=== PATIENT | male | born 1965 | race Caucasian/White ===

== ENCOUNTER → 2019-02-23 15:05 | Outpatient (BNVA) | payer MEDICARE, MEDICAID, SELFPAY | PROVIDERS: Family Provider Nurse Practitioner Family; PCP Nurse Practitioner Family; Visit Provider Nurse Practitioner Family | DX: I10 Essential (primary) hypertension (principal); E78.5 Hyperlipidemia, unspecified; J44.9 Chronic obstructive pulmonary disease, unspecified; I25.10 Atherosclerotic heart disease of native coronary artery without angina pectoris; K21.0 Gastro-esophageal reflux disease with esophagitis; F17.200 Nicotine dependence, unspecified, uncomplicated; M06.9 Rheumatoid arthritis, unspecified | CPT/HCPCS: 80053; 80061; 84443; 85025 ==

== ENCOUNTER → 2019-05-13 09:20 | Outpatient (BNVA) | payer MEDICARE, MEDICAID, SELFPAY | PROVIDERS: Family Provider Nurse Practitioner Family; PCP Nurse Practitioner Family; Visit Provider Internal Medicine Rheumatology | DX: M06.9 Rheumatoid arthritis, unspecified (principal) | CPT/HCPCS: 80076; 82565; 85025; 85651; 86140; 86704; 86803; 87340 ==

== ENCOUNTER → 2019-06-01 11:31 | Outpatient (BNVA) | payer MEDICARE, MEDICAID, SELFPAY | PROVIDERS: Family Provider Nurse Practitioner Family; PCP Nurse Practitioner Family; Visit Provider Internal Medicine Nephrology | DX: N18.3 Chronic kidney disease, stage 3 (moderate) (principal) | CPT/HCPCS: 80069; 82044; 82310; 83970; 85025 ==

== ENCOUNTER → 2019-09-06 08:09 | Outpatient (BNVA) | payer MEDICARE, MEDICAID, SELFPAY | PROVIDERS: Family Provider Nurse Practitioner Family; PCP Nurse Practitioner Family; Visit Provider Nurse Practitioner | DX: Z11.59 Encounter for screening for other viral diseases (principal); Z79.899 Other long term (current) drug therapy; I10 Essential (primary) hypertension; Z12.5 Encounter for screening for malignant neoplasm of prostate; E78.5 Hyperlipidemia, unspecified; M05.9 Rheumatoid arthritis with rheumatoid factor, unspecified | CPT/HCPCS: 80053; 80061; 80076; 82565; 84443; 85025; 85651; 86140; 86803; G0103 ==

== ENCOUNTER 2019-10-10 01:32 | Inpatient (IN) | payer MEDICARE, MEDICAID, SELFPAY ==
[2019-10-10] VITALS (69 sets, daily range): BP systolic 91–136; BP diastolic 58–92; PULSE 62–95; RESP 15–26; TEMP 36.6–37.2; O2SAT 87–97; BMI 34.8
--- NOTE | 2019-10-10 01:42 | ECG_ITS ---
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 Measurements Intervals [place] Rate: 78 P: 60 OK: 158 QRS: 33 QRSD: 110 T: 75 QT: 369 QTc: 421 Interpretive Statements SINUS RHYTHM ST depressions in V1 and V2 with presence of R waves consistent with posterior wall myocardial injury Acute PA compared to ECG 10/03/2018 09:52:45 Acute PA present Electronically Signed On 10-10-2019 18:31:43 CDT by Watson Neal M.D. [id number] f
--- NOTE | 2019-10-10 01:43 | XR_ITS ---
WS: [id number] EXAM: AP CHEST: PORTABLE UPRIGHT DATE OF EXAM: 10/10/2019, 1346 hours COMPARISON: Chest x-rays from 12/31/2014 and 10/03/2018 HISTORY: Patient is 53 years old with atraumatic left-sided chest pain with nausea and vomiting for the last d ay. FINDINGS: The cardiac silhouette is normal in size. The mediastinal contours are normal. The pulmonary vas cularity is normal. The lungs are clear of infiltrate. There is no effusion or pneumothorax. No ac [place] bony abnormality is seen. XR/XR chest 1V portable [id number] IMPRESSION: No acute pulmonary disease.
--- NOTE | 2019-10-10 01:51 | ED_ITS ---
Documented by User: BERNA Malcolm 10/10/19 01:52 HPI - Chest Pain General: Chief Complaint: Chest Pain Stated Complaint: CHEST PAIN Time Seen by Provider: 10/10/19 01:41 History of Present Illness: HPI narrative: Patient arrives via ambulance with complaint of chest pain that started just a little while ago while he was in the bathroom. Patient says he took 1 nitro without relief. Says sharp pain and pressure when he takes a deep breath on the left side of his chest. Said he is diaphoretic. Has had some vomiting over the last 12 hours. Denies shortness of breath fever or chills. MD complaint: chest pain and chest discomfort Pertinent past history: coronary artery disease and other (Stent) Onset (ago): hour(s) Timing of current episode: constant Prior episodes: Yes Onset: during rest Pain location: substernal and left chest Pain radiation: none Severity: moderate Quality: tightness and sharp Relieving factors: nothing Exacerbating factors: nothing Associated symptoms: Reports diaphoresis, nausea and vomiting; Deny dyspnea Review of Systems Narrative: Hygiene appears poor Const: Reports: diaphoresis Eyes: Denies: change in vision or blurry vision ENMT: Denies: throat pain or nasal congestion Card: Denies: chest pain or dyspnea on exertion Resp: Denies: dyspnea, productive cough or non-productive cough GI: Reports: nausea and vomiting : Denies: difficulty urinating Musc: Denies: extremity pain Skin/Breast: Denies: rash Neuro: Denies: headache(s) Psych: Denies: anxiety or depression Sagar/Lymph: Denies: easy bruising PFSH ED PFSH: Medical History Chronic kidney disease, stage 3 COPD (chronic obstructive pulmonary disease) Coronary artery disease Dyslipidemia GERD (gastroesophageal reflux disease) High risk medication use Hypertension Immunization counseling PCK (polycystic kidney disease) Rheumatoid arthritis Seropositive rheumatoid arthritis Smoker Family History Other CAD (coronary artery disease) Diabetes Hypertension Systemic lupus erythematosus (SLE) in adult Denies family history of Cancer Stroke Social History Smoking and tobacco status: current every day smoker cigarettes Quit status (tobacco): has tried quititng Second hand smoke exposure: No Smoking risk assessment/counseling performed?: Yes Alcohol intake: former Desire information about alcohol rehabilitation?: No Counseling given: No Household members: spouse Marital status: Course Vital Signs: Vital signs: Vital Signs Temperature 98.1 F 10/10/19 04:15 Pulse Rate 74 10/10/19 04:25 Respiratory Rate 19 H 10/10/19 04:25 Blood Pressure 115/88 10/10/19 04:25 Pulse Oximetry 90 10/10/19 04:25 MDM - Chest Pain Lab Data: Labs: Lab Results 10/10/19 10/10/19 10/10/19 Range/Units 01:48 01:48 01:48 WBC 11.8 H (4.0-10.0) 10^3/ uL RBC 5.94 H (4.1-5.3) 10^6/u L Hgb 16.3 (11.7-16.6) g/dL Hct 50.8 (42.0-52.0) % MCV 85.5 (80-94) fL MCH 27.4 L (28.0-34.0) pg MCHC 32.1 (30.0-36.0) g/dL RDW 13.9 (12.1-15.1) % Plt Count 257 (130-400) 10^3/c mm MPV 9.5 (7.4-10.4) fL Neut % (Auto) 63.3 % Lymph % (Auto) 25.5 % Bollinger % (Auto) 7.3 % Eos % (Auto) 3.0 % Baso % (Auto) 0.5 % Neut # (Auto) 7.43 (1.8-7.7) 10^3/u L Lymph # (Auto) 3.0 (0.8-4.8) 10^3/u L Bollinger # (Auto) 0.9 (0.2-0.9) 10^3/u L Eos # (Auto) 0.4 (0.0-0.8) 10^3/u L Baso # (Auto) 0.1 (0.0-0.1) 10^3/u L Nucleated RBC % (a uto) 0 % Nucleated RBCs # 0.0 /100WBC PT (12.1-14.9) SECO NDS INR (0.8-1.2) APTT (23.9-36.7) SECO NDS Sodium 139 (136-145) mmol/L Potassium 4.4 (3.5-5.1) mmol/L Chloride 104 (98-107) mmol/L Carbon Dioxide 25 (22-29) mmol/L Anion Gap 14.4 (5-19) BUN 37 H (6-20) mg/dL Creatinine 2.5 H (0.7-1.2) mg/dL GFR Calculation 27.3 L (90-130) mL/min Glucose 126 H (65-115) mg/dL Calculated Osmolal ity 287 (285-295) mOsm/k g Calcium 8.9 (8.5-10.5) mg/dL Total Bilirubin 0.2 (0.15-1.2) mg/dL AST 23 (0-40) U/L ALT 22 (0-41) U/L Alkaline Phosphata se 61 (40-130) IU/L Troponin T Baselin e 15 (0-15) ng/L Total Protein 7.3 (6.6-8.7) g/dL Albumin 4.6 (3.5-5.2) g/dL Globulin 2.7 (1.3-4.6) g/dL 10/10/19 Range/Units 01:51 WBC (4.0-10.0) 10^3/ uL RBC (4.1-5.3) 10^6/u L Hgb (11.7-16.6) g/dL Hct (42.0-52.0) % MCV (80-94) fL MCH (28.0-34.0) pg MCHC (30.0-36.0) g/dL RDW (12.1-15.1) % Plt Count (130-400) 10^3/c mm MPV (7.4-10.4) fL Neut % (Auto) % Lymph % (Auto) % Bollinger % (Auto) % Eos % (Auto) % Baso % (Auto) % Neut # (Auto) (1.8-7.7) 10^3/u L Lymph # (Auto) (0.8-4.8) 10^3/u L Bollinger # (Auto) (0.2-0.9) 10^3/u L Eos # (Auto) (0.0-0.8) 10^3/u L Baso # (Auto) (0.0-0.1) 10^3/u L Nucleated RBC % (a uto) % Nucleated RBCs # /100WBC PT 13.00 (12.1-14.9) SECO NDS INR 0.95 (0.8-1.2) APTT 27.2 (23.9-36.7) SECO NDS Sodium (136-145) mmol/L Potassium (3.5-5.1) mmol/L Chloride (98-107) mmol/L Carbon Dioxide (22-29) mmol/L Anion Gap (5-19) BUN (6-20) mg/dL Creatinine (0.7-1.2) mg/dL GFR Calculation (90-130) mL/min Glucose (65-115) mg/dL Calculated Osmolal ity (285-295) mOsm/k g Calcium (8.5-10.5) mg/dL Total Bilirubin (0.15-1.2) mg/dL AST (0-40) U/L ALT (0-41) U/L Alkaline Phosphata se (40-130) IU/L Troponin T Baselin e (0-15) ng/L Total Protein (6.6-8.7) g/dL Albumin (3.5-5.2) g/dL Globulin (1.3-4.6) g/dL Discharge Plan Discharge Patient Disposition: Admitted As Inpatient Admit Provider: Danica Bowie Clinical Impression: ST elevation myocardial infarction (STEMI) Qualifiers: Involved coronary artery: other inferior wall coronary artery Qualified Code(s): I21.19 - ST elevation (STEMI) myocardial infarction involving other coronary artery of inferior wall Condition: Stable Discharge Date/Time: 10/10/19 04:26 Coding Level of Care Code 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 Comprehensive Documented by User: Raji High DO 10/10/19 04:58 HPI - Chest Pain General: Chief Complaint: Chest Pain Stated Complaint: CHEST PAIN Time Seen by Provider: 10/10/19 01:41 PFSH ED PFSH: Medical History Chronic kidney disease, stage 3 COPD (chronic obstructive pulmonary disease) Coronary artery disease Dyslipidemia GERD (gastroesophageal reflux disease) High risk medication use Hypertension Immunization counseling PCK (polycystic kidney disease) Rheumatoid arthritis Seropositive rheumatoid arthritis Smoker Family History Other CAD (coronary artery disease) Diabetes Hypertension Systemic lupus erythematosus (SLE) in adult Denies family history of Cancer Stroke Social History Smoking and tobacco status: current every day smoker cigarettes Quit status (tobacco): has tried quititng Second hand smoke exposure: No Smoking risk assessment/counseling performed?: Yes Alcohol intake: former Desire information about alcohol rehabilitation?: No Counseling given: No Household members: spouse Marital status: Physical Exam Const: GENERAL APPEARANCE: well developed, in distress and diaphoretic ORIENTATION/CONSCIOUSNESS: Yes oriented to person, Yes oriented to place and Yes oriented to time HENMT: COMMON NORMALS: normocephalic, external ears normal and Normal external nose present HEAD & SCALP: normocephalic FACE & SINUS: normal facial exam NOSE: Normal external nose present and No nasal discharge present EXTERNAL EAR: Yes external ears normal Eye: COMMON NORMALS: Equal, round and reactive pupils present, EOMs intact miriam aterally and conjunctivae normal EYELID: eyelids normal CONJUNCTIVA: Yes conjunctivae normal PUPIL: Yes Equal, round and reactive pupils present Chest: COMMONS NORMALS: normal inspection of the chest CHEST: No tenderness Resp: COMMON NORMALS: clear to auscultation bilaterally EFFORT & INSPECTION: No tachypneic, No respiratory distress, No retractions, No uses accessory muscles and No tracheal deviation AUSCULTATION: clear to auscultation bilaterally, no rhonchi, no wheezes and lung sounds not diminished Cardio: COMMON NORMALS: regular rate and regular rhythm RATE: regular rate RHYTHM: regular rhythm HEART SOUNDS: no murmurs PERIPHERAL PULSES: radial pulses present GI: INSPECTION: No abdominal distension AUSCULTATION: No Hyperactive bowel sounds present and No Hypoactive bowel sounds present PALPATION: No Guarding due to palpation present (GI) and No Rigid due to palpation PERCUSSION: no dullness to percussion and no tympanic to percussion Neuro: SENSORIUM/ORIENTATION: Yes oriented to person, Yes oriented to place and Yes oriented to time Psych: COMMON NORMALS: mental status grossly normal Skin: COMMON NORMALS: no rashes or lesions noted GENERAL SKIN EXAM: no rashes or lesions noted Course Consultations: Consultation #1: Val Time: 01:45 Vital Signs: Vital signs: Vital Signs Temperature 98.1 F 10/10/19 04:15 Pulse Rate 74 10/10/19 04:25 Respiratory Rate 19 H 10/10/19 04:25 Blood Pressure 115/88 10/10/19 04:25 Pulse Oximetry 90 10/10/19 04:25 MDM - Chest Pain MDM Narrative: Medical decision making narrative: 53-year-old male with a history of coronary disease. He was seen originally by BERNA Manning on arrival. EKG was obtained. It was shown to me. It showed minimal ST elevation in 2 3 aVF, with reciprocal significant ST depression in V1 through 3. Cardiology was consulted via phone, and EKGs were shared. Cardiac General [facility] was activated due to evidence of posterior/inferior OH on EKG. Appropriate medications were ordered, and the patient was taken to [facility]. Lab Data: Labs: Lab Results 10/10/19 10/10/19 10/10/19 Range/Units 01:48 01:48 01:48 WBC 11.8 H (4.0-10.0) 10^3/ uL RBC 5.94 H (4.1-5.3) 10^6/u L Hgb 16.3 (11.7-16.6) g/dL Hct 50.8 (42.0-52.0) % MCV 85.5 (80-94) fL MCH 27.4 L (28.0-34.0) pg MCHC 32.1 (30.0-36.0) g/dL RDW 13.9 (12.1-15.1) % Plt Count 257 (130-400) 10^3/c mm MPV 9.5 (7.4-10.4) fL Neut % (Auto) 63.3 % Lymph % (Auto) 25.5 % Bollinger % (Auto) 7.3 % Eos % (Auto) 3.0 % Baso % (Auto) 0.5 % Neut # (Auto) 7.43 (1.8-7.7) 10^3/u L Lymph # (Auto) 3.0 (0.8-4.8) 10^3/u L Bollinger # (Auto) 0.9 (0.2-0.9) 10^3/u L Eos # (Auto) 0.4 (0.0-0.8) 10^3/u L Baso # (Auto) 0.1 (0.0-0.1) 10^3/u L Nucleated RBC % (a uto) 0 % Nucleated RBCs # 0.0 /100WBC PT (12.1-14.9) SECO NDS INR (0.8-1.2) APTT (23.9-36.7) SECO NDS Sodium 139 (136-145) mmol/L Potassium 4.4 (3.5-5.1) mmol/L Chloride 104 (98-107) mmol/L Carbon Dioxide 25 (22-29) mmol/L Anion Gap 14.4 (5-19) BUN 37 H (6-20) mg/dL Creatinine 2.5 H (0.7-1.2) mg/dL GFR Calculation 27.3 L (90-130) mL/min Glucose 126 H (65-115) mg/dL Calculated Osmolal ity 287 (285-295) mOsm/k g Calcium 8.9 (8.5-10.5) mg/dL Total Bilirubin 0.2 (0.15-1.2) mg/dL AST 23 (0-40) U/L ALT 22 (0-41) U/L Alkaline Phosphata se 61 (40-130) IU/L Troponin T Baselin e 15 (0-15) ng/L Total Protein 7.3 (6.6-8.7) g/dL Albumin 4.6 (3.5-5.2) g/dL Globulin 2.7 (1.3-4.6) g/dL 10/10/19 Range/Units 01:51 WBC (4.0-10.0) 10^3/ uL RBC (4.1-5.3) 10^6/u L Hgb (11.7-16.6) g/dL Hct (42.0-52.0) % MCV (80-94) fL MCH (28.0-34.0) pg MCHC (30.0-36.0) g/dL RDW (12.1-15.1) % Plt Count (130-400) 10^3/c mm MPV (7.4-10.4) fL Neut % (Auto) % Lymph % (Auto) % Bollinger % (Auto) % Eos % (Auto) % Baso % (Auto) % Neut # (Auto) (1.8-7.7) 10^3/u L Lymph # (Auto) (0.8-4.8) 10^3/u L Bollinger # (Auto) (0.2-0.9) 10^3/u L Eos # (Auto) (0.0-0.8) 10^3/u L Baso # (Auto) (0.0-0.1) 10^3/u L Nucleated RBC % (a uto) % Nucleated RBCs # /100WBC PT 13.00 (12.1-14.9) SECO NDS INR 0.95 (0.8-1.2) APTT 27.2 (23.9-36.7) SECO NDS Sodium (136-145) mmol/L Potassium (3.5-5.1) mmol/L Chloride (98-107) mmol/L Carbon Dioxide (22-29) mmol/L Anion Gap (5-19) BUN (6-20) mg/dL Creatinine (0.7-1.2) mg/dL GFR Calculation (90-130) mL/min Glucose (65-115) mg/dL Calculated Osmolal ity (285-295) mOsm/k g Calcium (8.5-10.5) mg/dL Total Bilirubin (0.15-1.2) mg/dL AST (0-40) U/L ALT (0-41) U/L Alkaline Phosphata se (40-130) IU/L Troponin T Baselin e (0-15) ng/L Total Protein (6.6-8.7) g/dL Albumin (3.5-5.2) g/dL Globulin (1.3-4.6) g/dL Critical Care Time Critical Care Time: Critical Care Time: Yes Total Critical Care Time: 30 Attestation: This case had a high probability of a clinically significant, sudden, or life threatening deterioration of this patient's condition which required my full and direct attention, intervention and personal management. 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
[2019-10-10 02:01] LABS: Basophils # 0.1 10^3/uL (0.0-0.1); Basophils % 0.5 %; Eosinophils # 0.4 10^3/uL (0.0-0.8); Hematocrit 50.8 % (42.0-52.0); Hemoglobin 16.3 g/dL (11.7-16.6); Lymphocytes % 25.5 %; Mean Corpuscular HGB Conc 32.1 g/dL (30.0-36.0); Mean Corpuscular Hemoglobin 27.4 pg (28.0-34.0); Mean Corpuscular Volume 85.5 fL (80-94); Mean Platelet Volume 9.5 fL (7.4-10.4); Monocytes # 0.9 10^3/uL (0.2-0.9); Monocytes % 7.3 %; Neutrophils # 7.43 10^3/uL (1.8-7.7); Neutrophils % 63.3 %; Nucleated Red Blood Cells % 0 %; Platelet Count 257 10^3/cmm (130-400); Red Blood Count 5.94 10^6/uL (4.1-5.3); Red Cell Distribution Width 13.9 % (12.1-15.1); White Blood Count 11.8 10^3/uL (4.0-10.0)
[2019-10-10] MEDS: clopidogrel 300 mg Tablet 600 MG PO (02:08)
[2019-10-10] MEDS: aspirin 325 mg Tablet PO (02:08)
[2019-10-10] MEDS: heparin 5,000 unit/mL INJ 1 mL 4000 UNIT IVP (02:09)
[2019-10-10 02:13] LABS: INR 0.95 (0.8-1.2)
[2019-10-10 02:14] LABS: Partial Thromboplastin Time 27.2 SECONDS (23.9-36.7)
--- NOTE | 2019-10-10 02:16 | PC.NURSE ---
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
[2019-10-10 02:21] LABS: Alanine Aminotransferase 22 U/L (0-41); Albumin Level 4.6 g/dL (3.5-5.2); Alkaline Phosphatase 61 IU/L (40-130); Aspartate Amino Transferase 23 U/L (0-40); Blood Urea Nitrogen 37 mg/dL (6-20); Calcium 8.9 mg/dL (8.5-10.5); Carbon Dioxide 25 mmol/L (22-29); Chloride 104 mmol/L (98-107); Globulin 2.7 g/dL (1.3-4.6); Glomerular Filtration Rate 27.3 mL/min (90-130); Glucose 126 mg/dL (65-115); Osmolality Calculated 287 mOsm/kg (285-295); Sodium 139 mmol/L (136-145); Total Bilirubin 0.2 mg/dL (0.15-1.2); Total Protein 7.3 g/dL (6.6-8.7)
[2019-10-10 02:23] LABS: Troponin(5th) Baseline 15 ng/L (0-15)
[2019-10-10 02:24] LABS: Anion Gap 14.4 (5-19); Potassium 4.4 mmol/L (3.5-5.1)
--- NOTE | 2019-10-10 02:28 | XACV_ITS ---
Ht: 180 cm Wt: 113 kg BSA: 2.42 m2 Gender: Male : 1965 Exam Priority: Routine Procedure(s): Procedure Description: Diagnostic procedure Procedure Description: Coronary angiography Procedure Description: Primary Percutaneous coronary intervention Diagnostic Cath Status: Emergency Diagnostic Findings Proximal Circumflex Coronary Artery: Severe 100% stenosis, thrombosed segment, TEREZA: 0 flow, high/c lesion. Patent stent is noted in the mid to distal circumflex. It gives off a large second OM. LAD arises from left main artery. Gives off 2 diagonal branches. Mid LAD has moderate ectasia with about 20 to 30% stenosis. RCA has an anterior takeoff. It has diffuse luminal irregularities. No significant stenosis was noted. LM has 0% stenosis. Coronary angiography shows right dominance. PCI Status: Emergency PCI Indication: STEMI - Immediate PCI for STEMI Interventional Findings A 6 Tamazight sheath was advanced into common femoral artery. IV heparin was administered to maintain an ACT of more than 250 throughout the procedure. We engaged the RCA with a JR4 diagnostic catheter. Left main artery was engaged using a CLS 3.5 guide catheter. Initially wiring was attempted with a BMW guidewire that was not successful. We then switched to run-through guidewire and were able to cross the thrombosed segment. The lesion was predilated with a 2.5x15 mm semi-compliant balloon. A 3.5 into 18 mm drug-eluting stent was deployed in proximal to mid circumflex. Second stent measuring 3.5x8 mm was deployed and overlapped proximally with previous stent. A 3.5x12mm NC balloon was used to post dilate the stents. At this time final angiogram was performed that showed TEREZA-3 flow without any significant stenosis. Guidewire and guide catheters were removed. Femoral sheath was sutured in place for removal later. Patient left the [facility] in a stable condition. Proximal Circumflex Coronary Artery: 100% stenosis treated with AB TREK 2.25X15 RX BALLOON, AB TREK 2.50X15 RX BALLOON, TONY Gasca [place] 3.5X18 RENA, TONY Gasca [place] 3.5X8 RENA, and TOYN [place] RX 3.20H36EE BALLOON. 0% residual stenosis, TEREZA: [address] elevation myocardial infarction. Acute thrombosis of proximal to mid circumflex artery. There is severe coronary artery disease with one vessel disease. Proximal Circumflex Coronary Artery was treated with three Balloon and two Drug Eluting Stent. Recommendations Admit to ICU. Aspirin and Plavix for at least 1 year. High-intensity statin therapy. Initiate beta-sia. Will hold lisinopril for now as patient has CKD with creatinine above baseline. Continue Aggrastat for 6 hours. IV fluids at 100 cc/h. Referral to cardiac rehab. Continue medical management and risk factor modification. Interventional RX Recommendation: PCI w/o planned CABG Diagnostic RX Recommendation: PCI w/o planned CABG Anticoagulation: Heparin,Tirofiban Clinical Evaluation EBL: 5mL-10mL Procedural Details Pre-Procedure Time Out. Identified patient by full name and date of as verbalized by the patient/guarantor. Does the consent match the physician's order: N/A Emergent; Informed Consent not obtained due to time critical life threat. Accurate & Complete Informed Consent: N/A Emergent; Informed Consent not obtained due to time critical life threat. Inpatient/Outpatient History & Physical on Chart: N/A Emergent; Informed Consent not obtained due to time critical life threat. If H&P is completed, is and addenduem needed: N/A Emergent; Informed Consent not obtained due to time critical life threat; If yes, is the addendum complete: N/A Emergent; Informed Consent not obtained due to time critical life threat. Visualize and Verify Site with Patient/Guarantor: N/A. Relevant Radiology Images available: N/A Emergent; Informed Consent not obtained due to time critical life threat. Pre-op teaching completed and patient verbalized understanding. The risks, benefits, and alternatives of sedation and/or procedure were discussed by physician. The patient agrees to continue. Procedure started. Correct patient, site and procedure confirmed by cath team. Current diagnosis: STEMI. PERRLA. Strong, equal hand resident care provider bilaterally. Lungs clear x 5 lobes. IV Site on Arrival: 20 gauge in the right anticubital. IV Site on Arrival: 20 gauge in the left anticubital. Oxygen started at 2liters/min via nasal canula. right groin was prepped with chloroprep then draped in the usual sterile fashion. Baseline sample Acquired. HR: 0 BPM. Physician notified. IV Fluids: 0.9% NaCl at KVO. 0 mL infused prior to optical lab technician. Baseline sample Acquired. HR: 79 BPM. Equipment: 6F - Femoral. Cardiac Cath Pack. ACIST Manifold Kit Model BT 2000. Physician arrived. Physician scrubbed in. Immediate Pre-Procedure Time Out. Correct Patient: Yes; Correct Procedure: Yes; Correct Site: Yes; Correct Patient Position: Yes; Correct Supplies: Yes; Dried Flammable Prep: Yes; Blood Products Available: N/A Emergent; Informed Consent not obtained due to time critical life threat;. Heparinized Saline (2 units/mL), 1000 mL bag. Kit, Micropuncture. Lidocaine 1% infiltrated to the right groin. Arterial access obtained with micropuncture set. A 6 luxembourger JR4 catheter in over wire. Multiple views taken of right coronary artery. Catheter out. 6 luxembourger XB 3.5 guide catheter was inserted over the wire. Guide catheter out. 6 luxembourger XB 3 guide catheter was inserted over the wire. ACT drawn. Results 238 seconds. Therapeutic limits - pre-heparin administration 90-150 seconds and monitoring heparin during a vascular procedure >250 seconds. Guide catheter out. delay diffcult vascular anatomy. 6 luxembourger XB 3.5 guide catheter was inserted over the wire. Multiple views taken of left coronary artery. Runthrough guidewire was advanced through the guide catheter to lesion in the prox LAD. runthrough out and reshaped and reinserted. BMW guidewire was advanced through the guide catheter to lesion in the prox Circ. Wire out. Wire out. 6 luxembourger XB 3.5 guide catheter was inserted over the wire. Balloon inserted to lesion in the prox Circ. Inflation number : 1 A AB TREK 2.25X15 RX BALLOON was prepped and advanced across the Prox CX , then inflated to 6 SAW for 0:15 seconds. Balloon out. Runthrough guidewire was advanced through the guide catheter to lesion in the prox Circ. both wires out. Runthrough guidewire was advanced through the guide catheter to lesion in the prox Circ. Balloon inserted to lesion in the prox Circ. Inflation number : 2 A AB TREK 2.50X15 RX BALLOON was prepped and advanced across the Prox CX , then inflated to 8 SAW for 0:30 seconds. Inflation number: 3 The AB TREK 2.50X15 RX BALLOON was reinflated across the Prox CX, to 10 SAW for 0:20 seconds. Inflation number: 4 The AB TREK 2.50X15 RX BALLOON was reinflated across the Prox CX, to 10 SAW for 0:17 seconds. Results checked. Balloon out. Stent inserted to lesion in the prox Circ. Inflation Number : 5 A MDT R [place] 3.5X18 RENA -Lot Number#[id number] was prepped and advanced across the Prox CX. The stent was deployed at 10 SAW for 0:29 seconds. Stent balloon out over wire. Stent inserted to lesion in the prox Circ. Inflation Number : 6 A MDT R [place] 3.5X8 RENA -Lot Number# [id number] was prepped and advanced across the Prox CX. The stent was deployed at 10 SAW for 0:24 seconds. Stent balloon out over wire. Balloon inserted to lesion in the prox Circ. Inflation number : 7 A MDT [place] RX [id number] BALLOON was prepped and advanced across the Prox CX , then inflated to 12 SAW for 0:17 seconds. Inflation number: 8 The MDT [place] RX 3.17Q20IM BALLOON was reinflated across the Prox CX, to 12 SAW for 0:19 seconds. Balloon out. Results checked. Wire out. Sheath(s) sutured into position with 2-0 silk and sterile 4x4's and Op-site applied over the site. No oozing or signs and symptoms of hematoma noted. PERRLA. Strong, equal hand resident care provider bilaterally. No VTE prophylaxis required. Medication's Wasted: Lidocaine 1% = 1 mg. Medication's Wasted: Other = versed 1 mg. Medication's Wasted: Other = fentanyl 50 mcg mg. Total IV fluids: 111 mL. Post-op diagnosis: st evelevation mi. Complications: none. Estimated blood loss: 5mL-10mL. Procedure completed. Patient transferred by bed to ICU. Vital chart was stopped. Site: Right Femoral artery Sheath Size: 6 Fr Hemostasis Success: Unsuccessful Procedure Medications Start: 2:44 AM Stop: 2:44 AM Medication: Versed 1 mg and Fentanyl 25 mcg Amount: 1 Route: I.V. Start: 2:55 AM Stop: 2:55 AM Medication: Heparin Amount: 6000 units Route: I.V. Start: 2:55 AM Stop: 2:55 AM Medication: Versed 1 mg and Fentanyl 25 mcg Amount: 1 Route: I.V. Start: 3:05 AM Stop: 3:05 AM Medication: Heparin Amount: 2000 units Route: I.V. Start: 3:09 AM Stop: 3:09 AM Medication: Versed 1 mg and Fentanyl 25 mcg Amount: 1 Route: I.V. Start: 3:25 AM Stop: 3:25 AM Medication: Aggrastat 12.5 mg/250 mL Amount: 57.5 ml Route: I.V. bolus Start: 3:28 AM Stop: 3:28 AM Medication: Aggrastat 12.5 mg/250 mL Amount: 20.7 ml/hr Route: I.V. drip Start: 3:32 AM Stop: 3:32 AM Medication: Versed 1 mg and Fentanyl 25 mcg Amount: 1 Route: I.V. Start: 3:32 AM Stop: 3:32 AM Medication: Heparin Amount: 1000 units Route: I.V. Start: 3:42 AM Stop: 3:42 AM Medication: Versed Amount: 1 mg Route: I.V. Start: 3:42 AM Stop: 3:42 AM Medication: Fentanyl Amount: 50 mcg Route: I.V. I, the attending physician, have reviewed and verified all procedure medications. Yes, all medications given per verbal order Report Signatures Finalized by:Watson Neal MD on 10/11/2019 10:11:10 AM
--- NOTE | 2019-10-10 02:36 | P.HP_ITS ---
Providers/Chief Complaint Admitting Physician: Watson Neal MD Primary Care Provider: TONA Reveles Chief Complaint: CHEST PAIN History of Present Illness Tyson Nixon is a 53 year old male with past medical history of hypertension, coronary artery disease status post PCI of left circumflex in 2014, the COPD, active smoker, rheumatoid arthritis, and creatinine 2.1 presented to the ER with 1-2 hours of chest pain. According to the patient he was about to sleep when he started having severe substernal chest pain. He was also diaphoretic and had few episodes of vomiting. He took a nitro which did not help his pain. He is an active smoker. Denies any recent symptoms of chest pain. EKG was performed which is consistent with posterior wall myocardial infarction. Vitals were stable. Patient was emergently taken to the [facility] after explaining him the risks and benefits associated with the procedure. He had a proximal to mid left circumflex 99% stenosis which was culprit for STEMI. He underwent successful revascularization with drug-eluting stents x2. EKG changes resolved and patient's chest pain resolved with revascularization. Review of Systems Narrative: Hygiene appears poor Const: Reports: diaphoresis Eyes: Denies: change in vision or blurry vision ENMT: Denies: throat pain or nasal congestion Card: Denies: chest pain or dyspnea on exertion Resp: Denies: dyspnea, productive cough or non-productive cough GI: Reports: nausea and vomiting : Denies: difficulty urinating Musc: Denies: extremity pain Skin/Breast: Denies: rash Neuro: Denies: headache(s) Psych: Denies: anxiety or depression Sagar/Lymph: Denies: easy bruising Medications/Allergies Home Medications Medication Instructions Recorded Confirmed Last Taken Type albuterol sulfate 2.5 mg INHALATION Q4H PRN 30 Days 02/23/19 09/03/19 Unknown Rx #180 ml compressor, for nebulizer #1 each 02/23/19 09/03/19 Unknown Rx albuterol sulfate 90 mcg/actuation 2 puff INHALATION QID PRN 3 Days 09/03/19 09/03/19 Unknown Rx aerosol inhaler #6.7 gm amlodipine 10 mg tablet 10 mg PO DAILY 30 Days #30 tab 09/03/19 09/03/19 Unknown Rx atenolol 100 mg tablet 100 mg PO DAILY 30 Days #30 tab 09/03/19 09/03/19 Unknown Rx clopidogrel 75 mg tablet 75 mg PO DAILY 30 Days #30 tab 09/03/19 09/03/19 Unknown Rx fluticasone 500 mcg-salmeterol 50 1 inh INHALATION BID 30 Days #60 09/03/19 09/03/19 Unknown Rx mcg/dose blistr powdr for each inhalation lisinopril 40 mg tablet 40 mg PO ONCE 30 Days #30 tab 09/03/19 09/03/19 Unknown Rx pantoprazole 40 mg tablet,delayed 40 mg PO DAILY 30 Days #30 tab 09/03/19 09/03/19 Unknown Rx release simvastatin 20 mg tablet 20 mg PO DAILY 30 Days #30 tab 09/03/19 09/03/19 Unknown Rx prednisone 2.5 mg tablet 5 mg PO DAILY #60 tab 09/20/19 Unknown Rx etanercept 50 mg/mL (1 mL) 50 mg SUBCUT .Q7days #4 ml 09/30/19 Unknown Rx subcutaneous cartridge Allergies Allergy/AdvReac Type Severity Reaction Status Date / Time No Known Allergies Allergy Verified 10/10/19 10:15 PFSH Acute PFSH: Medical History Chronic kidney disease, stage 3 COPD (chronic obstructive pulmonary disease) Coronary artery disease Dyslipidemia GERD (gastroesophageal reflux disease) High risk medication use Hypertension Immunization counseling PCK (polycystic kidney disease) Rheumatoid arthritis Seropositive rheumatoid arthritis Smoker Family History Other CAD (coronary artery disease) Diabetes Hypertension Systemic lupus erythematosus (SLE) in adult Denies family history of Cancer Stroke Social History Smoking and tobacco status: current every day smoker cigarettes Quit status (tobacco): has tried quititng Second hand smoke exposure: No Smoking risk assessment/counseling performed?: Yes Alcohol intake: former Desire information about alcohol rehabilitation?: No Counseling given: No Household members: spouse Marital status: Vitals/I&O/Wt Last Vital Signs Temp 97.8 F 10/10/19 01:36 Pulse 82 10/10/19 02:15 Resp 18 10/10/19 02:15 BP 116/80 10/10/19 02:15 Pulse Ox 96 10/10/19 02:15 Weight last 48 hrs Weight 250 lb Physical Exam Narrative: EXAM NARRATIVE: GENERAL: Patient is alert, awake and oriented x3. [] NECK: No jugular vein distension. [] HEENT: No cyanosis. No icterus. No pallor. [] HEART: Regular S1 and S2. No murmur, rub or gallop. [] LUNGS: Clear to auscultate bilaterally. [] ABDOMEN: Soft, nontender and nondistended. Positive bowel sounds. No guarding, rebound or tenderness. [] CENTRAL NERVOUS SYSTEM: Grossly nonfocal. [] EXTREMITIES: Lower extremities with no significant edema laterally. Pulses palpable in the lower extremities, both dorsalis pedis and posterior tibial. [] Data : 10/10/19 05:02 10/10/19 06:43 A&P Assessment and plan (1) ST elevation myocardial infarction (STEMI): Status: Acute Qualifiers: Involved coronary artery: other inferior wall coronary artery Qualified Code(s): I21.19 - ST elevation (STEMI) myocardial infarction involving other coronary artery of inferior wall (2) PCK (polycystic kidney disease): Status: Acute (3) Smoker: Status: Chronic (4) Hypertension: Status: Chronic Qualifiers: Hypertension type: essential hypertension Qualified Code(s): I10 - Essential (primary) hypertension (5) Coronary artery disease: Status: Acute Qualifiers: Coronary Disease-Associated Artery/Lesion type: unspecified vessel or lesion type [place] vs. transplanted heart: [place] heart Associated angina: without angina Qualified Code(s): I25.10 - Atherosclerotic heart disease of [place] coronary artery without angina pectoris (6) Dyslipidemia: Status: Chronic (7) COPD (chronic obstructive pulmonary disease): Status: Chronic Qualifiers: COPD type: unspecified COPD Qualified Code(s): J44.9 - Chronic obstructive pulmonary disease, unspecified Patient had a posterior STEMI. He is status post successful revascularization with drug-eluting stents x2 in prox to mid left circumflex artery. Continue aspirin and Plavix for at least 1 year. Continue Aggrastat for 6 hours. High intensity statin. Beta-sia ordered. Hold lisinopril for now as his creatinine is higher than his baseline. Echocardiogram to assess cardiac function We will closely follow renal function due to risk for contrast-induced nephropathy as his creatinine on presentation was higher than his baseline creatinine. Continue IV fluids at 100 mL/ hour. Smoking cessation advised. Patient understands it and says that he will quit smoking. Attestations Medical Necessity Statement*: ST elevation myocardial infarction Coding Level of Care Code Acute Linen Room Attendant for Siri Fwd Diagnoses ST elevation myocardial infarction (STEMI) I21.19 Involved coronary artery: other inferior wall coronary artery PCK (polycystic kidney disease) Q61.3 Smoker F17.200 Hypertension I10 Hypertension type: essential hypertension Coronary artery disease I25.10 Coronary Disease-Associated Artery/Lesion type: unspecified vessel or lesion type [place] vs. transplanted heart: [place] heart Associated angina: without angina Dyslipidemia E78.5 COPD (chronic obstructive pulmonary disease) J44.9 COPD type: unspecified COPD
[2019-10-10] MEDS: morphine 4 mg/mL SDV 1 mL IVP (02:37)
[2019-10-10] MEDS: ondansetron 2 mg/ML SDV 2 mL 4 MG IVP (02:39)
--- NOTE | 2019-10-10 03:42 | ECG_ITS ---
[facility] Test Date: 2019-10-10 Pat Name: Tyson Nixon Department: Room: Gender: Male Post Closing Specialist: : 1965 Requested By: Jose Alberto Saunders Order Number: [id number] Dillon MD: Watson Neal M.D. Measurements Intervals Ages [place] Rate: 80 P: 43 OR: 153 QRS: 34 QRSD: 94 T: 70 QT: 389 QTc: 451 Interpretive Statements SINUS RHYTHM ST depressions in V1 and V2 with presence of R waves consistent with posterior wall myocardial injury Compared to ECG 10/03/2018 09:52:45 Acute [place] present now Electronically Signed On 10-11-2019 12:10:21 CDT by Watson Neal M.D. [id number]
--- NOTE | 2019-10-10 04:54 | PC.NURSE ---
Admit Note Patient arrived from lab technologist at 0415. Sheath to right femoral artery in place. No hematoma or bruising noted. Patient complaining of slight back pain r/t hard metal table in lab technologist. Provided warm blanket and HOB at 30 degrees. States pain is better now. Pulses good throughout. Vitals WNL. SR on EKG. Aggrastat IV running for 6 Hours post PCI.
[2019-10-10 05:15] LABS: Basophils # 0.1 10^3/uL (0.0-0.1); Basophils % 0.4 %; Eosinophils # 0.2 10^3/uL (0.0-0.8); Eosinophils % 1.6 %; Hemoglobin 15.8 g/dL (11.7-16.6); Lymphocytes # 2.1 10^3/uL (0.8-4.8); Lymphocytes % 14.9 %; Mean Corpuscular Hemoglobin 27.2 pg (28.0-34.0); Mean Corpuscular Volume 87.8 fL (80-94); Mean Platelet Volume 10.2 fL (7.4-10.4); Monocytes # 0.7 10^3/uL (0.2-0.9); Monocytes % 4.7 %; Neutrophils # 10.89 10^3/uL (1.8-7.7); Nucleated Red Blood Cells % 0 %; Platelet Count 252 10^3/cmm (130-400); Red Blood Count 5.81 10^6/uL (4.1-5.3); Red Cell Distribution Width 14.1 % (12.1-15.1)
--- NOTE | 2019-10-10 05:58 | PC.NURSE ---
Hematoma Patient continues to move leg up and down. Small hematoma formation around site. Educated patient about importance of keeping leg still and not moving. Patient needs reinforcement, often. States, I will try to keep still.
[2019-10-10 07:06] LABS: Partial Thromboplastin Time 49.8 SECONDS (23.9-36.7)
[2019-10-10 07:14] LABS: Blood Urea Nitrogen 38 mg/dL (6-20); Calcium 8.2 mg/dL (8.5-10.5); Carbon Dioxide 23 mmol/L (22-29); Chloride 104 mmol/L (98-107); Glomerular Filtration Rate 27.3 mL/min (90-130); Glucose 125 mg/dL (65-115); Osmolality Calculated 281 mOsm/kg (285-295); Sodium 136 mmol/L (136-145)
[2019-10-10 07:23] LABS: Anion Gap 14.1 (5-19); Potassium 5.1 mmol/L (3.5-5.1)
--- NOTE | 2019-10-10 07:42 | ECG_ITS ---
[facility] Test Date: 2019-10-10 Pat Name: Tyson Nixon Department: Room: ICU07 Gender: Male Clerical Secretary: : 1965 Requested By: Jose Alberto Saunders Order Number: [id number] Dillon MD: Watson Neal M.D. Measurements Intervals [place] Rate: 74 P: 70 TN: 139 QRS: -10 QRSD: 93 T: 92 QT: 362 QTc: 403 Interpretive Statements SINUS RHYTHM LOW QRS VOLTAGE IN EXTREMITY LEADS [QRS DEFLECTION < 0.5 mV IN LIMB LEADS] Compared to ECG 10/10/2019 02:34:22 Low QRS voltage now present ST (T wave) deviation no longer present Electronically Signed On 10-11-2019 12:08:34 CDT by Watson Neal M.D. [id number]
[2019-10-10 08:06] LABS: Troponin T (5th) Once > 10000 ng/L (0-15)
[2019-10-10] MEDS: albuterol 8 gm MDI 2 PUFF INHALATION ×2 (08:29→19:50)
--- NOTE | 2019-10-10 08:55 | USCV_ITS ---
Tyson Nixon Age: 53 Gender: M : 1965 Exam Date: 10/10/2019 09:46 Ordering Phys: Watson Neal M.D ([email or web address]) Technologist: Shanae Tsang Exam Location: [facility] [place] Indication: S/P STEMI BP: 115 / 76 HR: 72 Rhythm: Sinus Technical Quality: Fair MEASUREMENTS (Male / Female) Normal Values 2D ECHO LV Diastolic Diameter PLAX 4.8 cm 4.2 - 5.9 / 3.9 - 5.3 cm LV Systolic Diameter PLAX 3.5 cm LV Chamber Size 3.7 cm IVS Diastolic Thickness 1.6 cm 0.6 - 1.0 / 0.6 - 0.9 cm IVS Systolic Thickness 2.0 cm LVPW Diastolic Thickness 1.3 cm 0.6 - 1.0 / 0.6 - 0.9 cm LVPW Systolic Thickness 1.8 cm RV Chamber Size 2.1 cm LVOT Diameter 2.1 cm LV Ejection Fraction 2D Teich 53.8 % LV Ejection Fraction MOD 2C 46.6 % LV Ejection Fraction 2C AL 46.2 % LA Diameter 4.3 cm LA Width 3.2 cm LA Height 4.9 cm RA Width 2.1 cm RA Height 4.4 cm Aorta at Sinotubular Diameter 3.4 cm M-MODE LV Diastolic Diameter MM 6.3 cm 4.2 - 5.9 / 3.9 - 5.3 cm LV Systolic Diameter MM 4.9 cm LV Ejection Fraction MM Teich 43.5 % IVS Diastolic Thickness MM 1.3 cm 0.6 - 1.0 / 0.6 - 0.9 cm IVS Systolic Thickness MM 2.0 cm LVPW Diastolic Thickness MM 1.7 cm 0.6 - 1.0 / 0.6 - 0.9 cm LVPW Systolic Thickness MM 1.7 cm Aortic Annulus Diameter 4.0 cm LA Ao Ratio MM 1.1 MV E Point Septal Separation 0.6 cm DOPPLER AV Peak Velocity 81.0 cm/s LVOT Peak Velocity 71.0 cm/s AV Area Cont Eq vti 3.0 cm squared AV Area Cont Eq pk 3.2 cm squared MV Area PHT 4.1 cm squared Mitral E to A Ratio 1.7 MV E' Velocity 7.0 cm/s Mitral E to MV E' Ratio 11.4 Mitral E to LV E' Lateral Ratio 11.9 Mitral E to LV E' Septal Ratio 10.9 TV Peak E Velocity 64.0 cm/s Right Atrial Pressure 3.0 mmHg PV Peak Velocity 76.0 cm/s RV Acceleration Time 0.1 s RV Ejection Time 0.2 s RV AcT/ET 0.4 FINDINGS Left Ventricle Normal left ventricular size. Mildly reduced LV systolic function with EF of 45 to 50%. Severe hypokinesis of basal to distal inferolateral wall is noted. Mild hypokinesis of inferior wall. Mild LVH is noted. Diastolic function is abnormal. Right Ventricle The right ventricle is normal in size and function. Right Atrium The right atrium is normal in size. Left Atrium The left atrium is normal in size. Mitral Valve Structurally normal mitral valve without significant stenosis or prolapse. There is mild mitral regurgitation. Aortic Valve Structurally normal aortic valve without significant sclerosis or stenosis. There is no aortic regurgitation. Tricuspid Valve Structurally normal tricuspid valve without significant stenosis or regurgitation. Insufficient TR jet to calculate RVSP. RA pressure is 0 to 5 mmHg. Pulmonic Valve Structurally normal pulmonic valve without significant stenosis. There is no pulmonic regurgitation. Pericardium Normal pericardium without effusion. Aorta Normal ascending aorta dimension. CONCLUSIONS Mildly reduced LV systolic function with EF of 45 to 50%. Wall motion abnormalities as mentioned above. Diastolic function is abnormal. RA pressure is 0 to 5 mmHg. Watson Neal MD (Electronically Signed) Final Date: 10 October 2019 17:51 S
--- NOTE | 2019-10-10 09:47 | PC.CHAP ---
Pastoral Care Encounter/Spiritual Assessment Type of Contact [] Declined basketball scout visit [] Patient/Family/Request visit [] Outpatient visit [] Follow-up visit [] Physician referral [] Code/Alert [X] Routine visit [] Staff referral [] Actively dying [] Patient sleeping [] Family support [] [] Out of room [] Palliative care [] [] Receiving care in room [] Pre-surgical visit [] Trauma [] Long length of stay [X] ICU visit [] Other: Relational/Emotional Strength [X] Patient feels connected with others/family/visitors/staff [] Distress [] Loneliness/isolation [] Abandonment Spirituality of Patient [] Person of [place] [] Attends [employer] of their [place] [] Believes in Prayer [] Reads Bible or Christianity materials [] There are Spiritual issues to be addressed Ingot Header Interventions [] Prayer [X] Active listening [X] Non-anxious presence [] Spiritual/emotional support [] Crisis/trauma care [] Spiritual counseling [] Bereavement support [] Provided bereavement packet [] Provided Bible/devotional materials [] Provided toy/stuffed animal, coloring book to patient or family member [] Provided Communion [] Anointing/[place] [] Salvation [] Completed spiritual assessment [] Other: Impact on Illness or Injury [] Angry [] Fearful [] Anxious [] Often cries [] Exhaustion [] Unable to work [] Unable to attend jew [] Unable to walk/stand [] Unable to read [] Unable to drive [] Unable to eat/drink [] Unable to sleep [] Unable to be with family [] Patient intubated [] Other: Summary: Obtained his story for the heart attack that brought him in. He hopes to go home tomorrow, but there is no documentation that he will. He has a and believes that she will be able to come see him during visitation hours. Assessed immediate needs and offered prayer, which he declined. Time spent with patient: < 5mins
[2019-10-10] MEDS: atorvastatin 40 mg Tablet 20 MG PO (11:29)
[2019-10-10] MEDS: predniSONE 5 mg Tablet PO (11:29)
[2019-10-10] MEDS: clopidogrel 75 mg Tablet PO (11:30)
[2019-10-10] MEDS: aspirin 81 mg EC Tablet PO (11:30)
[2019-10-10] MEDS: metoprolol tartrate 25 mg Tablet PO ×2 (11:30→22:15)
[2019-10-10] MEDS: fentaNYL 50 mcg/mL INJ 2mL IVP (12:44)
--- NOTE | 2019-10-10 12:46 | PC.NURSE ---
RIGHT FEMORAL SHEATH REMOVED. MANUAL PRESSURE HELD X20 MINUTES. SURROUNDING SKIN BRUISED. PT INSTRUCTED ON S/SX TO MONITOR--REDNESS,, WARMTH, DRAINAGE. VERBALIZED UNDERSTANDING. DRESSING APPLIED & WILL CONTINUE TO MONITOR.
[2019-10-10] MEDS: sodium chloride 0.9% 1,000 ML 100 ML IV ×2 (13:23→23:46)
[2019-10-10] MEDS: perflutren protein-a microsphr 0.22 mg/mL SDV 3 mL 2 ML IV (13:41)
[2019-10-10] MEDS: atorvastatin 40 mg Tablet PO (22:16)
[2019-10-11] VITALS (53 sets, daily range): BP systolic 97–125; BP diastolic 60–91; PULSE 68–100; RESP 17–25; TEMP 37.2; O2SAT 90–96
[2019-10-11 07:01] LABS: Blood Urea Nitrogen 32 mg/dL (6-20); Carbon Dioxide 24 mmol/L (22-29); Chloride 107 mmol/L (98-107); Glomerular Filtration Rate 35.3 mL/min (90-130); Glucose 102 mg/dL (65-115); Osmolality Calculated 283 mOsm/kg (285-295); Sodium 138 mmol/L (136-145)
[2019-10-11 07:05] LABS: Anion Gap 11.8 (5-19); Potassium 4.8 mmol/L (3.5-5.1)
--- NOTE | 2019-10-11 07:11 | PC.NURSE ---
Report received from Education Teacher RN. Patient laying on left side, reporting no pain. Small bruising and hematoma noted to right groin during assessment. No needs being reported by patient at this time.
[2019-10-11] MEDS: atorvastatin 40 mg Tablet 20 MG PO (08:04)
[2019-10-11] MEDS: clopidogrel 75 mg Tablet PO (08:04)
[2019-10-11] MEDS: metoprolol tartrate 25 mg Tablet PO (08:06)
[2019-10-11] MEDS: aspirin 81 mg EC Tablet PO (08:06)
[2019-10-11] MEDS: predniSONE 5 mg Tablet PO (08:10)
--- NOTE | 2019-10-11 08:13 | P.DS_ITS ---
Discharge Providers Date of Admission: 10/10/19 04:14 Date of Discharge: October 11, 2019 Attending Provider at Admission: Watson Neal MD Attending Provider at Discharge: aWtson Neal MD Primary Care Provider: TONA Reveles Diagnoses at Discharge Discharge Diagnosis (1) ST elevation myocardial infarction (STEMI): Status: Acute Problem details: S/p successful revascularization with RENA X 2 Qualifiers: Involved coronary artery: other inferior wall coronary artery Qualified Code(s): I21.19 - ST elevation (STEMI) myocardial infarction involving other coronary artery of inferior wall (2) PCK (polycystic kidney disease): Status: Acute (3) Smoker: Status: Chronic (4) Hypertension: Status: Chronic Qualifiers: Hypertension type: essential hypertension Qualified Code(s): I10 - Essential (primary) hypertension (5) Coronary artery disease: Status: Acute Qualifiers: Associated angina: without angina Coronary Disease-Associated Artery/Lesion type: unspecified vessel or lesion type [place] vs. transplanted heart: [place] heart Qualified Code(s): I25.10 - Atherosclerotic heart disease of [place] coronary artery without angina pectoris (6) Dyslipidemia: Status: Chronic (7) COPD (chronic obstructive pulmonary disease): Status: Chronic Qualifiers: COPD type: unspecified COPD Qualified Code(s): J44.9 - Chronic obstructive pulmonary disease, unspecified Reason for Visit Reason for Visit: CHEST PAIN Brief History: 53 year old male with past medical history of hypertension, coronary artery disease status post PCI of left circumflex in 2014, the COPD, active smoker, rheumatoid arthritis, and creatinine 2.1 presented to the ER with 1-2 hours of chest pain. According to the patient he was about to sleep when he started having severe substernal chest pain. He was also diaphoretic and had few episodes of vomiting. He took a nitro which did not help his pain. He is an active smoker. Denies any recent symptoms of chest pain. EKG was performed which is consistent with posterior wall myocardial infarction. Vitals were stable. Hospital Course Hospital Course: 53 year old male with past medical history of hypertension, coronary artery disease status post PCI of left circumflex in 2014, the COPD, active smoker, rheumatoid arthritis, and creatinine 2.1 presented to the ER with 1-2 hours of chest pain. According to the patient he was about to sleep when he started having severe substernal chest pain. He was also diaphoretic and had few episodes of vomiting. He took a nitro which did not help his pain. He is an active smoker. Denies any recent symptoms of chest pain. EKG was performed which is consistent with posterior wall myocardial infarction. Vitals were stable. Patient was emergently taken to the Dental Surgery Doctor after explaining him the risks and benefits associated with the procedure. He had a proximal to mid left circumflex 99% stenosis which was culprit for STEMI. He underwent successful revascularization with drug-eluting stents x2. EKG changes patient's chest pain resolved with revascularization. Patient underwent echo that showed mildly reduced EF of 45-50%. He was put on aspirin, plavix, metoprolol, high intensity statin therapy. His creatinine at time of presentation was higher than his baseline and was 2.5. Post PCI, he was put on 100ml/hr of normal saline and lisinopril was held to prevent contrast induced nephropathy. Plan for resuming Lisinopril in 2 days. Patient stayed stable over the next day. Today he is stable, access site is normal, creatinine has trended down to 2.0. Patient was referred to cardiac rehab. Patient was discharged home in a stable condition. Physical Exam Narrative: EXAM NARRATIVE: GENERAL: Patient is alert, awake and oriented x3. [] NECK: No jugular vein distension. [] HEENT: No cyanosis. No icterus. No pallor. [] HEART: Regular S1 and S2. No murmur, rub or gallop. [] LUNGS: Clear to auscultate bilaterally. [] ABDOMEN: Soft, nontender and nondistended. Positive bowel sounds. No guarding, rebound or tenderness. [] CENTRAL NERVOUS SYSTEM: Grossly nonfocal. [] EXTREMITIES: Lower extremities with no significant edema laterally. Pulses palpable in the lower extremities, both dorsalis pedis and posterior tibial. [] Discharge Data Data Completed and Pending: Completed Studies During Hospitalization Category Date Time Status XR chest 1V sai ble [id number] Stat Exams 10/10/19 01:43 Completed CV echo wo/w cont rast [id number] Routine Ultrasound 10/10/19 08:55 Completed Pending at discharge Category Date Time Status BUSINESS OBJECTS request for service Stat Exams 10/10/19 02:28 Ordered Urinalysis Stat Lab 10/10/19 01:58 Ordered US/CV paperwork R outine Ultrasound 10/10/19 Taken Labs from last 24 hours 10/11/19 06:20 Sodium 138 Potassium 4.8 Chloride 107 Carbon Dioxide 24 Anion Gap 11.8 BUN 32 H Creatinine 2.0 H GFR Calculation 35.3 L Glucose 102 Calculated Osmolal ity 283 L Calcium 8.0 L Vitals: Last Vital Signs Temp 99.0 F 10/11/19 04:44 Pulse 88 10/11/19 04:40 Resp 19 H 10/11/19 04:40 BP 105/72 10/11/19 04:40 Pulse Ox 94 10/11/19 04:40 Discharge Plan Discharge Patient Disposition: Home Condition: Stable Prescriptions: New clopidogrel 75 mg Tablet 75 mg PO DAILY Qty: 30 RF: 6 atorvastatin 40 mg Tablet 40 mg PO BEDTIME Qty: 30 RF: 6 aspirin 81 mg Tablet,Delayed Release (Dr/Ec) 81 mg PO DAILY Qty: 30 RF: 6 lisinopril 10 mg tablet 10 mg PO DAILY Qty: 30 RF: 1 amlodipine 5 mg tablet 5 mg PO DAILY Qty: 30 RF: 3 Continued albuterol sulfate 2.5 mg /3 mL (0.083 %) solution for nebulization 2.5 mg INHALATION Q4H PRN (Reason: shortness of breath or wheezing) 30 Days Qty: 180 RF: 5 (DME) compressor, for nebulizer Device See Rx Instructions .ROUTE .MEDSUPPLY Qty: 1 RF: 0 pantoprazole 40 mg tablet,delayed release (DR/EC) 40 mg PO DAILY 30 Days Qty: 30 RF: 5 albuterol sulfate [ProAir HFA] 90 mcg/actuation HFA aerosol inhaler 2 puff INHALATION QID PRN (Reason: shortness of breath or wheezing) 3 Days Qty: 6.7 RF: 5 clopidogrel 75 mg tablet 75 mg PO DAILY 30 Days Qty: 30 RF: 5 fluticasone propion-salmeterol [Advair Diskus] 500-50 mcg/dose blister with device 1 inh INHALATION BID 30 Days Qty: 60 RF: 5 prednisone 2.5 mg tablet 5 mg PO DAILY Qty: 60 RF: 1 Enbrel Mini 50 mg/mL (1 mL) cartridge 50 mg SUBCUT .Q7days Qty: 4 RF: 1 Discontinued amlodipine 10 mg tablet 10 mg PO DAILY 30 Days Qty: 30 RF: 5 atenolol 100 mg tablet 100 mg PO DAILY 30 Days Qty: 30 RF: 5 lisinopril 40 mg tablet 40 mg PO ONCE 30 Days Qty: 30 RF: 5 simvastatin 20 mg tablet 20 mg PO DAILY 30 Days Qty: 30 RF: 5 Discharge Orders: Discharge Order (Routine); Ordered 10/11/19 Ordered By: Watson Neal Other Ambulatory Orders: Basic Metabolic Panel (Routine) Timeframe: 2 Days Facility: [facility] - Location: Lab - Main Lab Ordered By: Watson Neal Referrals: Rama Ponce FNP [Nurse Practitioner] - 10/18/19 10:30 am (Post STEMI of LCx s/p successful revascularization with RENA x2. Renal function needs to be reevaluated as has CKD stage III-IV and received contrast during the procedure.) Ana Meeks MD [Physician] - 11/15/19 2:45 pm (Post STEMI intervention to LCx with RENA x 2) Discharge Diet: Cardiac Discharge Activity: Limit activity as instructed Patient Instructions: Lisinopril (By mouth), Aspirin (By mouth), Amlodipine (By mouth), Atorvastatin (By mouth), Clopidogrel (By mouth), Left Heart Catheterization (DC), Coronary Angioplasty (DC), Angiogram (DC), Heart Healthy Diet (DC), Post Angiogram Home Care Instructions Activity Restrictions/Additional Instructions: Please do not left any weight more than 5 pounds for the next 5 days. Discharge Date/Time: 10/11/19 10:30 Discharge Attestations Time Spent in Discharge Care*: greater than 30 min Quality Metrics Clinical Quality Measures During this hospital stay, did patient experience: None Coding Level of Care Code Acute Kitchen Clerk for g Fwd Diagnoses ST elevation myocardial infarction (STEMI) I21.19 Involved coronary artery: other inferior wall coronary artery PCK (polycystic kidney disease) Q61.3 Smoker F17.200 Hypertension I10 Hypertension type: essential hypertension Coronary artery disease I25.10 Associated angina: without angina Coronary Disease-Associated Artery/Lesion type: unspecified vessel or lesion type [place] vs. transplanted heart: [place] heart Dyslipidemia E78.5 COPD (chronic obstructive pulmonary disease) J44.9 COPD type: unspecified COPD
--- NOTE | 2019-10-11 10:30 | PC.CHAP ---
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 [] Patient/Family/Request visit [] Outpatient visit [] Follow-up visit [] Physician referral [] Code/Alert [x] Routine visit [] Staff referral [] Actively dying [] Patient sleeping [] Family support [] [] Out of room [] Palliative care [] [] Receiving care in room [] Pre-surgical visit [] Trauma [] Long length of stay [] ICU visit [] Other: Relational/Emotional Strength [x] Patient feels connected with others/family/visitors/staff [] Distress [] Loneliness/isolation [] Abandonment Spirituality of Patient [x] Person of L[place] [] Attends Buddhism of their [place] [x] Believes in Prayer [] Reads Bible or Denominational materials [] There are Spiritual issues to be addressed Supervisor [employer] Interventions [x] Prayer [x] Active listening [x] Non-anxious presence [x] Spiritual/emotional support [] Crisis/trauma care [] Spiritual counseling [] Bereavement support [] Provided bereavement packet [] Provided Bible/devotional materials [] Provided toy/stuffed animal, coloring book to patient or family member [] Provided Communion [] Anointing/[place] [] Salvation [] Completed spiritual assessment [] Other: Impact on Illness or Injury [] Angry [] Fearful [] Anxious [] Often cries [] Exhaustion [] Unable to work [] Unable to attend episcopalian [] Unable to walk/stand [] Unable to read [] Unable to drive [] Unable to eat/drink [] Unable to sleep [] Unable to be with family [] Patient intubated [x] Other: Patient going home today. Summary Supervisor [employer] prayed with patient. Chaplains Rodolfo and Anahi Marie Time spent with patient 8 minutes.
--- NOTE | 2019-10-11 10:38 | PC.NURSE ---
rounded. Patient was given discharge orders. Discharge education on new meds, diet changes, encouraged exercise, reportable s/s, and education on the need to quit smoking was given by nurse. Followup appointments made, and explained to patient during discharge teaching. Patient verbalized understanding to all information, and had no further questions for nurse. Patient was transferred to private vehicle via wheelchair at 1030. Left with Spouse. Patient had all belongings on his person. Patient had no complaints, and tolerated discharged process well. Vitals documented in discharge assessment.
--- NOTE | 2019-10-11 16:48 | PC.RESP ---
SMOKING CESSATION AND PULMONARY REHAB INFORMATION SENT TO PATIENT.
== END 2019-10-11 10:30 | disposition home or self-care (01) | DRG 247 ==
LOC: ER 01:57 → CCL 02:36 → ICU 04:15
PROVIDERS: Emergency Medicine; Internal Medicine; Nurse Practitioner Family; Admitting Provider Internal Medicine Cardiovascular Disease; PCP Nurse Practitioner Family; Visit Provider Internal Medicine Cardiovascular Disease
DX: I21.19 ST elevation (STEMI) myocardial infarction involving other coronary artery of inferior wall (principal); Q61.3 Polycystic kidney, unspecified; I25.10 Atherosclerotic heart disease of native coronary artery without angina pectoris; I12.9 Hypertensive chronic kidney disease with stage 1 through stage 4 chronic kidney disease, or unspecified chronic kidney disease; N18.3 Chronic kidney disease, stage 3 (moderate); J44.9 Chronic obstructive pulmonary disease, unspecified; F17.210 Nicotine dependence, cigarettes, uncomplicated; M05.9 Rheumatoid arthritis with rheumatoid factor, unspecified; E78.5 Hyperlipidemia, unspecified; Z79.51 Long term (current) use of inhaled steroids; Z79.02 Long term (current) use of antithrombotics/antiplatelets
CPT/HCPCS: 12345; 36415; 71045; 80048; 80053; 84484; 85025; 85347; 85610; 85730; 93005; 93454; 94640; 96375; 99283; C1725; C1769; C1874; C1887; C1894; C8929; C9606; J1644; J2250; J2270; J2405; J3010; J3246; J3535; J7030; J7512; Q9956; Q9967

== ENCOUNTER → 2019-10-13 09:38 | Outpatient (BNVA) | payer MEDICARE, MEDICAID, SELFPAY | PROVIDERS: PCP Nurse Practitioner Family; Visit Provider Internal Medicine | DX: E83.51 Hypocalcemia (principal) | CPT/HCPCS: 80048 ==

== ENCOUNTER 2019-10-23 20:13 | Inpatient (IN) | payer MEDICARE, MEDICAID, SELFPAY ==
[2019-10-23 20:25] VITALS: BP 140/85; PULSE 81; RESP 45; TEMP 36.7; O2SAT 95; BMI 34.8
--- NOTE | 2019-10-23 20:52 | XRR_ITS ---
PROCEDURE INFORMATION: Exam: XR Chest, 1 View Exam date and time: 10/23/2019 9:10 PM Age: 53 years old Clinical indication: Pain; Chest pressure; Prior surgery; Surgery date: <1 month; Surgery type: Stents put in 2 wks ago; Additional info: Cp TECHNIQUE: Imaging protocol: XR of the chest Views: 1 view. COMPARISON: CR XR chest 1V portable [id number] 10/10/2019 1:45 AM FINDINGS: Lungs: Nonspecific bibasilar consolidation right greater than left is present, consistent with atelectasis, edema, or pneumonia. The central vessels are mildly engorged with cephalization of flow, interstitial edema and Art B lines compatible with mild interstitial CHF. Pleural space: Unremarkable. No pleural effusion. No pneumothorax. Heart/Mediastinum: There is borderline cardiomegaly. Bones/joints: No acute abnormality. XR/XR chest 1V portable [id number] IMPRESSION: Nonspecific bibasilar consolidation right greater than left is present, consistent with atelectasis, edema, or pneumonia. Probable mild interstitial CHF is also noted.
--- NOTE | 2019-10-23 20:53 | ECG_ITS ---
[facility] Test Date: 2019-10-23 Pat Name: Tysno Nixon Department: Room: Gender: Male Surveillance System Monitor: : 1965 Requested By: Raji Holden Order Number: [id number] Carranza MD: Ana Meeks M.D. Measurements Intervals [place] Rate: 79 P: 41 OR: 150 QRS: 38 QRSD: 81 T: 101 QT: 386 QTc: 443 Interpretive Statements SINUS RHYTHM NONSPECIFIC T-WAVE ABNORMALITY Compared to ECG 10/10/2019 08:18:36 T-wave abnormality now present Electronically Signed On 10-25-2019 8:00:52 CDT by Ana Meeks M.D. [email or web address].[employer]/store/NU/[id number] f
[2019-10-23 21:03] LABS: Basophils % 0.4 %; Eosinophils # 0.2 10^3/uL (0.0-0.8); Eosinophils % 2.6 %; Hematocrit 37.5 % (42.0-52.0); Lymphocytes # 1.8 10^3/uL (0.8-4.8); Lymphocytes % 22.1 %; Mean Corpuscular Hemoglobin 27.5 pg (28.0-34.0); Mean Platelet Volume 9.7 fL (7.4-10.4); Monocytes # 0.7 10^3/uL (0.2-0.9); Monocytes % 8.4 %; Neutrophils # 5.26 10^3/uL (1.8-7.7); Neutrophils % 66.2 %; Nucleated Red Blood Cells % 0 %; Platelet Count 283 10^3/cmm (130-400); Red Blood Count 4.36 10^6/uL (4.1-5.3); Red Cell Distribution Width 13.6 % (12.1-15.1)
[2019-10-23 21:03] LABS: ABG PH Result 7.38 (7.35-7.45); Arterial Blood Gas Hematocrit 36.4 % (42-52); Base Excess ABG -2.7 mmol/L (-2.0-2.0); Blood Gas Allen Test Pos; Blood Gas Sample Site Radial, left; Blood Gas Sample Type Arterial; Oxygen Device NC; PO2 ABG 69.9 mmHg (80.0-100.0)
[2019-10-23 21:06] LABS: INR 0.98 (0.8-1.2)
[2019-10-23 21:07] LABS: Partial Thromboplastin Time 29.8 SECONDS (23.9-36.7)
[2019-10-23 21:11] LABS: Lactate (Lactic Acid level) 0.6 mmol/L (0.5-2.2)
[2019-10-23 21:14] LABS: Troponin(5th) Baseline 378 ng/L (0-15)
[2019-10-23 21:31] LABS: Alanine Aminotransferase 18 U/L (0-41); Albumin Level 4.1 g/dL (3.5-5.2); Alkaline Phosphatase 65 IU/L (40-130); Anion Gap 15.6 (5-19); Aspartate Amino Transferase 20 U/L (0-40); Blood Urea Nitrogen 35 mg/dL (6-20); Calcium 8.5 mg/dL (8.5-10.5); Carbon Dioxide 22 mmol/L (22-29); Chloride 104 mmol/L (98-107); Globulin 2.4 g/dL (1.3-4.6); Glucose 112 mg/dL (65-115); NT Pro B Type Natriuretic Pept 5898 pg/mL (0-125); Osmolality Calculated 282 mOsm/kg (285-295); Potassium 4.6 mmol/L (3.5-5.1); Sodium 137 mmol/L (136-145); Total Bilirubin 0.4 mg/dL (0.15-1.2); Total Protein 6.5 g/dL (6.6-8.7)
[2019-10-23 21:46] VITALS: BP 125/81; PULSE 73; RESP 32; O2SAT 95
[2019-10-23 22:07] LABS: Add Urine Microscopic? NO
[2019-10-23 22:17] VITALS: PULSE 74; RESP 41; O2SAT 99
[2019-10-23] MEDS: FUROsemide 10 mg/mL SDV 10mL 80 MG IVP (22:28)
[2019-10-23 22:40] LABS: Bilirubin Urine Neg (NEGATIVE); Blood Urine Neg (Negative); Glucose Urine UA Norm (Normal); Ketones Urine Negative (Negative); Leukocyte Esterase Urine Negative (Negative); Nitrate Urine Negative (Negative); Protein Urine Neg (Negative); Urine Appearance Clear (CLEAR); Urine Color Yellow (Yellow); Urobilinogen Urine Norm (Negative); pH Urine 5 (5-7)
--- NOTE | 2019-10-23 22:44 | PM.HP ---
Providers/Chief Complaint Primary Care Provider: TONA Reveles Chief Complaint: tightness in chest History of Present Illness Tyson Nixon is a 53 year old male who presents with 3 days of shortness of breath, gradually worsening. Some cough. Cannot sleep flat. Initially did not want to come in. Some chest discomfort as his breathing has gotten worse. No fever. No swollen. Still able to drink liquids. No exposure to COVID, personal history of COVID. Did vomit around 3 days ago as well. No diarrhea. No nausea currently. Had an angiogram for ST elevation myocardial infarction October 09, EF at that time 45 to 50%. Circumflex was stented . He has not smoked since the procedure. While in the emergency department he presented significantly short of breath. He is received some Lasix, and placed on BiPAP for his work of breathing. Patient reports he feels a little bit better currently. Review of Systems General: Reports: 10 or more systems reviewed and unremarkable except in HPI and below Const: Denies: fever(s) or chills Eyes: Denies: change in vision ENMT: Denies: throat pain Card: Reports: edema (Reports edema is mainly in his stomach.) and dyspnea on exertion; Denies: chest pain Resp: Reports: dyspnea and non-productive cough GI: Denies: abdominal pain : Denies: flank pain Musc: Denies: neck pain Skin/Breast: Denies: rash Neuro: Denies: headache(s) Endo: Denies: polyuria Sagar/Lymph: Denies: easy bruising All/Imm: Denies: urticaria Medications/Allergies Home Medications Medication Instructions Recorded Confirmed Last Taken Type albuterol sulfate 2.5 mg INHALATION Q4H PRN 30 Days 02/23/19 10/10/19 Unknown Rx #180 ml compressor, for nebulizer #1 each 02/23/19 10/10/19 Unknown Rx albuterol sulfate 90 mcg/actuation 2 puff INHALATION QID PRN 3 Days 09/03/19 10/10/19 10/09/19 Rx aerosol inhaler #6.7 gm clopidogrel 75 mg tablet 75 mg PO DAILY 30 Days #30 tab 09/03/19 10/10/19 10/09/19 Rx fluticasone 500 mcg-salmeterol 50 1 inh INHALATION BID 30 Days #60 07/10/10/19 10/09/19 Rx mcg/dose blistr powdr for each inhalation pantoprazole 40 mg tablet,delayed 40 mg PO DAILY 30 Days #30 tab 09/03/19 10/10/19 10/09/19 Rx release prednisone 2.5 mg tablet 5 mg PO DAILY #60 tab 09/20/19 10/10/19 10/09/19 Rx etanercept 50 mg/mL (1 mL) 50 mg SUBCUT .Q7days #4 ml 09/30/19 10/10/19 Unknown Rx subcutaneous cartridge amlodipine 5 mg PO DAILY #30 tab 10/11/19 Unknown Rx aspirin 81 mg PO DAILY #30 tab 10/11/19 Unknown Rx atorvastatin 40 mg PO BEDTIME #30 tab 10/11/19 Unknown Rx clopidogrel 75 mg PO DAILY #30 tab 10/11/19 Unknown Rx lisinopril 10 mg PO DAILY #30 tab 10/11/19 Unknown Rx Allergies Allergy/AdvReac Type Severity Reaction Status Date / Time No Known Allergies Allergy Verified 10/10/19 10:15 PFSH Acute PFSH: Medical History Chronic kidney disease, stage 3 COPD (chronic obstructive pulmonary disease) Coronary artery disease Dyslipidemia GERD (gastroesophageal reflux disease) High risk medication use Hypertension Immunization counseling PCK (polycystic kidney disease) Rheumatoid arthritis Seropositive rheumatoid arthritis Smoker Surgical History (Updated 10/23/19 @ 22:48 by Jorge Milan MD) Stented coronary artery Family History Other CAD (coronary artery disease) Diabetes Hypertension Systemic lupus erythematosus (SLE) in adult Denies family history of Cancer Stroke Social History (Updated 10/23/19 @ 22:48 by Jorge Milan MD) Smoking and tobacco status: former smoker Quit status (tobacco): has tried quititng Second hand smoke exposure: No Smoking risk assessment/counseling performed?: Yes Alcohol intake: former Desire information about alcohol rehabilitation?: No Counseling given: No Household members: spouse Marital status: Vitals/I&O/Wt Last Vital Signs Temp 98.0 F 10/23/19 20:25 Pulse 74 10/23/19 22:17 Resp 32 H 10/23/19 21:46 BP 125/81 10/23/19 21:46 Pulse Ox 99 10/23/19 22:17 Weight last 48 hrs Weight 113.398 kg Physical Exam Narrative: EXAM NARRATIVE: General exam is moderate respiratory distress HEENT: BiPAP noted Neck is supple, obese Cardiovascular regular rate and rhythm without murmur Lungs diminished breath sounds bilaterally and bilateral crackles. No wheezing Abdomen is soft, obese. Positive bowel sounds. No obvious organomegaly was deferred Extremities no cyanosis clubbing or edema, cap refill brisk Skin no rash Neuro no focal deficits. Data : 10/23/19 20:45 10/23/19 20:45 Micro: Microbiology 10/23/19 21:32 Blood Culture - Preliminary Blood SPECIMEN COLLECTED 10/23/19 20:45 Blood Culture - Preliminary Blood SPECIMEN COLLECTED Other data: Chest x-ray demonstrates right-sided infiltrate, possibly atypical edema versus pneumonia by my read. pH 7.38, PCO2 37, PO2 70 on 2 L LFTs normal Troponin 378, [place] [address] with [address] elevation myocardial infarction. BNP elevated at 5898 Urinalysis negative Baseline creatinine 1.9-2.3. EKG demonstrates sinus rhythm, normal axis, nonspecific ST-T wave changes. A&P Assessment and plan (1) CHF (congestive heart failure): Appears to have acute systolic congestive heart failure exacerbation. Check limited echocardiogram Lasix 60 mg IV every 12 hours. He received 80 mg in the emergency department at 2142 10/22 Close follow-up of renal function Offered Ronak which he refused Cardiology consultation in this patient with recent angiogram and circumflex stenting. Status: Acute (2) Acute respiratory failure: Currently on BiPAP, discontinue as tolerated after diuresis occurs. Has edema is atypical, cannot rule out pneumonia, history of vomiting 2 to [address] on Zosyn, and check pro calcitonin level. We will also check MRSA PCR DNA. However, pneumonia less likely at this time. Sputum culture, rapid COVID. Although less likely with infiltrate we will also check venous duplex lower extremities. Status: Acute Additional A&P Information Recent ST elevation myocardial infarction when he received a drug-eluting stent October 09. Continue Plavix, statin. Add metoprolol low-dose Hypertension. Hold patient's LAKISHA inhibitor currently secondary to aggressive diuresis planned in face of chronic kidney disease stage III. Add metoprolol. Hold Norvasc. Hyperlipidemia. Continue statin Rheumatoid arthritis. Continue patient's prednisone Polycystic kidney disease with chronic kidney disease stage III COPD, no active wheezing or concern for exacerbation currently. 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
--- NOTE | 2019-10-23 22:53 | ECG_ITS ---
[facility] Test Date: 2019-10-23 Pat Name: Tyson Nixon Department: Room: ICU03 Gender: Male Professional Caster: : 1965 Requested By: Raji Holden Order Number: [id number] Dillon MD: Ana Meeks M.D. Measurements Intervals [place] Rate: 66 P: 36 TX: 134 QRS: 69 QRSD: 96 T: 89 QT: 422 QTc: 443 Interpretive Statements SINUS RHYTHM NONSPECIFIC T-WAVE ABNORMALITY Compared to ECG 10/23/2019 20:23:41 No significant changes Electronically Signed On 10-25-2019 8:26:05 CDT by Ana Meeks M.D. [email or web address] Holdingswiser [facility] for women and infantsChelsea Therapeutics Internationalashtabula [facility].[employer]/store/NU/[id number]/[id number] f
[2019-10-23] MEDS: ondansetron 2 mg/ML SDV 2 mL 4 MG IVP (23:09)
[2019-10-23] MEDS: fentaNYL 50 mcg/mL INJ 2mL 100 MCG IVP (23:09)
[2019-10-23 23:31] LABS: Troponin 5 2HR Delta 9.8 ABS# (0-10)
[2019-10-23 23:36] LABS: Troponin 5 2HR 387.8 ng/L (0-15)
[2019-10-23 23:58] LABS: Procalcitonin 0.18 ng/mL (0-0.5)
[2019-10-24] VITALS (29 sets, daily range): BP systolic 93–126; BP diastolic 63–96; PULSE 39–77; RESP 16–64; TEMP 36.4–36.6; O2SAT 92–100; BMI 36.0
--- NOTE | 2019-10-24 | USCV_ITS ---
HussainTyson cummins Age: 53 Gender: M : 1965 Exam Date: 10/24/2019 07:06 Ordering Phys: Jorge Milan MD Technologist: Shanae Tsang [place] [facility] [place]: CHF BP: 107 / 68 HR: 62 Rhythm: Sinus Technical Quality: Fair MEASUREMENTS (Male / Female) Normal Values 2D ECHO LV Diastolic Diameter PLAX 4.6 cm 4.2 - 5.9 / 3.9 - 5.3 cm LV Systolic Diameter PLAX 3.4 cm LV Chamber Size 4.7 cm IVS Diastolic Thickness 1.9 cm 0.6 - 1.0 / 0.6 - 0.9 cm IVS Systolic Thickness 2.0 cm LVPW Diastolic Thickness 1.1 cm 0.6 - 1.0 / 0.6 - 0.9 cm LVPW Systolic Thickness 1.2 cm RV Chamber Size 3.5 cm LV Ejection Fraction 2D Teich 52.9 % LV Ejection Fraction MOD 2C 52.9 % LV Ejection Fraction 2C AL 55.3 % LA Width 3.7 cm LA Height 5.9 cm RA Width 3.0 cm RA Height 5.3 cm M-MODE LV Diastolic Diameter MM 4.8 cm 4.2 - 5.9 / 3.9 - 5.3 cm LV Systolic Diameter MM 3.2 cm LV Ejection Fraction MM Teich 61.9 % IVS Diastolic Thickness MM 1.4 cm 0.6 - 1.0 / 0.6 - 0.9 cm IVS Systolic Thickness MM 1.6 cm LVPW Diastolic Thickness MM 1.3 cm 0.6 - 1.0 / 0.6 - 0.9 cm LVPW Systolic Thickness MM 1.8 cm DOPPLER MV Peak Velocity 103.0 cm/s MV Area PHT 3.1 cm squared Mitral E to A Ratio 2.9 MV E' Velocity 7.0 cm/s Mitral E to MV E' Ratio 13.7 Mitral E to LV E' Lateral Ratio 14.4 Mitral E to LV E' Septal Ratio 13.2 FINDINGS Left Ventricle Normal left ventricular size, systolic function and wall thickness. Left ventricular ejection fraction is estimated at 50-55 %. Left ventricular ejection fraction of 52% by modified biplane method. There is moderate hypokinesis of basal to mid inferolateral and anterolateral hernandez. Grade III diastolic dysfunction (restrictive filling pattern), severely elevated filling pressures. Right Ventricle Normal right ventricular size and systolic function. Right Atrium Normal right atrial size. Left Atrium Mildly increased left atrial size. Mitral Valve Mildly thickened mitral valve. No mitral valve stenosis. At least moderate mitral valve regurgitation. Aortic Valve Aortic valve not well visualized. No aortic valve stenosis. No aortic valve regurgitation. Tricuspid Valve Structurally normal tricuspid valve. Trace tricuspid valve regurgitation. Pulmonic Valve Pulmonic valve not well visualized. Pericardium Trivial pericardial effusion. No evidence of hemodynamic compromise. Aorta Normal-sized aortic root. CONCLUSIONS 1. Normal left ventricular size and systolic function. Left ventricular ejection fraction is estimated at 50-55 %. Left ventricular ejection fraction of 52% by modified biplane method. There is moderate hypokinesis of basal to mid inferolateral and anterolateral hernandez.Grade III diastolic dysfunction (restrictive filling pattern), severely elevated filling pressures. 2. Normal right ventricular size and systolic function. 3. Mildly increased left atrial size. 4. At least moderate mitral valve regurgitation. 5. When compared to previous echocardiogram dated 10/11/19, mitral valve regurgitation has worsened. Ana Meeks MD Edited by: CV Technical Buyer (Electronically Signed) Final Date: 24 October 2019 19:58 Amended: 26 October 2019 07:22 C
[2019-10-24 00:03] LABS: SARS Covid-2 Antigen Negative (Negative)
--- NOTE | 2019-10-24 03:41 | USR_ITS ---
PROCEDURE INFORMATION: Exam: US Duplex Lower Extremity Veins, Bilateral Exam date and time: 10/24/2019 3:43 AM Age: 53 years old Clinical indication: Dyspnea; recent heart cath via right groin. TECHNIQUE: Imaging protocol: Real-time duplex ultrasound of the extremities with 2-D godfrey scale, color Doppler flow and spectral waveform analysis with image documentation. Complete exam focused on the bilateral lower extremity veins. COMPARISON: No relevant prior studies available. FINDINGS: Right deep veins: The common femoral, femoral, proximal profunda femoral and popliteal veins are patent. Normal Doppler waveforms. Normal compressibility and/or augmentation response. Right superficial veins: Saphenofemoral junction is patent. Left deep veins: The common femoral, femoral, proximal profunda femoral and popliteal veins are patent. Normal Doppler waveforms. Normal compressibility and/or augmentation response. Left superficial veins: Saphenofemoral junction is patent. Soft tissues: No acute soft tissue abnormality. No pseudoaneurysm. US/[place] [id number] IMPRESSION: 1. No evidence of deep vein thrombosis. 2. No pseudoaneurysm.
[2019-10-24] MEDS: heparin 5,000 unit/mL INJ 1 mL 5000 UNIT SUBCUT ×2 (04:00→17:03)
--- NOTE | 2019-10-24 04:24 | ED_ITS ---
HPI - SOB/Dyspnea General: Chief Complaint: Shortness of Breath/Dyspnea Stated Complaint: tightness in chest Time Seen by Provider: 10/23/19 20:32 History of Present Illness: HPI Narrative: 53-year-old male with a history of coronary disease, and ST elevation myocardial infarction, stented 2 weeks ago. He presents with chest tightness and shortness of breath worsening over the course of a couple days. He has had a bit of a dry cough. No fever. No sputum production. He is increased his weight a bit, noting swelling in his belly. Not so much swelling in his legs. MD elicited complaint: shortness of breath and chest pain Pertinent past history: congestive heart failure and other Onset (ago): day(s) (2) Context: recent illness Timing: constant Severity: moderate Exacerbating factors: lying flat and exertion Relieving factors: nothing Known history of: congestive heart failure and other Associated symptoms: Reports chest pain and cough; Deny dizziness, fever(s), nausea, rash or vomiting Review of Systems Const: Denies: fever(s) Eyes: Denies: change in vision ENMT: Denies: swelling of lips/tongue, bleeding gums, post nasal drip or sinus pain Card: Reports: chest pain Resp: Reports: dyspnea and non-productive cough; Denies: productive cough or wheezing GI: Denies: nausea or vomiting : Denies: difficulty urinating, dysuria or hematuria Musc: Denies: back pain Skin/Breast: Denies: rash or erythema Neuro: Denies: headache(s), dizziness or vertigo Psych: Denies: anxiety PFSH ED PFSH: Medical History Chronic kidney disease, stage 3 COPD (chronic obstructive pulmonary disease) Coronary artery disease Dyslipidemia GERD (gastroesophageal reflux disease) High risk medication use Hypertension Immunization counseling PCK (polycystic kidney disease) Rheumatoid arthritis Seropositive rheumatoid arthritis Smoker Surgical History (Updated 10/23/19 @ 22:48 by Jorge Milan MD) Stented coronary artery Family History Other CAD (coronary artery disease) Diabetes Hypertension Systemic lupus erythematosus (SLE) in adult Denies family history of Cancer Stroke Social History (Updated 10/23/19 @ 22:48 by Jorge Milan MD) Smoking and tobacco status: former smoker Quit status (tobacco): has tried quititng Second hand smoke exposure: No Smoking risk assessment/counseling performed?: Yes Alcohol intake: former Desire information about alcohol rehabilitation?: No Counseling given: No Household members: spouse Marital status: Physical Exam Const: GENERAL APPEARANCE: well developed, in distress and ill appearing ORIENTATION/CONSCIOUSNESS: Yes oriented to person, Yes oriented to place and Yes oriented to time HENMT: COMMON NORMALS: normocephalic, external ears normal and Normal external nose present HEAD & SCALP: normocephalic FACE & SINUS: normal facial exam NOSE: Normal external nose present and No nasal discharge present EXTERNAL EAR: Yes external ears normal Eye: COMMON NORMALS: Equal, round and reactive pupils present, EOMs intact bilaterally and conjunctivae normal EYELID: eyelids normal CONJUNCTIVA: Yes conjunctivae normal PUPIL: Yes Equal, round and reactive pupils present Neck/C-Spine: GENERAL: No tracheal deviation Chest: COMMONS NORMALS: normal inspection of the chest CHEST: No tenderness Resp: COMMON NORMALS: clear to auscultation bilaterally EFFORT & INSPECTION: Yes tachypneic, Yes respiratory distress, Yes retractions, Yes uses accessory muscles and No tracheal deviation AUSCULTATION: clear to auscultation bilaterally, no rhonchi, no wheezes and diminished lung sounds Cardio: COMMON NORMALS: regular rate and regular rhythm RATE: regular rate RHYTHM: regular rhythm HEART SOUNDS: no murmurs PERIPHERAL PULSES: radial pulses present GI: INSPECTION: Yes abdominal distension AUSCULTATION: No Hyperactive bowel sounds present and No Hypoactive bowel sounds present PALPATION: No Guarding due to palpation present (GI) and No Rigid due to palpation PERCUSSION: no dullness to percussion and no tympanic to percussion Neuro: SENSORIUM/ORIENTATION: Yes oriented to person, Yes oriented to place and Yes oriented to time Psych: COMMON NORMALS: mental status grossly normal Skin: COMMON NORMALS: no rashes or lesions noted GENERAL SKIN EXAM: no rashes or lesions noted Course Vital Signs: Vital signs: Vital Signs Temperature 97.8 F 10/24/19 03:41 Pulse Rate 69 10/24/19 03:42 Respiratory Rate 20 H 10/24/19 03:41 Blood Pressure 107/68 10/24/19 03:41 Pulse Oximetry 95 10/24/19 03:42 MDM - SOB/Dyspnea MDM Narrative: Medical decision making narrative: 53-year-old male with significant shortness of breath. He was quite tachypneic on arrival, and this increased significantly over the first hour he was here. He was maintaining saturations on supplemental O2, but because of his work of breathing, he was placed on BiPAP with much improvement in his breathing status. Chest x-ray shows pulmonary vascular congestion without effusions. His BNP is significantly elevated. Creatinine somewhat mildly elevated above his baseline. His hemoglobin is 12, white blood cell count 8. He did have an increased density in his right lung compared to the left on top of the pulmonary edema, which is likely asymmetrical or atypical pulmonary edema as opposed to less likely pneumonia. He was rapid COVID negative. This is a case of acute hypoxic respiratory failure with pulmonary edema. His troponin was elevated on arrival, but did not elevate further at 2 hours. Lab Data: Attestation: I reviewed the patient's lab results. Labs: Lab Results 10/23/19 10/23/19 10/23/19 Range/Units 20:42 20:45 20:45 WBC 8.0 (4.0-10.0) 10^3/ uL RBC 4.36 (4.1-5.3) 10^6/u L Hgb 12.0 (11.7-16.6) g/dL Hct 37.5 L (42.0-52.0) % MCV 86.0 (80-94) fL MCH 27.5 L (28.0-34.0) pg MCHC 32.0 (30.0-36.0) g/dL RDW 13.6 (12.1-15.1) % Plt Count 283 (130-400) 10^3/c mm MPV 9.7 (7.4-10.4) fL Neut % (Auto) 66.2 % Lymph % (Auto) 22.1 % Mathews % (Auto) 8.4 % Eos % (Auto) 2.6 % Baso % (Auto) 0.4 % Neut # (Auto) 5.26 (1.8-7.7) 10^3/u L Lymph # (Auto) 1.8 (0.8-4.8) 10^3/u L Mathews # (Auto) 0.7 (0.2-0.9) 10^3/u L Eos # (Auto) 0.2 (0.0-0.8) 10^3/u L Baso # (Auto) 0.0 (0.0-0.1) 10^3/u L Nucleated RBC % (a uto) 0 % Nucleated RBCs # 0.0 /100WBC PT 13.30 (12.1-14.9) SECO NDS INR 0.98 (0.8-1.2) APTT 29.8 (23.9-36.7) SECO NDS Specimen Type Sample Site ABG pH (7.35-7.45) ABG pCO2 (35-45) mmHg ABG pO2 (80.0-100.0) mmH g ABG HCO3 (22-26) mmol/L ABG Base Excess (-2.0-2.0) mmol/ L Nam Test Hematocrit (42-52) % O2 Delivery Device O2 Liters/Min % Distribution A Class Lineman ID Sodium (136-145) mmol/L Potassium (3.5-5.1) mmol/L Chloride (98-107) mmol/L Carbon Dioxide (22-29) mmol/L Anion Gap (5-19) BUN (6-20) mg/dL Creatinine (0.7-1.2) mg/dL GFR Calculation (90-130) mL/min Glucose (65-115) mg/dL Calculated Osmolal ity (285-295) mOsm/k g Lactate (0.5-2.2) mmol/L Calcium (8.5-10.5) mg/dL Total Bilirubin (0.15-1.2) mg/dL AST (0-40) U/L ALT (0-41) U/L Alkaline Phosphata se (40-130) IU/L Troponin T Baselin e (0-15) ng/L Troponin T 120 Min [place] (0-15) ng/L Delta Troponin T (0-10) ABS# NT-Pro-B Natriuret Pep (0-125) pg/mL Total Protein (6.6-8.7) g/dL Albumin (3.5-5.2) g/dL Globulin (1.3-4.6) g/dL Procalcitonin 0.18 (0-0.5) ng/mL Urine Color (Yellow) Urine Appearance (CLEAR) Urine pH (5-7) Ur Specific Gravit y (1.005-1.030) Urine Protein (Negative) Urine Glucose (UA) (Normal) Urine Ketones (Negative) Urine Blood (Negative) Urine Nitrate (Negative) Urine Bilirubin (NEGATIVE) Urine Urobilinogen (Negative) mg/dL Ur Leukocyte Beatriz ase (Negative) SARS-CoV-2 Ag (Rap id) (Negative) 10/23/19 10/23/19 10/23/19 Range/Units 20:45 20:45 20:45 WBC (4.0-10.0) 10^3/ uL RBC (4.1-5.3) 10^6/u L Hgb (11.7-16.6) g/dL Hct (42.0-52.0) % MCV (80-94) fL MCH (28.0-34.0) pg MCHC (30.0-36.0) g/dL RDW (12.1-15.1) % Plt Count (130-400) 10^3/c mm MPV (7.4-10.4) fL Neut % (Auto) % Lymph % (Auto) % Mathews % (Auto) % Eos % (Auto) % Baso % (Auto) % Neut # (Auto) (1.8-7.7) 10^3/u L Lymph # (Auto) (0.8-4.8) 10^3/u L Mathews # (Auto) (0.2-0.9) 10^3/u L Eos # (Auto) (0.0-0.8) 10^3/u L Baso # (Auto) (0.0-0.1) 10^3/u L Nucleated RBC % (a uto) % Nucleated RBCs # /100WBC PT (12.1-14.9) SECO NDS INR (0.8-1.2) APTT (23.9-36.7) SECO NDS Specimen Type Sample Site ABG pH (7.35-7.45) ABG pCO2 (35-45) mmHg ABG pO2 (80.0-100.0) mmH g ABG HCO3 (22-26) mmol/L ABG Base Excess (-2.0-2.0) mmol/ L Nam Test Hematocrit (42-52) % O2 Delivery Device O2 Liters/Min % Distribution A Class Lineman ID Sodium 137 (136-145) mmol/L Potassium 4.6 (3.5-5.1) mmol/L Chloride 104 (98-107) mmol/L Carbon Dioxide 22 (22-29) mmol/L Anion Gap 15.6 (5-19) BUN 35 H (6-20) mg/dL Creatinine 2.3 H (0.7-1.2) mg/dL GFR Calculation 30.0 L (90-130) mL/min Glucose 112 (65-115) mg/dL Calculated Osmolal ity 282 L (285-295) mOsm/k g Lactate 0.6 (0.5-2.2) mmol/L Calcium 8.5 (8.5-10.5) mg/dL Total Bilirubin 0.4 (0.15-1.2) mg/dL AST 20 (0-40) U/L ALT 18 (0-41) U/L Alkaline Phosphata se 65 (40-130) IU/L Troponin T Baselin e 378 H* (0-15) ng/L Troponin T 120 Min [place] (0-15) ng/L Delta Troponin T (0-10) ABS# NT-Pro-B Natriuret Pep 5898 H (0-125) pg/mL Total Protein 6.5 L (6.6-8.7) g/dL Albumin 4.1 (3.5-5.2) g/dL Globulin 2.4 (1.3-4.6) g/dL Procalcitonin (0-0.5) ng/mL Urine Color (Yellow) Urine Appearance (CLEAR) Urine pH (5-7) Ur Specific Gravit y (1.005-1.030) Urine Protein (Negative) Urine Glucose (UA) (Normal) Urine Ketones (Negative) Urine Blood (Negative) Urine Nitrate (Negative) Urine Bilirubin (NEGATIVE) Urine Urobilinogen (Negative) mg/dL Ur Leukocyte Beatriz ase (Negative) SARS-CoV-2 Ag (Rap id) (Negative) 10/23/19 10/23/19 10/23/19 Range/Units 20:55 21:42 22:45 WBC (4.0-10.0) 10^3/ uL RBC (4.1-5.3) 10^6/u L Hgb (11.7-16.6) g/dL Hct (42.0-52.0) % MCV (80-94) fL MCH (28.0-34.0) pg MCHC (30.0-36.0) g/dL RDW (12.1-15.1) % Plt Count (130-400) 10^3/c mm MPV (7.4-10.4) fL Neut % (Auto) % Lymph % (Auto) % Mathews % (Auto) % Eos % (Auto) % Baso % (Auto) % Neut # (Auto) (1.8-7.7) 10^3/u L Lymph # (Auto) (0.8-4.8) 10^3/u L Mathews # (Auto) (0.2-0.9) 10^3/u L Eos # (Auto) (0.0-0.8) 10^3/u L Baso # (Auto) (0.0-0.1) 10^3/u L Nucleated RBC % (a uto) % Nucleated RBCs # /100WBC PT (12.1-14.9) SECO NDS INR (0.8-1.2) APTT (23.9-36.7) SECO NDS Specimen Type Arterial Sample Site Radial, left ABG pH 7.38 (7.35-7.45) ABG pCO2 37.0 (35-45) mmHg ABG pO2 69.9 L (80.0-100.0) mmH g ABG HCO3 22.0 (22-26) mmol/L ABG Base Excess -2.7 L (-2.0-2.0) mmol/ L Nam Test Pos Hematocrit 36.4 L (42-52) % O2 Delivery Device Nc O2 Liters/Min 2.0 % Distribution A Class Lineman ID ellpe Sodium (136-145) mmol/L Potassium (3.5-5.1) mmol/L Chloride (98-107) mmol/L Carbon Dioxide (22-29) mmol/L Anion Gap (5-19) BUN (6-20) mg/dL Creatinine (0.7-1.2) mg/dL GFR Calculation (90-130) mL/min Glucose (65-115) mg/dL Calculated Osmolal ity (285-295) mOsm/k g Lactate (0.5-2.2) mmol/L Calcium (8.5-10.5) mg/dL Total Bilirubin (0.15-1.2) mg/dL AST (0-40) U/L ALT (0-41) U/L Alkaline Phosphata se (40-130) IU/L Troponin T Baselin e (0-15) ng/L Troponin T 120 Min [place] 387.8 H (0-15) ng/L Delta Troponin T 9.8 (0-10) ABS# NT-Pro-B Natriuret Pep (0-125) pg/mL Total Protein (6.6-8.7) g/dL Albumin (3.5-5.2) g/dL Globulin (1.3-4.6) g/dL Procalcitonin (0-0.5) ng/mL Urine Color Yellow (Yellow) Urine Appearance Clear (CLEAR) Urine pH 5 (5-7) Ur Specific Gravit y 1.010 (1.005-1.030) Urine Protein Neg (Negative) Urine Glucose (UA) Norm (Normal) Urine Ketones Negative (Negative) Urine Blood Neg (Negative) Urine Nitrate Negative (Negative) Urine Bilirubin Neg (NEGATIVE) Urine Urobilinogen Norm (Negative) mg/dL Ur Leukocyte Beatriz ase Negative (Negative) SARS-CoV-2 Ag (Rap id) (Negative) 10/23/19 Range/Units 23:00 WBC (4.0-10.0) 10^3/ uL RBC (4.1-5.3) 10^6/u L Hgb (11.7-16.6) g/dL Hct (42.0-52.0) % MCV (80-94) fL MCH (28.0-34.0) pg MCHC (30.0-36.0) g/dL RDW (12.1-15.1) % Plt Count (130-400) 10^3/c mm MPV (7.4-10.4) fL Neut % (Auto) % Lymph % (Auto) % Mathews % (Auto) % Eos % (Auto) % Baso % (Auto) % Neut # (Auto) (1.8-7.7) 10^3/u L Lymph # (Auto) (0.8-4.8) 10^3/u L Mathews # (Auto) (0.2-0.9) 10^3/u L Eos # (Auto) (0.0-0.8) 10^3/u L Baso # (Auto) (0.0-0.1) 10^3/u L Nucleated RBC % (a uto) % Nucleated RBCs # /100WBC PT (12.1-14.9) SECO NDS INR (0.8-1.2) APTT (23.9-36.7) SECO NDS Specimen Type Sample Site ABG pH (7.35-7.45) ABG pCO2 (35-45) mmHg ABG pO2 (80.0-100.0) mmH g ABG HCO3 (22-26) mmol/L ABG Base Excess (-2.0-2.0) mmol/ L Nam Test Hematocrit (42-52) % O2 Delivery Device O2 Liters/Min % Distribution A Class Lineman ID Sodium (136-145) mmol/L Potassium (3.5-5.1) mmol/L Chloride (98-107) mmol/L Carbon Dioxide (22-29) mmol/L Anion Gap (5-19) BUN (6-20) mg/dL Creatinine (0.7-1.2) mg/dL GFR Calculation (90-130) mL/min Glucose (65-115) mg/dL Calculated Osmolal ity (285-295) mOsm/k g Lactate (0.5-2.2) mmol/L Calcium (8.5-10.5) mg/dL Total Bilirubin (0.15-1.2) mg/dL AST (0-40) U/L ALT (0-41) U/L Alkaline Phosphata se (40-130) IU/L Troponin T Baselin e (0-15) ng/L Troponin T 120 Min [place] (0-15) ng/L Delta Troponin T (0-10) ABS# NT-Pro-B Natriuret Pep (0-125) pg/mL Total Protein (6.6-8.7) g/dL Albumin (3.5-5.2) g/dL Globulin (1.3-4.6) g/dL Procalcitonin (0-0.5) ng/mL Urine Color (Yellow) Urine Appearance (CLEAR) Urine pH (5-7) Ur Specific Gravit y (1.005-1.030) Urine Protein (Negative) Urine Glucose (UA) (Normal) Urine Ketones (Negative) Urine Blood (Negative) Urine Nitrate (Negative) Urine Bilirubin (NEGATIVE) Urine Urobilinogen (Negative) mg/dL Ur Leukocyte Beatriz ase (Negative) SARS-CoV-2 Ag (Rap id) Negative (Negative) Critical Care Time Critical Care Time: Critical Care Time: Yes Total Critical Care Time: 35 Attestation: This case had a high probability of a clinically significant, sudden, or life threatening deterioration of this patient's condition which required my full and direct attention, intervention and personal management. Discharge Plan Discharge Patient Disposition: Admitted As Inpatient Admit Provider: Jorge Milan Clinical Impression: Acute respiratory failure Qualifiers: Respiratory failure complication: hypoxia Qualified Code(s): J96.01 - Acute respiratory failure with hypoxia CHF (congestive heart failure) Qualifiers: Heart failure type: systolic Heart failure chronicity: acute Qualified Code(s): I50.21 - Acute systolic (congestive) heart failure Condition: Stable Interventions: ED Discharge Assessment Last Done: 10/24/19 03:41 ED Charges Last Done: 10/24/19 03:42 Discharge Date/Time: 10/24/19 03:42 Coding Level of Care Code ED Manufacturing Engineering Director for Chg Fwd Exam Comprehensive
[2019-10-24 04:43] LABS: Basophils # 0.1 10^3/uL (0.0-0.1); Basophils % 0.7 %; Eosinophils # 0.3 10^3/uL (0.0-0.8); Eosinophils % 3.6 %; Hematocrit 37.9 % (42.0-52.0); Hemoglobin 11.7 g/dL (11.7-16.6); Lymphocytes # 1.7 10^3/uL (0.8-4.8); Lymphocytes % 24.8 %; Mean Corpuscular HGB Conc 30.9 g/dL (30.0-36.0); Mean Corpuscular Hemoglobin 27.5 pg (28.0-34.0); Mean Platelet Volume 9.5 fL (7.4-10.4); Monocytes # 0.6 10^3/uL (0.2-0.9); Monocytes % 8.3 %; Neutrophils # 4.28 10^3/uL (1.8-7.7); Nucleated Red Blood Cells % 0 %; Platelet Count 256 10^3/cmm (130-400); Red Blood Count 4.26 10^6/uL (4.1-5.3); Red Cell Distribution Width 13.7 % (12.1-15.1); White Blood Count 6.9 10^3/uL (4.0-10.0)
[2019-10-24 05:12] LABS: Anion Gap 16.4 (5-19); Blood Urea Nitrogen 34 mg/dL (6-20); Calcium 8.8 mg/dL (8.5-10.5); Carbon Dioxide 21 mmol/L (22-29); Chloride 106 mmol/L (98-107); Glomerular Filtration Rate 27.3 mL/min (90-130); Glucose 101 mg/dL (65-115); Osmolality Calculated 285 mOsm/kg (285-295); Potassium 4.4 mmol/L (3.5-5.1); Sodium 139 mmol/L (136-145); Troponin 5 6HR Delta 9.2 ng/L (0-12)
[2019-10-24 05:27] LABS: Troponin 5 6HR 387.2 ng/L (0-15)
[2019-10-24] MEDS: piperacillin-tazobactam 3.375 GM in sodium chloride 0.9% (plus) 50 ML IV ×3 (07:30→20:22)
--- NOTE | 2019-10-24 07:56 | PC.NURSE ---
recd on bipap 40% fio2, 18/10. removed for breakfast and to 4l n.c.
[2019-10-24] MEDS: aspirin 81 mg EC Tablet PO (08:53)
[2019-10-24] MEDS: metoprolol tartrate 25 mg Tablet 12.5 MG PO ×2 (08:53→17:03)
[2019-10-24] MEDS: predniSONE 5 mg Tablet PO (08:53)
[2019-10-24] MEDS: clopidogrel 75 mg Tablet PO (08:53)
[2019-10-24] MEDS: pantoprazole DR 40 mg Tablet PO (08:53)
--- NOTE | 2019-10-24 09:56 | PC.CHAP ---
Pastoral Care Encounter/Spiritual Assessment Type of Contact [] Declined cooling machine operator visit [] Patient/Family/Request visit [] Outpatient visit [] Follow-up visit [] Physician referral [] Code/Alert [] Routine visit [] Staff referral [] Actively dying [xx] Patient sleeping [] Family support [] [] Out of room [] Palliative care [] [] Receiving care in room [] Pre-surgical visit [] Trauma [] Long length of stay [] ICU visit [] Other: Relational/Emotional Strength [] Patient feels connected with others/family/visitors/staff [] Distress [] Loneliness/isolation [] Abandonment Spirituality of Patient [] Person of [place] [] Attends Adventism of their [place] [] Believes in Prayer [] Reads Bible or Moravian materials [] There are Spiritual issues to be addressed Sharepoint Application Developer Interventions [] Prayer [] Active listening [] Non-anxious presence [] Spiritual/emotional support [] Crisis/trauma care [] Spiritual counseling [] Bereavement support [] Provided bereavement packet [] Provided Bible/devotional materials [] Provided toy/stuffed animal, coloring book to patient or family member [] Provided Communion [] Anointing/[place] [] Salvation [] Completed spiritual assessment [] Other: Impact on Illness or Injury [] Angry [] Fearful [] Anxious [] Often cries [] Exhaustion [] Unable to work [] Unable to attend hoahaoism [] Unable to walk/stand [] Unable to read [] Unable to drive [] Unable to eat/drink [] Unable to sleep [] Unable to be with family [] Patient intubated [] Other: Summary Time spent with patient
--- NOTE | 2019-10-24 10:26 | P.PN_ITS ---
Subjective Subjective: Interval history: Last night. H&P and labs noted. Examination patient is on BiPAP 40%. Available. Saturating 94%. Output around 600 cc since admission. Blood pressures well maintained with mean arterial pressure around 77. No arrhythmia on telemetry. Vitals/I&O/Wt Last Vital Signs Temp 97.8 F 10/24/19 04:00 Pulse 63 10/24/19 09:30 Resp 20 H 10/24/19 08:21 BP 110/71 10/24/19 04:00 Pulse Ox 94 10/24/19 09:30 10/23/19 10/24/19 10/24/19 22:59 06:59 14:59 Intake Total 290 / 290 Output Total 300 / 300 600 / 600 Balance -300 / -300 -310 / -310 Weight last 48 hrs Weight 117.282 kg Weight 113.398 kg Physical Exam Narrative: EXAM NARRATIVE: General exam is no distress on BiPAP HEENT: BiPAP noted Neck is supple, obese Cardiovascular regular rate and rhythm without murmur Lungs diminished breath sounds bilaterally and bilateral crackles. No wheezing Abdomen is soft, obese. Positive bowel sounds. No obvious organomegaly was deferred Extremities no cyanosis clubbing or edema, cap refill brisk Skin no rash Neuro no focal deficits. Data : 10/24/19 04:35 10/24/19 04:35 Micro: Microbiology 10/23/19 21:32 Blood Culture - Preliminary Blood SPECIMEN COLLECTED 10/23/19 20:45 Blood Culture - Preliminary Blood SPECIMEN COLLECTED A&P Assessment and plan (1) Acute respiratory failure: Most likely because of CHF. Procalcitonin negative on admission. Rapid COVID negative on admission. As per history patient did have vomiting prior to admission. We will continue Zosyn for possible aspiration. If patient spikes fever will do COVID PCR. Continue follow sputum culture, MRSA PCR. Continue with Advair. Oxygen supplementation keeping saturation over 92%. Continue BiPAP ventilation for now to decrease the work of breathing. Status: Acute Qualifiers: Respiratory failure complication: hypoxia Qualified Code(s): J96.01 - Acute respiratory failure with hypoxia (2) CHF (congestive heart failure): Appears to have acute systolic congestive heart failure exacerbation. Check limited echocardiogram Continue with 60 mg IV twice daily. Patient is agreed for Simons catheter. Strict input output charting. Daily weights. Fluid restriction up to 1500 cc. Cardiology consult awaited. Status: Acute Qualifiers: Heart failure chronicity: acute Heart failure type: systolic Qualified Code(s): I50.21 - Acute systolic (congestive) heart failure (3) Seropositive rheumatoid arthritis: Status: Acute (4) PCK (polycystic kidney disease): Status: Acute (5) COPD (chronic obstructive pulmonary disease): Status: Chronic Qualifiers: COPD type: unspecified COPD Qualified Code(s): J44.9 - Chronic obstructive pulmonary disease, unspecified (6) Hypertension: Status: Chronic Qualifiers: Hypertension type: essential hypertension Qualified Code(s): I10 - Essential (primary) hypertension (7) Dyslipidemia: Status: Chronic (8) Chronic kidney disease, stage 3: Status: Acute Additional A&P Information Recent ST elevation myocardial infarction when he received a drug-eluting stent October 09. Continue Plavix, statin. Add metoprolol low-dose. Hypertension. Hold patient's LAKISHA inhibitor currently secondary to aggressive diuresis planned in face of chronic kidney disease stage III. Add metoprolol. Hold Norvasc. CKD with polycystic kidney: Baseline creatinine around 2-2.1. 2.5 today. We will continue to monitor. Patient needs aggressive diuresis for now. No signs of electrode normality for now. Hyperlipidemia. Continue statin Rheumatoid arthritis. Continue patient's prednisone COPD, no active wheezing or concern for exacerbation currently. Full code Heparin for DVT prophylaxis Attestations Medical Necessity Statement*: Acute hypoxic respiratory failure, congestive heart failure Time Spent in Patient Care: Greater than 35 minutes (>than 50% of time spent in counselling and/or direct pt care on unit) . 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
--- NOTE | 2019-10-24 10:48 | PC.NURSE ---
16 fr. zuleta inserted with immediate urine return.
--- NOTE | 2019-10-24 12:02 | PC.NURSE ---
zuleta leaking around meatus. 2ml. saline dded to balloon. will monitor.
--- NOTE | 2019-10-24 12:58 | PC.NURSE ---
unable to get sputum for spec. dry cough.
--- NOTE | 2019-10-24 15:04 | PC.NURSE ---
minimal leaking around urinary meatus.
--- NOTE | 2019-10-24 15:07 | PM.CONSULT ---
Providers/Reason For Consult Consulting Physican/Specialty*: Dr. Meeks, cardiology Reason for Consult*: Congestive heart failure, elevated troponin Attending Physician: Prosper Sanz MD Primary Care Provider: TONA Reveles History of Present Illness History of Present Illness Tyson Nixon is a 53 year old male past medical history of hypertension, CAD status post PCI of mid left circumflex in 2014, COPD, chronic active smoker, history of rheumatoid arthritis and chronic kidney disease with baseline creatinine of 2.1 was recently in the ER on 09 October with posterior wall myocardial infarction. He was emergently taken to [facility] and underwent angiogram that showed proximal to mid circumflex 99% stenosis. This was treated with drug-eluting stents x2. He was discharged home on 10 October on aspirin, Plavix, metoprolol and statin. His echocardiogram showed mildly reduced left ventricular ejection fraction of 45 to 50%. It seems like he was admitted last night with complaints of dyspnea on exertion orthopnea and cough. He also complains of some pleuritic chest discomfort. No fever or leg swelling. Denies any exposure to COVID. EKG on arrival showed sinus rhythm, normal last axis with nonspecific T wave inversion in lead aVL and with V6. Review of Systems Const: Denies: fever(s), chills or fatigue Eyes: Denies: change in vision ENMT: Denies: throat pain Card: Reports: dyspnea on exertion and orthopnea; Denies: chest pain, palpitations, irregular heart rhythm, edema, swelling of feet/ankles, lightheadedness, syncope or pre-syncope Resp: Reports: dyspnea and non-productive cough; Denies: productive cough GI: Reports: vomiting; Denies: abdominal pain, nausea, hematemesis, diarrhea, constipation or hematochezia : Denies: dysuria or hematuria Musc: Denies: back pain, extremity swelling, joint pain or muscle weakness Skin/Breast: Denies: rash Neuro: Denies: dizziness Psych: Denies: anxiety or depression Endo: Denies: tired all the time Sagar/Lymph: Denies: easy bruising or easy bleeding Meds/Allergies Home Medications and Allergies Home Medications Medication Instructions Recorded Confirmed Last Taken Type albuterol sulfate 2.5 mg INHALATION Q4H PRN 30 Days 02/23/19 10/24/19 Unknown Rx #180 ml albuterol sulfate 90 mcg/actuation 2 puff INHALATION QID PRN 3 Days 09/03/19 10/24/19 10/09/19 Rx aerosol inhaler #6.7 gm clopidogrel 75 mg tablet 75 mg PO DAILY 30 Days #30 tab 09/03/19 10/24/19 10/09/19 Rx fluticasone 500 mcg-salmeterol 50 1 inh INHALATION BID 30 Days #60 09/03/19 10/24/19 10/09/19 Rx mcg/dose blistr powdr for each inhalation pantoprazole 40 mg tablet,delayed 40 mg PO DAILY 30 Days #30 tab 09/03/19 10/24/19 10/09/19 Rx release prednisone 2.5 mg tablet 5 mg PO DAILY #60 tab 09/20/19 10/24/19 10/09/19 Rx amlodipine 5 mg PO DAILY #30 tab 10/11/19 10/24/19 Unknown Rx aspirin 81 mg PO DAILY #30 tab 10/11/19 10/24/19 Unknown Rx atorvastatin 40 mg PO BEDTIME #30 tab 10/11/19 10/24/19 Unknown Rx lisinopril 10 mg PO DAILY #30 tab 10/11/19 10/24/19 Unknown Rx Enbrel Mini 50 mg SUBCUT Q7D 10/24/19 10/24/19 Unknown History atenolol 100 mg PO DAILY 10/24/19 10/24/19 Unknown History Allergies Allergy/AdvReac Type Severity Reaction Status Date / Time No Known Allergies Allergy Verified 10/10/19 10:15 Current Medications Current Medications Generic Name Dose Route Start Last Admin Trade Name Freq PRN Reason Stop Dose Admin Albuterol Sulfate 2.5 mg 10/24/19 03:41 10/24/19 08:19 Albuterol INHALATION 2.5 mg Q4H.RESPIRATORY PRN Administration shortness of breath or wheezing Aspirin 81 mg 10/24/19 09:00 10/24/19 08:53 Aspirin Ec PO 81 mg DAILY DOMINIQUE Administration Clopidogrel Bisulfate 75 mg 10/24/19 09:00 10/24/19 08:53 Plavix PO 75 mg DAILY DOMINIQUE Administration Heparin Sodium (Beef Lung) 5,000 unit 10/24/19 04:00 10/24/19 04:00 Heparin SUBCUT 5,000 unit Q12H DOMINIQUE Administration Piperacillin Sod/Tazobactam 50 mls @ 12.5 mls/hr 10/24/19 04:45 10/24/19 13:12 Sod 3.375 gm/ Sodium Chloride IV 12.5 mls/hr Q8H DOMINIQUE Administration Protocol As Directed Metoprolol Tartrate 12.5 mg 10/24/19 09:00 10/24/19 08:53 Lopressor PO 12.5 mg BID DOMINIQUE Administration Pantoprazole Sodium 40 mg 10/24/19 09:00 10/24/19 08:53 Protonix PO 40 mg DAILY DOMINIQUE Administration Prednisone 5 mg 10/24/19 09:00 10/24/19 08:53 Prednisone PO 5 mg DAILY DOMINIQUE Administration Fluticasone/Salmeterol 1 puff 10/24/19 09:00 10/24/19 08:16 Advair Diskus 500-50 INHALATION 1 puff BID DOMINIQUE Administration PFSH Acute PFSH: Medical History Chronic kidney disease, stage 3 COPD (chronic obstructive pulmonary disease) Coronary artery disease Degenerative disk disease Dyslipidemia GERD (gastroesophageal reflux disease) High risk medication use Hyperkalemia Hyperlipidemia Hypersomnia Hypertension Immunization counseling PCK (polycystic kidney disease) Rheumatoid arthritis Seropositive rheumatoid arthritis Smoker Vitamin D deficiency Surgical History (Updated 10/24/19 @ 10:34 by Prosper Sanz MD) History of PTCA Stented coronary artery Family History Other CAD (coronary artery disease) Diabetes Hypertension Systemic lupus erythematosus (SLE) in adult Denies family history of Cancer Stroke Social History Smoking and tobacco status: former smoker Quit status (tobacco): has tried quititng Second hand smoke exposure: No Smoking risk assessment/counseling performed?: Yes Alcohol intake: former Desire information about alcohol rehabilitation?: No Counseling given: No Household members: spouse Marital status: Vitals/I&O/Wt Last Vital Signs Temp 97.8 F 10/24/19 04:00 Pulse 67 10/24/19 15:00 Resp 16 10/24/19 15:00 BP 126/80 10/24/19 15:00 Pulse Ox 96 10/24/19 15:00 10/24/19 10/24/19 10/24/19 06:59 14:59 22:59 Intake Total 470 / 470 Output Total 300 / 300 1145 / 1145 115 / 1260 Balance -300 / -300 -675 / -675 -115 / -790 Weight last 48 hrs Weight 258 lb 9 oz Weight 250 lb Physical Exam Const: COMMON NORMALS: no acute distress, patient oriented x3, alert and well nourished GENERAL APPEARANCE: cooperative, comfortable, well kempt and well developed NUTRITIONAL APPEARANCE: obese ORIENTATION/CONSCIOUSNESS: Yes oriented to person, Yes oriented to place and Yes oriented to time HENMT: COMMON NORMALS: normocephalic, atraumatic, hearing grossly normal bilaterally, external ears normal and Normal external nose present HEAD & SCALP: normocephalic and atraumatic FACE & SINUS: face symmetric NOSE: Normal external nose present EXTERNAL EAR: Yes external ears normal Eye: COMMON NORMALS: Equal, round and reactive pupils present, EOMs intact bilaterally and conjunctivae normal ALIGNMENT: Yes alignment normal CONJUNCTIVA: Yes conjunctivae normal SCLERA: sclerae normal PUPIL: Yes Equal, round and reactive pupils present Neck/C-Spine: COMMON NORMALS: no lymphadenopathy, supple and no JVD; negative for No carotid bruits GENERAL: Yes trachea midline Lymph: LYMPHATIC: No no lymphadenopathy noted Chest: COMMONS NORMALS: normal inspection of the chest CHEST: Yes Symmetrical chest wall rise and No tenderness Resp: COMMON NORMALS: normal respiratory effort, No use of accessory muscles, clear to auscultation bilaterally and percussion normal EFFORT & INSPECTION: Yes able to speak in complete sentences and No tachypneic AUSCULTATION: clear to auscultation bilaterally, no crackles, no rales, no rhonchi and no wheezes PERCUSSION: percussion normal Cardio: COMMON NORMALS: no JVD, regular rate, regular rhythm, S1 normal heart sound present, S2 normal heart sound present and Peripheral pulses 2+ throughout; negative for No gallops present (Cardio) and negative for No clicks present (Cardio) JUGULAR VENOUS DISTENTION: no JVD PALPATION: normal PMI, no heave, no palpable S3, no palpable S4 and no thrill RATE: regular rate RHYTHM: regular rhythm HEART SOUNDS: S1 normal heart sound present, S2 normal heart sound present, no gallops and Murmur heart sound present (grade 2/6 ) systolic Location: apex BRUITS: no carotid bruits PERIPHERAL PULSES: Peripheral pulses 2+ throughout GI: COMMON NORMALS: Normal to inspection, nondistended, normoactive bowel sounds present, Soft to palpation and non-tender PALPATION: Yes Soft to palpation RECTAL EXAM: Yes deferred Back/Pelvis: LUMBAR SPINE/LOWER BACK: Yes normal to inspection Neuro: COMMON NORMALS: patient oriented x3 and no focal motor deficits SENSORIUM/ORIENTATION: Yes alert, Yes oriented to person, Yes oriented to place and Yes oriented to time CRANIAL NERVES: Yes CN normal except as noted Psych: COMMON NORMALS: Normal thought process present APPEARANCE: Yes well kempt MOOD & AFFECT: Yes euthymic mood THOUGHT PROCESS: Normal thought process present THOUGHT CONTENT: Yes Normal thought content present ATTENTION/CONCENTRATION: Yes attention grossly intact MEMORY/COGNITION: Yes memory grossly intact INSIGHT: Good insight present (Psych) JUDGEMENT: Good judgement present (Psych) Urinary Catheter Management^: Simons: Cath Placed During This Visit: yes Urinary Catheter Date of Insertion: 10/24/19 Urinary Catheter Time of Insertion: 11:00 Data Labs: Other Labs: Laboratory Tests 10/23/19 10/23/19 10/23/19 20:45 20:45 20:55 ABG pH 7.38 ABG pCO2 37.0 ABG pO2 69.9 L Troponin T Baselin e 378 H* Troponin T 120 Min phan Troponin T Hi Sens 6Hr NT-Pro-B Natriuret Pep 5898 H SARS-CoV-2 Ag (Rap id) 10/23/19 10/23/19 10/24/19 22:45 23:00 04:35 ABG pH ABG pCO2 ABG pO2 Troponin T Baselin e Troponin T 120 Min phan 387.8 H Troponin T Hi Sens 6Hr 387.2 H NT-Pro-B Natriuret Pep SARS-CoV-2 Ag (Rap id) Negative Laboratory Tests 09/06/19 08:09 Triglycerides 215 H Cholesterol 125 LDL Cholesterol, C alc 59 HDL Cholesterol 23 L Micro: Micro: Microbiology 10/24/19 08:35 MRSA Culture - Fin al Nose 10/23/19 21:32 Blood Culture - Pr eliminary Blood SPECIMEN [facility] 10/23/19 20:45 Blood Culture - Pr eliminary Blood SPECIMEN [facility] Imaging^: Echo: Radiologist's impression: 20 September 2019 CONCLUSIONS Mildly reduced LV systolic function with EF of 45 to 50%. Severe hypokinesis of basal to distal inferolateral wall is noted. Mild hypokinesis ofinferior wall. Mild LVH is noted. Diastolic function is abnormal. RA pressure is 0 to 5 mmHg. Other Imaging: Radiologist's impression: Coronary angiogram (10/10/19) Diagnostic Cath Status: Emergency Diagnostic Findings Proximal Circumflex Coronary Artery: Severe 100% stenosis, thrombosed segment, TEREZA: 0 flow, high/c lesion. Patent stent is noted in the mid to distal circumflex. It gives off a large second OM. LAD arises from left main artery. Gives off 2 diagonal branches. Mid LAD has moderate ectasia with about 20 to 30% stenosis. RCA has an anterior takeoff. It has diffuse luminal irregularities. No significant stenosis was noted. LM has 0% stenosis. Coronary angiography shows right dominance. A&P Assessment and plan (1) CHF (congestive heart failure): Mildly decreased to low normal LV systolic function and abnormal diastolic dysfunction. -diuresing fairly with lasix 60 mg IV q 12 hr. -continue to monitor I/O and f/u BMP. monitor weight. UO. -May have to uptitrate based on response. Status: Acute Qualifiers: Heart failure chronicity: acute Heart failure type: diastolic Qualified Code(s): I50.31 - Acute diastolic (congestive) heart failure (2) Coronary artery disease: recent posterior [place] s/p RENA x2 to px to mid LCx. -continue DAPT, beta sia and statin. Status: Acute Qualifiers: Associated angina: without angina Coronary Disease-Associated Artery/Lesion type: unspecified vessel or lesion type [place] vs. transplanted heart: [place] heart Qualified Code(s): I25.10 - Atherosclerotic heart disease of [place] coronary artery without angina pectoris (3) Hypertension: Status: Chronic Qualifiers: Hypertension type: essential hypertension Qualified Code(s): I10 - Essential (primary) hypertension (4) Dyslipidemia: Status: Chronic Additional A&P Information NSTEMI type 2 in setting of decompensated CHF Mitral regurgitation- at least moderate H/o of polycystic kidney disease with CKD stage III COPD Chronic active smoker: states he quit 2 weeks back Suspected sleep apnea Rheumatoid arthritis Thank you for allowing me to participate in patient's care. Please feel free to call with questions or concerns. Consult Attestations Medical Necessity Statement: Needs hospital stay for decompensated CHF. Coding Level of Care Code Acute Boiler Testing Technician for Chg Fwd Diagnoses CHF (congestive heart failure) I50.31 Heart failure chronicity: acute Heart failure type: diastolic Coronary artery disease I25.10 Associated angina: without angina Coronary Disease-Associated Artery/Lesion type: unspecified vessel or lesion type [place] vs. transplanted heart: [place] heart Hypertension I10 Hypertension type: essential hypertension Dyslipidemia E78.5
[2019-10-24] MEDS: atorvastatin 40 mg Tablet PO (20:22)
[2019-10-24] MEDS: FUROsemide 10 mg/mL SDV 10mL 60 MG IVP (20:23)
[2019-10-25] VITALS (26 sets, daily range): BP systolic 89–134; BP diastolic 54–99; PULSE 54–89; RESP 12–29; TEMP 35.9–37.2; O2SAT 88–98
[2019-10-25] MEDS: heparin 5,000 unit/mL INJ 1 mL 5000 UNIT SUBCUT ×2 (04:34→16:14)
[2019-10-25] MEDS: piperacillin-tazobactam 3.375 GM in sodium chloride 0.9% (plus) 50 ML IV ×3 (04:34→20:28)
[2019-10-25 04:54] LABS: Basophils % 0.4 %; Eosinophils # 0.3 10^3/uL (0.0-0.8); Eosinophils % 3.3 %; Hematocrit 39.5 % (42.0-52.0); Hemoglobin 12.6 g/dL (11.7-16.6); Lymphocytes # 1.3 10^3/uL (0.8-4.8); Lymphocytes % 17.9 %; Mean Corpuscular HGB Conc 31.9 g/dL (30.0-36.0); Mean Corpuscular Hemoglobin 27.7 pg (28.0-34.0); Mean Corpuscular Volume 86.8 fL (80-94); Mean Platelet Volume 9.8 fL (7.4-10.4); Monocytes # 0.6 10^3/uL (0.2-0.9); Monocytes % 8.1 %; Neutrophils # 5.24 10^3/uL (1.8-7.7); Neutrophils % 69.9 %; Nucleated Red Blood Cells % 0 %; Platelet Count 275 10^3/cmm (130-400); Red Blood Count 4.55 10^6/uL (4.1-5.3); Red Cell Distribution Width 13.7 % (12.1-15.1); White Blood Count 7.5 10^3/uL (4.0-10.0)
[2019-10-25 05:24] LABS: Alanine Aminotransferase 15 U/L (0-41); Albumin Level 3.9 g/dL (3.5-5.2); Alkaline Phosphatase 65 IU/L (40-130); Anion Gap 16.5 (5-19); Aspartate Amino Transferase 20 U/L (0-40); Blood Urea Nitrogen 42 mg/dL (6-20); Calcium 9.6 mg/dL (8.5-10.5); Carbon Dioxide 27 mmol/L (22-29); Chloride 99 mmol/L (98-107); Chol HDL Ratio 4.87 mg/dL (1.0-5.00); Cholesterol 112 mg/dL (0-200); Globulin 3.3 g/dL (1.3-4.6); Glomerular Filtration Rate 23.9 mL/min (90-130); Glucose 105 mg/dL (65-115); HDL Cholesterol 23 mg/dL (60-100); LDL Cholesterol Calculated 60 mg/dL (50-129); LDL Cholesterol Direct 69 mg/dL (0-100); LDL HDL Ratio 2.61 RATIO (0.00-3.22); Osmolality Calculated 284 mOsm/kg (285-295); Potassium 4.5 mmol/L (3.5-5.1); Sodium 138 mmol/L (136-145); Total Bilirubin 0.5 mg/dL (0.15-1.2); Total Protein 7.2 g/dL (6.6-8.7); Triglycerides 145 mg/dL (0-150)
--- NOTE | 2019-10-25 07:26 | XRR_ITS ---
PROCEDURE INFORMATION: Exam: XR Chest, 1 View Exam date and time: 10/25/2019 7:43 AM Age: 53 years old Clinical indication: Dyspnea; Additional info: SOB TECHNIQUE: Imaging protocol: XR of the chest Views: Frontal portable upright view of the chest. COMPARISON: CR XR chest 1V portable [id number] 10/23/2019 9:01 PM FINDINGS: Tubes, catheters and devices: EKG leads are present overlying the chest. Lungs: Mild interval improvement of right lower lung zone airspace opacity. Stable left medial basilar partial atelectasis. The pulmonary vasculature is normal. Pleural space: No pleural effusion. No pneumothorax. Heart/Mediastinum: The heart is normal in size and contour. Mediastinum: Stable. Bones/joints: Stable. XR/XR chest 1V portable [id number] IMPRESSION: 1. Mild interval improvement of right lower lung zone airspace opacity. 2. Stable left medial basilar partial atelectasis.
--- NOTE | 2019-10-25 08:08 | CTR_ITS ---
PROCEDURE INFORMATION: Exam: CT Chest Without Contrast Exam date and time: 10/25/2019 8:23 AM Age: 53 years old Clinical indication: Cough and shortness of breath; Prior surgery; Surgery type: Cardiac catheterization; Patient HX: Cough and SOB. ; Additional info: Rll opacity TECHNIQUE: Imaging protocol: Computed tomography of the chest without contrast. Radiation optimization: All CT scans at this facility use at least one of these dose optimization techniques: automated exposure control; mA and/or kV adjustment per patient size (includes targeted exams where dose is matched to clinical indication); or iterative reconstruction. COMPARISON: CR XR chest 1V portable [id number] 10/25/2019 7:32 AM RADIATION DOSE METRICS: Total DLP (mGy-cm): 990.73 FINDINGS: Thyroid: The partially imaged bilateral thyroid lobes are unremarkable. Lungs: Bilateral posterior pulmonary partial passive atelectasis. Patchy ground-glass airspace opacities with intralobular septal thickening right lower lobe anterior, lateral basilar segments, superior segment, right apex. Mild focal panlobular and paraseptal emphysema right pulmonary apex. A 3.7 mm noncalcified pulmonary nodule is noted in the superior segment of the lingula (LOC -167.5). Pleural space: Moderate bilateral pleural effusions. Heart: Small pericardial effusion. Left main, LAD, LCx and RCA calcified coronary atherosclerosis. Aorta: Unremarkable. No aortic aneurysm. Other arteries: Ligamentum arteriosum calcification, normal variant. Lymph nodes: No enlarged lymph nodes. 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 Bones/joints: No acute abnormality. No acute fracture. Soft tissues: Unremarkable. CT/CT chest [facility] [id number] IMPRESSION: 1. Unenhanced imaging is of low utility in the diagnosis of pulmonary emboli and thoracic aortic dissection in the absence of displaced intimal calcifications. If clinically indicated, IV contrast enhanced imaging may add additional useful information, if not contraindicated. 2. Moderate bilateral pleural effusions. 3. Small pericardial effusion. 4. Patchy right-sided ground-glass airspace opacities with intralobular septal thickening. Pneumonitis, including viral pneumonitis, is difficult to exclude. Clinical correlation is recommended. 5. Coronary atherosclerosis. 6. Noncalcified small lingular pulmonary nodule. For patients at low risk (minimal or absent history of smoking and of other known risk factors), no routine follow-up is indicated. For patients at high risk (history of smoking or of other known risk factors), consider optional CT at 12 months. (Jayleen et al., Fleischner Society, 2017). 7. 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 Radiation Dose CTDIVOL = (mGy): DLP = 990.73 (mGy-cm)
--- NOTE | 2019-10-25 08:40 | PM.PN ---
Subjective Subjective: Interval history: Patient was transferred out of unit today; he is on oxygen 4 L by nasal cannula and appears to be tachypneic. He is requiring BiPAP intermittently. He was bradycardic overnight. Blood culture 1 out of 4 grew gram-positive cocci. Medications: Reviewed: Yes Medication Review Details: Current Medications Acetaminophen (Tylenol) 650 mg PO Q6H PRN PRN Reason: Mild/Mod Pain Or Temp >/= 101 Albuterol Sulfate (Albuterol) 2.5 mg INHALATION Q4H.RESPIRATORY PRN PRN Reason: shortness of breath or wheezing Last Admin: 10/24/19 08:19 Dose: 2.5 mg Documented by: Aspirin (Aspirin Ec) 81 mg PO DAILY [facility] Last Admin: 10/25/19 09:34 Dose: 81 mg Documented by: Atorvastatin Calcium (Lipitor) 80 mg PO BEDTIME [facility] Clopidogrel Bisulfate (Plavix) 75 mg PO DAILY [facility] Last Admin: 10/25/19 09:33 Dose: 75 mg Documented by: Furosemide (Lasix) 40 mg IVP Q24H [facility] Heparin Sodium (Beef Lung) (Heparin) 5,000 unit SUBCUT Q12H [facility] Last Admin: 10/25/19 04:34 Dose: 5,000 unit Documented by: Piperacillin Sod/Tazobactam (Sod 3.375 gm/ Sodium Chloride) 50 mls @ 12.5 mls/hr IV Q8H [facility]; Protocol Last Admin: 10/25/19 12:37 Dose: 12.5 mls/hr Documented by: Metoprolol Tartrate (Lopressor) 12.5 mg PO BID [facility] Last Admin: 10/25/19 09:34 Dose: 12.5 mg Documented by: Ondansetron HCl (Zofran) 4 mg IVP Q6H PRN PRN Reason: vomiting, or N/V if npo Pantoprazole Sodium (Protonix) 40 mg PO DAILY [facility] Last Admin: 10/25/19 09:34 Dose: 40 mg Documented by: Prednisone (Prednisone) 5 mg PO DAILY [facility] Last Admin: 10/25/19 09:33 Dose: 5 mg Documented by: Fluticasone/Salmeterol (Advair Diskus 500-50) 1 puff INHALATION BID [facility] Last Admin: 10/25/19 08:18 Dose: 1 puff Documented by: Vitals/I&O/Wt Last Vital Signs Temp 96.7 F L 10/25/19 08:00 Pulse 67 10/25/19 08:27 Resp 18 10/25/19 08:00 BP 89/54 10/25/19 08:00 Pulse Ox 95 10/25/19 08:16 10/24/19 10/25/19 10/25/19 22:59 06:59 14:59 Intake Total 550 / 1020 410 / 1430 120 / 120 Output Total 740 / 1885 2500 / 4385 Balance -190 / -865 -2090 / -2955 120 / 120 Weight last 48 hrs Weight 256 lb Weight 258 lb 9 oz Weight 250 lb Physical Exam Narrative: EXAM NARRATIVE: Const COMMON NORMALS: no acute distress, patient oriented x3, alert and well nourished GENERAL APPEARANCE: cooperative, comfortable, well kempt and well developed NUTRITIONAL APPEARANCE: obese ORIENTATION/CONSCIOUSNESS: Yes oriented to person, Yes oriented to place and Yes oriented to time HENMT COMMON NORMALS: normocephalic, atraumatic, hearing grossly normal bilaterally, external ears normal and Normal external nose present HEAD & SCALP: normocephalic and atraumatic FACE & SINUS: face symmetric NOSE: Normal external nose present EXTERNAL EAR: Yes external ears normal Eye COMMON NORMALS: Equal, round and reactive pupils present, EOMs intact bilaterally and conjunctivae normal ALIGNMENT: Yes alignment normal CONJUNCTIVA: Yes conjunctivae normal SCLERA: sclerae normal PUPIL: Yes Equal, round and reactive pupils present Neck/C-Spine COMMON NORMALS: no lymphadenopathy, supple and no JVD; negative for No carotid bruits GENERAL: Yes trachea midline Lymph LYMPHATIC: No no lymphadenopathy noted Chest COMMONS NORMALS: normal inspection of the chest CHEST: Yes Symmetrical chest wall rise and No tenderness Resp COMMON NORMALS: normal respiratory effort, No use of accessory muscles, clear to auscultation bilaterally and percussion normal EFFORT & INSPECTION: Yes able to speak in complete sentences and + tachypneic AUSCULTATION: clear to auscultation bilaterally, no crackles, no rales, no rhonchi and no wheezes PERCUSSION: percussion normal Cardio COMMON NORMALS: no JVD, regular rate, regular rhythm, S1 normal heart sound present, S2 normal heart sound present and Peripheral pulses 2+ throughout; negative for No gallops present (Cardio) and negative for No clicks present (Cardio) JUGULAR VENOUS DISTENTION: no JVD PALPATION: normal PMI, no heave, no palpable S3, no palpable S4 and no thrill RATE: regular rate RHYTHM: regular rhythm HEART SOUNDS: S1 normal heart sound present, S2 normal heart sound present, no gallops and Murmur heart sound present (grade 2/6 ) systolic Location: apex BRUITS: no carotid bruits PERIPHERAL PULSES: Peripheral pulses 2+ throughout Neuro COMMON NORMALS: patient oriented x3 and no focal motor deficits SENSORIUM/ORIENTATION: Yes alert, Yes oriented to person, Yes oriented to place and Yes oriented to time CRANIAL NERVES: Yes CN normal except as noted Psych COMMON NORMALS: Normal thought process present APPEARANCE: Yes well kempt MOOD & AFFECT: Yes euthymic mood THOUGHT PROCESS: Normal thought process present THOUGHT CONTENT: Yes Normal thought content present ATTENTION/CONCENTRATION: Yes attention grossly intact MEMORY/COGNITION: Yes memory grossly intact INSIGHT: Good insight present (Psych) JUDGEMENT: Good judgement present (Psych) Urinary Catheter Management^: Simons: Cath Placed During This Visit: yes Reason for Continuing Indwelling Catheter: Accurate Measurement of Urinary Output in Critically Ill Patients Urinary Catheter Date of Insertion: 10/24/19 Urinary Catheter Time of Insertion: 11:00 Data : 10/25/19 04:16 10/25/19 04:16 Micro: Microbiology 10/23/19 21:32 Blood Culture - Preliminary Blood Gram positive cocci 10/23/19 20:45 Blood Culture - Preliminary Blood NEGATIVE TO DATE 10/24/19 08:35 MRSA Culture - Final Nose CXR: Radiologist's impression: IMPRESSION: 1. Mild interval improvement of right lower lung zone airspace opacity. 2. Stable left medial basilar partial atelectasis. CT Chest: Radiologist's impression: IMPRESSION: 1. Unenhanced imaging is of low utility in the diagnosis of pulmonary emboli and thoracic aortic dissection in the absence of displaced intimal calcifications. If clinically indicated, IV contrast enhanced imaging may add additional useful information, if not contraindicated. 2. Moderate bilateral pleural effusions. 3. Small pericardial effusion. 4. Patchy right-sided ground-glass airspace opacities with intralobular septal thickening. Pneumonitis, including viral pneumonitis, is difficult to exclude. Clinical correlation is recommended. 5. Coronary atherosclerosis. 6. Noncalcified small lingular pulmonary nodule. For patients at low risk (minimal or absent history of smoking and of other known risk factors), no routine follow-up is indicated. For patients at high risk (history of smoking or of other known risk factors), consider optional CT at 12 months. ([place] Clemens al., Fleischner Society, 2017). 7. 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 Echo: I personally reviewed and interpreted this imaging study as follows: My impression: (10/24/2019) 1. Normal left ventricular size and systolic function. Left ventricular ejection fraction is estimated at 50-55 %. Left ventricular ejection fraction of 52% by modified biplane method. There is moderate hypokinesis of basal to mid inferolateral and anterolateral hernandez.Grade III diastolic dysfunction (restrictive filling pattern), severely elevated filling pressures. 2. Normal right ventricular size and systolic function. 3. Mildly increased left atrial size. 4. At least moderate mitral valve regurgitation. 5. When compared to previous echocardiogram dated 10/11/19, mitral valve regurgitation has worsened. A&P Assessment and plan (1) CHF (congestive heart failure): Mildly decreased to low normal LV systolic function and abnormal diastolic dysfunction. -appears tachypneic on exam, will give lasix 40 mg !V x 1 today -continue to monitor I/O and f/u BMP. monitor weight. UO. -May have to uptitrate based on response. Status: Acute Qualifiers: Heart failure chronicity: acute Heart failure type: diastolic Qualified Code(s): I50.31 - Acute diastolic (congestive) heart failure (2) Coronary artery disease: recent posterior [place] s/p RENA x2 to px to mid LCx. -continue DAPT, low dose beta sia and statin. -May have to discontinue beta sia. Status: Acute Qualifiers: Associated angina: without angina Coronary Disease-Associated Artery/Lesion type: unspecified vessel or lesion type [place] vs. transplanted heart: [place] heart Qualified Code(s): I25.10 - Atherosclerotic heart disease of [place] coronary artery without angina pectoris (3) Hypertension: Status: Chronic Qualifiers: Hypertension type: essential hypertension Qualified Code(s): I10 - Essential (primary) hypertension (4) Dyslipidemia: Status: Chronic Additional A&P Information NSTEMI type 2 in setting of decompensated CHF Mitral regurgitation- at least moderate; Mild on echo 2 weeks back. will continue to monitor closely WAGNER on CKD stage 3 (baseline 1.9-2.1) H/o of polycystic kidney disease with CKD stage III COPD Chronic active smoker: states he quit 2 weeks back Suspected sleep apnea Rheumatoid arthritis Thank you for allowing me to participate in patient's care. Please feel free to call with questions or concerns. 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 transplanted heart: [place] heart Hypertension I10 Hypertension type: essential hypertension Dyslipidemia E78.5
[2019-10-25] MEDS: clopidogrel 75 mg Tablet PO (09:33)
[2019-10-25] MEDS: predniSONE 5 mg Tablet PO (09:33)
[2019-10-25] MEDS: metoprolol tartrate 25 mg Tablet 12.5 MG PO ×2 (09:34→17:22)
[2019-10-25] MEDS: aspirin 81 mg EC Tablet PO (09:34)
[2019-10-25] MEDS: pantoprazole DR 40 mg Tablet PO (09:34)
--- NOTE | 2019-10-25 10:44 | PC.NURSE ---
Catheter bag and tube removed and replaced using sterile technique due to leak in bag.
--- NOTE | 2019-10-25 13:58 | PC.NURSE ---
1350 report given to Emili POWELL. Patient transferred by wheelchair to U [id number] by Emili POWELL, and this nurse. called and notified of transfer.
--- NOTE | 2019-10-25 15:51 | P.PN_ITS ---
Subjective Subjective: Interval history: This morning patient was examined in the ICU, currently on 3 to 4 L nasal cannula, no chest pain, no shortness of breath, was able to ambulate to the chair without significant symptomatology, Vitals/I&O/Wt Last Vital Signs Temp 96.7 F L 10/25/19 08:00 Pulse 68 10/25/19 15:00 Resp 22 H 10/25/19 14:28 BP 112/75 10/25/19 15:00 Pulse Ox 95 10/25/19 15:00 10/25/19 10/25/19 10/25/19 06:59 14:59 22:59 Intake Total 410 / 1430 405 / 405 Output Total 2500 / 4385 400 / 400 Balance -2090 / -2955 5 / 5 Weight last 48 hrs Weight 116.12 kg Weight 117.282 kg Weight 113.398 kg Physical Exam Const: COMMON NORMALS: no acute distress and patient oriented x3 HENMT: COMMON NORMALS: normocephalic HEAD & SCALP: normocephalic Neck/C-Spine: COMMON NORMALS: no JVD Resp: COMMON NORMALS: normal respiratory effort, No retractions, No use of accessory muscles and clear to auscultation bilaterally AUSCULTATION: clear to auscultation bilaterally OTHER: Decreased breath sounds bilateral lung bases Cardio: COMMON NORMALS: no JVD, regular rate, regular rhythm, S1 normal heart sound present and S2 normal heart sound present RATE: regular rate RHYTHM: regular rhythm HEART SOUNDS: S1 normal heart sound present and S2 normal heart sound present GI: COMMON NORMALS: Normal to inspection, nondistended, normoactive bowel sounds present, Soft to palpation, non-tender, No hepatosplenomegaly present, no masses and no bruits PALPATION: Yes Soft to palpation and Yes No hepatosp lenomegaly present Extremity: COMMON NORMALS: capillary refill normal, no clubbing, cyanosis or edema, no calf tenderness and no pedal edema Neuro: COMMON NORMALS: patient oriented x3 Psych: COMMON NORMALS: mental status grossly normal Urinary Catheter Management^: Simons: Cath Placed During This Visit: yes Reason for Continuing Indwelling Catheter: Accurate Measurement of Urinary Output in Critically Ill Patients Urinary Catheter Date of Insertion: 10/24/19 Urinary Catheter Time of Insertion: 11:00 Data : 10/25/19 04:16 10/25/19 04:16 Micro: Microbiology 10/23/19 21:32 Blood Culture - Preliminary Blood Gram positive cocci 10/23/19 20:45 Blood Culture - Preliminary Blood NEGATIVE TO DATE 10/24/19 08:35 MRSA Culture - Final Nose A&P Assessment and plan (1) Acute respiratory failure: Most likely because of CHF. Procalcitonin negative on admission. Rapid COVID negative on admission. As per history patient did have vomiting prior to admission. We will continue Zosyn for possible aspiration. If patient spikes fever will do COVID PCR. Continue follow sputum culture, MRSA PCR. Will order CT of the chest Continue with Advair. Oxygen supplementation keeping saturation over 92%. Continue BiPAP ventilation for now to decrease the work of breathing. Status: Acute Qualifiers: Respiratory failure complication: hypoxia Qualified Code(s): J96.01 - Acute respiratory failure with hypoxia (2) CHF (congestive heart failure): Appears to have acute systolic congestive heart failure exacerbation. Check limited echocardiogram Hold Lasix 60 mg IV twice daily given creatinine of 2.8 Patient is agreed for Simons catheter. Strict input output charting. Daily weights. Fluid restriction up to 1500 cc. Cardiology consult awaited. Status: Acute Qualifiers: Heart failure chronicity: acute Heart failure type: diastolic Qualified Code(s): I50.31 - Acute diastolic (congestive) heart failure (3) Seropositive rheumatoid arthritis: Status: Acute (4) PCK (polycystic kidney disease): Status: Acute (5) COPD (chronic obstructive pulmonary disease): Currently not in exacerbation Status: Chronic Qualifiers: COPD type: unspecified COPD Qualified Code(s): J44.9 - Chronic obstructive pulmonary disease, unspecified (6) Hypertension: Status: Chronic Qualifiers: Hypertension type: essential hypertension Qualified Code(s): I10 - Essential (primary) hypertension (7) Dyslipidemia: Status: Chronic (8) Chronic kidney disease, stage 3: Status: Acute Additional A&P Information Recent ST elevation myocardial infarction when he received a drug-eluting stent October 09. Continue Plavix, statin. Add metoprolol low-dose. Hypertension. Hold patient's LAKISHA inhibitor currently secondary to aggressive diuresis planned in face of chronic kidney disease stage III. Add metoprolol. Hold Norvasc. CKD with polycystic kidney: Baseline creatinine around 2-2.1. 2.8 today. We will continue to monitor. Hold diuresis given elevated creatinine Can consider thoracocentesis based on CT scan No signs of electrode normality for now. Hyperlipidemia. Continue statin Rheumatoid arthritis. Continue patient's prednisone COPD, no active wheezing or concern for exacerbation currently. 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
[2019-10-25] MEDS: FUROsemide 10 mg/mL SDV 4mL 40 MG IVP (16:14)
[2019-10-25] MEDS: atorvastatin 40 mg Tablet 80 MG PO (20:29)
[2019-10-25] MEDS: sodium chloride 0.9% (100 ml) 100 ML 10 ML (20:33)
[2019-10-26] VITALS (15 sets, daily range): BP systolic 99–138; BP diastolic 67–98; PULSE 56–84; RESP 12–30; TEMP 36.5–36.7; O2SAT 92–97
[2019-10-26] MEDS: heparin 5,000 unit/mL INJ 1 mL 5000 UNIT SUBCUT ×2 (04:01→15:39)
[2019-10-26] MEDS: piperacillin-tazobactam 3.375 GM in sodium chloride 0.9% (plus) 50 ML IV ×2 (04:01→12:21)
[2019-10-26 05:08] LABS: Basophils % 0.4 %; Eosinophils # 0.3 10^3/uL (0.0-0.8); Eosinophils % 4.2 %; Hematocrit 40.8 % (42.0-52.0); Hemoglobin 12.8 g/dL (11.7-16.6); Lymphocytes # 1.8 10^3/uL (0.8-4.8); Lymphocytes % 25.2 %; Mean Corpuscular HGB Conc 31.4 g/dL (30.0-36.0); Mean Corpuscular Hemoglobin 27.6 pg (28.0-34.0); Mean Corpuscular Volume 87.9 fL (80-94); Mean Platelet Volume 9.8 fL (7.4-10.4); Monocytes # 0.6 10^3/uL (0.2-0.9); Monocytes % 8.5 %; Neutrophils # 4.39 10^3/uL (1.8-7.7); Neutrophils % 61.6 %; Nucleated Red Blood Cells % 0 %; Platelet Count 267 10^3/cmm (130-400); Red Blood Count 4.64 10^6/uL (4.1-5.3); Red Cell Distribution Width 13.6 % (12.1-15.1); White Blood Count 7.1 10^3/uL (4.0-10.0)
[2019-10-26 05:33] LABS: Alanine Aminotransferase 14 U/L (0-41); Albumin Level 3.9 g/dL (3.5-5.2); Alkaline Phosphatase 61 IU/L (40-130); Anion Gap 17.6 (5-19); Aspartate Amino Transferase 18 U/L (0-40); Blood Urea Nitrogen 43 mg/dL (6-20); Calcium 9.5 mg/dL (8.5-10.5); Carbon Dioxide 28 mmol/L (22-29); Chloride 100 mmol/L (98-107); Globulin 3.5 g/dL (1.3-4.6); Glomerular Filtration Rate 23.9 mL/min (90-130); Glucose 98 mg/dL (65-115); Osmolality Calculated 290 mOsm/kg (285-295); Potassium 4.6 mmol/L (3.5-5.1); Sodium 141 mmol/L (136-145); Total Bilirubin 0.5 mg/dL (0.15-1.2); Total Protein 7.4 g/dL (6.6-8.7)
[2019-10-26 05:37] LABS: Magnesium 2.3 mg/dL (1.7-2.3); Phosphorus 6.4 mg/dL (2.5-4.5)
--- NOTE | 2019-10-26 08:19 | PC.SOCIAL ---
IMM Update Pg. 2 of IMM updated and explained to patient and verbalized understanding. Copy provided.
[2019-10-26] MEDS: metoprolol tartrate 25 mg Tablet 12.5 MG PO (08:51)
[2019-10-26] MEDS: clopidogrel 75 mg Tablet PO (08:51)
[2019-10-26] MEDS: pantoprazole DR 40 mg Tablet PO (08:51)
[2019-10-26] MEDS: aspirin 81 mg EC Tablet PO (08:51)
[2019-10-26] MEDS: predniSONE 5 mg Tablet PO (08:52)
--- NOTE | 2019-10-26 12:38 | PM.PN ---
Subjective Subjective: Interval history: He feels better today and states he does not want to have thoracentesis He is -1.6 L Medications: Reviewed: Yes Medication Review Details: Current Medications Acetaminophen (Tylenol) 650 mg PO Q6H PRN PRN Reason: Mild/Mod Pain Or Temp >/= 101 Albuterol Sulfate (Albuterol) 2.5 mg INHALATION Q4H.RESPIRATORY PRN PRN Reason: shortness of breath or wheezing Last Admin: 10/26/19 07:55 Dose: 2.5 mg Documented by: Aspirin (Aspirin Ec) 81 mg PO DAILY [facility] Last Admin: 10/26/19 08:51 Dose: 81 mg Documented by: Atorvastatin Calcium (Lipitor) 80 mg PO BEDTIME [facility] Last Admin: 10/25/19 20:29 Dose: 80 mg Documented by: Clopidogrel Bisulfate (Plavix) 75 mg PO DAILY [facility] Last Admin: 10/26/19 08:51 Dose: 75 mg Documented by: Furosemide (Lasix) 40 mg IVP Q24H [facility] Last Admin: 10/25/19 16:14 Dose: 40 mg Documented by: Heparin Sodium (Beef Lung) (Heparin) 5,000 unit SUBCUT Q12H [facility] Last Admin: 10/26/19 04:01 Dose: 5,000 unit Documented by: Piperacillin Sod/Tazobactam (Sod 3.375 gm/ Sodium Chloride) 50 mls @ 12.5 mls/hr IV Q8H [facility]; Protocol Last Admin: 10/26/19 12:21 Dose: 12.5 mls/hr Documented by: Metoprolol Succinate (Toprol Xl) 12.5 mg PO DAILY [facility] Ondansetron HCl (Zofran) 4 mg IVP Q6H PRN PRN Reason: vomiting, or N/V if npo Pantoprazole Sodium (Protonix) 40 mg PO DAILY [facility] Last Admin: 10/26/19 08:51 Dose: 40 mg Documented by: Prednisone (Prednisone) 5 mg PO DAILY [facility] Last Admin: 10/26/19 08:52 Dose: 5 mg Documented by: Fluticasone/Salmeterol (Advair Diskus 500-50) 1 puff INHALATION BID [facility] Last Admin: 10/26/19 07:55 Dose: 1 puff Documented by: Vitals/I&O/Wt Last Vital Signs Temp 97.8 F 10/26/19 11:37 Pulse 81 10/26/19 11:37 Resp 30 H 10/26/19 11:37 BP 117/80 10/26/19 11:37 Pulse Ox 95 10/26/19 11:37 10/25/19 10/26/19 10/26/19 22:59 06:59 14:59 Intake Total 330 / 735 50 / 785 510 / 510 Output Total 575 / 975 1400 / 2375 375 / 375 Balance -245 / -240 -1350 / -1590 135 / 135 Cumulative I&O 10/23/19 20:13 thru 10/26/19 12:35 Intake Total 2725 Output Total 7435 Balance -4710 Intake & Output 10/24/19 10/25/19 10/26/19 10/27/19 06:59 06:59 06:59 06:59 Intake Total 1430 / 1430 785 / 785 510 / 510 Output Total 300 / 300 4385 / 4385 2375 / 2375 375 / 375 Balance -300 / -300 -2955 / -2955 -1590 / -1590 135 / 135 Weight 258 lb 9 oz 256 lb 251 lb 6.4 oz Weight last 48 hrs Weight 251 lb 6.4 oz Weight 256 lb Physical Exam Narrative: EXAM NARRATIVE: Const COMMON NORMALS: no acute distress, patient oriented x3, alert and well nourished GENERAL APPEARANCE: cooperative, comfortable, well kempt and well developed NUTRITIONAL APPEARANCE: obese ORIENTATION/CONSCIOUSNESS: Yes oriented to person, Yes oriented to place and Yes oriented to time HENHI COMMON NORMALS: normocephalic, atraumatic, hearing grossly normal bilaterally, external ears normal and Normal external nose present HEAD & SCALP: normocephalic and atraumatic FACE & SINUS: face symmetric NOSE: Normal external nose present EXTERNAL EAR: Yes external ears normal Eye COMMON NORMALS: Equal, round and reactive pupils present, EOMs intact bilaterally and conjunctivae normal ALIGNMENT: Yes alignment normal CONJUNCTIVA: Yes conjunctivae normal SCLERA: sclerae normal PUPIL: Yes Equal, round and reactive pupils present Neck/C-Spine COMMON NORMALS: no lymphadenopathy, supple and no JVD; negative for No carotid bruits GENERAL: Yes trachea midline Lymph LYMPHATIC: No no lymphadenopathy noted Chest COMMONS NORMALS: normal inspection of the chest CHEST: Yes Symmetrical chest wall rise and No tenderness Resp COMMON NORMALS: normal respiratory effort, No use of accessory muscles, clear to auscultation bilaterally and percussion normal EFFORT & INSPECTION: Yes able to speak in complete sentences and no tachypneic AUSCULTATION: clear to auscultation bilaterally except at bilateral bases posteriorly (R>L), no crackles, no rales, no rhonchi and no wheezes Cardio COMMON NORMALS: no JVD, regular rate, regular rhythm, S1 normal heart sound present, S2 normal heart sound present and Peripheral pulses 2+ throughout; negative for No gallops present (Cardio) and negative for No clicks present (Cardio) JUGULAR VENOUS DISTENTION: no JVD PALPATION: normal PMI, no heave, no palpable S3, no palpable S4 and no thrill RATE: regular rate RHYTHM: regular rhythm HEART SOUNDS: S1 normal heart sound present, S2 normal heart sound present, no gallops and Murmur heart sound present (grade 2/6 ) systolic Location: apex BRUITS: no carotid bruits PERIPHERAL PULSES: Peripheral pulses 2+ throughout Neuro COMMON NORMALS: patient oriented x3 and no focal motor deficits SENSORIUM/ORIENTATION: Yes alert, Yes oriented to person, Yes oriented to place and Yes oriented to time CRANIAL NERVES: Yes CN normal except as noted Psych COMMON NORMALS: Normal thought process present APPEARANCE: Yes well kempt MOOD & AFFECT: Yes euthymic mood THOUGHT PROCESS: Normal thought process present THOUGHT CONTENT: Yes Normal thought content present ATTENTION/CONCENTRATION: Yes attention grossly intact MEMORY/COGNITION: Yes memory grossly intact INSIGHT: Good insight present (Psych) JUDGEMENT: Good judgement present (Psych) Urinary Catheter Management^: Simons: Cath Placed During This Visit: yes Reason for Continuing Indwelling Catheter: Accurate Measurement of Urinary Output in Critically Ill Patients Urinary Catheter Date of Insertion: 10/24/19 Urinary Catheter Time of Insertion: 11:00 Data : 10/26/19 04:08 10/26/19 04:08 Micro: Microbiology 10/26/19 08:47 Blood Culture - Preliminary Blood SPECIMEN COLLECTED 10/26/19 08:52 Blood Culture - Preliminary Blood SPECIMEN COLLECTED 10/23/19 21:32 Blood Culture - Preliminary Blood Gram positive cocci A&P Assessment and plan (1) CHF (congestive heart failure): Mildly decreased to low normal LV systolic function and abnormal diastolic dysfunction. -appears more comfortable on exam -continue to monitor I/O and f/u BMP. monitor weight. UO. -May have to uptitrate based on response. Status: Acute Qualifiers: Heart failure chronicity: acute Heart failure type: diastolic Qualified Code(s): I50.31 - Acute diastolic (congestive) heart failure (2) Coronary artery disease: recent posterior [place] s/p RENA x2 to px to mid LCx. -continue DAPT, low dose beta sia and statin. -May have to discontinue beta sia. Status: Acute Qualifiers: Coronary Disease-Associated Artery/Lesion type: unspecified vessel or lesion type [place] vs. transplanted heart: [place] heart Associated angina: without angina Qualified Code(s): I25.10 - Atherosclerotic heart disease of [place] coronary artery without angina pectoris (3) Hypertension: Status: Chronic Qualifiers: Hypertension type: essential hypertension Qualified Code(s): I10 - Essential (primary) hypertension (4) Dyslipidemia: Status: Chronic Additional A&P Information NSTEMI type 2 in setting of decompensated CHF Mitral regurgitation- at least moderate; Mild on echo 2 weeks back. will continue to monitor closely WAGNER on CKD stage 3 (baseline 1.9-2.1); creatinine 2.8 last 2 days, BUN increased some. CO2-28 H/o of polycystic kidney disease with CKD stage III COPD Chronic active smoker: states he quit 2 weeks back Suspected sleep apnea : sleep study as outpatient Rheumatoid arthritis Thank you for allowing me to participate in patient's care. Please feel free to call with questions or concerns. Attestations Medical Necessity Statement*: Needs hospital stay for CHF and WAGNER on CKD. Coding Level of Care Code Acute Pulp [employer]er for [employer] Diagnoses CHF (congestive heart failure) I50.31 Heart failure chronicity: acute Heart failure type: diastolic Coronary artery disease I25.10 Coronary Disease-Associated Artery/Lesion type: unspecified vessel or lesion type [place] vs. transplanted heart: [place] heart Associated angina: without angina Hypertension I10 Hypertension type: essential hypertension Dyslipidemia E78.5
--- NOTE | 2019-10-26 12:55 | PC.NURSE ---
[place] Irrigation Change in urine noted. Urine now red/pink with small clots. Dr. Barone notified. Telephone order received to manually irrigate zuleta until clear, RBVO. [place] irrigated until clear. In total, 200 ml of sterile water was used to flush catheter. A total of 200 ml was returned. Small clots were removed with initial irrigation. Urine is now clear, pale yellow. Nurse to continue to monitor.
[2019-10-26] MEDS: FUROsemide 40 mg Tablet 60 MG PO (13:21)
--- NOTE | 2019-10-26 14:00 | PC.NURSE ---
Patient reeducated on fluid restriction. Patient verbalized understanding of teaching and verbalized compliance. Nurse to continue to monitor.
--- NOTE | 2019-10-26 17:29 | P.PN_ITS ---
Subjective Subjective: Interval history: This morning patient was examined, he sitting up in bed, he is overall doing better, still having some shortness of breath with exertion, no nausea, no vomiting, no fevers, no chills Vitals/I&O/Wt Last Vital Signs Temp 98.0 F 10/26/19 15:36 Pulse 60 10/26/19 15:36 Resp 18 10/26/19 15:36 BP 127/77 10/26/19 15:36 Pulse Ox 97 10/26/19 15:36 10/26/19 10/26/19 10/26/19 06:59 14:59 22:59 Intake Total 50 / 785 630 / 630 Output Total 1400 / 2375 375 / 375 600 / 975 Balance -1350 / -1590 255 / 255 -600 / -345 Weight last 48 hrs Weight 114.033 kg Weight 116.12 kg Physical Exam Const: COMMON NORMALS: no acute distress and patient oriented x3 HENMT: COMMON NORMALS: normocephalic HEAD & SCALP: normocephalic Neck/C-Spine: COMMON NORMALS: no JVD Resp: COMMON NORMALS: normal respiratory effort, No retractions and No use of accessory muscles AUSCULTATION: crackles and rhonchi OTHER: Decreased breath sounds bilateral lung bases Cardio: COMMON NORMALS: no JVD, regular rate, regular rhythm, S1 normal heart sound present and S2 normal heart sound present RATE: regular rate RHYTHM: regular rhythm HEART SOUNDS: S1 normal heart sound present and S2 normal heart sound present GI: COMMON NORMALS: Normal to inspection, nondistended, normoactive bowel sounds present, Soft to palpation, non-tender, No hepatosplenomegaly present, no masses and no bruits PALPATION: Yes Soft to palpation and Yes No hepatosplenomegaly present Extremity: COMMON NORMALS: capillary refill normal, no clubbing, cyanosis or edema, no calf tenderness and no pedal edema Neuro: COMMON NORMALS: patient oriented x3 Psych: COMMON NORMALS: mental status grossly normal Urinary Catheter Management^: Simons: Cath Placed During This Visit: yes Reason for Continuing Indwelling Catheter: Accurate Measurement of Urinary Output in Critically Ill Patients Urinary Catheter Date of Insertion: 10/24/19 Urinary Catheter Time of Insertion: 11:00 Data : 10/26/19 04:08 10/26/19 04:08 Micro: Microbiology 10/23/19 21:32 Blood Culture - Preliminary Blood Gram positive cocci 10/26/19 08:47 Blood Culture - Preliminary Blood SPECIMEN COLLECTED 10/26/19 08:52 Blood Culture - Preliminary Blood SPECIMEN COLLECTED A&P Assessment and plan (1) Acute respiratory failure: Most likely because of CHF. Procalcitonin negative on admission. Rapid COVID negative on admission. As per history patient did have vomiting prior to admission. De-escalate to Augmentin for aspiration. If patient spikes fever will do COVID PCR. Continue follow sputum culture, MRSA PCR. CT of the chest shows moderate bilateral pleural effusions, patchy right-sided groundglass airspace opacities with interlobular septal thickening Thoracocentesis could be an option given bilateral pleural effusions, however patient is on Plavix, and he would likely require to be held before procedure, will speak to radiology Continue with Advair. Oxygen supplementation keeping saturation over 92%. Continue BiPAP ventilation for now to decrease the work of breathing. Status: Acute Qualifiers: Respiratory failure complication: hypoxia Qualified Code(s): J96.01 - Acute respiratory failure with hypoxia (2) CHF (congestive heart failure): Appears to have acute systolic congestive heart failure exacerbation. Lasix 60 mg p.o. daily, given creatinine of 2.8 Patient is agreed for Simons catheter. Strict input output charting. Daily weights. Fluid restriction up to 1500 cc. Cardiology consult appreciated Status: Acute Qualifiers: Heart failure chronicity: acute Heart failure type: diastolic Qualified Code(s): I50.31 - Acute diastolic (congestive) heart failure (3) Seropositive rheumatoid arthritis: Status: Acute (4) PCK (polycystic kidney disease): Status: Acute (5) COPD (chronic obstructive pulmonary disease): Currently not in exacerbation Status: Chronic Qualifiers: COPD type: unspecified COPD Qualified Code(s): J44.9 - Chronic obstructive pulmonary disease, unspecified (6) Hypertension: Status: Chronic Qualifiers: Hypertension type: essential hypertension Qualified Code(s): I10 - Essential (primary) hypertension (7) Dyslipidemia: Status: Chronic (8) Chronic kidney disease, stage 3: Status: Acute (9) Pulmonary nodule: -Small lingular pulmonary nodule Status: Acute (10) Moderate mitral regurgitation: Status: Acute Additional A&P Information Recent ST elevation myocardial infarction when he received a drug-eluting stent October 09. Continue Plavix, statin. Add metoprolol low-dose. Hypertension. Hold patient's LAKISHA inhibitor currently secondary to aggressive diuresis planned in face of chronic kidney disease stage III. Hold Norvasc, continue metoprolol CKD with polycystic kidney: Baseline creatinine around 2-2.1. 2.8 today. We will continue to monitor. On Lasix 60 mg daily No signs of electrode normality for now. Hyperlipidemia. Continue statin Rheumatoid arthritis. Continue patient's prednisone COPD, no active wheezing or concern for exacerbation currently. Full code Heparin for DVT prophylaxis Attestations Medical Necessity Statement*: She requires hospitalization for acute respiratory failure secondary to CHF Coding Level of Care Code Acute Traffic Police Officer for [facility] Fwd Diagnoses Acute respiratory failure J96.01 Respiratory failure complication: hypoxia CHF (congestive heart failure) I50.31 Heart failure chronicity: acute Heart failure type: diastolic Seropositive rheumatoid arthritis M05.9 PCK (polycystic kidney disease) Q61.3 COPD (chronic obstructive pulmonary disease) J44.9 COPD type: unspecified COPD Hypertension I10 Hypertension type: essential hypertension Dyslipidemia E78.5 Chronic kidney disease, stage 3 N18.3 Pulmonary nodule R91.1 Moderate mitral regurgitation I34.0
[2019-10-26] MEDS: amoxicillin-clav 875-125 mg Tablet 1 TAB PO (17:58)
--- NOTE | 2019-10-26 18:30 | PC.OT ---
OT screen completed. Patient independently completed bed mobility, donning and doffing socks, toilet transfer, standing at sink to wash hand with no assistive device. No OT recommended at this time.
--- NOTE | 2019-10-26 18:32 | PC.NURSE ---
Shift Summary No further events throughout shift. Urine remained pale yellow, no clots visualized. Patient up ad robert to bathroom and side of bed throughout shift. Patient tolerated well. No further needs identified at this time. Nurse to continue to monitor.
[2019-10-26] MEDS: atorvastatin 40 mg Tablet 80 MG PO (20:32)
[2019-10-27] VITALS (11 sets, daily range): BP systolic 97–133; BP diastolic 61–96; PULSE 65–115; RESP 16–27; TEMP 36.8–36.9; O2SAT 87–93
[2019-10-27] MEDS: heparin 5,000 unit/mL INJ 1 mL 5000 UNIT SUBCUT ×2 (03:55→17:13)
[2019-10-27 04:46] LABS: Basophils % 0.4 %; Eosinophils # 0.3 10^3/uL (0.0-0.8); Eosinophils % 3.9 %; Hematocrit 40.1 % (42.0-52.0); Hemoglobin 12.6 g/dL (11.7-16.6); Lymphocytes # 1.7 10^3/uL (0.8-4.8); Lymphocytes % 23.3 %; Mean Corpuscular HGB Conc 31.4 g/dL (30.0-36.0); Mean Corpuscular Hemoglobin 27.5 pg (28.0-34.0); Mean Corpuscular Volume 87.4 fL (80-94); Mean Platelet Volume 9.7 fL (7.4-10.4); Monocytes # 0.6 10^3/uL (0.2-0.9); Monocytes % 8.8 %; Neutrophils # 4.55 10^3/uL (1.8-7.7); Neutrophils % 63.5 %; Nucleated Red Blood Cells % 0 %; Platelet Count 268 10^3/cmm (130-400); Red Blood Count 4.59 10^6/uL (4.1-5.3); Red Cell Distribution Width 13.2 % (12.1-15.1); White Blood Count 7.2 10^3/uL (4.0-10.0)
[2019-10-27 05:47] LABS: Alanine Aminotransferase 16 U/L (0-41); Albumin Level 4.2 g/dL (3.5-5.2); Alkaline Phosphatase 61 IU/L (40-130); Anion Gap 15.2 (5-19); Aspartate Amino Transferase 20 U/L (0-40); Blood Urea Nitrogen 48 mg/dL (6-20); Calcium 9.1 mg/dL (8.5-10.5); Carbon Dioxide 30 mmol/L (22-29); Chloride 99 mmol/L (98-107); Globulin 3.3 g/dL (1.3-4.6); Glomerular Filtration Rate 27.3 mL/min (90-130); Glucose 100 mg/dL (65-115); Osmolality Calculated 288 mOsm/kg (285-295); Potassium 4.2 mmol/L (3.5-5.1); Sodium 140 mmol/L (136-145); Total Bilirubin 0.4 mg/dL (0.15-1.2); Total Protein 7.5 g/dL (6.6-8.7)
[2019-10-27 05:50] LABS: Magnesium 2.3 mg/dL (1.7-2.3); Phosphorus 6.3 mg/dL (2.5-4.5)
[2019-10-27 05:52] LABS: NT Pro B Type Natriuretic Pept 3886 pg/mL (0-125)
[2019-10-27] MEDS: amoxicillin-clav 875-125 mg Tablet 1 TAB PO ×2 (08:44→17:06)
[2019-10-27] MEDS: predniSONE 5 mg Tablet PO (08:45)
[2019-10-27] MEDS: clopidogrel 75 mg Tablet PO (08:45)
[2019-10-27] MEDS: aspirin 81 mg EC Tablet PO (08:45)
[2019-10-27] MEDS: pantoprazole DR 40 mg Tablet PO (08:45)
[2019-10-27] MEDS: metoprolol succinate ER (24 HR) 25 mg Tablet 12.5 MG PO ×2 (08:45→13:20)
[2019-10-27] MEDS: FUROsemide 40 mg Tablet 60 MG PO (08:46)
--- NOTE | 2019-10-27 12:09 | PC.NURSE ---
Dr. Meeks updated on patient condition via telephone. Patient HR remained 110s-120s sinus tach. No new orders at this time. Physician to report to bedside to evaluate patient. Nurse to continue to monitor.
--- NOTE | 2019-10-27 13:06 | PC.NURSE ---
Dr. Meeks gave verbal order to administer additional 12.5 mg metoprolol PO ONCE for elevated HR. RBVO. Nurse to continue to monitor.
--- NOTE | 2019-10-27 15:23 | PM.PN ---
Subjective Subjective: Interval history: This morning patient was seen, he was able to ambulate with the nurses, has some shortness of breath, no fevers, no chills, no chest pain, is down to 2 L nasal cannula, used BiPAP overnight Vitals/I&O/Wt Last Vital Signs Temp 98.4 F 10/27/19 12:00 Pulse 104 H 10/27/19 14:53 Resp 18 10/27/19 14:53 BP 133/96 10/27/19 12:00 Pulse Ox 93 10/27/19 14:53 10/27/19 10/27/19 10/27/19 06:59 14:59 22:59 Intake Total 700 / 700 Output Total 400 / 2525 475 / 475 Balance -400 / -1145 225 / 225 Weight last 48 hrs Weight 111.856 kg Weight 114.033 kg Physical Exam Const: COMMON NORMALS: no acute distress and patient oriented x3 HENMT: COMMON NORMALS: normocephalic HEAD & SCALP: normocephalic Neck/C-Spine: COMMON NORMALS: no JVD Resp: COMMON NORMALS: normal respiratory effort, No retractions, No use of accessory muscles and clear to auscultation bilaterally AUSCULTATION: clear to auscultation bilaterally OTHER: Decreased breath sounds bilateral lung bases Cardio: COMMON NORMALS: no JVD, regular rate, regular rhythm, S1 normal heart sound present and S2 normal heart sound present RATE: regular rate RHYTHM: regular rhythm HEART SOUNDS: S1 normal heart sound present and S2 normal heart sound present GI: COMMON NORMALS: Normal to inspection, nondistended, normoactive bowel sounds present, Soft to palpation, non-tender, No hepatosplenomegaly present, no masses and no bruits PALPATION: Yes Soft to palpation and Yes No hepatosplenomegaly present Extremity: COMMON NORMALS: capillary refill normal, no clubbing, cyanosis or edema, no calf tenderness and no pedal edema Neuro: COMMON NORMALS: patient oriented x3 Psych: COMMON NORMALS: mental status grossly normal Urinary Catheter Management^: Simons: Cath Placed During This Visit: yes Reason for Continuing Indwelling Catheter: Accurate Measurement of Urinary Output in Critically Ill Patients Urinary Catheter Date of Insertion: 10/24/19 Urinary Catheter Time of Insertion: 11:00 Data : 10/27/19 03:54 10/27/19 03:54 Micro: Microbiology 10/26/19 08:47 Blood Culture - Preliminary Blood NEGATIVE TO DATE 10/26/19 08:52 Blood Culture - Preliminary Blood NEGATIVE TO DATE 10/23/19 21:32 Blood Culture - Preliminary Blood Gram positive cocci A&P Assessment and plan (1) Acute respiratory failure: Most likely because of CHF. Procalcitonin negative on admission. Rapid COVID negative on admission. As per history patient did have vomiting prior to admission. De-escalate to Augmentin for aspiration. CT of the chest shows moderate bilateral pleural effusions, patchy right-sided groundglass airspace opacities with interlobular septal thickening -Patient is -5765 L since admission, on Lasix 60 mg daily, down to 2 L nasal cannula Continue with Advair. Oxygen supplementation keeping saturation over 92%. Continue BiPAP during the night, BiPAP PRN Status: Acute Qualifiers: Respiratory failure complication: hypoxia Qualified Code(s): J96.01 - Acute respiratory failure with hypoxia (2) CHF (congestive heart failure): Appears to have acute systolic congestive heart failure exacerbation. -5.765 L since admission Lasix 60 mg p.o. daily, given creatinine of 2.5 Patient is agreed for Simons catheter. Strict input output charting. Daily weights. Fluid restriction up to 1500 cc. Cardiology consult appreciated Status: Acute Qualifiers: Heart failure chronicity: acute Heart failure type: diastolic Qualified Code(s): I50.31 - Acute diastolic (congestive) heart failure (3) Seropositive rheumatoid arthritis: Status: Acute (4) PCK (polycystic kidney disease): Status: Acute (5) COPD (chronic obstructive pulmonary disease): Currently not in exacerbation Status: Chronic Qualifiers: COPD type: unspecified COPD Qualified Code(s): J44.9 - Chronic obstructive pulmonary disease, unspecified (6) Hypertension: Status: Chronic Qualifiers: Hypertension type: essential hypertension Qualified Code(s): I10 - Essential (primary) hypertension (7) Dyslipidemia: Status: Chronic (8) Chronic kidney disease, stage 3: Status: Acute (9) Pulmonary nodule: -Small lingular pulmonary nodule Status: Acute (10) Moderate mitral regurgitation: Status: Acute Additional A&P Information Recent ST elevation myocardial infarction when he received a drug-eluting stent October 09. Continue Plavix, statin. Add metoprolol low-dose. Hypertension. Hold patient's LAKISHA inhibitor currently secondary to aggressive diuresis planned in face of chronic kidney disease stage III. Hold Norvasc, continue metoprolol CKD with polycystic kidney: Baseline creatinine around 2-2.1. 2.5 today. We will continue to monitor. On Lasix 60 mg daily No signs of electrode normality for now. Hyperlipidemia. Continue statin Rheumatoid arthritis. Continue patient's prednisone COPD, no active wheezing or concern for exacerbation currently. Full code Heparin for DVT prophylaxis Attestations Medical Necessity Statement*: Patient requires hospitalization due to CHF exacerbation Coding Level of Care Code Acute Control Room Agent for g Fwd Exam Comprehensive Diagnoses Acute respiratory failure J96.01 Respiratory failure complication: hypoxia CHF (congestive heart failure) I50.31 Heart failure chronicity: acute Heart failure type: diastolic Seropositive rheumatoid arthritis M05.9 PCK (polycystic kidney disease) Q61.3 COPD (chronic obstructive pulmonary disease) J44.9 COPD type: unspecified COPD Hypertension I10 Hypertension type: essential hypertension Dyslipidemia E78.5 Chronic kidney disease, stage 3 N18.3 Pulmonary nodule R91.1 Moderate mitral regurgitation I34.0
--- NOTE | 2019-10-27 17:26 | P.DS_ITS ---
Discharge Providers Date of Admission: 10/23/19 23:03 Date of Discharge: October 27, 2019 Attending Provider at Admission: Jorge Milan MD Attending Provider at Discharge: Pepe Barone MD Primary Care Provider: TONA Reveles Diagnoses at Discharge Discharge Diagnosis (1) Acute respiratory failure: Status: Acute Qualifiers: Respiratory failure complication: hypoxia Qualified Code(s): J96.01 - Acute respiratory failure with hypoxia (2) CHF (congestive heart failure): Status: Acute Qualifiers: Heart failure chronicity: acute Heart failure type: diastolic Qualified Code(s): I50.31 - Acute diastolic (congestive) heart failure (3) Seropositive rheumatoid arthritis: Status: Acute (4) PCK (polycystic kidney disease): Status: Acute (5) COPD (chronic obstructive pulmonary disease): Status: Chronic Qualifiers: COPD type: unspecified COPD Qualified Code(s): J44.9 - Chronic obstructive pulmonary disease, unspecified (6) Hypertension: Status: Chronic Qualifiers: Hypertension type: essential hypertension Qualified Code(s): I10 - Essential (primary) hypertension (7) Dyslipidemia: Status: Chronic (8) Chronic kidney disease, stage 3: Status: Acute (9) Pulmonary nodule: Status: Acute (10) Moderate mitral regurgitation: Status: Acute Reason for Visit Reason for Visit: tightness in chest Hospital Course Discharge Summary: This is a 53-year-old male with a past medical history of seropositive rheumatoid arthritis on, on chronic prednisone, COPD, hypertension, CKD stage III, history of CAD status post stenting for ST elevation [place] in October 09 who presents [facility] due to acute respiratory failure secondary to CHF exacerbation. Patient was admitted to [facility], received BiPAP therapy, oxygen therapy, and nebulizer treatments, IV Lasix, antibiotics for possible aspiration. Patient diuresed roughly 10 L, patient clinically improved, shortness of breath improved, bilateral lower extremity edema improved, ambulating without significant symptomatology. BNP on discharge was 3886. patient was discharged with Lasix 60 mg daily, instructions on daily weights, fluid restrictions, and follow-up with cardiology in 2 weeks. Of note patient does have moderate mitral regurgitation seen on repeat echocardiogram, possibly this could be contributing to patient's acute respiratory failure, patient is to follow-up with cardiology in 2 to 4 weeks for further evaluation and consideration of surgical intervention. Patient was discharged on 2 L nasal cannula. Does have a lingular pulmonary nodule, given his history of COPD should follow- up with pulmonary Does have concerns for sleep apnea, outpatient sleep study ordered Patient was advised if he were to have worsening chest pain, shortness of breath, cough come back to emergency room Physical Exam Const: COMMON NORMALS: no acute distress and patient oriented x3 HENMT: COMMON NORMALS: normocephalic HEAD & SCALP: normocephalic Neck/C-Spine: COMMON NORMALS: no JVD Resp: COMMON NORMALS: normal respiratory effort, No retractions, No use of accessory muscles and clear to auscultation bilaterally AUSCULTATION: clear to auscultation bilaterally Cardio: COMMON NORMALS: no JVD, regular rate, regular rhythm, S1 normal heart sound present and S2 normal heart sound present RATE: regular rate RHYTHM: regular rhythm HEART SOUNDS: S1 normal heart sound present and S2 normal heart sound present GI: COMMON NORMALS: Normal to inspection, nondistended, normoactive bowel sounds present, Soft to palpation, non-tender, No hepatosplenomegaly present, no masses and no bruits PALPATION: Yes Soft to palpation and Yes No h epatosplenomegaly present Extremity: COMMON NORMALS: capillary refill normal, no clubbing, cyanosis or edema, no calf tenderness and no pedal edema Neuro: COMMON NORMALS: patient oriented x3 Psych: COMMON NORMALS: mental status grossly normal Urinary Catheter Management^: Simons: Cath Placed During This Visit: yes Reason for Continuing Indwelling Catheter: Accurate Measurement of Urinary Output in Critically Ill Patients Urinary Catheter Date of Insertion: 10/24/19 Urinary Catheter Time of Insertion: 11:00 Discharge Data Data Completed and Pending: Completed Studies During Hospitalization Category Date Time Status CT chest wo con 7 1250 Routine Cat Scan 10/25/19 08:08 Completed XR chest 1V sai ble [id number] Routine Exams 10/25/19 07:26 Completed XR chest 1V sai ble [id number] Stat Exams 10/23/19 20:52 Completed CV echo limited 9 8229 Routine Ultrasound 10/24/19 [place] [id number] Urgent Ultrasound 10/24/19 03:41 Completed Pending at discharge Category Date Time Status Blood Culture Sta t Lab 10/23/19 21:32 Results Blood Culture Sta t Lab 10/26/19 08:47 Results Complete Blood Co unt w/Auto AM LABS Lab 10/28/19 04:00 Ordered Complete Blood Co unt w/Auto AM LABS Lab 10/29/19 04:00 Ordered Comprehensive Met abolic Panel AM LA BS Lab 10/28/19 04:00 Ordered Comprehensive Met abolic Panel AM LA BS Lab 10/29/19 04:00 Ordered Magnesium AM LABS Lab 10/28/19 04:00 Ordered Phosphorus AM LAB S Lab 10/28/19 04:00 Ordered Sputum Culture an d Gram Stain Routi ne Lab 10/24/19 03:41 Uncollected Labs from last 24 hours 10/27/19 10/27/19 10/27/19 03:54 03:54 03:54 WBC 7.2 RBC 4.59 Hgb 12.6 Hct 40.1 L MCV 87.4 MCH 27.5 L MCHC 31.4 RDW 13.2 Plt Count 268 MPV 9.7 Neut % (Auto) 63.5 Lymph % (Auto) 23.3 Mathews % (Auto) 8.8 Eos % (Auto) 3.9 Baso % (Auto) 0.4 Neut # (Auto) 4.55 Lymph # (Auto) 1.7 Mathews # (Auto) 0.6 Eos # (Auto) 0.3 Baso # (Auto) 0.0 Nucleated RBC % (a uto) 0 Nucleated RBCs # 0.0 Sodium 140 Potassium 4.2 Chloride 99 Carbon Dioxide 30 H Anion Gap 15.2 BUN 48 H Creatinine 2.5 H GFR Calculation 27.3 L Glucose 100 Calculated Osmolal ity 288 Calcium 9.1 Phosphorus Magnesium Total Bilirubin 0.4 AST 20 ALT 16 Alkaline Phosphata se 61 NT-Pro-B Natriuret Pep 3886 H Total Protein 7.5 Albumin 4.2 Globulin 3.3 10/27/19 03:54 WBC RBC Hgb Hct MCV MCH MCHC RDW Plt Count MPV Neut % (Auto) Lymph % (Auto) Mathews % (Auto) Eos % (Auto) Baso % (Auto) Neut # (Auto) Lymph # (Auto) Mathews # (Auto) Eos # (Auto) Baso # (Auto) Nucleated RBC % (a uto) Nucleated RBCs # Sodium Potassium Chloride Carbon Dioxide Anion Gap BUN Creatinine GFR Calculation Glucose Calculated Osmolal ity Calcium Phosphorus 6.3 H Magnesium 2.3 Total Bilirubin AST ALT Alkaline Phosphata se NT-Pro-B Natriuret Pep Total Protein Albumin Globulin Vitals: Last Vital Signs Temp 98.3 F 10/27/19 15:31 Pulse 104 H 10/27/19 15:31 Resp 22 H 10/27/19 15:31 BP 121/83 10/27/19 15:31 Pulse Ox 93 10/27/19 15:31 Discharge Plan Discharge Patient Disposition: Home Condition: Stable Prescriptions: New furosemide 40 mg Tablet 60 mg PO DAILY 30 Days Qty: 30 RF: 0 metoprolol succinate 25 mg Tablet Extended Release 24 Hr 12.5 mg PO DAILY 30 Days Qty: 30 RF: 0 amoxicillin-pot clavulanate 875-125 mg Tablet 1 tab PO BID 7 Days Qty: 14 RF: 0 Continued albuterol sulfate 2.5 mg /3 mL (0.083 %) solution for nebulization 2.5 mg INHALATION Q4H PRN (Reason: shortness of breath or wheezing) 30 Days Qty: 180 RF: 5 pantoprazole 40 mg tablet,delayed release (DR/EC) 40 mg PO DAILY 30 Days Qty: 30 RF: 5 albuterol sulfate [ProAir HFA] 90 mcg/actuation HFA aerosol inhaler 2 puff INHALATION QID PRN (Reason: shortness of breath or wheezing) 3 Days Qty: 6.7 RF: 5 clopidogrel 75 mg tablet 75 mg PO DAILY 30 Days Qty: 30 RF: 5 fluticasone propion-salmeterol [Advair Diskus] 500-50 mcg/dose blister with device 1 inh INHALATION BID 30 Days Qty: 60 RF: 5 prednisone 2.5 mg tablet 5 mg PO DAILY Qty: 60 RF: 1 Enbrel Mini 50 mg/mL (1 mL) cartridge 50 mg SUBCUT Q7D RF: 0 atorvastatin 40 mg Tablet 40 mg PO BEDTIME Qty: 30 RF: 6 aspirin 81 mg Tablet,Delayed Release (Dr/Ec) 81 mg PO DAILY Qty: 30 RF: 6 lisinopril 10 mg tablet 10 mg PO DAILY Qty: 30 RF: 1 Discontinued atenolol 100 mg Tablet 100 mg PO DAILY RF: 0 amlodipine 5 mg tablet 5 mg PO DAILY Qty: 30 RF: 3 Discharge Orders: Discharge Order (Routine); Ordered 10/27/19 Ordered By: Pepe Barone Other Ambulatory Orders: DME: Nebulizer with Neb Kit (Order) Location: None Selected Ordered By: Pepe Barone DME: Oxygen (Order) Location: None Selected Ordered By: Pepe Barone Sleep Study/Titration (Routine) Timeframe: 1 Week Location: None Selected Ordered By: Pepe Barone Referrals: [facility] [Outside] Datar,Jesse George MD [Physician] - 2 months (pulmonary nodule) Pepe Barone MD [Hospitalist] - Ana Meeks MD [Physician] - 2 weeks Discharge Diet: Cardiac Discharge Activity: Resume usual activity Activity Restrictions/Additional Instructions: -Check your weight daily, if you gain more than 5 pounds please call procurement analyst office -Limit fluid intake between 1.5 to 2 L -Take Lasix 60 mg daily -I have ordered a sleep study -Please follow-up with primary care in 1 week -Follow-up with cardiology in 2 to 4 weeks -Take oxygen as prescribed, 2 L -If you have worsening shortness of breath please come back to emergency room Discharge Attestations Time Spent in Discharge Care*: less than 30 min Quality Metrics Clinical Quality Measures During this hospital stay, did patient experience: None Coding Level of Care Code Acute Stone Circular Sawyer for [facility] Fwd Exam Comprehensive Diagnoses Acute respiratory failure J96.01 Respiratory failure complication: hypoxia CHF (congestive heart failure) I50.31 Heart failure chronicity: acute Heart failure type: diastolic Seropositive rheumatoid arthritis M05.9 PCK (polycystic kidney disease) Q61.3 COPD (chronic obstructive pulmonary disease) J44.9 COPD type: unspecified COPD Hypertension I10 Hypertension type: essential hypertension Dyslipidemia E78.5 Chronic kidney disease, stage 3 N18.3 Pulmonary nodule R91.1 Moderate mitral regurgitation I34.0
--- NOTE | 2019-10-27 17:44 | P.PN_ITS ---
Subjective Subjective: Interval history: He feels better. No CP, SOB. Medications: Reviewed: Yes Vitals/I&O/Wt Last Vital Signs Temp 98.3 F 10/27/19 15:31 Pulse 104 H 10/27/19 15:31 Resp 22 H 10/27/19 15:31 BP 121/83 10/27/19 15:31 Pulse Ox 93 10/27/19 15:31 10/27/19 10/27/19 10/27/19 06:59 14:59 22:59 Intake Total 700 / 700 Output Total 400 / 2525 475 / 475 Balance -400 / -1145 225 / 225 Weight last 48 hrs Weight 246 lb 9.6 oz Weight 251 lb 6.4 oz Physical Exam Narrative: EXAM NARRATIVE: Const COMMON NORMALS: no acute distress, patient oriented x3, alert and well nourished GENERAL APPEARANCE: cooperative, comfortable, well kempt and well developed NUTRITIONAL APPEARANCE: obese ORIENTATION/CONSCIOUSNESS: Yes oriented to person, Yes oriented to place and Yes oriented to time HENMT COMMON NORMALS: normocephalic, atraumatic, hearing grossly normal bilaterally, external ears normal and Normal external nose present HEAD & SCALP: normocephalic and atraumatic FACE & SINUS: face symmetric NOSE: Normal external nose present EXTERNAL EAR: Yes external ears normal Eye COMMON NORMALS: Equal, round and reactive pupils present, EOMs intact bi laterally and conjunctivae normal CONJUNCTIVA: Yes conjunctivae normal SCLERA: sclerae normal PUPIL: Yes Equal, round and reactive pupils present Neck/C-Spine COMMON NORMALS: supple and no JVD; negative for No carotid bruits Resp COMMON NORMALS: normal respiratory effort, No use of accessory muscles, clear to auscultation bilaterally and percussion normal AUSCULTATION: clear to auscultation bilaterally except at bilateral bases , no crackles, no rales, no rhonchi and no wheezes Cardio COMMON NORMALS: no JVD, regular rate, regular rhythm, S1 normal heart sound present, S2 normal heart sound present and Peripheral pulses 2+ throughout; negative for No gallops present (Cardio) and negative for No clicks present (Cardio) JUGULAR VENOUS DISTENTION: no JVD PALPATION: normal PMI, no heave, no palpable S3, RATE: regular rate RHYTHM: regular rhythm HEART SOUNDS: S1 normal heart sound present, S2 normal heart sound present, no gallops and Murmur heart sound present (grade 2/6 ) systolic Location: apex BRUITS: no carotid bruits PERIPHERAL PULSES: Peripheral pulses 2+ throughout Neuro COMMON NORMALS: patient oriented x3 and no focal motor deficits SENSORIUM/ORIENTATION: Yes alert, Yes oriented to person, Yes oriented to place and Yes oriented to time Psych COMMON NORMALS: Normal thought process present APPEARANCE: Yes well kempt MOOD & AFFECT: Yes euthymic mood THOUGHT PROCESS: Normal thought process present THOUGHT CONTENT: Yes Normal thought content present ATTENTION/CONCENTRATION: Yes attention grossly intact Urinary Catheter Management^: Simons: Cath Placed During This Visit: yes Reason for Continuing Indwelling Catheter: Accurate Measurement of Urinary Output in Critically Ill Patients Urinary Catheter Date of Insertion: 10/24/19 Urinary Catheter Time of Insertion: 11:00 Data : 10/27/19 03:54 10/27/19 03:54 Micro: Microbiology 10/26/19 08:47 Blood Culture - Preliminary Blood NEGATIVE TO DATE 10/26/19 08:52 Blood Culture - Preliminary Blood NEGATIVE TO DATE 10/23/19 21:32 Blood Culture - Preliminary Blood Gram positive cocci A&P Assessment and plan (1) CHF (congestive heart failure): Mildly decreased to low normal LV systolic function and abnormal diastolic dysfunction. -appears more comfortable on exam -continue lasix 60 mg daily with potassium. -Daily weigt. BP/HR log x 2weeks. -May be discharged today with follow up with [facility] in 1 week. -Importance of fluid restriction, salt restriction, medication compliance and need for follow up discussed in detail with the patient and his Mony. Status: Acute Qualifiers: Heart failure chronicity: acute Heart failure type: diastolic Qualified Code(s): I50.31 - Acute diastolic (congestive) heart failure (2) Coronary artery disease: recent posterior MN s/p RENA x2 to px to mid LCx. -continue DAPT, low dose beta sia and statin. Status: Acute Qualifiers: Coronary Disease-Associated Artery/Lesion type: unspecified vessel or lesion type [place] vs. transplanted heart: [place] heart Associated angina: without angina Qualified Code(s): I25.10 - Atherosclerotic heart disease of [place] coronary artery without angina pectoris (3) Hypertension: Status: Chronic Qualifiers: Hypertension type: essential hypertension Qualified Code(s): I10 - Essential (primary) hypertension (4) Dyslipidemia: Status: Chronic Additional A&P Information NSTEMI type 2 in setting of decompensated CHF Mitral regurgitation- at least moderate; Mild on echo 2 weeks back. will continue to monitor closely WAGNER on CKD stage 3 (baseline 1.9-2.1); creatinine 2.8 last 2 days, creatinine decreased to 2.5. H/o of polycystic kidney disease with CKD stage III COPD Chronic active smoker: states he quit 2 weeks back Suspected sleep apnea : sleep study as outpatient Rheumatoid arthritis Thank you for allowing me to participate in patient's care. Please feel free to call with questions or concerns. 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 transplanted heart: [place] heart Associated angina: without angina Hypertension I10 Hypertension type: essential hypertension Dyslipidemia E78.5
--- NOTE | 2019-10-27 18:25 | PC.NURSE ---
Discharge instructions given per the physician's orders. Patient verbalized understanding of discharge information and did not have any further questions. IV has been removed. Patient dressed self. Patient to be drove home in private vehicle by . HOME delivered Oxygen to bedside. Patient urinated after removing catheter. No further needs identified at this time.
--- NOTE | 2019-10-28 13:13 | PC.RESP ---
Pulmonary Rehab information to patient.
== END 2019-10-27 18:25 | disposition home or self-care (01) | DRG 280 ==
LOC: ER 20:59 → ICU 10-24 00:43 → CSU 10-25 13:34
PROVIDERS: Emergency Medicine; Student in an Organized Health Care Education/Training Program; Admitting Provider Internal Medicine; PCP Nurse Practitioner Family; Visit Provider Family Medicine
DX: I13.0 Hypertensive heart and chronic kidney disease with heart failure and stage 1 through stage 4 chronic kidney disease, or unspecified chronic kidney disease (principal); I50.33 Acute on chronic diastolic (congestive) heart failure; I22.9 Subsequent ST elevation (STEMI) myocardial infarction of unspecified site; J96.01 Acute respiratory failure with hypoxia; I21.9 Acute myocardial infarction, unspecified; Q61.3 Polycystic kidney, unspecified; N17.9 Acute kidney failure, unspecified; N18.3 Chronic kidney disease, stage 3 (moderate); F17.210 Nicotine dependence, cigarettes, uncomplicated; J44.9 Chronic obstructive pulmonary disease, unspecified; I25.10 Atherosclerotic heart disease of native coronary artery without angina pectoris; Z95.5 Presence of coronary angioplasty implant and graft; E78.5 Hyperlipidemia, unspecified; K21.9 Gastro-esophageal reflux disease without esophagitis; M05.9 Rheumatoid arthritis with rheumatoid factor, unspecified; I34.0 Nonrheumatic mitral (valve) insufficiency; R91.8 Other nonspecific abnormal finding of lung field; Z79.01 Long term (current) use of anticoagulants; Z79.82 Long term (current) use of aspirin; Z79.51 Long term (current) use of inhaled steroids; G47.30 Sleep apnea, unspecified
CPT/HCPCS: 12345; 36415; 36600; 51702; 71045; 71250; 80048; 80053; 80061; 81003; 82803; 83605; 83721; 83735; 83880; 84100; 84145; 84484; 85025; 85610; 85730; 87040; 87077; 87205; 87426; 87641; 93005; 93308; 93970; 94640; 94660; 96372; 97161; 97530; 99283; J1644; J1940; J2405; J2543; J3010; J7512; J7611

== ENCOUNTER 2019-11-22 20:00 | Outpatient (CLI) | payer MEDICARE, MEDICAID, SELFPAY | END 2019-11-22 20:01 | disposition home or self-care (01) | LOC: SLEEP 11-23 08:52 | PROVIDERS: PCP Nurse Practitioner Family; Visit Provider Family Medicine | DX: R06.83 Snoring (principal); G47.33 Obstructive sleep apnea (adult) (pediatric) | CPT/HCPCS: 95810 ==

== ENCOUNTER → 2019-12-01 16:33 | Outpatient (BNVA) | payer MEDICARE, MEDICAID, SELFPAY | PROVIDERS: PCP Nurse Practitioner Family; Visit Provider Internal Medicine Cardiovascular Disease | DX: I10 Essential (primary) hypertension (principal); I50.31 Acute diastolic (congestive) heart failure; Z79.899 Other long term (current) drug therapy | CPT/HCPCS: 80053; 85025 ==

== ENCOUNTER 2019-12-22 12:02 | Outpatient (CLI) | payer MEDICARE, MEDICAID, SELFPAY ==
[2019-12-22 12:31] LABS: Basophils # 0.1 10^3/uL (0.0-0.1); Basophils % 0.7 %; Eosinophils # 0.2 10^3/uL (0.0-0.8); Eosinophils % 2.9 %; Hematocrit 42.7 % (42.0-52.0); Hemoglobin 13.8 g/dL (11.7-16.6); Lymphocytes # 1.2 10^3/uL (0.8-4.8); Lymphocytes % 17.2 %; Mean Corpuscular HGB Conc 32.3 g/dL (30.0-36.0); Mean Corpuscular Hemoglobin 27.5 pg (28.0-34.0); Mean Corpuscular Volume 85.2 fL (80-94); Mean Platelet Volume 9.5 fL (7.4-10.4); Monocytes # 0.4 10^3/uL (0.2-0.9); Monocytes % 6.4 %; Neutrophils # 4.97 10^3/uL (1.8-7.7); Neutrophils % 72.7 %; Nucleated Red Blood Cells % 0 %; Platelet Count 192 10^3/cmm (130-400); Red Blood Count 5.01 10^6/uL (4.1-5.3); Red Cell Distribution Width 13.2 % (12.1-15.1); White Blood Count 6.9 10^3/uL (4.0-10.0)
[2019-12-22 13:20] LABS: Creatinine Urine, Random 27 mg/dL (39-259)
[2019-12-22 13:31] LABS: Microalbum Creatinine Ratio Ur 37 mg/dL (0-20); Microalbumin Random Urine 1 ug/dL (0-20)
[2019-12-22 13:38] LABS: 25 Hydroxy Vitamin D 25 ng/mL (30-100); Albumin Level 4.4 g/dL (3.5-5.2); Blood Urea Nitrogen 32 mg/dL (6-20); Calcium 9.6 mg/dL (8.5-10.5); Carbon Dioxide 25 mmol/L (22-29); Chloride 99 mmol/L (98-107); Glomerular Filtration Rate 37.3 mL/min (90-130); Glucose 115 mg/dL (65-115); Phosphorus 3.4 mg/dL (2.5-4.5); Sodium 136 mmol/L (136-145)
[2019-12-22 13:49] LABS: Calcium 9.9 mg/dL (8.5-10.5); Parathyroid Hormone 30.4 pg/mL (15-65)
[2019-12-22 14:04] LABS: Anion Gap 16.4 (5-19); Potassium 4.4 mmol/L (3.5-5.1)
== END 2019-12-22 12:03 | disposition home or self-care (01) ==
LOC: LAB 12:07
PROVIDERS: PCP Nurse Practitioner Family; Visit Provider Internal Medicine Nephrology
DX: N18.30 Chronic kidney disease, stage 3 unspecified (principal)
CPT/HCPCS: 80069; 82044; 82306; 82310; 83970; 85025

== ENCOUNTER → 2020-01-04 11:14 | Outpatient (BNVA) | payer MEDICARE, MEDICAID, SELFPAY | PROVIDERS: PCP Nurse Practitioner Family; Visit Provider Internal Medicine | DX: M05.9 Rheumatoid arthritis with rheumatoid factor, unspecified (principal); Z20.828 Contact with and (suspected) exposure to other viral communicable diseases; Z11.59 Encounter for screening for other viral diseases; Z79.899 Other long term (current) drug therapy; J44.9 Chronic obstructive pulmonary disease, unspecified; D86.9 Sarcoidosis, unspecified; I50.31 Acute diastolic (congestive) heart failure; I13.0 Hypertensive heart and chronic kidney disease with heart failure and stage 1 through stage 4 chronic kidney disease, or unspecified chronic kidney disease; N18.9 Chronic kidney disease, unspecified; Z87.891 Personal history of nicotine dependence | CPT/HCPCS: 36415; 85651; 86140; 86704; 86803; 87340; 87635; 99214 ==

== ENCOUNTER 2020-01-10 08:45 | Outpatient (CLI) | payer MEDICARE, MEDICAID, SELFPAY ==
[2020-01-10 09:25] VITALS: BP 126/93; BP 134/92
--- NOTE | 2020-01-10 14:50 | PFTS_ITS ---
Date of Study:01/10/20 Date of Dictation: 01/11/2020 MECHANICS: Forced vital capacity (FVC) is normal at 95% Forced expiratory volume in one second (FEV1) is normal 86% FEV1/FVC is reduced 69% normalized to 71% postbronchodilator No significant change to bronchodilators FLOW VOLUME LOOP: Sloping of expiratory limb suggestive of mild obstruction . LUNG VOLUMES: Total lung capacity (TLC) is normal. Residual volume (RV) is normal. DIFFUSING CAPACITY FOR CARBON MONOXIDE: Normal . INTERPRETATION: The pulmonary function tests are consistent with mild obstructive ventilatory defect corrected with bronchodilators. Normal lung volumes and gas transfer. Please correlate clinically MTDD
== END 2020-01-10 08:46 | disposition home or self-care (01) ==
LOC: RT 08:47
PROVIDERS: PCP Nurse Practitioner Family; Visit Provider Internal Medicine Pulmonary Disease
DX: J44.9 Chronic obstructive pulmonary disease, unspecified (principal)
CPT/HCPCS: 94060; 94618; 94726; 94729; J7611

== ENCOUNTER 2020-04-14 07:29 | Outpatient (CLI) | payer MEDICARE, MEDICAID, SELFPAY ==
--- NOTE | 2020-04-14 07:32 | USCV_ITS ---
HussainTyson Age: 54 Gender: M : 1965 Exam Date: 04/14/2020 07:49 Ordering Phys: Ana Meeks MD ([email or web address]) Technologist: Nina Tomlin Exam Location: [facility] [place] Indication: Mitral regurgitation BP: / HR: 89 Rhythm: Sinus Technical Quality: Adequate MEASUREMENTS (Male / Female) Normal Values 2D ECHO LV Diastolic Diameter PLAX 6.5 cm 4.2 - 5.9 / 3.9 - 5.3 cm LV Systolic Diameter PLAX 4.5 cm IVS Diastolic Thickness 1.6 cm 0.6 - 1.0 / 0.6 - 0.9 cm IVS Systolic Thickness 2.0 cm LVPW Diastolic Thickness 1.1 cm 0.6 - 1.0 / 0.6 - 0.9 cm LVPW Systolic Thickness 1.6 cm LVOT Diameter 2.0 cm LV Ejection Fraction 2D Teich 56.3 % LA Diameter 4.9 cm LA Width 3.9 cm LA Height 6.2 cm RA Width 3.4 cm RA Height 4.8 cm Aorta at Sinotubular Diameter 3.9 cm M-MODE LV Diastolic Diameter MM 5.8 cm 4.2 - 5.9 / 3.9 - 5.3 cm LV Systolic Diameter MM 4.4 cm LV Ejection Fraction MM Teich 48.2 % IVS Diastolic Thickness MM 1.6 cm 0.6 - 1.0 / 0.6 - 0.9 cm IVS Systolic Thickness MM 1.9 cm LVPW Diastolic Thickness MM 1.3 cm 0.6 - 1.0 / 0.6 - 0.9 cm LVPW Systolic Thickness MM 1.7 cm RV Diastolic Diameter MM 2.4 cm Aortic Annulus Diameter 4.1 cm LA Ao Ratio MM 1.3 MV E Point Septal Separation 1.9 cm FINDINGS Left Ventricle Dilated left ventricle. Upper normal left ventricular wall thickness. Normal left ventricular systolic function. Left ventricular ejection fraction is estimated at 55 %. There is possibly hypokinesis of basal to mid inferolateral and basal to mid anterolateral hernandez. Right Ventricle Normal right ventricular size and systolic function. TR jet insufficient to estimate right ventricular systolic pressure. Right Atrium Normal right atrial size. Right atrial pressure estimated at 3 mmHg. Left Atrium Moderately increased left atrial size. Mitral Valve Thickened mitral valve. Somewhat restricted movement of posterior mitral valve leaflet. No mitral valve stenosis. Severe mitral valve regurgitation. Aortic Valve Structurally normal trileaflet aortic valve. No aortic valve stenosis. No aortic valve regurgitation. Tricuspid Valve Structurally normal tricuspid valve. No tricuspid valve stenosis. Trace to mild tricuspid valve regurgitation. Pulmonic Valve Structurally normal pulmonic valve. No pulmonary valve stenosis. Trace pulmonary valve regurgitation. Pericardium No pericardial effusion. Aorta Normal size aortic root and proximal ascending aorta. Normal- sized inferior vena cava with normal respiratory variations. CONCLUSIONS 1. Dilated left ventricle. Upper normal left ventricular wall thickness. Normal left ventricular systolic function. Left ventricular ejection fraction is estimated at 55 %. There is possibly hypokinesis of basal to mid inferolateral and basal to mid anterolateral hernandez. 2. Normal right ventricular size and systolic function. 3. Moderately increased left atrial size. 4. Somewhat restricted movement of posterior mitral valve leaflet. Severe mitral valve regurgitation. 5. When compared to previous echocardiogram dated 10/24/2019, mitral valve regurgitation seems to have worsened. Ana Meeks MD (Electronically Signed) Final Date: 19 April 2020 19:23 S
== END 2020-04-14 07:30 | disposition home or self-care (01) ==
LOC: US 07:30
PROVIDERS: PCP Nurse Practitioner Family; Visit Provider Internal Medicine Cardiovascular Disease
DX: I34.0 Nonrheumatic mitral (valve) insufficiency (principal)
CPT/HCPCS: 93308; 93325

== ENCOUNTER → 2020-05-08 15:16 | Outpatient (BNVA) | payer MEDICARE, MEDICAID, SELFPAY | PROVIDERS: PCP Nurse Practitioner Family; Visit Provider Internal Medicine Cardiovascular Disease | DX: I34.0 Nonrheumatic mitral (valve) insufficiency (principal); Z01.818 Encounter for other preprocedural examination; Z20.822 Contact with and (suspected) exposure to COVID-19 | CPT/HCPCS: 87635 ==

== ENCOUNTER 2020-05-12 10:06 | Day surgery (SDC) | payer MEDICARE, MEDICAID, SELFPAY ==
[2020-05-11 13:55] VITALS: BMI 33.0
--- NOTE | 2020-05-12 11:18 | USCV_ITS ---
Tyson Nixon Age: 54 Gender: M : 1965 Exam Date: 05/12/2020 12:04 Ordering Phys: Ana Meeks MD ([email or web address]) Technologist: Nina Tomlin Exam Location: [facility] [place] Indication: Mitral regurgitation BP: 119 / 80 HR: 46 Rhythm: Sinus Technical Quality: Adequate MEASUREMENTS (Male / Female) Normal Values 2D ECHO LVOT Diameter 2.2 cm DOPPLER AV Peak Velocity 113.0 cm/s LVOT Peak Velocity 79.3 cm/s AV Area Cont Eq vti 5.5 cm squared AV Area Cont Eq pk 2.8 cm squared MV Peak Velocity 135.0 cm/s Medications Patient given IV sedation by anesthesia service, for details please refer to the anesthesia report. Complications After achieving adequate sedation, attempts were made to insert the probe. Patient started having continuous coughing. He had nosebleed while attempting to place nasopharyngeal airway. Procedure was aborted at the time and decision was made to take patient to the OR. Patient underwent ETT placement by anesthesia. Probe was inserted on first attempt. Small amount of blood noted on probe post procedure Proc. Components MILTON was performed at multiple levels. FINDINGS Left Ventricle Normal left ventricular cavity size. Normal left ventricular systolic function. Left ventricular ejection fraction is estimated at 55 %. There is hypokinesis of basal to mid inferolateral and possibly basal to mid anterolateral hernandez. Right Ventricle Normal right ventricular size and systolic function. Right Atrium Normal right atrial size. Left Atrium Moderately increased left atrial size. LA Appendage Normal left atrial appendage. Normal flow velocities in the left atrial appendage. No thrombus visualized in the left atrial appendage. IA Septum Normal interatrial septum. No patent foramen ovale. No evidence for an atrial septal defect. Mitral Valve Structurally normal mitral valve. No mitral valve stenosis. Severe mitral valve regurgitation. There is annular dilation with tethering of the mitral valve leaflets. (EROA 1cm2, RV- 114ml, RF 62% by PISA method; ). Marked systolic blunting with possibly diastolic flow reversal noted in pulmonary vein flow. Aortic Valve Structurally normal trileaflet aortic valve. No aortic valve stenosis. No aortic valve regurgitation. Tricuspid Valve Structurally normal tricuspid valve. No tricuspid valve stenosis. Mild to moderate tricuspid valve regurgitation. Pulmonic Valve Structurally normal pulmonic valve. No pulmonary valve stenosis. Trace pulmonary valve regurgitation. Pericardium No pericardial effusion. Aorta Normal size aortic root and proximal ascending aorta. CONCLUSIONS 1. Normal left ventricular cavity size. Normal left ventricular systolic function. Left ventricular ejection fraction is estimated at 55 %. There is hypokinesis of basal to mid inferolateral and possibly basal to mid anterolateral hernandez. 2. Moderately increased left atrial size. 3. Structurally normal mitral valve. No mitral valve stenosis. Severe mitral valve regurgitation. There is annular dilation with tethering of the mitral valve leaflets. 4. Mild to modertae tricuspid valve regurgitation. Ana Meeks MD (Electronically Signed) Final Date: 19 May 2020 12:13 S
--- NOTE | 2020-05-12 11:46 | P.ANESASSM_ITS ---
Pre-Anesthetic Assessment Pre-Anesthetic Assessment: Height/Weight: Height 1.75 m Weight 101.605 kg Preop Diagnosis: MR Proposed Procedure: Operation Date: 05/12/20 12:00 Proposed Procedures p MILTON(Not Applicable) - Ana Meeks MD Was Beta Gabrielle taken within 24 hours: N/A Was Clonidine taken within 24 hours: N/A Social: Social History: Tobacco (quit 6 months ago) Exam: Pre-Anes Outpt Exam: alert, oriented x 3, clear to auscultation bilaterally and regular rate & rhythm Airway: Submandibular: WNL Cervical ROM: WNL MP: 2 Dentition: False History/ROS: No significant history except as noted Pulmonary: Pulmonary: COPD and Sleep apnea Comments: O2 2 liters CV/HEM: CV/HEM: CAD, CHF, HTN and MT : : Chronic renal Insufficiency Hepatic: Hepatic: None reported GI: GI: GERD Metabolic: Metabolic: Hyperlipidemia Musc/skel: Musc/skel: RA Neuropsych: Neuropsych: None reported Anesthetic Plan: ASA status: 3 Anesthesia: Anesthesia Evaluation and MAC Risk of > 500 ml blood loss (7ml/kg in children): No PFSH Anesthesia PFSH: Medical History (Updated 05/08/20 @ 14:26 by Giovanni Copeland MD) Chronic kidney disease, stage 3 COPD (chronic obstructive pulmonary disease) Coronary artery disease Degenerative disk disease Dyslipidemia GERD (gastroesophageal reflux disease) High risk medication use Hyperkalemia Hyperlipidemia Hypersomnia Hypertension Immunization counseling PCK (polycystic kidney disease) Rheumatoid arthritis Seropositive rheumatoid arthritis Smoker Vitamin D deficiency Surgical History History of PTCA Stented coronary artery Family History Other CAD (coronary artery disease) Diabetes Hypertension Systemic lupus erythematosus (SLE) in adult Denies family history of Cancer Stroke Social History Smoking and tobacco status: former smoker Quit status (tobacco): has quit using tobacco Year quit tobacco: Sep 2019 2pp [id number] Second hand smoke exposure: Yes Smoking risk assessment/counseling performed?: Yes Alcohol intake: former Desire information about alcohol rehabilitation?: No Counseling given: No Lives independently: Yes Household members: spouse Marital status: service: No Current occupational status: disabled History of recent travel: No Current gender identity: Male Data Anesthesia Cardiac Studies: Echocardiogram 10/10/19
--- NOTE | 2020-05-12 12:07 | P.HP_ITS ---
Same Day Surgery H&P Indication for Procedure/HPI DATE OF PROCEDURE: May 12, 2020 CHIEF COMPLAINT/INDICATIONFOR SURGICAL PROCEDURE: Tyson Nixon is a 54 year old male past medical history of hypertension, CAD status post PCI of mid left circumflex in 2014, COPD, chronic active smoker, history of rheumatoid arthritis and chronic kidney disease had posterior wall myocardial infarction on September,. He was emergently taken to the Help Desk Specialist and underwent angiogram that showed proximal to mid circumflex 99% stenosis. This was treated with drug-eluting stents x2. His echocardiogram showed mildly reduced left ventricular ejection fraction of 45 to 50%. Repeat TTE with severe MR and low normal LV function. MILTON today to assess etiology and severity of mitral regurgitation. PREOP DIAGNOSIS: MR PLANNED PROCEDRUE: Operation Date: 05/12/20 12:00 Proposed Procedures p MILTON(Not Applicable) - Ana Meeks MD Medications/Allergies* Allergies/Adverse Reactions Allergy/AdvReac Type Severity Reaction Status Date / Time No Known Allergies Allergy Verified 05/08/20 14:00 Pertinent History/Comorbid Conditions* Medical History (Updated 05/08/20 @ 14:26 by Giovanni Copeland MD) Chronic kidney disease, stage 3 COPD (chronic obstructive pulmonary disease) Coronary artery disease Degenerative disk disease Dyslipidemia GERD (gastroesophageal reflux disease) High risk medication use Hyperkalemia Hyperlipidemia Hypersomnia Hypertension Immunization counseling PCK (polycystic kidney disease) Rheumatoid arthritis Seropositive rheumatoid arthritis Smoker Vitamin D deficiency Surgical History (Updated 10/24/19 @ 10:34 by Prosper Sanz MD) History of PTCA Stented coronary artery Family History (Updated 05/24/19 @ 16:41 by Layne Clements LPN) Diabetes CAD (coronary artery disease) Systemic lupus erythematosus (SLE) in adult Hypertension Denies family history of Cancer Stroke Social History Smoking and tobacco status: former smoker Quit status (tobacco): has quit using tobacco Year quit tobacco: Sep 2019 [id number] Second hand smoke exposure: Yes Smoking risk assessment/counseling performed?: Yes Alcohol intake: former Desire information about alcohol rehabilitation?: No Counseling given: No Lives independently: Yes Household members: spouse Marital status: service: No Current occupational status: disabled History of recent travel: No Current gender identity: Male Pertinent Exam Findings alert, oriented x 3, clear to auscultation bilaterally (prolonged expiration, no wheezes), regular rate & rhythm and procedure specific exam findings (ASA 3, Airway 4) Recommendations Surgery/Procedure today Coding Level of Care Code 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
--- NOTE | 2020-05-12 14:06 | SUR.OPER ---
FIRST ATTEMP FOR MILTON IN GI TIME SCOPE START: 1221 SCOPE END: 1257 PATIENT BROUGHT TO OR PROCEDURE ROOM PER ANESTHESIA REQUEST SCOPE START: 1324 SCOPE END: 1408
[2020-05-12 14:28] VITALS: BP 120/69; PULSE 103; RESP 16; TEMP 36.6; O2SAT 98
[2020-05-12] MEDS: ipratropium 0.5 mg/2.5 mL Neb INHALATION (14:30)
[2020-05-12 14:35] VITALS: BP 108/75; PULSE 102; RESP 17; O2SAT 100
[2020-05-12 14:40] VITALS: BP 112/77; PULSE 99; RESP 16; TEMP 36.5; O2SAT 96
[2020-05-12 14:50] VITALS: BP 132/72; PULSE 87; RESP 18; TEMP 36.6; O2SAT 94
[2020-05-12] MEDS: cetylpyridinium Lozenge 1 EACH MUCOUS MEM (15:10)
[2020-05-12 15:15] VITALS: BP 110/89; PULSE 88; RESP 18
--- NOTE | 2020-05-12 17:00 | ANE.PACU2 ---
Inpatient post-anesthesia follow up: Airway intact: Yes Vital signs: Temperature 97.9 F Pulse Rate 88 Respiratory Rate 18 Blood Pressure 110/89 Pulse Oximetry 94 Oxygen Delivery Me thod Room Air Oxygen Flow Rate 8 Fraction of Inspir ed Oxygen Hydration adequate: Yes Nausea and vomiting: No Pain level: 3 Mental status: Baseline Additional Comments: Patient informed if nose bleed increases or has difficulty breathing or swelling of airway to go to ER
--- NOTE | 2020-05-12 21:26 | PM.ACPR ---
Procedure/Consent Time out: Time Out Performed: Yes Consent: Consent for Procedure: Consent obtained from patient, Risks & Benefits reviewed and Agrees to proceed with procedure Procedure Narrative: MILTON Procedure note Indication: Mitral regurgitation Sedation: Propofol by anesthesia The patient was brought down to the dentures lab technician (CPRU). Procedure was explained to the patient in detail and informed consent was obtained. Timeout was called. After achieving adequate sedation, attempt was made to insert the probe. Patient started having bouts of nonstop coughing. Attempts were made again twice without much success. Patient did desaturate to high 70s and attempt was made to place nasopharyngeal airway in both nostrils that led to nosebleed. Procedure was aborted at the time and decision was made to take patient to the OR in the procedure under general anesthesia. Once patient was prepped and ready. Patient underwent ETT placement by anesthesia. Probe was inserted on first attempt. Small amount of blood noted on probe post procedure Prelim report: 3-4+ mitral regurgitation. full report to follow. Patient tolerated the procedure well and after initial recovery in PACU, was discharged home. Advised to hold aspirin and Plavix for 1 day and then resume. Results of the procedure were discussed briefly with patient and his Mony. Follow-up with me in heart care services in 7 to 10 days. Acute Procedures Epistaxis Control: Time out performed: Yes
== END 2020-05-12 15:30 | disposition home or self-care (01) ==
PROVIDERS: PCP Nurse Practitioner Family; Visit Provider Internal Medicine Cardiovascular Disease
PROC: (CPT 93312; principal; 2020-05-12 12:00)
DX: I34.0 Nonrheumatic mitral (valve) insufficiency (principal); J44.9 Chronic obstructive pulmonary disease, unspecified; G47.30 Sleep apnea, unspecified; Z99.81 Dependence on supplemental oxygen; Z87.891 Personal history of nicotine dependence; I25.10 Atherosclerotic heart disease of native coronary artery without angina pectoris; I25.2 Old myocardial infarction; K21.9 Gastro-esophageal reflux disease without esophagitis; E78.5 Hyperlipidemia, unspecified; M06.9 Rheumatoid arthritis, unspecified; M19.90 Unspecified osteoarthritis, unspecified site; E11.22 Type 2 diabetes mellitus with diabetic chronic kidney disease; I13.0 Hypertensive heart and chronic kidney disease with heart failure and stage 1 through stage 4 chronic kidney disease, or unspecified chronic kidney disease; N18.30 Chronic kidney disease, stage 3 unspecified; I50.9 Heart failure, unspecified; Z82.49 Family history of ischemic heart disease and other diseases of the circulatory system
CPT/HCPCS: 93312; 93320; 93325; J0330; J1100; J2704; J2710; J3010; J3490; J7611; J7644

== ENCOUNTER 2020-06-16 10:48 | Outpatient (CLI) | payer MEDICARE, MEDICAID, SELFPAY ==
[2020-06-16 11:51] LABS: Basophils # 0.1 10^3/uL (0.0-0.1); Basophils % 0.7 %; Eosinophils # 0.5 10^3/uL (0.0-0.8); Eosinophils % 6.6 %; Hematocrit 35.2 % (42.0-52.0); Hemoglobin 10.9 g/dL (11.7-16.6); Lymphocytes % 28.5 %; Mean Corpuscular Hemoglobin 24.8 pg (28.0-34.0); Mean Platelet Volume 9.6 fL (7.4-10.4); Monocytes # 0.5 10^3/uL (0.2-0.9); Monocytes % 7.1 %; Neutrophils # 3.93 10^3/uL (1.8-7.7); Neutrophils % 56.8 %; Nucleated Red Blood Cells % 0 %; Platelet Count 236 10^3/cmm (130-400); Red Cell Distribution Width 14.2 % (12.1-15.1); White Blood Count 6.9 10^3/uL (4.0-10.0)
[2020-06-16 12:12] LABS: Anion Gap 11.5 (5-19); Blood Urea Nitrogen 26 mg/dL (6-20); Calcium 8.9 mg/dL (8.5-10.5); Carbon Dioxide 31 mmol/L (22-29); Chloride 99 mmol/L (98-107); Glomerular Filtration Rate 39.7 mL/min (90-130); Glucose 114 mg/dL (65-115); Magnesium 1.9 mg/dL (1.7-2.3); Osmolality Calculated 290 mOsm/kg (285-295); Potassium 4.5 mmol/L (3.5-5.1); Sodium 137 mmol/L (136-145)
== END 2020-06-16 10:49 | disposition home or self-care (01) ==
PROVIDERS: Internal Medicine Pulmonary Disease; Visit Provider Internal Medicine Interventional Cardiology
DX: Z20.822 Contact with and (suspected) exposure to COVID-19 (principal); I50.31 Acute diastolic (congestive) heart failure; I34.0 Nonrheumatic mitral (valve) insufficiency
CPT/HCPCS: 36415; 80048; 83735; 85025; 87635

== ENCOUNTER 2020-07-06 10:26 | Outpatient (CLI) | payer MEDICARE, MEDICAID, SELFPAY ==
[2020-07-06 10:51] LABS: Basophils % 0.5 %; Eosinophils # 0.6 10^3/uL (0.0-0.8); Eosinophils % 7.4 %; Hematocrit 35.7 % (42.0-52.0); Hemoglobin 11.4 g/dL (11.7-16.6); Lymphocytes # 1.9 10^3/uL (0.8-4.8); Lymphocytes % 24.2 %; Mean Corpuscular HGB Conc 31.9 g/dL (30.0-36.0); Mean Corpuscular Hemoglobin 25.4 pg (28.0-34.0); Mean Corpuscular Volume 79.7 fL (80-94); Mean Platelet Volume 9.4 fL (7.4-10.4); Monocytes # 0.5 10^3/uL (0.2-0.9); Monocytes % 6.2 %; Neutrophils # 4.73 10^3/uL (1.8-7.7); Neutrophils % 61.6 %; Nucleated Red Blood Cells % 0 %; Platelet Count 245 10^3/cmm (130-400); Red Blood Count 4.48 10^6/uL (4.1-5.3); Red Cell Distribution Width 15.3 % (12.1-15.1); White Blood Count 7.7 10^3/uL (4.0-10.0)
[2020-07-06 11:05] LABS: Albumin Level 4.5 g/dL (3.5-5.2); Anion Gap 15.1 (5-19); Blood Urea Nitrogen 34 mg/dL (6-20); Calcium 8.7 mg/dL (8.5-10.5); Carbon Dioxide 27 mmol/L (22-29); Chloride 100 mmol/L (98-107); Glomerular Filtration Rate 39.7 mL/min (90-130); Glucose 103 mg/dL (65-115); Phosphorus 3.7 mg/dL (2.5-4.5); Potassium 4.1 mmol/L (3.5-5.1); Sodium 138 mmol/L (136-145)
[2020-07-06 11:17] LABS: Creatinine Urine, Random 23 mg/dL (39-259)
[2020-07-06 11:18] LABS: Microalbum Creatinine Ratio Ur 43 mg/dL (0-20); Microalbumin Random Urine 1 ug/dL (0-20)
[2020-07-06 11:26] LABS: Calcium 8.8 mg/dL (8.5-10.5)
[2020-07-06 12:47] LABS: Parathyroid Hormone 69.1 pg/mL (15-65)
== END 2020-07-06 10:27 | disposition home or self-care (01) ==
LOC: LAB 10:31
PROVIDERS: PCP Nurse Practitioner Family; Visit Provider Internal Medicine Nephrology
DX: N18.32 Chronic kidney disease, stage 3b (principal)
CPT/HCPCS: 80069; 82044; 82310; 83970; 85025

== ENCOUNTER 2020-07-14 07:23 | Outpatient (CLI) | payer MEDICARE, MEDICAID, SELFPAY ==
--- NOTE | 2020-07-14 | CT_ITS ---
WS: [id number] CT CHEST, ABDOMEN, AND PELVIS TECHNIQUE: Contrast-enhanced CT of the chest, abdomen, and pelvis with coronal and sagittal reformatt ed images. CLINICAL INFORMATION: SEVEREMITRAL REGURGITATIN COMPARISON: CT chest October [address] abdomen pelvis DLP: 2621.[address] scans at [facility] use at least one of these dose optimization techniques: automat ed exposure control; mA and/or kV adjustment per patient size (includes targeted exams where dose is matched to clinical indication); or iterative reconstruction. CT CHEST: Lungs well aerated. No acute pulmonary infiltrates. No focal pneumonia or pleural fluid. Moderate chr onic emphysematous changes. Previously described pulmonary infiltrates and pleural effusions have re solved. Small noncalcified nodule right lower lobe measuring 5 mm. Additional small noncalcified nodu le in the lingula measuring 3 mm also unchanged. Additional noncalcified nodule in the right upper lo be measuring 4 mm. Noncalcified nodule left lower lobe measuring 5 mm unchanged. Normal caliber thoracic aorta. Proximal main pulmonary arteries are normal. No mediastinal or hilar l ymphadenopathy. No axillary lymphadenopathy. Small pericardial effusion. Perihilar bronchovascular thickening unchang ed from previous. Tiny pericardial effusion. CT ABDOMEN AND PELVIS: Normal liver. Normal spleen. Normal gallbladder. Small esophageal hiatal hernia. Normal portal vein a nd splenic vein. Innumerable bilateral kidney cysts consistent with polycystic kidney disease. This a ppears progressed since 2008. No visualized solid enhancing lesions. Visualized pancreas appears norm al. Normal caliber abdominal aorta. Calcification. Normal sigmoid colon. No evidence of small or large bowel obstruction. Small fat-containing umbilical hernia. No inguinal lymphadenopathy. Disc space narrowing worse L5-S1. CT/CT chest abd pel w con* IMPRESSION: 1. Several small subcentimeter noncalcified nodules unchanged since October 25, 2019. Recommend 12 month follow-up. 2. Moderate chronic emphysematous changes. Previously described pulmonary infi ltrates have resolved. No pleural fluid. 3. Tiny pericardial effusion. Coronary calcification. 4. Small esophageal hiatal hernia. 5. Polycystic kidney disease bilaterally progressed since 2008. 6. No other significant findings.
--- NOTE | 2020-07-14 07:45 | USCV_ITS ---
Tyson Nixon Age: 54 Gender: M : 1965 Exam Date: 07/14/2020 09:12 Ordering Phys: Danica Guzman MD Technologist: Amberly Maynard Exam Location: [facility] – [place] Indication: pre op CAD Risk Factors: none Previous Vascular Surgery: n/a Right Brachial BP: / Left Brachial BP: / Right Left Velocity (cm/s) Spectral Plaque Velocity (cm/s) Spectral Plaque Syst/Diast Broadening Syst/Diast Broadening 92.40/ 23.30 Prox CCA 114.40/ 35.50 88.90/ 21.40 Mid CCA 94.70 / 27.60 49.60/ 13.70 Distal CCA 101.20/ 31.60 42.20/ 17.60 Prox ICA 40.50 / 12.30 55.00/ 25.60 Mid ICA 51.30 / 20.50 83.10/ 38.80 Distal ICA 63.00 / 26.10 57.30 ECA 75.00 0.90 ICA/CCA 0.55 Antegrade Vertebral Antegrade 41.90/ 15.50 cm/s 40.80/ 15.80 cm/s Tri Subclavian Tri 132.8 92.00 0 FINDINGS Mild diffuse plaques at the right common carotid and bifurcation. Intimal plaques in the left bifurcation and internal carotid artery Normal Doppler flow velocities Antegrade flow in the vertebral arteries bilaterally CONCLUSIONS Minimal plaques at the bifurcations bilaterally with no significant stenosis No significant stenosis in the external carotid or subclavian arteries bilaterally Dr Josafat Duke MD [facility] (Electronically Signed) Final Date: 17 Jul 2020 12:27 S
[2020-07-14] MEDS: iohexol 300 mg/mL 50 mL Btl PO (11:00)
[2020-07-14] MEDS: iodixanol 320 mg/mL 100mL Btl IV (11:10)
== END 2020-07-14 07:24 | disposition home or self-care (01) ==
LOC: RAD 07:26
PROVIDERS: PCP Nurse Practitioner Family; Visit Provider Thoracic Surgery (Cardiothoracic Vascular Surgery)
DX: Z01.818 Encounter for other preprocedural examination (principal); I34.0 Nonrheumatic mitral (valve) insufficiency; R91.8 Other nonspecific abnormal finding of lung field; K44.9 Diaphragmatic hernia without obstruction or gangrene; Q61.3 Polycystic kidney, unspecified
CPT/HCPCS: 71260; 74177; 93880

== ENCOUNTER → 2020-07-20 11:11 | Outpatient (BNVA) | payer MEDICARE, MEDICAID, SELFPAY | PROVIDERS: PCP Nurse Practitioner Family; Visit Provider Internal Medicine | DX: M05.9 Rheumatoid arthritis with rheumatoid factor, unspecified (principal); Z79.899 Other long term (current) drug therapy; Z87.891 Personal history of nicotine dependence | CPT/HCPCS: 99213 ==

== ENCOUNTER → 2020-08-02 13:39 | Outpatient (BNVA) | payer MEDICARE, MEDICAID, SELFPAY | PROVIDERS: PCP Nurse Practitioner Family; Referring Provider Internal Medicine Cardiovascular Disease; Visit Provider Internal Medicine Cardiovascular Disease | DX: G47.33 Obstructive sleep apnea (adult) (pediatric) (principal); I50.31 Acute diastolic (congestive) heart failure; J44.9 Chronic obstructive pulmonary disease, unspecified; Z20.822 Contact with and (suspected) exposure to COVID-19 | CPT/HCPCS: 87635 ==

== ENCOUNTER 2020-08-09 06:48 | Outpatient (CLI) | payer MEDICARE, MEDICAID, SELFPAY ==
[2020-08-09 07:22] LABS: ABG PCO2 38.9 mmHg (35-45); ABG PH Result 7.45 (7.35-7.45); Alveolar-Arterial Oxygen Gradi 3.6 mmHg (5-10); Arterial Blood Gas Hematocrit 33.1 % (42-52); Base Excess ABG 2.5 mmol/L (-2.0-2.0); Blood Gas Allen Test Pos; Blood Gas Operator Identificat BROMA; Blood Gas Sample Site Brachial, left; Blood Gas Sample Type Arterial; Carboxyhemoglobin 1.1 %THgb (0.4-20.1); HCO3 ABG 26.7 mmol/L (22-26); HGB O2 Sat 94.1 % (95-100); Ionized Calcium Level - ABG 1.2 mmol/L (1.1-1.4); Oxygen Device ROOM AIR; Oxygen Saturation ABG 96.1; PO2 ABG 74.2 mmHg (80.0-100.0); Potassium Level - ABG 3.6 mmol/L (3.5-5.0); Total Hemoglobin 10.8 g/dL (14-18)
--- NOTE | 2020-08-09 08:39 | PFTS_ITS ---
Date of Study:08/09/20 Date of Dictation: MECHANICS: Forced vital capacity (FVC) is reduced. Forced expiratory volume in one second (FEV1) is reduced. FEV1/FVC is normal. FLOW VOLUME LOOP: Narrow and reduced flow at all lung volumes. LUNG VOLUMES: Total lung capacity (TLC) is normal. Residual volume (RV) is increased. DIFFUSING CAPACITY FOR CARBON MONOXIDE: Normal. INTERPRETATION: The prebronchodilator spirometry is consistent with moderate obstruction. The postbronchodilator spirometry is consistent with mild restriction. There is a significant postbronchodilator response. The lung volumes are consistent with air trapping. The constellation of mild restriction on postbronchodilator spirometry with lung volumes that is not suggestive of restrictive lung disease, is consistent with nonspecific ventilatory limitation. This is likely due to a combination of obstructive and restrictive lung disease. Gas exchange (DLCO) is normal. MTDD
== END 2020-08-09 06:49 | disposition home or self-care (01) ==
PROVIDERS: PCP Nurse Practitioner Family; Visit Provider Internal Medicine Cardiovascular Disease
DX: J44.9 Chronic obstructive pulmonary disease, unspecified (principal); Z99.81 Dependence on supplemental oxygen; R91.1 Solitary pulmonary nodule
CPT/HCPCS: 80051; 82330; 82805; 94060; 94726; 94729; J7611

== ENCOUNTER 2020-08-29 06:48 | Outpatient (CLI) | payer MEDICARE, MEDICAID, SELFPAY ==
--- NOTE | 2020-08-29 07:15 | USCV_ITS ---
Tyson Nixon Age: 54 Gender: M : 1965 Exam Date: 08/29/2020 07:20 Ordering Phys: Ana Meeks MD [email or web address]) Technologist: Nina Tomlin Exam Location[place] [facility] [place]ication: Mitral valve regurgitation BP: 122 / 70 HR: 48 Rhythm: Sinus Technical Quality: Adequate MEASUREMENTS (Male / Female) Normal Values 2D ECHO LV Diastolic Diameter PLAX 6.1 cm 4.2 - 5.9 / 3.9 - 5.3 cm LV Systolic Diameter PLAX 4.6 cm LV Chamber Size 4.0 cm IVS Diastolic Thickness 1.4 cm 0.6 - 1.0 / 0.6 - 0.9 cm IVS Systolic Thickness 2.2 cm LVPW Diastolic Thickness 1.4 cm 0.6 - 1.0 / 0.6 - 0.9 cm LVPW Systolic Thickness 1.7 cm RV Chamber Size 3.1 cm LVOT Diameter 2.0 cm LV Ejection Fraction 2D Teich 49.1 % LV Ejection Fraction MOD 2C 40.1 % LV Ejection Fraction 2C AL 40.4 % LA Diameter 5.9 cm LA Width 4.2 cm LA Height 5.3 cm RA Width 3.7 cm RA Height 5.0 cm Aorta at Sinotubular Diameter 3.5 cm M-MODE LV Diastolic Diameter MM 5.2 cm 4.2 - 5.9 / 3.9 - 5.3 cm LV Systolic Diameter MM 3.6 cm LV Ejection Fraction MM Teich 58.5 % IVS Diastolic Thickness MM 1.6 cm 0.6 - 1.0 / 0.6 - 0.9 cm IVS Systolic Thickness MM 1.9 cm LVPW Diastolic Thickness MM 1.4 cm 0.6 - 1.0 / 0.6 - 0.9 cm LVPW Systolic Thickness MM 2.1 cm Aortic Annulus Diameter 3.5 cm LA Ao Ratio MM 1.7 MV E Point Septal Separation 1.4 cm DOPPLER AV Peak Velocity 140.0 cm/s LVOT Peak Velocity 72.0 cm/s AV Area Cont Eq vti 2.1 cm squared AV Area Cont Eq pk 1.7 cm squared MV Area PHT 5.6 cm squared Mitral E to A Ratio 3.4 MV E' Velocity 76.5 cm/s Mitral E to MV E' Ratio 13.6 Mitral E to LV E' Lateral Ratio 16.0 Mitral E to LV E' Septal Ratio 11.9 TR Peak Velocity 304.5 cm/s TR Peak Gradient 37.1 mmHg TR Mean Velocity 232.9 cm/s TR Mean Gradient 23.9 mmHg TR Velocity Time Integral 103.4 cm TV Peak E Velocity 105.0 cm/s Right Atrial Pressure 3.0 mmHg Pulmonary Artery Systolic Pressu 40.1 mmHg PV Peak Velocity 84.0 cm/s RV Acceleration Time 0.1 s RV Ejection Time 0.3 s RV AcT/ET 0.3 FINDINGS Left Ventricle Mildly dilated left ventricle cavity (LVIDd=6.2 cm). Upper normal left ventricular wall thickness. Normal left ventricular systolic function. Left ventricular ejection fraction is estimated at 60 %. There is moderate hypokinesis of basal to mid inferolateral hernandez. Abnormal diastolic function. Right Ventricle Normal right ventricular size and systolic function. Right ventricular systolic pressure 43 mmHg. Right Atrium Mildly increased right atrial size. Right atrial pressure estimated at 3 mm Hg. Left Atrium Moderately to severely increased left atrial size. Mitral Valve Mildly thickened mitral valve. Somewhat restricted movement of posterior mitral valve leaflet. Mitral annular dilation noted. No mitral valve stenosis. Severe mitral valve regurgitation ( ERO= 44 mm2, RVol 70 ml). Peak E velocity 1.4 m/s Aortic Valve Structurally normal trileaflet aortic valve. No aortic valve stenosis. No aortic valve regurgitation. Tricuspid Valve Structurally normal tricuspid valve. Mild to moderate tricuspid valve regurgitation. Pulmonic Valve Structurally normal pulmonic valve. No pulmonary valve stenosis. Trace to mild pulmonary valve regurgitation. Pericardium Trivial posterior pericardial effusion. Aorta Normal size aortic root and proximal ascending aorta. Normal- sized inferior vena cava with normal respiratory variation. CONCLUSIONS 1. Mildly dilated left ventricle cavity (LVIDd=6.2 cm). Upper normal left ventricular wall thickness. Normal left ventricular systolic function. Left ventricular ejection fraction is estimated at 60 %. There is moderate hypokinesis of basal to mid inferolateral hernandez. Abnormal diastolic function. 2. Normal right ventricular size and systolic function. 3. Somewhat restricted movement of posterior mitral valve leaflet. Mitral annular dilation noted. Severe mitral valve regurgitation ( ERO= 44 mm2, RVol 70 ml). Peak E velocity 1.4 m/s. 4. Mild to moderate tricuspid valve regurgitation. 5. Pulmonary artery pressure estimated at 43 mmHg. 6. There may not have been any significant change when compared to previous echocardiogram dated 04/14/2020. Ana Meeks MD (Electronically Signed) Final Date: 29 August 2020 13:40 S
== END 2020-08-29 06:49 | disposition home or self-care (01) ==
PROVIDERS: PCP Nurse Practitioner Family; Visit Provider Internal Medicine Cardiovascular Disease
DX: Z01.818 Encounter for other preprocedural examination; I08.1 Rheumatic disorders of both mitral and tricuspid valves
CPT/HCPCS: 93306

== ENCOUNTER 2020-09-04 10:59 | Outpatient (CLI) | payer MEDICARE, MEDICAID, SELFPAY ==
[2020-09-04 11:46] LABS: Anion Gap 13.8 (5-19); Blood Urea Nitrogen 28 mg/dL (6-20); Carbon Dioxide 31 mmol/L (22-29); Chloride 100 mmol/L (98-107); Glomerular Filtration Rate 39.7 mL/min (90-130); Glucose 100 mg/dL (65-115); Osmolality Calculated 298 mOsm/kg (285-295); Potassium 3.8 mmol/L (3.5-5.1); Sodium 141 mmol/L (136-145)
== END 2020-09-04 11:00 | disposition home or self-care (01) ==
PROVIDERS: PCP Nurse Practitioner Family; Visit Provider Thoracic Surgery (Cardiothoracic Vascular Surgery)
DX: Z01.812 Encounter for preprocedural laboratory examination (principal); Z20.822 Contact with and (suspected) exposure to COVID-19; Q61.3 Polycystic kidney, unspecified
CPT/HCPCS: 36415; 80048; 87635

== ENCOUNTER 2021-01-01 16:18 | Outpatient (CLI) | payer MEDICARE, MEDICAID, SELFPAY ==
[2021-01-01 17:04] LABS: Basophils % 0.5 %; Eosinophils # 0.5 10^3/uL (0.0-0.8); Eosinophils % 6.7 %; Hematocrit 40.9 % (42.0-52.0); Hemoglobin 13.5 g/dL (11.7-16.6); Lymphocytes # 2.2 10^3/uL (0.8-4.8); Lymphocytes % 28.1 %; Mean Corpuscular Volume 78.7 fl (80-94); Mean Platelet Volume 9.4 fL (7.4-10.4); Monocytes # 0.7 10^3/uL (0.2-0.9); Monocytes % 8.6 %; Neutrophils # 4.36 10^3/uL (1.8-7.7); Nucleated Red Blood Cells % 0 %; Platelet Count 217 10^3/cmm (130-400); Red Cell Distribution Width 15.5 % (12.1-15.1); White Blood Count 7.8 10^3/uL (4.0-10.0)
[2021-01-01 17:46] LABS: Alanine Aminotransferase 22 U/L (0-41); Albumin Level 4.4 g/dL (3.5-5.2); Alkaline Phosphatase 73 IU/L (40-130); Aspartate Amino Transferase 27 U/L (0-40); Blood Urea Nitrogen 21 mg/dL (6-20); Calcium 9.2 mg/dL (8.5-10.5); Carbon Dioxide 26 mmol/L (22-29); Chloride 99 mmol/L (98-107); Cholesterol 132 mg/dL (0-200); Globulin 3.1 g/dL (1.3-4.6); Glomerular Filtration Rate 39.5 mL/min (90-130); Glucose 93 mg/dL (65-115); HDL Cholesterol 33 mg/dL (60-100); LDL Cholesterol Calculated 53 mg/dL (50-129); LDL HDL Ratio 1.61 RATIO (0.00-3.22); Osmolality Calculated 289 mOsm/kg (285-295); Sodium 138 mmol/L (136-145); Thyroid Stimulating Hormone 2.12 uIU/mL (0.27-4.20); Total Bilirubin 0.4 mg/dL (0.15-1.2); Total Protein 7.5 g/dL (6.6-8.7); Triglycerides 229 mg/dL (0-150)
[2021-01-01 17:48] LABS: Anion Gap 16.4 (5-19); Potassium 3.4 mmol/L (3.5-5.1)
== END 2021-01-01 16:19 | disposition home or self-care (01) ==
LOC: LAB 16:24
PROVIDERS: PCP Nurse Practitioner Family; Visit Provider Nurse Practitioner Family
DX: I10 Essential (primary) hypertension (principal)
CPT/HCPCS: 80053; 80061; 84443; 85025

== ENCOUNTER 2021-01-19 10:58 | Outpatient (CLI) | payer MEDICARE, MEDICAID, SELFPAY ==
[2021-01-19 11:32] LABS: Basophils # 0.1 10^3/uL (0.0-0.1); Basophils % 0.7 %; Eosinophils # 0.7 10^3/uL (0.0-0.8); Eosinophils % 8.3 %; Hematocrit 43.8 % (42.0-52.0); Hemoglobin 14.8 g/dL (11.7-16.6); Lymphocytes # 2.8 10^3/uL (0.8-4.8); Lymphocytes % 32.9 %; Mean Corpuscular HGB Conc 33.8 g/dL (30.0-36.0); Mean Corpuscular Hemoglobin 26.3 pg (28.0-34.0); Mean Corpuscular Volume 77.9 fl (80-94); Mean Platelet Volume 9.2 fL (7.4-10.4); Monocytes # 0.5 10^3/uL (0.2-0.9); Monocytes % 6.5 %; Neutrophils # 4.31 10^3/uL (1.8-7.7); Neutrophils % 51.5 %; Nucleated Red Blood Cells % 0 %; Platelet Count 267 10^3/cmm (130-400); Red Blood Count 5.62 10^6/uL (4.1-5.3); Red Cell Distribution Width 14.4 % (12.1-15.1); White Blood Count 8.4 10^3/uL (4.0-10.0)
[2021-01-19 11:50] LABS: Alanine Aminotransferase 16 U/L (0-41); Albumin Level 4.4 g/dL (3.5-5.2); Alkaline Phosphatase 82 IU/L (40-130); Aspartate Amino Transferase 22 U/L (0-40); Blood Urea Nitrogen 25 mg/dL (6-20); C Reactive Protein 1.4 mg/L (0.0-4.9); Calcium 8.7 mg/dL (8.5-10.5); Carbon Dioxide 25 mmol/L (22-29); Chloride 99 mmol/L (98-107); Globulin 3.2 g/dL (1.3-4.6); Glomerular Filtration Rate 37.1 mL/min (90-130); Glucose 83 mg/dL (65-115); Osmolality Calculated 290 mOsm/kg (285-295); Sodium 138 mmol/L (136-145); Total Bilirubin 0.3 mg/dL (0.15-1.2); Total Protein 7.6 g/dL (6.6-8.7)
[2021-01-22 12:37] LABS: Erythrocyte Sedimentation Rate 11 mm/hr (0-10)
== END 2021-01-19 10:59 | disposition home or self-care (01) ==
LOC: LAB 11:01
PROVIDERS: PCP Nurse Practitioner Family; Visit Provider Internal Medicine
DX: M05.9 Rheumatoid arthritis with rheumatoid factor, unspecified (principal); M06.9 Rheumatoid arthritis, unspecified; Z79.899 Other long term (current) drug therapy
CPT/HCPCS: 80053; 85025; 85651; 86140

== ENCOUNTER → 2021-01-22 13:46 | Outpatient (BNVA) | payer MEDICARE, MEDICAID, SELFPAY | PROVIDERS: PCP Nurse Practitioner Family; Visit Provider Internal Medicine | DX: M05.9 Rheumatoid arthritis with rheumatoid factor, unspecified (principal); Z79.899 Other long term (current) drug therapy; J44.9 Chronic obstructive pulmonary disease, unspecified; I25.10 Atherosclerotic heart disease of native coronary artery without angina pectoris; N18.9 Chronic kidney disease, unspecified; Q61.3 Polycystic kidney, unspecified; Z87.891 Personal history of nicotine dependence | CPT/HCPCS: 99213; 99214 ==

== ENCOUNTER 2021-05-01 09:43 | Outpatient (CLI) | payer MEDICARE, MEDICAID, SELFPAY ==
--- NOTE | 2021-05-01 09:50 | CTR_ITS ---
PROCEDURE INFORMATION: Exam: CT Chest Without Contrast; Diagnostic Exam date and time: 05/01/2021 9:50 AM Age: 55 years old Clinical indication: Condition or disease; Lung condition and disease; Pulmonary nodule, solitary; Prior surgery; Surgery type: Cardiac valve; Additional info: R91.1 - solitary pulmonary nodule, mob TECHNIQUE: Imaging protocol: Diagnostic computed tomography of the chest without contrast. Radiation optimization: All CT scans at this facility use at least one of these dose optimization techniques: automated exposure control; mA and/or kV adjustment per patient size (includes targeted exams where dose is matched to clinical indication); or iterative reconstruction. COMPARISON: CT chest abd pel w con* 07/14/2020 10:56 AM RADIATION DOSE METRICS: Total DLP (mGy-cm): 798.04 FINDINGS: Lungs: Mild paraseptal emphysema is present. Unchanged 0.4 cm subpleural subsolid nodule in the posterolateral right lower lobe. There is a 0.6 cm triangular shaped nodule in the central right lung base, likely representing an intrapulmonary lymph node. There is a 0.2 cm subpleural nodule in the posterior left lower lobe. No new suspicious lung nodule or mass identified. Focal pleural calcification with adjacent atelectasis noted in the medial right lung base. No consolidation. No pleural effusion or pneumothorax. Pleural spaces: See Lungs finding. Heart: Mildly enlarged heart. Prosthetic mitral valve noted. Coronary atherosclerotic calcifications seen. No pericardial effusion. Aorta: Unremarkable. No aortic aneurysm. Lymph nodes: Unremarkable. No enlarged lymph nodes. Diaphragm: A small hiatal hernia is present. Kidneys and ureters: Complete replacement of the renal parenchyma by innumerable cysts is again seen bilaterally, consistent with autosomal dominant polycystic kidney disease. Bones/joints: Old healed fracture deformities noted in the right lateral ribcage. Soft tissues: Unremarkable. CT/CT chest wo con [id number] IMPRESSION: Stable tiny bilateral pulmonary nodules. No new nodule. No need for follow-up.
== END 2021-05-01 09:44 | disposition home or self-care (01) ==
LOC: RAD 09:46
PROVIDERS: PCP Nurse Practitioner Family; Visit Provider Internal Medicine Pulmonary Disease
DX: R91.1 Solitary pulmonary nodule (principal)
CPT/HCPCS: 71250

== ENCOUNTER 2021-06-21 14:10 | Outpatient (CLI) | payer MEDICARE, MEDICAID, SELFPAY ==
[2021-06-21 14:44] LABS: Basophils % 0.5 %; Eosinophils # 0.8 10^3/uL (0.0-0.8); Eosinophils % 9.4 %; Hematocrit 45.2 % (42.0-52.0); Hemoglobin 15.1 g/dL (11.7-16.6); Lymphocytes # 2.7 10^3/uL (0.8-4.8); Mean Corpuscular HGB Conc 33.4 g/dL (30.0-36.0); Mean Corpuscular Hemoglobin 27.4 pg (28.0-34.0); Mean Corpuscular Volume 81.9 fl (80-94); Mean Platelet Volume 9.5 fL (7.4-10.4); Monocytes # 0.7 10^3/uL (0.2-0.9); Monocytes % 7.8 %; Neutrophils # 4.45 10^3/uL (1.8-7.7); Nucleated Red Blood Cells % 0 %; Platelet Count 281 10^3/cmm (130-400); Red Blood Count 5.52 10^6/uL (4.1-5.3); Red Cell Distribution Width 12.8 % (12.1-15.1); White Blood Count 8.7 10^3/uL (4.0-10.0)
[2021-06-21 15:11] LABS: Alanine Aminotransferase 17 U/L (0-41); Albumin Level 4.4 g/dL (3.5-5.2); Alkaline Phosphatase 106 IU/L (40-130); Aspartate Amino Transferase 24 U/L (0-40); Blood Urea Nitrogen 25 mg/dL (6-20); Calcium 9.3 mg/dL (8.5-10.5); Carbon Dioxide 27 mmol/L (22-29); Chloride 99 mmol/L (98-107); Chol HDL Ratio 4.62 mg/dL (1.0-5.00); Cholesterol 120 mg/dL (0-200); Globulin 3.7 g/dL (1.3-4.6); Glomerular Filtration Rate 42.2 mL/min (90-130); Glucose 85 mg/dL (65-115); HDL Cholesterol 26 mg/dL (60-100); LDL Cholesterol Calculated 43 mg/dL (50-129); LDL HDL Ratio 1.65 RATIO (0.00-3.22); Osmolality Calculated 292 mOsm/kg (285-295); Prostate Specific Antigen Scr 0.65 ng/mL (0-4); Sodium 139 mmol/L (136-145); Thyroid Stimulating Hormone 2.86 uIU/mL (0.27-4.20); Total Bilirubin 0.4 mg/dL (0.15-1.2); Total Protein 8.1 g/dL (6.6-8.7); Triglycerides 256 mg/dL (0-150)
[2021-06-21 15:24] LABS: Anion Gap 16.7 (5-19); Potassium 3.7 mmol/L (3.5-5.1)
== END 2021-06-21 14:11 | disposition home or self-care (01) ==
LOC: LAB 14:13
PROVIDERS: PCP Nurse Practitioner Family; Visit Provider Nurse Practitioner Family
DX: I10 Essential (primary) hypertension (principal); E78.5 Hyperlipidemia, unspecified; Z79.899 Other long term (current) drug therapy; Z12.5 Encounter for screening for malignant neoplasm of prostate
CPT/HCPCS: 36415; 80053; 80061; 84443; 85025; G0103

== ENCOUNTER → 2021-06-28 12:59 | Outpatient (BNVA) | payer MEDICARE, MEDICAID, SELFPAY | PROVIDERS: PCP Nurse Practitioner Family; Visit Provider Internal Medicine | DX: M05.9 Rheumatoid arthritis with rheumatoid factor, unspecified (principal); Z79.899 Other long term (current) drug therapy; Z87.891 Personal history of nicotine dependence | CPT/HCPCS: 99214 ==

== ENCOUNTER 2021-06-28 14:05 | Outpatient (CLI) | payer MEDICARE, MEDICAID, SELFPAY | END 2021-06-28 14:06 | disposition home or self-care (01) | PROVIDERS: PCP Nurse Practitioner Family; Visit Provider Internal Medicine Nephrology | DX: N18.32 Chronic kidney disease, stage 3b (principal) | CPT/HCPCS: 36415; 80069; 82044; 82310; 83970; 85025 ==

== ENCOUNTER 2021-07-04 11:31 | Outpatient (CLI) | payer MEDICARE, MEDICAID, SELFPAY ==
[2021-07-04 12:28] LABS: Add Urine Microscopic? NO; Charge for UA Resulting for Rev
[2021-07-04 12:46] LABS: Bilirubin Urine Neg (Negative); Blood Urine Neg (Negative); Glucose Urine UA Norm (Normal); Ketones Urine Negative (Negative); Leukocyte Esterase Urine Negative (Negative); Nitrate Urine Negative (Negative); Protein Urine Neg (Negative); Urine Appearance Clear (CLEAR); Urine Color Yellow (Yellow); Urobilinogen Urine Norm (Negative); pH Urine 5 (5-7)
== END 2021-07-04 11:32 | disposition home or self-care (01) ==
LOC: LAB 11:33
PROVIDERS: PCP Nurse Practitioner Family; Visit Provider Registered Nurse
DX: N18.32 Chronic kidney disease, stage 3b (principal); Z79.899 Other long term (current) drug therapy
CPT/HCPCS: 81003; 87086

== ENCOUNTER → 2021-07-23 08:42 | Outpatient (BNVA) | payer MEDICARE, MEDICAID, SELFPAY | PROVIDERS: PCP Nurse Practitioner Family; Visit Provider Internal Medicine Pulmonary Disease | DX: J44.9 Chronic obstructive pulmonary disease, unspecified (principal); G47.33 Obstructive sleep apnea (adult) (pediatric); R91.1 Solitary pulmonary nodule; Z87.891 Personal history of nicotine dependence; E78.5 Hyperlipidemia, unspecified; K21.9 Gastro-esophageal reflux disease without esophagitis; I10 Essential (primary) hypertension; G47.10 Hypersomnia, unspecified; N18.30 Chronic kidney disease, stage 3 unspecified | CPT/HCPCS: 99214 ==

== ENCOUNTER 2021-07-23 09:44 | Outpatient (CLI) | payer MEDICARE, MEDICAID, SELFPAY ==
--- NOTE | 2021-07-23 | CT_ITS ---
WS: [id number] CT ABDOMEN AND PELVIS NONCONTRAST HISTORY: 3B CHRONIC KIDNEY DZ TECHNIQUE: Imaging performed through the abdomen and pelvis. Coronal and sagittal reformats are submi tted. All CT scans at [facility] use at least one of these dose optimization techniques: auto mated exposure control; mA and/or kV adjustment per patient size (includes targeted exams where dose is matched to clinical indication); or iterative reconstruction. DLP: 1355.43 mGy.cm COMPARISON: 07/14/2020 Lower thorax: Lung bases are clear. Mild cardiomegaly. No pericardial effusion. Small hiatal hernia. Liver: Normal size liver. No mass or bile duct dilatation. Gallbladder: Normal gallbladder. Pancreas: Normal size and attenuation. Normal pancreatic duct. No pancreatitis or mass. Spleen: Normal. Adrenal glands: Normal. No mass. Right kidney: Markedly enlarged RIGHT kidney due to innumerable cysts. A normal reniform outline and normal pelvis are not identified. Some of these cysts contain calcifications. Left kidney: Markedly enlarged kidney due to innumerable cysts. Calcifications. Normal reniform outli ne not identified. Aorta: Mild atherosclerosis abdominal aorta with no aneurysm. No free fluid, intraperitoneal air or significant lymphadenopathy. GI tract: Normally distended stomach. No small bowel obstruction. Abdominal wall: Umbilical hernia contains fat and there is minimal protrusion of the small bowel into the base of the hernia. No obstruction of the GI tract. Moderate diverticulosis in the distal colon without acute diverticulitis. Pelvis: Normal. Osseous structures: Mild straightening of the normal lumbar lordosis. Degenerative disc disease throu ghout the lumbar spine. No fractures. CT/CT abdomen pelvis wo con [id number] IMPRESSION: 1. Polycystic kidney disease. Size of the kidney is similar to prior examinati on. 2. Umbilical hernia containing fat and minimal protrusion of a small bowel loo p at the base of the hernia. No incarceration or obstruction. 3. Diverticulosis without acute diverticulitis. 4. Small hiatal hernia.
== END 2021-07-23 09:45 | disposition home or self-care (01) ==
LOC: RAD 09:46
PROVIDERS: PCP Nurse Practitioner Family; Visit Provider Registered Nurse
DX: N18.32 Chronic kidney disease, stage 3b (principal); Q61.2 Polycystic kidney, adult type; K57.90 Diverticulosis of intestine, part unspecified, without perforation or abscess without bleeding; K44.9 Diaphragmatic hernia without obstruction or gangrene; K42.9 Umbilical hernia without obstruction or gangrene
CPT/HCPCS: 74176

== ENCOUNTER → 2021-07-24 11:08 | Outpatient (BNVA) | payer MEDICARE, MEDICAID, SELFPAY | PROVIDERS: PCP Nurse Practitioner Family; Visit Provider Surgery | DX: N18.30 Chronic kidney disease, stage 3 unspecified (principal); Z12.11 Encounter for screening for malignant neoplasm of colon | CPT/HCPCS: 99204 ==

== ENCOUNTER 2021-07-27 07:29 | Day surgery (SDC) | payer MEDICARE, MEDICAID, SELFPAY ==
[2021-07-25 13:45] VITALS: BMI 38.0
[2021-07-27 08:19] VITALS: BP 139/102; PULSE 78; RESP 18; TEMP 37; O2SAT 96
[2021-07-27] MEDS: sodium chloride 0.9% 1,000 ML 30 ML IV (08:35)
--- NOTE | 2021-07-27 09:12 | ANES.PREANE2 ---
Pre-Anesthetic Assessment Height/Weight: Height 1.73 m Weight 113.398 kg Temp Pulse Resp BP Pulse Ox 98.6 F 78 18 139/102 96 07/27/21 08:19 07/27/21 08:19 07/27/21 08:19 07/27/21 08:19 07/27/21 08:19 Preop Diagnosis: diagnostic Operation Date: 07/27/21 09:30 Proposed Procedures p Colonoscopy 00083,Z12.11(Not Applicable) - Sonido Darnell MD Familial anesthetic complications: None Was Beta Gabrielle taken within 24 hours: N/A Was Clonidine taken within 24 hours: N/A Last intake: Intake Last Liquid Date 07/26/21 Last Liquid Time 21:00 Last Solid Date 07/26/21 Last Solid Time 07:00 Social Tobacco and No alcohol Exam alert, oriented x 3, clear to auscultation bilaterally and regular rate & rhythm Airway Mallampati: Class III Dentition: other (no teeth) Pulmonary Chronic Obstructive Pulmonary Disease (2 L at night) and Sleep Apnea CV/HEM Coronary Artery Disease (2 stents > 1 year ago), Congestive Heart Failure and Hypertension Chronic Renal Insufficiency GI Gastroesophageal Reflux Disease [facility] [place] Rheumatoid Arthritis Anesthetic Plan ASA status: 4 Anesthesia: MAC Medications/Allergies Home Medications Medication Instructions Recorded Confirmed Last Taken Type albuterol sulfate 2.5 mg (3 mL) INHALATION Q4H PRN 02/23/19 07/27/21 07/26/21 Rx 30 Days #180 ml furosemide 40 mg tablet (Lasix) 40 mg PO BID #60 tab 04/04/21 07/27/21 07/26/21 Rx tiotropium 2.5 mcg-olodaterol 2.5 2 puff INHALATION DAILY #4 g 05/03/21 07/27/21 07/26/21 Rx mcg/actuation mist for inhalation (Stiolto Respimat) albuterol sulfate 90 mcg/actuation 2 puff INHALATION QID PRN 3 Days 06/12/21 07/27/21 07/27/21 06:00 Rx aerosol inhaler (ProAir HFA) #6.7 gm amlodipine 10 mg tablet 10 mg PO DAILY #30 tab 06/12/21 07/27/21 07/26/21 Rx aspirin 81 mg tablet,delayed 81 mg PO DAILY 30 Days #30 tab 06/12/21 07/27/2122 Rx release atorvastatin 40 mg tablet 40 mg PO BEDTIME #30 tab 06/12/21 07/27/21 07/26/21 Rx clopidogrel 75 mg tablet 75 mg PO DAILY 30 Days #30 tab 06/12/21 07/27/21 07/23/21 Rx pantoprazole 40 mg tablet,delayed 40 mg PO DAILY 30 Days #30 tab 06/12/21 07/27/21 07/26/21 Rx release potassium chloride 10 mEq 10 meq PO DAILY #30 tab 06/12/21 07/27/21 07/26/21 Rx tablet,extended release(part/cryst) (Klor-Con M) etanercept 50 mg/mL (1 mL) 50 mg SUBCUT Q7D #4 ml 06/14/21 07/25/21 07/18/21 Rx subcutaneous cartridge (Enbrel Mini) ondansetron HCl 4 mg tablet 4 mg PO Q8H PRN #5 tab 07/24/21 07/27/21 07/26/21 Rx peg 3350-electrolytes 236 240 ml PO Q10M #4000 ml 07/24/21 07/24/21 07/26/21 Rx gram-22.74 gram-6.74 gram-5.86 gram solution (Golytely) Allergies Allergy/AdvReac Type Severity Reaction Status Date / Time No Known Allergies Allergy Verified 07/27/21 08:13 Current Medications Generic Name Dose Route Start Last Admin Trade Name Freq PRN Reason Stop Dose Admin Sodium Chloride 1,000 mls @ 30 mls/hr 07/27/21 08:15 07/27/21 08:35 Sodium Chloride 0.9% IV 07/28/21 08:14 30 mls/hr .Q24H DOMINIQUE Administration PFSH Anesthesia Medical History Chronic kidney disease, stage 3 COPD (chronic obstructive pulmonary disease) Coronary artery disease Degenerative disk disease Dyslipidemia GERD (gastroesophageal reflux disease) Hyperkalemia Hyperlipidemia Hypersomnia Hypertension PCK (polycystic kidney disease) Rheumatoid arthritis Vitamin D deficiency Surgical History (Updated 07/27/21 @ 10:25 by Sonido Darnell MD) History of esophagogastroduodenoscopy (EGD) History of PTCA Status post colonoscopy (07/27/21) Stented coronary artery Family History Other CAD (coronary artery disease) Diabetes Hypertension Systemic lupus erythematosus (SLE) in adult Denies family history of Cancer Stroke Social History Smoking and tobacco status: former smoker Quit status (tobacco): has quit using tobacco Year quit tobacco: Sep 2019 [id number] Second hand smoke exposure: Yes Smoking risk assessment/counseling performed?: Yes Alcohol intake: former Desire information about alcohol rehabilitation?: No Counseling given: No Lives independently: Yes Household members: spouse Housing: House Marital status: service: No Current occupational status: disabled Pets and animals: Yes History of recent travel: No Current gender identity: Male Data Anesthesia Cardiac Studies: Echocardiogram 10/10/19 Echocardiogram Limited Views 10/24/19 Echocardiogram Ultrasound 08/29/20 Transesophageal Echocardiogram 05/12/20
--- NOTE | 2021-07-27 09:49 | P.HP_ITS ---
Same Day Surgery H&P Indication for Procedure/HPI DATE OF PROCEDURE: July 27, 2021 CHIEF COMPLAINT/INDICATIONFOR SURGICAL PROCEDURE: colonoscopy PREOP DIAGNOSIS: diagnostic PLANNED PROCEDURE: Operation Date: 07/27/21 09:30 Proposed Procedures p Colonoscopy 22114,Z12.11(Not Applicable) - Sonido Darnell MD Medications/Allergies* Allergies/Adverse Reactions Allergy/AdvReac Type Severity Reaction Status Date / Time No Known Allergies Allergy Verified 07/27/21 08:13 Current Medications: Generic Name Dose Route Start Last Admin Trade Name Freq PRN Reason Stop Dose Admin Sodium Chloride 1,000 mls @ 30 mls/hr 07/27/21 08:15 07/27/21 08:35 Sodium Chloride 0.9% IV 07/28/21 08:14 30 mls/hr .Q24H DOMINIQUE Administration Pertinent History/Comorbid Conditions* Medical History (Updated 07/24/21 @ 11:27 by Sonido Darnell MD) Chronic kidney disease, stage 3 COPD (chronic obstructive pulmonary disease) Coronary artery disease Degenerative disk disease Dyslipidemia GERD (gastroesophageal reflux disease) Hyperkalemia Hyperlipidemia Hypersomnia Hypertension PCK (polycystic kidney disease) Rheumatoid arthritis Vitamin D deficiency Surgical History (Updated 07/24/21 @ 11:27 by Sonido Darnell MD) History of esophagogastroduodenoscopy (EGD) History of PTCA Stented coronary artery Family History (Updated 05/24/19 @ 16:41 by Layne Clements LPN) Diabetes CAD (coronary artery disease) Systemic lupus erythematosus (SLE) in adult Hypertension Denies family history of Cancer Stroke Social History Smoking and tobacco status: former smoker Quit status (tobacco): has quit using tobacco Year quit tobacco: Sep 2019 [id number] Second hand smoke exposure: Yes Smoking risk assessment/counseling performed?: Yes Alcohol intake: former Desire information about alcohol rehabilitation?: No Counseling given: No Lives independently: Yes Household members: spouse Housing: House Marital status: service: No Current occupational status: disabled Pets and animals: Yes History of recent travel: No Current gender identity: Male Pertinent Exam Findings alert, oriented x 3 and regular rate & rhythm Recommendations Surgery/Procedure today Coding Level of Care Code Acute [employer]ice for [employer]
[2021-07-27 10:25] VITALS: BP 133/86; PULSE 79; RESP 18; TEMP 36.8; O2SAT 94
[2021-07-27 10:32] VITALS: BP 125/67; PULSE 78; RESP 18; O2SAT 94
--- NOTE | 2021-07-27 16:25 | ANE.PACU2 ---
Inpatient post-anesthesia follow up: Airway intact: Yes Vital signs: Temperature 98.3 F Pulse Rate 78 Respiratory Rate 18 Blood Pressure 125/67 Pulse Oximetry 94 Oxygen Delivery Me thod Room Air Oxygen Flow Rate Fraction of Inspir ed Oxygen Hydration adequate: Yes Nausea and vomiting: No Pain level: 2 Mental status: Baseline
== END 2021-07-27 10:45 | disposition home or self-care (01) ==
PROVIDERS: PCP Nurse Practitioner Family; Visit Provider Surgery
PROC: 0DJD8ZZ Inspection of Lower Intestinal Tract, Via Natural or Artificial Opening Endoscopic (ICD-10-PCS; CPT 45378; principal; 2021-07-27 09:30)
DX: Z12.11 Encounter for screening for malignant neoplasm of colon (principal); K57.30 Diverticulosis of large intestine without perforation or abscess without bleeding; J44.9 Chronic obstructive pulmonary disease, unspecified; Z99.81 Dependence on supplemental oxygen; G47.30 Sleep apnea, unspecified; I25.10 Atherosclerotic heart disease of native coronary artery without angina pectoris; Z95.5 Presence of coronary angioplasty implant and graft; I50.9 Heart failure, unspecified; K21.9 Gastro-esophageal reflux disease without esophagitis; M06.9 Rheumatoid arthritis, unspecified; Z79.82 Long term (current) use of aspirin; E78.5 Hyperlipidemia, unspecified; I13.0 Hypertensive heart and chronic kidney disease with heart failure and stage 1 through stage 4 chronic kidney disease, or unspecified chronic kidney disease; N18.9 Chronic kidney disease, unspecified; Z82.49 Family history of ischemic heart disease and other diseases of the circulatory system; Z83.3 Family history of diabetes mellitus; Z87.891 Personal history of nicotine dependence
CPT/HCPCS: G0121; J2704; J7030

== ENCOUNTER → 2021-07-31 13:59 | Outpatient (BNVA) | payer MEDICARE, MEDICAID, SELFPAY | PROVIDERS: PCP Nurse Practitioner Family; Visit Provider Internal Medicine Cardiovascular Disease | DX: I13.0 Hypertensive heart and chronic kidney disease with heart failure and stage 1 through stage 4 chronic kidney disease, or unspecified chronic kidney disease (principal); N18.30 Chronic kidney disease, stage 3 unspecified; I50.31 Acute diastolic (congestive) heart failure; Z87.891 Personal history of nicotine dependence; I25.10 Atherosclerotic heart disease of native coronary artery without angina pectoris; Z98.890 Other specified postprocedural states; G47.33 Obstructive sleep apnea (adult) (pediatric); E78.5 Hyperlipidemia, unspecified; J44.9 Chronic obstructive pulmonary disease, unspecified | CPT/HCPCS: 99214 ==

== ENCOUNTER 2021-11-19 08:46 | Outpatient (CLI) | payer MEDICARE, MEDICAID, SELFPAY ==
--- NOTE | 2021-11-19 09:30 | USCV_ITS ---
Tyson Nixon Age: 55 Gender: M : 1965 Exam Date: 11/19/2021 09:20 Ordering Phys: Ana Meeks MD ([email or web address]) Technologist: Amberly Maynard [place] [facility] [place]: Mitral valve repair 2020 BP: / HR: 78 Rhythm: Sinus Technical Quality: Adequate MEASUREMENTS (Male / Female) Normal Values 2D ECHO LV Diastolic Diameter PLAX 5.8 cm 4.2 - 5.9 / 3.9 - 5.3 cm LV Systolic Diameter PLAX 4.7 cm IVS Diastolic Thickness 1.4 cm 0.6 - 1.0 / 0.6 - 0.9 cm IVS Systolic Thickness 1.9 cm LVPW Diastolic Thickness 1.3 cm 0.6 - 1.0 / 0.6 - 0.9 cm LVPW Systolic Thickness 1.4 cm LVOT Diameter 2.3 cm LV Ejection Fraction 2D Teich 39.5 % LV Ejection Fraction MOD 2C 51.5 % LV Ejection Fraction 2C AL 51.6 % LA Diameter 3.9 cm LA Width 4.0 cm LA Height 4.5 cm RA Width 3.0 cm RA Height 4.4 cm Aorta at Sinotubular Diameter 3.5 cm IVC Diameter 1.2 cm M-MODE MV E Point Septal Separation 2.4 cm DOPPLER AV Peak Velocity 104.0 cm/s LVOT Peak Velocity 96.0 cm/s AV Area Cont Eq vti 3.8 cm squared AV Area Cont Eq pk 3.7 cm squared MV Peak Velocity 152.0 cm/s MV Area PHT 3.3 cm squared Mitral E to A Ratio 1.3 MV E' Velocity 66.0 cm/s Mitral E to MV E' Ratio 20.4 Mitral E to LV E' Lateral Ratio 22.2 Mitral E to LV E' Septal Ratio 18.9 TR Peak Velocity 163.3 cm/s TR Peak Gradient 10.7 mmHg Right Atrial Pressure 3.0 mmHg Pulmonary Artery Systolic Pressu 13.7 mmHg PV Peak Velocity 81.0 cm/s RV Acceleration Time 0.2 s RV Ejection Time 0.3 s RV AcT/ET 0.5 FINDINGS Left Ventricle Mildly dilated left ventricular cavity size. Mildly decreased left ventricular systolic function. Left ventricular ejection fraction is estimated at 50 %. Mild global hypokinesis with akinesis of basal inferolateral wall. Grade II diastolic dysfunction, moderately elevated filling pressures. Right Ventricle Normal right ventricular size and systolic function. Right ventricular systolic pressure 24 mmHg. Right Atrium Normal right atrial size. Left Atrium Mildly increased left atrial size. Mitral Valve Status post mitral valve repair. Annuloplasty ring identified. No mitral valve stenosis. Mitral valve mean gradient of 4 mm Hg. Trace to mild mitral valve regurgitation. Aortic Valve Structurally normal trileaflet aortic valve. No aortic valve stenosis. No aortic valve regurgitation. Tricuspid Valve Structurally normal tricuspid valve. No tricuspid valve stenosis. Trace tricuspid valve regurgitation. Pulmonic Valve Pulmonic valve not well visualized. No pulmonary valve stenosis. No pulmonary valve regurgitation. Pericardium No pericardial effusion. Aorta Normal size aortic root and proximal ascending aorta. IVC Normal IVC dimension with <50% respiratory change of the inferior vena cava. CONCLUSIONS 1. This is a technically difficult study. 2. Mildly dilated left ventricular cavity size. Mildly decreased left ventricular systolic function. Left ventricular ejection fraction is estimated at 50 %. Mild global hypokinesis with akinesis of basal inferolateral wall. Grade II diastolic dysfunction, moderately elevated filling pressures. 3. Status post mitral valve repair. Mitral valve mean gradient of 4 mm Hg.Trace to mild mitral valve regurgitation. 4. When compared to prior study dated 08/29/2020, mitral valve has been repaired and left ventricular systolic function seems to have decreased. Ana Meeks MD (Electronically Signed) Final Date: 22 November 2021 13:34 Amended: 22 November 2021 13:36 C
[2021-11-19 10:22] LABS: Basophils # 0.1 10^3/uL (0.0-0.1); Basophils % 0.8 %; Eosinophils # 0.6 10^3/uL (0.0-0.8); Eosinophils % 7.7 %; Hematocrit 46.6 % (42.0-52.0); Hemoglobin 15.8 g/dL (11.7-16.6); Lymphocytes # 2.7 10^3/uL (0.8-4.8); Lymphocytes % 33.9 %; Mean Corpuscular HGB Conc 33.9 g/dL (30.0-36.0); Mean Corpuscular Hemoglobin 27.8 pg (28.0-34.0); Mean Platelet Volume 9.8 fL (7.4-10.4); Monocytes # 0.6 10^3/uL (0.2-0.9); Monocytes % 7.5 %; Neutrophils # 3.95 10^3/uL (1.8-7.7); Neutrophils % 49.6 %; Nucleated Red Blood Cells % 0 %; Platelet Count 223 10^3/cmm (130-400); Red Blood Count 5.68 10^6/uL (4.1-5.3); Red Cell Distribution Width 13.6 % (12.1-15.1)
[2021-11-19 10:27] LABS: Erythrocyte Sedimentation Rate 8 mm/hr (0-10)
[2021-11-19 10:58] LABS: Alanine Aminotransferase 28 U/L (0-41); Albumin Level 4.4 g/dL (3.5-5.2); Alkaline Phosphatase 92 U/L (40-130); Blood Urea Nitrogen 32 mg/dL (6-20); Calcium 9.5 mg/dL (8.5-10.5); Carbon Dioxide 30 mmol/L (22-29); Chloride 98 mmol/L (98-107); Cholesterol 135 mg/dL (0-200); Globulin 3.4 g/dL (1.3-4.6); Glomerular Filtration Rate 37.1 mL/min (90-130); Glucose 105 mg/dL (65-115); HDL Cholesterol 30 mg/dL (60-100); LDL Cholesterol Calculated 58 mg/dL (50-129); LDL HDL Ratio 1.93 RATIO (0.00-3.22); Osmolality Calculated 295 mOsm/kg (285-295); Sodium 139 mmol/L (136-145); Thyroid Stimulating Hormone 2.84 uIU/mL (0.27-4.20); Total Bilirubin 0.6 mg/dL (0.15-1.2); Total Protein 7.8 g/dL (6.6-8.7); Triglycerides 235 mg/dL (0-150)
[2021-11-19 11:00] LABS: Anion Gap 14.8 (5-19); Aspartate Amino Transferase 32 U/L (0-40); Potassium 3.8 mmol/L (3.5-5.1)
== END 2021-11-19 08:47 | disposition home or self-care (01) ==
LOC: RAD 08:48
PROVIDERS: Internal Medicine; PCP Nurse Practitioner Family; Visit Provider Internal Medicine Cardiovascular Disease
DX: I34.0 Nonrheumatic mitral (valve) insufficiency (principal); R06.02 Shortness of breath; E78.5 Hyperlipidemia, unspecified; M05.9 Rheumatoid arthritis with rheumatoid factor, unspecified; M06.9 Rheumatoid arthritis, unspecified; Z79.899 Other long term (current) drug therapy
CPT/HCPCS: 80053; 80061; 84443; 85025; 85651; 86140; 93306

== ENCOUNTER → 2022-02-20 10:34 | Outpatient (BNVA) | payer MEDICARE, MEDICAID, SELFPAY | PROVIDERS: PCP Nurse Practitioner Family; Visit Provider Internal Medicine Pulmonary Disease | DX: J44.9 Chronic obstructive pulmonary disease, unspecified (principal); T50.2X5A Adverse effect of carbonic-anhydrase inhibitors, benzothiadiazides and other diuretics, initial encounter; E87.6 Hypokalemia; I10 Essential (primary) hypertension; I25.10 Atherosclerotic heart disease of native coronary artery without angina pectoris; Z01.810 Encounter for preprocedural cardiovascular examination | CPT/HCPCS: 80048; 83735; 83880 ==

== ENCOUNTER 2022-03-26 11:56 | Outpatient (CLI) | payer MEDICARE, MEDICAID, SELFPAY ==
[2022-03-26 13:04] LABS: Anion Gap 11.8 (5-19); Blood Urea Nitrogen 28 mg/dL (6-20); Calcium 9.1 mg/dL (8.5-10.5); Carbon Dioxide 33 mmol/L (22-29); Chloride 99 mmol/L (98-107); Glomerular Filtration Rate 39.4 mL/min (90-130); Glucose 81 mg/dL (65-115); Magnesium 1.9 mg/dL (1.7-2.3); NT Pro B Type Natriuretic Pept 383 pg/mL (0-125); Osmolality Calculated 295 mOsm/kg (285-295); Potassium 3.8 mmol/L (3.5-5.1); Sodium 140 mmol/L (136-145)
== END 2022-03-26 11:57 | disposition home or self-care (01) ==
LOC: LAB 12:00
PROVIDERS: PCP Nurse Practitioner Family; Visit Provider Internal Medicine Pulmonary Disease
DX: Z01.89 Encounter for other specified special examinations (principal)
CPT/HCPCS: 80048; 83735; 83880

== ENCOUNTER → 2022-04-23 10:12 | Outpatient (BNVA) | payer MEDICARE, MEDICAID, SELFPAY | PROVIDERS: PCP Nurse Practitioner Family; Visit Provider Internal Medicine | DX: M06.9 Rheumatoid arthritis, unspecified (principal); Z79.899 Other long term (current) drug therapy | CPT/HCPCS: 80053; 85025; 86140 ==

== ENCOUNTER → 2022-05-07 13:38 | Outpatient (BNVA) | payer MEDICARE, MEDICAID, SELFPAY | PROVIDERS: PCP Nurse Practitioner Family; Visit Provider Nurse Practitioner Family | DX: I25.10 Atherosclerotic heart disease of native coronary artery without angina pectoris (principal); Z79.82 Long term (current) use of aspirin; Z87.891 Personal history of nicotine dependence; I13.0 Hypertensive heart and chronic kidney disease with heart failure and stage 1 through stage 4 chronic kidney disease, or unspecified chronic kidney disease; N18.30 Chronic kidney disease, stage 3 unspecified; I50.31 Acute diastolic (congestive) heart failure | CPT/HCPCS: 99214 ==

== ENCOUNTER → 2022-05-16 13:54 | Outpatient (BNVA) | payer MEDICARE, MEDICAID, SELFPAY | PROVIDERS: PCP Nurse Practitioner Family; Visit Provider Internal Medicine | DX: R74.01 Elevation of levels of liver transaminase levels (principal); Z79.899 Other long term (current) drug therapy; N18.9 Chronic kidney disease, unspecified; M06.9 Rheumatoid arthritis, unspecified | CPT/HCPCS: 36415; 80053; 81001; 85025; 85651; 86140; 99213 ==

== ENCOUNTER 2022-06-07 15:08 | Outpatient (CLI) | payer MEDICARE, MEDICAID, SELFPAY ==
--- NOTE | 2022-06-07 15:24 | US_ITS ---
WS: [id number] Complete ABDOMINAL ULTRASOUND HISTORY: ELEVATION OF LEVELS OF LIVER TRANSAMINASE LEVELS COMPARISON: None available. Liver: 18.7 cm in length. Mild hepatomegaly and hepatic steatosis. Normal size liver with no bile serena t dilatation. Portal Vein: Normal hepatopetal flow with monophasic waveform. Gallbladder: Normally distended with a stone. No pericholecystic fluid. No evidence for acute cholecy stitis. CBD: 0.5 cm Pancreas: Poorly visualized. Right kidney: 22.7 cm x 19.7 x 15.1 cm. Cortex: Diffuse thinning of the cortex. Markedly enlarged kidney with innumerable cysts. Patient has known polycystic kidney disease. No carla d mass is identified. Very similar to the prior study. Left kidney: 27.1 cm x 16.4 cm x 14.9 cm. Cortex: Diffuse thinning of the cortex. Markedly enlarged kidney with innumerable cysts. Patient has known polycystic kidney disease. No lindsay id mass is identified. Very similar to the prior study. Spleen: Normal size and echogenicity. Aorta and IVC: Unremarkable abdominal aorta and IVC. US/US abdomen complete* [id number] Impression: 1. Known polycystic kidney disease. Markedly enlarged kidneys with innumerable cysts. Very similar to the prior exam. No solid mass or renal obstruction. 2. Cholelithiasis without acute cholecystitis. 3. Mild hepatomegaly.
== END 2022-06-07 15:09 | disposition home or self-care (01) ==
LOC: LAB 15:14
PROVIDERS: PCP Nurse Practitioner Family; Visit Provider Internal Medicine Pulmonary Disease
DX: R74.01 Elevation of levels of liver transaminase levels (principal)
CPT/HCPCS: 76700

== ENCOUNTER → 2022-06-19 10:32 | Outpatient (BNVA) | payer MEDICARE, MEDICAID, SELFPAY | PROVIDERS: PCP Nurse Practitioner Family; Visit Provider Internal Medicine Pulmonary Disease | DX: J44.9 Chronic obstructive pulmonary disease, unspecified (principal); R91.1 Solitary pulmonary nodule | CPT/HCPCS: 82785; 86003 ==

== ENCOUNTER 2022-10-01 12:06 | Outpatient (CLI) | payer MEDICARE, MEDICAID, SELFPAY ==
[2022-10-01 13:16] LABS: Basophils % 0.5 %; Eosinophils # 0.3 10^3/uL (0.0-0.8); Eosinophils % 3.5 %; Hematocrit 49.2 % (42.0-52.0); Hemoglobin 16.5 g/dL (11.7-16.6); Lymphocytes # 1.7 10^3/uL (0.8-4.8); Mean Corpuscular HGB Conc 33.5 g/dL (30.0-36.0); Mean Corpuscular Hemoglobin 26.7 pg (28.0-34.0); Mean Corpuscular Volume 79.7 fl (80-94); Mean Platelet Volume 9.5 fL (7.4-10.4); Monocytes # 0.5 10^3/uL (0.2-0.9); Neutrophils # 5.91 10^3/uL (1.8-7.7); Neutrophils % 69.8 %; Nucleated Red Blood Cells % 0 %; Platelet Count 213 10^3/cmm (130-400); Red Blood Count 6.17 10^6/uL (4.1-5.3); White Blood Count 8.5 10^3/uL (4.0-10.0)
[2022-10-01 13:39] LABS: Creatinine Urine, Random 46 mg/dL (39-259); Microalbumin Random Urine 4 ug/dL (0-20)
[2022-10-01 13:43] LABS: Microalbum Creatinine Ratio Ur 87 mg/dL (0-20)
[2022-10-01 13:43] LABS: Albumin Level 4.6 g/dL (3.5-5.2); Anion Gap 14.7 (5-19); Blood Urea Nitrogen 24 mg/dL (6-20); Calcium 9.4 mg/dL (8.5-10.5); Carbon Dioxide 30 mmol/L (22-29); Chloride 98 mmol/L (98-107); Glucose 110 mg/dL (65-115); Phosphorus 3.1 mg/dL (2.5-4.5); Potassium 3.7 mmol/L (3.5-5.1); Sodium 139 mmol/L (136-145)
[2022-10-01 13:49] LABS: Parathyroid Hormone 54.6 pg/mL (15-65)
== END 2022-10-01 12:07 | disposition home or self-care (01) ==
LOC: LAB 12:11
PROVIDERS: PCP Nurse Practitioner Family; Visit Provider Internal Medicine Nephrology
DX: N18.32 Chronic kidney disease, stage 3b (principal)
CPT/HCPCS: 36415; 80069; 82044; 82310; 83970; 85025

== ENCOUNTER 2023-02-04 12:23 | Outpatient (CLI) | payer MEDICARE, MEDICAID, SELFPAY ==
--- NOTE | 2023-02-04 12:45 | CT_ITS ---
WS: [id number] LDCT LUNG CANCER SCREENING TECHNIQUE: Noncontrast CT of the chest with coronal and sagittal reformatted images. CLINICAL INFORMATION: Z87.891 - Personal history of nicotine dependence COMPARISON: CT chest 05/01/2021 DLP: 132.60 mGy.cm DIvol: Mean CTDIvol: 3.00 (mGy) All CT scans at [facility] use at least one of these dose optimization techniques: automat ed exposure control; mA and/or kV adjustment per patient size (includes targeted exams where dose is matched to clinical indication); or iterative reconstruction. FINDINGS: Stable bilateral subcentimeter pulmonary nodules a few in subpleural locations. Largest nod ule RIGHT lower lobe measuring 6 mm. No new or suspicious pulmonary parenchymal abnormalities. Normal caliber thoracic aorta. Coronary calcification. No mediastinal or hilar lymphadenopathy. No ax illary lymphadenopathy. Cardiomegaly. Partially visualized extensive polycystic kidneys bilaterally. Hepatomegaly. Small esophageal hiatal hernia. Mild thoracic curve. IMPRESSION: CT/CT lung screening [id number] LUNG-RADS: 2-Benign Appearance or Behavior FOLLOW UP: 12 Month: Continue annual screening with LDCT
== END 2023-02-04 12:24 | disposition home or self-care (01) ==
LOC: RAD 12:24
PROVIDERS: PCP Nurse Practitioner Family; Visit Provider Internal Medicine Pulmonary Disease
DX: Z87.891 Personal history of nicotine dependence (principal); Z12.2 Encounter for screening for malignant neoplasm of respiratory organs; I50.31 Acute diastolic (congestive) heart failure; I25.10 Atherosclerotic heart disease of native coronary artery without angina pectoris; I10 Essential (primary) hypertension; G47.33 Obstructive sleep apnea (adult) (pediatric); E78.5 Hyperlipidemia, unspecified; N18.30 Chronic kidney disease, stage 3 unspecified; Z98.890 Other specified postprocedural states
CPT/HCPCS: 71271; 99214

== ENCOUNTER 2023-03-01 09:16 | Observation (INO) | payer MEDICARE, MEDICAID, SELFPAY ==
[2023-03-01] VITALS (13 sets, daily range): BP systolic 118–170; BP diastolic 70–105; PULSE 87–101; RESP 18–32; TEMP 36.6–37.3; O2SAT 88–96; BMI 38.0; BMI 40.7
--- NOTE | 2023-03-01 09:22 | XRR_ITS ---
PROCEDURE INFORMATION: Exam: XR Chest Exam date and time: 03/01/2023 9:57 AM Age: 57 years old Clinical indication: Cough and dyspnea; Additional info: Dyspnea/cough. No history of recent trauma or surgery is provided. TECHNIQUE: Imaging protocol: Radiologic exam of the chest. 1image(s) are provided. Views: 1 view. COMPARISON: 1. CT lung screening [id number] 02/04/2023 1:[address] chest wo con [id number] 05/01/2021 9:02 AM 3. CR XR chest 1V portable [id number] 10/23/2019 9:01 PM 4. CR XR chest 1V portable [id number] 10/25/2019 7:32 AM FINDINGS: Lungs: No lobar consolidation is appreciated. There is some subsegmental atelectasis versus post inflammatory reticulonodular scarring demonstrated. There is some inflammatory scarring about the right lower lung zone and fissure otherwise. Aeration is improved as compared to the previous chest radiographs. Pleural spaces: No pneumothorax is appreciated. No significant pleural effusion is appreciated. There is some faint calcification along the right hemidiaphragm margin. Consider if there is history of inflammation or inhalational lung disease. Heart/Mediastinum: The cardiomediastinal silhouette is upper normal in size.This can be seen with central averaging as well as gabo enlargement.No cardiac decompensation is appreciated. There appears to be some cardiac mitral valvular type repair similar. Diaphragm: There is slight asymmetric right hemidiaphragm elevation. Bones/joints: Osseous alignment is maintained. No interval displaced fracture or dislocation is appreciated. There is some mild chronic degeneration about the shoulders. Soft tissues: No radiopaque foreign body or subcutaneous emphysema is appreciated. Other findings: No other significant interval changes are appreciated. XR/XR chest 1V portable [id number] IMPRESSION: There is some peribronchial inflammatory appearance of the right lung base with overall improved aeration. No lobar consolidation or cardiac decompensation is appreciated.
--- NOTE | 2023-03-01 09:36 | ED_ITS ---
HPI - Abdominal Pain 2 General: Chief Complaint: Abdominal Pain Stated Complaint: ABD PAIN Time Seen by Provider: 03/01/23 09:21 Source: patient Mode of arrival: ambulatory History of Present Illness: 57-year-old male presents emergency room complaining abdominal pain that began yesterday associated with nausea and vomiting. Patient also notes of mild shortness of breath. Patient has not had any diarrhea. He did have some dark- colored emesis but no hematemesis. Localizes the pain to the right upper quadrant. Patient has a history of CHF and has an EF of 40 to 45%. He is complaining some mild shortness of breath. No previous abdominal surgeries MD elicited complaint: abdominal pain Onset (ago): day(s) (1) Pain Consistency: constant Location: RUQ Quality: aching Exacerbating factors: nothing Relieving factors: nothing Associated Symptoms: Reports nausea and vomiting; Denies anorexia, belching, bloating, change in bowel habits, change in stool character, chills, coffee ground emesis, constipation, GI cramping, diarrhea, dyspepsia, dysuria, excessive flatus, fever(s), heartburn, hematochezia, hematuria, hematemesis, fecal incontinence, loose stools, melena, poor appetite and syncope Review of Systems 2 Const: Denies: fever(s) or chills Card: Denies: chest pain or syncope Resp: Denies: dyspnea GI: Reports: abdominal pain, nausea and vomiting; Denies: hematemesis, coffee ground emesis, heartburn, diarrhea, constipation, bloating, GI cramping, belching, excessive flatus, fecal incontinence, change in bowel habits, change in stool character, hematochezia or melena : Denies: flank pain, dysuria, urinary frequency, urinary urgency or hematuria Musc: Denies: neck pain or back pain Skin/Breast: Denies: rash PFSH ED 2 PFSH: Medical History (Updated 03/01/23 @ 13:50 by Dameon Frias DO) DOMINIQUE (obstructive sleep apnea) CHF (congestive heart failure) Transaminitis CKD (chronic kidney disease) Hypersomnia Hyperlipidemia Degenerative disk disease Vitamin D deficiency Hyperkalemia PCK (polycystic kidney disease) Chronic kidney disease, stage 3 COPD (chronic obstructive pulmonary disease) Rheumatoid arthritis Hypertension GERD (gastroesophageal reflux disease) Dyslipidemia Coronary artery disease Surgical History (Updated 03/01/23 @ 13:50 by Dameon Frias DO) S/P mitral valve repair Via right thoracotomy approach done at [facility] Status post colonoscopy (07/27/21) History of esophagogastroduodenoscopy (EGD) History of PTCA Stented coronary artery Family History Other CAD (coronary artery disease) Diabetes Hypertension Systemic lupus erythematosus (SLE) in adult Denies family history of Cancer Stroke Social History Smoking and tobacco/nicotine status: former use of tobacco/nicotine Quit status (tobacco/nicotine): has quit using Year quit tobacco: Sep 2019 [id number] Second hand smoke exposure: Yes Alcohol intake: former Substance/Drug Use: never Lives independently: Yes Household members: spouse Housing: House Marital status: service: No Current occupational status: disabled Pets and animals: Yes Do you think of yourself as: Straight/Heterosexual Current gender identity: Male Physical Exam 2 Const: GENERAL APPEARANCE: cooperative and comfortable O RIENTATION/CONSCIOUSNESS: Yes awake, Yes oriented to person, Yes oriented to place and Yes oriented to time HENMT: COMMON NORMALS: normocephalic, atraumatic and hearing grossly normal bilaterally HEAD & SCALP: normocephalic and atraumatic Resp: COMMON NORMALS: normal respiratory effort, No retractions, No use of accessory muscles and clear to auscultation bilaterally AUSCULTATION: clear to auscultation bilaterally Cardio: COMMON NORMALS: regular rate, regular rhythm and No murmurs present (Cardio) RATE: regular rate RHYTHM: regular rhythm GI: COMMON NORMALS: No hepatosplenomegaly present INSPECTION: Yes abdominal distension AUSCULTATION: Yes normoactive bowel sounds PALPATION: Yes Tenderness to palpation present (GI) Details: RUQ, No Guarding due to palpation present (GI) and Yes No hepatosplenomegaly present Extremity: COMMON NORMALS: normal to inspection, capillary refill normal, no clubbing, cyanosis or edema, no calf tenderness and no pedal edema Neuro: SENSORIUM/ORIENTATION: Yes oriented to person, Yes oriented to place and Yes oriented to time Skin: COMMON NORMALS: no rashes or lesions noted GENERAL SKIN EXAM: no rashes or lesions noted Course 2 Vital Signs: Vital signs: Vital Signs Temperature 99.2 F 03/01/23 09:26 Pulse Rate 90 03/01/23 13:41 Respiratory Rate 25 H 03/01/23 13:41 Blood Pressure 135/77 03/01/23 13:41 Pulse Oximetry 96 03/01/23 13:41 Oxygen Delivery Me thod Nasal Cannula 03/01/23 13:41 Oxygen Flow Rate 2 03/01/23 13:41 MDM - Abdominal Pain Medical Decision Making Acute cholecystitis no evidence of current dilation of common bile duct. Patient is intermittently having symptoms for some time according to his this is just one of the most intense episodes he has had. Patient was given Zosyn IV fluids and pain medications. He has multiple medical issues ongoing none are acute at this time admit to Dr. Garcia consult general surgery orders written Medical Records I reviewed the patient's medical records. Lab Data I reviewed the patient's lab results. 03/01/23 09:48 03/01/23 09:48 Labs/Radiology: Radiology Impressions Chest X-Ray 03/01/23 09:22 IMPRESSION: There is some peribronchial inflammatory appearance of the right lung base with overall improved aeration. No lobar consolidation or cardiac decompensation is appreciated. Abdomen/Pelvis CT 03/01/23 10:57 IMPRESSION: 1. Acute cholecystitis. The findings present here are definitive. There is marked gallbladder wall thickening, luminal distention, pericholecystic edema, and a calcified stone in the cystic duct origin. 2. Bilateral polycystic kidneys and bilateral nonobstructive nephrolithiasis. No sign of ureteral obstruction. 3. Mild splenic enlargement. 4. 3.6 cm infrarenal abdominal aortic aneurysm, increased from 3.3 cm on 07/23/2021. Follow-up imaging in 2 years is recommended. 5. Stable bilateral pulmonary nodules. No further follow-up is recommended. (Reference: Jayleen) 6. Incidental findings above. REFERENCES: Jayleen Duong, et al. Guidelines for Management of Incidental Pulmonary Nodules Detected on CT Images: From the Fleischner Society 2017. Radiology. 2017;284(1):228-243. Gallbladder Ultrasound 03/01/23 12:16 IMPRESSION: Acute cholecystitis. Laboratory Results WBC 15.40 10^3/uL (3.29-11.43) H 03/01/23 09:48 RBC 5.88 10^6/uL (3.85-5.65) H 03/01/23 09:48 Hgb 16.30 g/dL (11.27-16.99) 03/01/23 09:48 Hct 48.4 % (37-53) 03/01/23 09:48 MCV 82.3 fl (82-101) 03/01/23 09:48 MCH 27.7 pg (27-33) 03/01/23 09:48 MCHC 33.7 g/dL (30-55) 03/01/23 09:48 RDW 13.5 % (12.1-15.1) 03/01/23 09:48 Plt Count 210 10^3/cmm (157-399) 03/01/23 09:48 MPV 9.6 fL (7.4-10.4) 03/01/23 09:48 Neut % (Auto) 84.6 % 03/01/23 09:48 Lymph % (Auto) 6.7 % 03/01/23 09:48 Coleman % (Auto) 8.0 % 03/01/23 09:48 Eos % (Auto) 0.1 % 03/01/23 09:48 Baso % (Auto) 0.2 % 03/01/23 09:48 Neut # (Auto) 13.03 10^3/uL (1.8-7.7) H 03/01/23 09:48 Lymph # (Auto) 1.0 10^3/uL (0.8-4.8) 03/01/23 09:48 Coleman # (Auto) 1.2 10^3/uL (0.2-0.9) H 03/01/23 09:48 Eos # (Auto) 0.0 10^3/uL (0.0-0.8) 03/01/23 09:48 Baso # (Auto) 0.0 10^3/uL (0.0-0.1) 03/01/23 09:48 Nucleated RBC % (auto) 0 % 03/01/23 09:48 Nucleated RBCs # 0.0 /100WBC 03/01/23 09:48 Sodium 139 mmol/L (136-145) 03/01/23 09:48 Potassium 4.0 mmol/L (3.5-5.1) 03/01/23 09:48 Chloride 98 mmol/L (98-107) 03/01/23 09:48 Carbon Dioxide 27 mmol/L (22-29) 03/01/23 09:48 Anion Gap 18.0 (5-19) 03/01/23 09:48 BUN 22 mg/dL (6-20) H 03/01/23 09:48 Creatinine 2.1 mg/dL (0.7-1.2) H 03/01/23 09:48 GFR Calculation 32.8 mL/min (90-130) L 03/01/23 09:48 Glucose 135 mg/dL (65-115) H 03/01/23 09:48 Calculated Osmolality 293 mOsm/kg (285-295) 03/01/23 09:48 Calcium 9.4 mg/dL (8.5-10.5) 03/01/23 09:48 Total Bilirubin 1.7 mg/dL (0.15-1.2) H 03/01/23 09:48 AST 22 U/L (0-40) 03/01/23 09:48 ALT 21 U/L (0-41) 03/01/23 09:48 Alkaline Phosphatase 99 U/L (40-130) 03/01/23 09:48 Total Protein 8.4 g/dL (6.6-8.7) 03/01/23 09:48 Albumin 4.1 g/dL (3.5-5.2) 03/01/23 09:48 Globulin 4.3 g/dL (1.3-4.6) 03/01/23 09:48 Lipase 26 U/L (13-60) 03/01/23 09:48 Urine Color Yellow (Yellow) 03/01/23 10:12 Urine Appearance Clear (CLEAR) 03/01/23 10:12 Urine pH 5 (5-7) 03/01/23 10:12 Ur Specific [place] 1.010 (1.005-1.030) 03/01/23 10:12 Urine Protein 2+ (Negative) H 03/01/23 10:12 Urine Glucose (UA) Norm (Normal) 03/01/23 10:12 Urine Ketones 1+ (Negative) H 03/01/23 10:12 Urine Blood 3+ (Negative) H 03/01/23 10:12 Urine Nitrate Negative (Negative) 03/01/23 10:12 Urine Bilirubin Neg (Negative) 03/01/23 10:12 Urine Urobilinogen Norm mg/dL (Negative) 03/01/23 10:12 Ur Leukocyte Esterase Negative (Negative) 03/01/23 10:12 Urine RBC None /hpf (0-2) 03/01/23 10:12 Urine WBC Rare /hpf (0-5) 03/01/23 10:12 Ur Squamous Epith Cells Rare /hpf (0-5) 03/01/23 10:12 Amorphous Sediment 2+ /hpf 03/01/23 10:12 Urine Bacteria Trace /hpf (NONE) 03/01/23 10:12 All radiology interpretation(s) finalized by discharge Discharge Plan Discharge Patient Disposition: Admitted As Inpatient Admit Provider: Jose Daniel Garcia Clinical Impression: Acute cholecystitis, PCK (polycystic kidney disease), S/P mitral valve repair, DOMINIQUE (obstructive sleep apnea) Chronic kidney disease, stage 3 Qualifiers: Chronic kidney disease stage 3 subtype: unspecified whether 3a or 3b Qualified Code(s): N18.30 - Chronic kidney disease, stage 3 unspecified CHF (congestive heart failure) Qualifiers: Heart failure type: diastolic Heart failure chronicity: acute Qualified Code(s): I50.31 - Acute diastolic (congestive) heart failure COPD (chronic obstructive pulmonary disease) Qualifiers: COPD type: unspecified COPD Qualified Code(s): J44.9 - Chronic obstructive pulmonary disease, unspecified Condition: Stable Coding Level of Care Code ED [employer] 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
[2023-03-01] MEDS: ondansetron 2 mg/ML SDV 2 mL 4 MG IVP (09:50)
[2023-03-01] MEDS: sodium chloride 0.9% 1,000 ML 999 ML IV (09:51)
--- NOTE | 2023-03-01 09:55 | ECG_ITS ---
[facility] Test Date: 2023-03-01 Pat Name: Tyson Nixon Department: Room: Gender: Male [employer] Technician: : 1965 Requested By: Dameon Bryson Order Number: [id number] Dillon MD: Watson Neal M.D. Measurements Intervals [place] Rate: 87 P: 37 WV: 164 QRS: -23 QRSD: 109 T: 72 QT: 367 QTc: 442 Interpretive Statements SINUS RHYTHM POSSIBLE LEFT ATRIAL ENLARGEMENT [-0.1mV P-WAVE IN V1/V2] BORDERLINE LEFT AXIS DEVIATION [QRS AXIS < -20] NONSPECIFIC T-WAVE ABNORMALITY Compared to ECG 10/23/2019 23:04:59 No significant changes Electronically Signed On 03-03-2023 7:57:15 ANTENNA INSTALLER by Watson Neal M.D. [id number]
[2023-03-01 10:05] LABS: Basophils % 0.2 %; Eosinophils % 0.1 %; Hematocrit 48.4 % (37-53); Lymphocytes % 6.7 %; Mean Corpuscular HGB Conc 33.7 g/dL (30-55); Mean Corpuscular Hemoglobin 27.7 pg (27-33); Mean Corpuscular Volume 82.3 fl (82-101); Mean Platelet Volume 9.6 fL (7.4-10.4); Monocytes # 1.2 10^3/uL (0.2-0.9); Neutrophils # 13.03 10^3/uL (1.8-7.7); Neutrophils % 84.6 %; Nucleated Red Blood Cells % 0 %; Platelet Count 210 10^3/cmm (157-399); Red Blood Count 5.88 10^6/uL (3.85-5.65); Red Cell Distribution Width 13.5 % (12.1-15.1)
[2023-03-01 10:21] LABS: Alanine Aminotransferase 21 U/L (0-41); Albumin Level 4.1 g/dL (3.5-5.2); Alkaline Phosphatase 99 U/L (40-130); Aspartate Amino Transferase 22 U/L (0-40); Blood Urea Nitrogen 22 mg/dL (6-20); Calcium 9.4 mg/dL (8.5-10.5); Carbon Dioxide 27 mmol/L (22-29); Chloride 98 mmol/L (98-107); Globulin 4.3 g/dL (1.3-4.6); Glomerular Filtration Rate 32.8 mL/min (90-130); Glucose 135 mg/dL (65-115); Lipase 26 U/L (13-60); Osmolality Calculated 293 mOsm/kg (285-295); Sodium 139 mmol/L (136-145); Total Bilirubin 1.7 mg/dL (0.15-1.2); Total Protein 8.4 g/dL (6.6-8.7)
[2023-03-01 10:38] LABS: Urine Color Yellow (Yellow)
[2023-03-01 10:39] LABS: Add Urine Culture? No; Add Urine Microscopic? YES; Amorphous Sediment Urine 2+ /hpf; Bacteria Urine TRACE /hpf; Bilirubin Urine Neg (Negative); Blood Urine 3+ (Negative); Glucose Urine UA Norm (Normal); Ketones Urine 1+ (Negative); Leukocyte Esterase Urine Negative (Negative); Nitrate Urine Negative (Negative); Protein Urine 2+ (Negative); Squamous Epithelial Cell Urine RARE /hpf (0-5); Urine Appearance Clear (CLEAR); Urobilinogen Urine Norm (Negative); WBC Urine RARE /hpf (0-5); pH Urine 5 (5-7)
--- NOTE | 2023-03-01 10:57 | CTR_ITS ---
PROCEDURE INFORMATION: Exam: CT Abdomen And Pelvis Without Contrast Exam date and time: 03/01/2023 11:05 AM Age: 57 years old Clinical indication: Abdominal pain; Flank; Right; Additional info: Flank pain hematuria TECHNIQUE: Imaging protocol: Computed tomography of the abdomen and pelvis without contrast. Radiation optimization: All CT scans at this facility use at least one of these dose optimization techniques: automated exposure control; mA and/or kV adjustment per patient size (includes targeted exams where dose is matched to clinical indication); or iterative reconstruction. COMPARISON: 1. CT chest abdpel w/*[id number] 07/14/2020 10:[address] abdomen pelvis wo con [id number] 07/23/2021 10:18 AM RADIATION DOSE METRICS: Total DLP (mGy-cm): 1228.63 FINDINGS: Lungs: There is a noncalcified pulmonary nodule in the right middle lobe visible on series 4, image 8 measuring 4 mm, stable since 07/14/2020. There is a noncalcified pulmonary nodule in the right lower lobe visible on series 4, image 30 measuring 5 mm, stable since 07/23/2021. There is a 4 mm nodule in the lingula on axial series 4, image 8, stable since 07/06/2020. There is no consolidation in the lower lungs. Diaphragm: There is a small sliding-type hiatal hernia. Liver: The liver is normal. Gallbladder and bile ducts: The gallbladder is distended. The wall is markedly diffusely thickened. There is a 10 mm stone at the cystic duct origin visible on sagittal series 7, image 126. There is pericholecystic edema. There is no gas in the gallbladder wall. There is no significant biliary dilation. Pancreas: The pancreas is unremarkable. Spleen: The spleen is mildly enlarged. Adrenal glands: The adrenal glands are unremarkable. Kidneys and ureters: Both kidneys are markedly enlarged and the parenchyma is replaced by innumerable variably sized simple and hemorrhagic cysts which are unchanged compared to 07/23/2021. There is no perirenal edema. There are nonobstructive stones in both kidneys. There is no hydronephrosis. Stomach and bowel: The stomach is decompressed, preventing meaningful evaluation of wall thickness. The small bowel is nondilated. There is mild diverticulosis in the descending and sigmoid colon. There is no sign of diverticulitis. Appendix: The appendix is normal. Intraperitoneal space: There is no free air or significant intraperitoneal free fluid. Vasculature: There is mild aortic atherosclerotic disease. There is a 3.6 x 3.3 cm saccular aneurysm of the infrarenal abdominal aorta, increased from 3.3 x 3.3 cm on 07/23/2021. Lymph nodes: There is no lymphadenopathy in the retroperitoneum, mesentery, pelvis or inguinal regions. Urinary bladder: The urinary bladder is decompressed, preventing meaningful evaluation of wall thickness. Reproductive: The prostate and seminal vesicles are unremarkable. Bones/joints: There is moderate degenerative disease in the lumbar spine. The pelvis and hips are unremarkable. Soft tissues: There is a small fat containing umbilical hernia. CT/CT kidney stone [id number] IMPRESSION: 1. Acute cholecystitis. The findings present here are definitive. There is marked gallbladder wall thickening, luminal distention, pericholecystic edema, and a calcified stone in the cystic duct origin. 2. Bilateral polycystic kidneys and bilateral nonobstructive nephrolithiasis. No sign of ureteral obstruction. 3. Mild splenic enlargement. 4. 3.6 cm infrarenal abdominal aortic aneurysm, increased from 3.3 cm on 07/23/2021. Follow-up imaging in 2 years is recommended. 5. Stable bilateral pulmonary nodules. No further follow-up is recommended. (Reference: Jayleen) 6. Incidental findings above. REFERENCES: Jayleen Duong, et al. Guidelines for Management of Incidental Pulmonary Nodules Detected on CT Images: From the Fleischner Society 2017. Radiology. 2017;284(1):228-243.
--- NOTE | 2023-03-01 11:59 | PC.NURSE ---
pt oxygen saturation 88%-89% while resting on room air, this nurse assessed pt. pt respirations even and unlabored, pt is breathing through mouth. pt states he has COPD and sleep apnea, wears a CPAP at home. pt denies SOB at this time. pt oxygen saturation increases when pt wakes up.
--- NOTE | 2023-03-01 12:09 | PC.NURSE ---
pt resting with eyes closed, responds to verbal stimuli. respirations even and mildly labored at 30/min. pt 87% room air. pt placed on 2L NC. pt 92% on 2L NC.
--- NOTE | 2023-03-01 12:16 | USR_ITS ---
PROCEDURE INFORMATION: Exam: US Abdomen, Limited; Right Upper Quadrant Exam date and time: 03/01/2023 1:10 PM Age: 57 years old Clinical indication: Abdominal pain; Acute; Additional info: Ruq abd pain TECHNIQUE: Imaging protocol: Real time ultrasound of the abdomen with image documentation. Limited exam focused on the right upper quadrant. COMPARISON: US abdomen complete* [id number] 06/07/2022 3:54 PM FINDINGS: Liver: The liver is unremarkable. Gallbladder: The gallbladder is dilated. The wall is diffusely thickened. There is sludge in the lumen. No calcified stones are seen on this exam although there is a known stone at the cystic duct origin visible on CT today. Information regarding sonographic Velazquez sign was not provided. Biliary ducts: The common bile duct is nondilated measuring 5 mm. Pancreas: The visible portion of the pancreas is unremarkable. Right kidney: The right kidney is enlarged and the parenchyma is replaced by numerous cysts. Portal venous: The main portal vein demonstrates hepatopetal flow. US/US gall bladder [id number] IMPRESSION: Acute cholecystitis.
[2023-03-01] MEDS: morphine 4 mg/mL SDV 1 mL IVP (12:25)
[2023-03-01] MEDS: piperacillin-tazobactam 3.375 GM in sodium chloride 0.9% (plus) 50 ML IV ×2 (12:37→20:49)
[2023-03-01 14:23] LABS: Procalcitonin 0.64 ng/mL (0-0.5)
[2023-03-01 14:33] LABS: C Reactive Protein 218.1 mg/L (0.0-4.9)
[2023-03-01] MEDS: HYDROmorphone 1 mg/mL INJ 1 mL IVP (14:34)
--- NOTE | 2023-03-01 14:48 | P.CONIM_ITS ---
Providers/Reason For Consult 2 Consulting Physician/Specialty*: surgery Reason for Consult*: ruq abdomnal pain Attending Physician: Jose Daniel Garcia DO Primary Care Provider: TONA Reveles History of Present Illness History of Present Illness Tyson Nixon is a 57 year old male with a past medical history of CAD, status post stenting in 2019, on aspirin and Plavix,, history of CHF, history of mitral valve ring surgery in 2021, history of seropositive rheumatoid arthritis on etanercept, COPD, dyslipidemia, GERD, who presents [facility] for right upper quadrant pain for the last 48 hours. Patient tells me for the last 48 hours, he has had poor appetite, feeling nauseous, severe right upper quadrant pain, no bloody or black stools, no diarrhea, no lightheadedness, dizziness, he did report that he took aspirin Plavix this morning, is not on any other blood thinners no NSAIDs, no chest pain, no shortness of breath, in the emergency room he was diagnosed with acute cholecystitis, given pain control, antibiotics, general surgery is primary, hospital team was consulted Review of Systems 2 Const: Denies: fever(s) Card: Denies: chest pain Resp: Denies: dyspnea GI: Reports: abdominal pain and nausea Medications/Allergies Home Medications Medication Instructions Recorded Confirmed Last Taken Type albuterol sulfate 2.5 mg/3 mL 2.5 mg (3 mL) inhalation Q4H PRN 02/23/19 03/01/23 07/26/21 Rx (0.083 %) solution for nebulization shortness of breath or wheezing 30 days #180 mL aspirin 81 mg tablet,delayed 81 mg PO DAILY 30 days #30 tabs 05/13/22 03/01/23 03/01/23 Rx release clopidogrel 75 mg tablet 75 mg PO DAILY 30 days #30 tabs 05/13/22 03/01/23 03/01/23 Rx clotrimazole-betamethasone 1 1 applic topical BID 2 weeks #45 05/13/22 03/01/23 Unknown Rx %-0.05 % topical cream grams montelukast 10 mg tablet 10 mg PO DAILY #60 tabs 06/19/22 03/01/23 Unknown Rx (Singulair) etanercept 50 mg/mL (1 mL) 50 mg SUBCUT Q7D #4 mL 09/25/22 03/01/23 Unknown Rx subcutaneous cartridge (Enbrel Mini) albuterol sulfate 90 mcg/actuation 2 puff inhalation QID PRN 11/26/22 03/01/23 Unknown Rx aerosol inhaler (ProAir HFA) shortness of breath or wheezing 30 days #6.7 grams amlodipine 10 mg tablet 10 mg PO DAILY #30 tabs 11/26/22 03/01/23 03/01/23 Rx atorvastatin 40 mg tablet 40 mg PO BEDTIME #30 tabs 11/26/22 03/01/23 02/28/23 Rx budesonide 160 mcg-glycopyr 9 2 inh inhalation BID #10.7 grams 11/26/22 03/01/23 03/01/23 Rx mcg-formot 4.8 mcg/actuation HFA inhaler (Breztri Aerosphere) pantoprazole 40 mg tablet,delayed 40 mg PO DAILY 30 days #30 tabs 11/26/22 03/01/23 03/01/23 Rx release furosemide 40 mg tablet (Lasix) 40 mg PO BID #60 tabs 12/31/22 03/01/23 03/01/23 Rx potassium chloride 10 mEq 10 meq PO BID #60 tabs 12/31/22 03/01/23 03/01/23 Rx tablet,extended release(part/cryst) (Klor-Con M) Allergies Allergy/AdvReac Type Severity Reaction Status Date / Time No Known Allergies Allergy Verified 03/01/23 10:42 PFSH Acute 2 PFSH: Medical History (Updated 03/01/23 @ 14:54 by Pepe Barone MD) DOMINIQUE (obstructive sleep apnea) CHF (congestive heart failure) Transaminitis CKD (chronic kidney disease) Hypersomnia Hyperlipidemia Degenerative disk disease Vitamin D deficiency Hyperkalemia PCK (polycystic kidney disease) Chronic kidney disease, stage 3 COPD (chronic obstructive pulmonary disease) Rheumatoid arthritis Hypertension GERD (gastroesophageal reflux disease) Dyslipidemia Coronary artery disease Surgical History S/P mitral valve repair Via right thoracotomy approach done at [place] Status post colonoscopy (07/27/21) History of esophagogastroduodenoscopy (EGD) History of PTCA Stented coronary artery Family History Other CAD (coronary artery disease) Diabetes Hypertension Systemic lupus erythematosus (SLE) in adult Denies family history of Cancer Stroke Social History Smoking and tobacco/nicotine status: former use of tobacco/nicotine Quit status (tobacco/nicotine): has quit using Year quit tobacco: Sep 2019 [id number] Second hand smoke exposure: Yes Alcohol intake: former Substance/Drug Use: never Lives independently: Yes Household members: spouse Housing: House Marital status: service: No Current occupational status: disabled Pets and animals: Yes Do you think of yourself as: Straight/Heterosexual Current gender identity: Male Vitals/I&O/Wt Last Vital Signs Temp 99.2 F 03/01/23 14:11 Pulse 90 03/01/23 14:11 Resp 25 H 03/01/23 14:11 BP 135/77 03/01/23 14:11 Pulse Ox 96 03/01/23 14:11 O2 Del Method Nasal Cannula 03/01/23 13:41 O2 Flow Rate 2 03/01/23 13:41 02/28/23 03/01/23 03/01/23 22:59 06:59 14:59 Intake Total 1050 / 1050 Balance 1050 / 1050 Weight last 48 hrs Weight 113.398 kg Physical Exam 2 Const: COMMON NORMALS: no acute distress and patient oriented x3 HENMT: COMMON NORMALS: normocephalic HEAD & SCALP: normocephalic Eye: COMMON NORMALS: Equal, round and reactive pupils present and EOMs intact bilaterally PUPIL: Yes Equal, round and reactive pupils present Lymph: LYMPHATIC: no lymphadenopathy noted Resp: COMMON NORMALS: normal respiratory effort, No retractions, No use of accessory muscles and clear to auscultation bilaterally AUSCULTATION: clear to auscultation bilaterally Cardio: COMMON NORMALS: regular rate, regular rhythm, S1 normal heart sound present and S2 normal heart sound present RATE: regular rate RHYTHM: r egular rhythm HEART SOUNDS: S1 normal heart sound present and S2 normal heart sound present GI: OTHER: Soft, distended, good bowel sounds, exquisite right upper quadrant tenderness, no guarding, no rebound, no rigidity Extremity: COMMON NORMALS: no pedal edema Neuro: COMMON NORMALS: patient oriented x3, CN's II-XII intact bilaterally and moves all extremities Psych: COMMON NORMALS: mental status grossly normal Data 03/01/23 09:48 03/01/23 09:48 A&P Assessment and plan (1) Acute cholecystitis: (2) Chronic kidney disease, stage 3: Qualifiers: Chronic kidney disease stage 3 subtype: unspecified whether 3a or 3b Qualified Code(s): N18.30 - Chronic kidney disease, stage 3 unspecified (3) PCK (polycystic kidney disease): (4) COPD (chronic obstructive pulmonary disease): Qualifiers: COPD type: unspecified COPD Qualified Code(s): J44.9 - Chronic obstructive pulmonary disease, unspecified (5) DOMINIQUE (obstructive sleep apnea): (6) S/P mitral valve repair: (7) Moderate mitral regurgitation: (8) Hypertension: Qualifiers: Hypertension type: essential hypertension Qualified Code(s): I10 - Essential (primary) hypertension (9) Abdominal aortic aneurysm (AAA): Plan Acute cholecystitis ? CT abdomen pelvis CT/CT kidney stone [id number] IMPRESSION: 1. Acute cholecystitis. The findings present here are definitive. There is marked gallbladder wall thickening, luminal distention, pericholecystic edema, and a calcified stone in the cystic duct origin. - gallbladder ultrasound US/US gall bladder [id number] IMPRESSION: Acute cholecystitis. -plan: -General surgery primary, ? Aspirin and Plavix currently on hold, discussed risk benefits with patient, he voiced understanding, all questions answered, agreed to proceed ? IV fluids, ? Continue Zosyn, ? Full code, ? SCDs for DVT prophylaxis Lovenox on hold as there is plans on surgery CAD, status post stenting, no complaints of chest pain Mitral valve, ring surgery History of seropositive rheumatoid arthritis, Hypertension Systolic CHF, not in exacerbation, monitor Abdominal aortic aneurysm, 3.6 cm, needs to be followed up with vascular surgery as outpatient CKD, history of polycystic kidney disease Obstructive sleep apnea, continue CPAP Consult Attestations 2 Medical Necessity Statement: Patient requires hospitalization, for acute cholecystitis, inpatient, greater than 2 midnights Diagnoses Acute cholecystitis K81.0 Stage 3 chronic kidney disease, unspecified whether stage 3a or 3b CKD N18.30 Chronic kidney disease stage 3 subtype: unspecified whether 3a or 3b PCK (polycystic kidney disease) Q61.3 Chronic obstructive pulmonary disease, unspecified COPD type J44.9 COPD type: unspecified COPD DOMINIQUE (obstructive sleep apnea) G47.33 S/P mitral valve repair Z98.890 Moderate mitral regurgitation I34.0 Essential hypertension I10 Hypertension type: essential hypertension Abdominal aortic aneurysm (AAA) I71.40
[2023-03-01 15:04] LABS: INR 1.08 (0.8-1.2)
[2023-03-01 15:14] LABS: NT Pro B Type Natriuretic Pept 1184 pg/mL (0-125); Thyroid Stimulating Hormone 2.85 uIU/mL (0.27-4.20)
[2023-03-01] MEDS: pantoprazole 40 mg SDV IVP (15:26)
[2023-03-01] MEDS: sodium chloride 0.9% 1,000 ML 100 ML IV (15:27)
[2023-03-01 15:29] LABS: Estmated Average Glucose 114; Hemoglobin A1C 5.6 % (4.0-6.0)
[2023-03-01 16:11] LABS: Lactic Sepsis W/Reflex 1.2 mmol/L (0.5-2.2)
[2023-03-01] MEDS: atorvastatin 40 mg Tablet PO (20:48)
[2023-03-02] VITALS (22 sets, daily range): BP systolic 111–164; BP diastolic 64–103; PULSE 79–97; RESP 16–28; TEMP 36.1–37.1; O2SAT 90–98
[2023-03-02] MEDS: sodium chloride 0.9% 1,000 ML 100 ML IV (01:37)
[2023-03-02] MEDS: piperacillin-tazobactam 3.375 GM in sodium chloride 0.9% (plus) 50 ML IV ×3 (04:28→20:48)
[2023-03-02 06:04] LABS: Basophils % 0.3 %; Eosinophils % 0.2 %; Hematocrit 44.3 % (37-53); Lymphocytes # 1.3 10^3/uL (0.8-4.8); Lymphocytes % 10.9 %; Mean Corpuscular HGB Conc 33.2 g/dL (30-55); Mean Corpuscular Hemoglobin 27.4 pg (27-33); Mean Corpuscular Volume 82.6 fl (82-101); Mean Platelet Volume 9.8 fL (7.4-10.4); Monocytes # 0.7 10^3/uL (0.2-0.9); Monocytes % 5.3 %; Neutrophils # 10.23 10^3/uL (1.8-7.7); Neutrophils % 82.9 %; Nucleated Red Blood Cells % 0 %; Platelet Count 159 10^3/cmm (157-399); Red Blood Count 5.36 10^6/uL (3.85-5.65); Red Cell Distribution Width 13.5 % (12.1-15.1); White Blood Count 12.34 10^3/uL (3.29-11.43)
[2023-03-02 06:15] LABS: Alanine Aminotransferase 14 U/L (0-41); Albumin Level 3.5 g/dL (3.5-5.2); Alkaline Phosphatase 76 U/L (40-130); Anion Gap 14.4 (5-19); Aspartate Amino Transferase 17 U/L (0-40); Blood Urea Nitrogen 26 mg/dL (6-20); Calcium 8.5 mg/dL (8.5-10.5); Carbon Dioxide 28 mmol/L (22-29); Chloride 97 mmol/L (98-107); Globulin 3.6 g/dL (1.3-4.6); Glomerular Filtration Rate 31.1 mL/min (90-130); Glucose 114 mg/dL (65-115); Magnesium 1.7 mg/dL (1.7-2.3); Osmolality Calculated 288 mOsm/kg (285-295); Phosphorus 3.7 mg/dL (2.5-4.5); Potassium 3.4 mmol/L (3.5-5.1); Sodium 136 mmol/L (136-145); Total Bilirubin 1.7 mg/dL (0.15-1.2); Total Protein 7.1 g/dL (6.6-8.7)
--- NOTE | 2023-03-02 08:10 | P.HP_ITS ---
Providers/Chief Complaint 2 Admitting Physician: Jose Daniel Garcia DO Primary Care Provider: TONA Reveles Chief Complaint: ABD PAIN History of Present Illness Tyson Nixon is a 57 year old male, with a past medical history that includes severe mitral valve regurgitation prior to mitral valve ring repair in 2021 now with moderate regurgitation, chronic kidney disease, COPD, congestive heart failure and coronary artery disease, who presented to the hospital with a 2-day history of right upper quadrant abdominal pain. The pain is sharp and severe and radiates to his back. The pain is constant. Eating makes pain worse. Palpation makes pain worse. Nothing makes pain better. He reports nausea and vomiting but denies any hematemesis. Denies any diarrhea, constipation, hematochezia and/or melena. Imaging of the gallbladder shows acute calculus cholecystitis with a gallstone in the cystic neck. He last took aspirin and Plavix yesterday. Review of Systems 2 General: Reports: 10 or more systems reviewed and unremarkable except in HPI and below Medications/Allergies Home Medications Medication Instructions Recorded Confirmed Last Taken Type albuterol sulfate 2.5 mg/3 mL 2.5 mg (3 mL) inhalation Q4H PRN 02/23/19 03/01/23 07/26/21 Rx (0.083 %) solution for nebulization shortness of breath or wheezing 30 days #180 mL aspirin 81 mg tablet,delayed 81 mg PO DAILY 30 days #30 tabs 05/13/22 03/01/23 03/01/23 Rx release clopidogrel 75 mg tablet 75 mg PO DAILY 30 days #30 tabs 05/13/22 03/01/23 03/01/23 Rx clotrimazole-betamethasone 1 1 applic topical BID 2 weeks #45 05/13/22 03/01/23 Unknown Rx %-0.05 % topical cream grams montelukast 10 mg tablet 10 mg PO DAILY #60 tabs 06/19/22 03/01/23 Unknown Rx (Singulair) etanercept 50 mg/mL (1 mL) 50 mg SUBCUT Q7D #4 mL 09/25/22 03/01/23 Unknown Rx subcutaneous cartridge (Enbrel Mini) albuterol sulfate 90 mcg/actuation 2 puff inhalation QID PRN 11/26/22 03/01/23 Unknown Rx aerosol inhaler (ProAir HFA) shortness of breath or wheezing 30 days #6.7 grams amlodipine 10 mg tablet 10 mg PO DAILY #30 tabs 11/26/22 03/01/23 03/01/23 Rx atorvastatin 40 mg tablet 40 mg PO BEDTIME #30 tabs 11/26/22 03/01/23 02/28/23 Rx budesonide 160 mcg-glycopyr 9 2 inh inhalation BID #10.7 grams 11/26/22 03/01/23 03/01/23 Rx mcg-formot 4.8 mcg/actuation HFA inhaler (Breztri Aerosphere) pantoprazole 40 mg tablet,delayed 40 mg PO DAILY 30 days #30 tabs 11/26/22 03/01/23 03/01/23 Rx release furosemide 40 mg tablet (Lasix) 40 mg PO BID #60 tabs 12/31/22 03/01/23 03/01/23 Rx potassium chloride 10 mEq 10 meq PO BID #60 tabs 12/31/22 03/01/23 03/01/23 Rx tablet,extended release(part/cryst) (Klor-Con M) Allergies Allergy/AdvReac Type Severity Reaction Status Date / Time No Known Allergies Allergy Verified 03/01/23 10:42 PFSH Acute 2 PFSH: Medical History DOMINIQUE (obstructive sleep apnea) CHF (congestive heart failure) Transaminitis CKD (chronic kidney disease) Hypersomnia Hyperlipidemia Degenerative disk disease Vitamin D deficiency Hyperkalemia PCK (polycystic kidney disease) Chronic kidney disease, stage 3 COPD (chronic obstructive pulmonary disease) Rheumatoid arthritis Hypertension GERD (gastroesophageal reflux disease) Dyslipidemia Coronary artery disease Surgical History S/P mitral valve repair Via right thoracotomy approach done at [place] Status post colonoscopy (07/27/21) History of esophagogastroduodenoscopy (EGD) History of PTCA Stented coronary artery Family History Other CAD (coronary artery disease) Diabetes Hypertension Systemic lupus erythematosus (SLE) in adult Denies family history of Cancer Stroke Social History Smoking and tobacco/nicotine status: former use of tobacco/nicotine Quit status (tobacco/nicotine): has quit using Year quit tobacco: Sep 2019 [id number] Second hand smoke exposure: Yes Alcohol intake: former Substance/Drug Use: never Lives independently: Yes Household members: spouse Housing: House Marital status: service: No Current occupational status: disabled Pets and animals: Yes Do you think of yourself as: Straight/Heterosexual Current gender identity: Male Vitals/I&O/Wt Last Vital Signs Temp 97.5 F L 03/02/23 07:48 Pulse 85 03/02/23 07:48 Resp 18 03/02/23 07:48 BP 135/78 03/02/23 07:48 Pulse Ox 92 03/02/23 07:48 O2 Del Method Nasal Cannula 03/02/23 07:48 O2 Flow Rate 2 03/01/23 20:15 03/01/23 03/02/23 03/02/23 22:59 06:59 14:59 Intake Total 240 / 1290 1050 / 2340 Balance 240 / 1290 1050 / 2340 Weight last 48 hrs Weight 269 lb 1 oz Weight 268 lb 2 oz Weight 250 lb Physical Exam 2 Narrative: General : Patient is well developed , no acute distress, oriented x3 Head : Normal cephalic, a-traumatic. Ears : Pinnae and external canal are normal. Hearing is normal. Eyes : PERRLA, Sclera and injection are normal. No conjunctival discharge. Nose : Mucous membranes are without erythema. Throat : buccal mucosa is normal, gums are without significant recession or hypertrophy. Lungs : Equal chest rise bilaterally, no use of accessory muscles, trachea is midline. Cor : Rate and rhythm are normal. Abdomen : Soft, distended, tender to palpation right upper quadrant, positive Velazquez sign, no g/r/m Extremities : No edema, no cyanosis or clubbing, dorsalis pedis pulses are present bilaterally, non-tender to palpation of calves. Upper extremities are normal bilaterally. Back : non-tender to palpation, no CVA tenderness. Neuro : CN II - XII intact, Upper and lower extremities have equal and full strength Data 03/02/23 05:40 03/02/23 05:40 A&P Assessment and plan (1) Acute calculous cholecystitis: (2) Hyperbilirubinemia: Possible Mirizzi syndrome. Normal diameter of common bile duct Plan Laparoscopic cholecystectomy The risks and benefits of the procedure, including but not limited to, bleeding, infection, scar, numbness, pain, damage to surrounding structures, damage to common bile duct requiring additional surgery, conversion to an open procedure, were explained to the patient. He is understanding of the risks and wishes to proceed. Attestations 2 Medical Necessity Statement*: Patient requires at least 1 more night in the hospital for antibiotics and recovery after cholecystectomy for acute calculous cholecystitis Coding Level of Care Code 27471 Diagnoses Acute calculous cholecystitis K80.00 Hyperbilirubinemia E80.6
--- NOTE | 2023-03-02 08:30 | P.ANESASSM_ITS ---
Pre-Anesthetic Assessment Height/Weight: Height 1.73 m Weight 122.045 kg Temp Pulse Resp BP Pulse Ox O2 Del Method O2 Flow Rate 97.5 F L 85 18 135/78 92 Nasal Cannula 2 03/02/23 07:48 03/02/23 07:48 03/02/23 07:48 03/02/23 07:48 03/02/23 07:48 03/02/23 07:48 03/01/23 20:15 Operation Date: 03/02/23 08:20 Proposed Procedures p Laparoscopic Cholecystectomy(Not Applicable) - Jose Daniel Garcia DO Last intake: Intake Last Liquid Date 03/01/23 Last Liquid Time 23:30 Last Solid Date 03/06/23 Social Tobacco and No alcohol Exam alert and oriented x 3 LUNGS: decreased BS with prolonged/active expiratory component Airway Submandibular: within normal limits Cervical ROM: within normal limits Mallampati: Class II Pulmonary Chronic Obstructive Pulmonary Disease (O2 dependent continuous home needs) and Sleep Apnea CV/HEM Coronary Artery Disease, Congestive Heart Failure, Hypertension and Peripheral Vascular Disease Severe MR s/p Mitral Ring Chronic Renal Insufficiency (Acute on Chronic renal insufficiency ) GI Gastroesophageal Reflux Disease Metabolic Hyperlipidemia and Morbid Ob[place] [facility] [place] Rheumatoid Arthritis Anesthetic Plan ASA status: 4 Anesthesia: General Medications/Allergies Home Medications Medication Instructions Recorded Confirmed Last Taken Type albuterol sulfate 2.5 mg/3 mL 2.5 mg (3 mL) inhalation Q4H PRN 02/23/19 03/01/23 07/26/21 Rx (0.083 %) solution for nebulization shortness of breath or wheezing 30 days #180 mL aspirin 81 mg tablet,delayed 81 mg PO DAILY 30 days #30 tabs 05/13/22 03/01/23 03/01/23 Rx release clopidogrel 75 mg tablet 75 mg PO DAILY 30 days #30 tabs 05/13/22 03/01/23 03/01/23 Rx clotrimazole-betamethasone 1 1 applic topical BID 2 weeks #45 05/13/22 03/01/23 Unknown Rx %-0.05 % topical cream grams montelukast 10 mg tablet 10 mg PO DAILY #60 tabs 06/19/22 03/01/23 Unknown Rx (Singulair) etanercept 50 mg/mL (1 mL) 50 mg SUBCUT Q7D #4 mL 09/25/22 03/01/23 Unknown Rx subcutaneous cartridge (Enbrel Mini) albuterol sulfate 90 mcg/actuation 2 puff inhalation QID PRN 11/26/22 03/01/23 Unknown Rx aerosol inhaler (ProAir HFA) shortness of breath or wheezing 30 days #6.7 grams amlodipine 10 mg tablet 10 mg PO DAILY #30 tabs 11/26/22 03/01/23 03/01/23 Rx atorvastatin 40 mg tablet 40 mg PO BEDTIME #30 tabs 11/26/22 03/01/23 02/28/23 Rx budesonide 160 mcg-glycopyr 9 2 inh inhalation BID #10.7 grams 11/26/22 03/01/23 03/01/23 Rx mcg-formot 4.8 mcg/actuation HFA inhaler (Breztri Aerosphere) pantoprazole 40 mg tablet,delayed 40 mg PO DAILY 30 days #30 tabs 11/26/22 03/01/23 03/01/23 Rx release furosemide 40 mg tablet (Lasix) 40 mg PO BID #60 tabs 12/31/22 03/01/23 03/01/23 Rx potassium chloride 10 mEq 10 meq PO BID #60 tabs 12/31/22 03/01/23 03/01/23 Rx tablet,extended release(part/cryst) (Klor-Con M) Allergies Allergy/AdvReac Type Severity Reaction Status Date / Time No Known Allergies Allergy Verified 03/01/23 10:42 Current Medications Generic Name Dose Route Start Last Admin Trade Name Freq PRN Reason Stop Dose Admin Atorvastatin Calcium 40 mg 03/01/23 21:00 03/01/23 20:48 Atorvastatin 40 Mg Tablet PO 40 mg BEDTIME DOMINIQUE Administration Sodium Chloride 1,000 mls @ 100 mls/hr 03/01/23 14:21 03/02/23 01:37 Sodium Chloride 0.9% IV 100 mls/hr .Q10H DOMINIQUE Administration Piperacillin Sod/Tazobactam 50 mls @ 12.5 mls/hr 03/01/23 21:00 03/02/23 04:28 Sod 3.375 gm/ Sodium Chloride IV 12.5 mls/hr Q8H DOMINIQUE Administration Protocol Pantoprazole Sodium 40 mg 03/01/23 14:45 03/01/23 15:26 Pantoprazole 40 Mg Sdv IVP 40 mg Q24H DOMINIQUE Administration PFSH Anesthesia Medical History DOMINIQUE (obstructive sleep apnea) CHF (congestive heart failure) Transaminitis CKD (chronic kidney disease) Hypersomnia Hyperlipidemia Degenerative disk disease Vitamin D deficiency Hyperkalemia PCK (polycystic kidney disease) Chronic kidney disease, stage 3 COPD (chronic obstructive pulmonary disease) Rheumatoid arthritis Hypertension GERD (gastroesophageal reflux disease) Dyslipidemia Coronary artery disease Surgical History S/P mitral valve repair Via right thoracotomy approach done at [place] Status post colonoscopy (07/27/21) History of esophagogastroduodenoscopy (EGD) History of PTCA Stented coronary artery Family History Other CAD (coronary artery disease) Diabetes Hypertension Systemic lupus erythematosus (SLE) in adult Denies family history of Cancer Stroke Social History Smoking and tobacco/nicotine status: former use of tobacco/nicotine Quit status (tobacco/nicotine): has quit using Year quit tobacco: Sep 2019 [id number] Second hand smoke exposure: Yes Alcohol intake: former Substance/Drug Use: never Lives independently: Yes Household members: spouse Housing: House Marital status: service: No Current occupational status: disabled Pets and animals: Yes Do you think of yourself as: Straight/Heterosexual Current gender identity: Male Data Anesthesia 03/02/23 05:40 03/02/23 05:40 Short CBC 03/01/23 03/02/23 Range/Units 09:48 05:40 WBC 15.40 H 12.34 H (3.29-11.43) 10^3/uL Hgb 16.30 14.70 (11.27-16.99) g/dL Hct 48.4 44.3 (37-53) % MCV 82.3 82.6 (82-101) fl Plt Count 210 159 (157-399) 10^3/cmm Neut % (Auto) 84.6 82.9 % Neut # (Auto) 13.03 H 10.23 H (1.8-7.7) 10^3/uL BMP 01/13/24 01/14/24 09:48 05:40 Sodium 139 136 Potassium 4.0 3.4 L Chloride 98 97 L Carbon Dioxide 27 28 BUN 22 H 26 H Creatinine 2.1 H 2.2 H Glucose 135 H 114 Calcium 9.4 8.5 Cardiac Enzymes 03/01/23 Range/Units 09:48 NT-Pro-B Natriuret Pep 1184 H (0-125) pg/mL Liver Function 03/01/23 03/02/23 Range/Units 09:48 05:40 Total Bilirubin 1.7 H 1.7 H (0.15-1.2) mg/dL AST 22 17 (0-40) U/L ALT 21 14 (0-41) U/L Alkaline Phosphatase 99 76 (40-130) U/L Albumin 4.1 3.5 (3.5-5.2) g/dL Urine 03/01/23 Range/Units 10:12 Urine Color Yellow (Yellow) Urine Appearance Clear (CLEAR) Urine pH 5 (5-7) Ur Specific [place] 1.010 (1.005-1.030) Urine Protein 2+ H (Negative) Urine Glucose (UA) Norm (Normal) Urine Ketones 1+ H (Negative) Urine Nitrate Negative (Negative) Urine Bilirubin Neg (Negative) Ur Leukocyte Esterase Negative (Negative) Urine RBC None (0-2) /hpf Urine WBC Rare (0-5) /hpf Coags 03/01/23 09:48 PT 14.30 INR 1.08 C-Reactive Protein 218.1 H Cardiac Studies: 2 Echocardiogram 11/19/21 Echocardiogram Limited Views 10/24/19 Echocardiogram Ultrasound 08/29/20 Transesophageal Echocardiogram 05/12/20
[2023-03-02] MEDS: lidocaine-epi 2% 20 mL INJ INJECTION (09:39)
[2023-03-02] MEDS: tranexamic acid 1,000 mg/10mL SDV 1000 MG IV (09:46)
--- NOTE | 2023-03-02 10:41 | PM.OP ---
Operative Report Date of procedure: March 02, 2023 Surgeon: Jose Daniel Garcia DO Procedure: Preoperative diagnosis: Acute calculus cholecystitis Postoperative diagnosis: Same Procedure performed: Laparoscopic cholecystectomy Surgeon: Dr. Jose Daniel Garcia DO Estimated blood loss: 50 mL Specimens: Gallbladder to pathology Complications: None apparent Description of procedure: Patient was wheeled into the operative room and placed on the OR table in a supine position. Abdomen was inspected prepped and draped in usual sterile fashion. Time-out was performed and all present were in agreement. A 15 blade scalp was used to make a stab incision in the left upper quadrant and intra-abdominal insufflation was achieved using a Veress needle. After localizing the tissue incisions were made and a 5 millimeter trocar was placed into the umbilicus as well as 2 in the right upper quadrant. A 12 millimeter trocar was placed in the epigastrium. Gallbladder was grasped and elevated. The gallbladder wall was very thick and gallbladder was very distended. A 60 cc syringe was used to suction 110 cc of purulent bilious fluid from the gallbladder through the needle. There was an accessory lobe of the liver on the gallbladder. The triangle of Calot was carefully dissected using blunt dissection and electrocautery until the triangle of Calot clearly identified. The cystic duct was clipped proximally and double clipped distally. The duct was then ligated proximally. The cystic artery was doubly clipped and ligated. The gallbladder was then removed from the liver bed using electrocautery. The gallbladder was removed from the abdomen using an Endo-Catch bag through the epigastric incision. The liver bed was inspected and hemostasis was achieved with electrocautery. A 19 Armenian Greg drain was placed through the right upper quadrant port and placed into Morison's pouch. Drain was sewn in place with 2-0 silk. The epigastric incision had to be extended to remove the gallbladder. The fascia was closed with 0 Vicryl in a Tung Wilma in a [id number] fashion. The abdomen was irrigated and suctioned. All ports removed. Skin was washed and dried. Incisions were closed with 4-0 Monocryl in a subcuticular interrupted fashion. Skin glue was applied. Patient tolerated the procedure well.
--- NOTE | 2023-03-02 11:10 | ANE.PACU2 ---
Inpatient post-anesthesia follow up: Vital signs: Temperature 97 F Pulse Rate 89 Respiratory Rate 16 Blood Pressure 132/94 Pulse Oximetry 95 Oxygen Delivery Me thod Simple Mask Oxygen Flow Rate 8 Fraction of Inspir ed Oxygen Hydration adequate: Yes Nausea and vomiting: No Pain level: 3 Mental status: Baseline
[2023-03-02] MEDS: HYDROmorphone 1 mg/mL INJ 1 mL IVP (15:37)
[2023-03-02] MEDS: pantoprazole 40 mg SDV IVP (15:38)
--- NOTE | 2023-03-02 19:14 | P.PN_ITS ---
Subjective 2 Subjective: Patient was seen in postop recovery, denies any nausea, no vomiting, is on 2 L, no shortness of breath, he used CPAP during the night, will monitor it for the next 24 hours, he has a MONROE drain in place, spoke to Dr. Garcia, agreeable to start aspirin and Plavix tomorrow, will start DVT prophylaxis later on tonight if surgery is agreeable Vitals/I&O/Wt Last Vital Signs Temp 98.0 F 03/02/23 17:10 Pulse 82 03/02/23 17:10 Resp 18 03/02/23 17:10 BP 138/80 03/02/23 17:10 Pulse Ox 90 03/02/23 17:10 O2 Del Method Room Air 03/02/23 17:10 O2 Flow Rate 3 03/02/23 11:55 03/02/23 03/02/23 03/02/23 06:59 14:59 22:59 Intake Total 1050 / 2340 1550 / 1550 50 / 1600 Output Total 660 / 685 Balance 1050 / 2340 1525 / 1525 -610 / 915 Weight last 48 hrs Weight 122.045 kg Weight 121.619 kg Weight 113.398 kg Physical Exam 2 Const: COMMON NORMALS: no acute distress and patient oriented x3 Resp: COMMON NORMALS: normal respiratory effort, No retractions, No use of accessory muscles and clear to auscultation bilaterally AUSCULTATION: clear to auscultation bilaterally Cardio: COMMON NORMALS: regular rate, regular rhythm, S1 normal heart sound present and S2 normal heart sound present RATE: regular rate RHYTHM: r egular rhythm HEART SOUNDS: S1 normal heart sound present and S2 normal heart sound present GI: OTHER: Abdomen soft, distended, diminished bowel sounds, MONROE drain in place, surgical site looks clean and dry Extremity: COMMON NORMALS: no pedal edema Neuro: COMMON NORMALS: patient oriented x3 Psych: COMMON NORMALS: mental status grossly normal Data 03/02/23 05:40 03/02/23 05:40 A&P Assessment and plan (1) Acute cholecystitis: (2) Chronic kidney disease, stage 3: Qualifiers: Chronic kidney disease stage 3 subtype: unspecified whether 3a or 3b Qualified Code(s): N18.30 - Chronic kidney disease, stage 3 unspecified (3) PCK (polycystic kidney disease): (4) COPD (chronic obstructive pulmonary disease): Qualifiers: COPD type: unspecified COPD Qualified Code(s): J44.9 - Chronic obstructive pulmonary disease, unspecified (5) DOMINIQUE (obstructive sleep apnea): (6) S/P mitral valve repair: (7) Moderate mitral regurgitation: (8) Hypertension: Qualifiers: Hypertension type: essential hypertension Qualified Code(s): I10 - Essential (primary) hypertension (9) Abdominal aortic aneurysm (AAA): Plan Acute cholecystitis ? CT abdomen pelvis CT/CT kidney stone [id number] IMPRESSION: 1. Acute cholecystitis. The findings present here are definitive. There is marked gallbladder wall thickening, luminal distention, pericholecystic edema, and a calcified stone in the cystic duct origin. - gallbladder ultrasound US/US gall bladder [id number] IMPRESSION: Acute cholecystitis. -Status post cholecystectomy -plan: -General surgery primary, ? Aspirin and Plavix currently on hold, resume tomorrow as per discussion with surgery ? IV fluids, will discontinue tonight due to risk of fluid overload ? Continue Zosyn, ? Full code, ? SCDs for DVT prophylaxis Lovenox will possibly resume tonight after discussion with surgery CAD, status post stenting, no complaints of chest pain Mitral valve, ring surgery History of seropositive rheumatoid arthritis, Hypertension Systolic CHF, not in exacerbation, monitor Abdominal aortic aneurysm, 3.6 cm, needs to be followed up with vascular surgery as outpatient CKD, history of polycystic kidney disease Obstructive sleep apnea, continue CPAP Attestations 2 Medical Necessity Statement*: Patient requires hospitalization for acute cholecystitis, status post surgical intervention, MONROE drain in place requiring IV antibiotics, WAGNER, requiring inpatient monitoring Diagnoses Acute cholecystitis K81.0 Stage 3 chronic kidney disease, unspecified whether stage 3a or 3b CKD N18.30 Chronic kidney disease stage 3 subtype: unspecified whether 3a or 3b PCK (polycystic kidney disease) Q61.3 Chronic obstructive pulmonary disease, unspecified COPD type J44.9 COPD type: unspecified COPD DOMINIQUE (obstructive sleep apnea) G47.33 S/P mitral valve repair Z98.890 Moderate mitral regurgitation I34.0 Essential hypertension I10 Hypertension type: essential hypertension Abdominal aortic aneurysm (AAA) I71.40
--- NOTE | 2023-03-02 19:23 | XRR_ITS ---
PROCEDURE INFORMATION: Exam: XR Chest Exam date and time: 03/02/2023 7:46 PM Age: 57 years old Clinical indication: Other: Hypoxia TECHNIQUE: Imaging protocol: Radiologic exam of the chest. Views: 1 view. COMPARISON: CR (CHEST, ) 03/01/2023 9:57 AM FINDINGS: Lungs: Mild patchy infiltrate with atelectasis in the lower right lung demonstrates mild increase from prior exam 03/01/2023. Findings suggest pneumonia lower right lung. No consolidation. Pleural spaces: No pleural effusion or pneumothorax. Heart/Mediastinum: Upper limits of normal cardiac size. Previous cardiac valve replacement. Bones/joints: Visualized osseous structures show no acute abnormality. XR/XR chest 1V portable [id number] IMPRESSION: Developing patchy infiltrate or pneumonia with atelectasis in the lower right lung when correlated with yesterday's exam, for follow-up with treatment. No consolidation or effusion.
[2023-03-02] MEDS: enoxaparin 40 mg/0.4 mL Syringe SUBCUT (20:48)
[2023-03-02] MEDS: atorvastatin 40 mg Tablet PO (20:48)
[2023-03-02] MEDS: ipratropium-albuterol 3 mL Neb INHALATION (23:01)
[2023-03-02] MEDS: FUROsemide 10 mg/mL SDV 4mL 40 MG IVP (23:15)
[2023-03-03] VITALS (15 sets, daily range): BP systolic 121–140; BP diastolic 69–90; PULSE 70–95; RESP 17–30; TEMP 36.4–37.1; O2SAT 90–98; BMI 41.0
[2023-03-03] MEDS: HYDROcodone-acetaminophen 7.5-325 mg Tablet 1 TAB PO ×2 (00:48→16:56)
[2023-03-03 03:46] LABS: Basophils % 0.1 %; Hematocrit 40.6 % (37-53); Lymphocytes # 0.8 10^3/uL (0.8-4.8); Lymphocytes % 7.2 %; Mean Corpuscular Hemoglobin 27.5 pg (27-33); Mean Corpuscular Volume 83.4 fl (82-101); Monocytes # 0.7 10^3/uL (0.2-0.9); Monocytes % 6.3 %; Neutrophils # 9.86 10^3/uL (1.8-7.7); Neutrophils % 85.9 %; Nucleated Red Blood Cells % 0 %; Platelet Count 156 10^3/cmm (157-399); Red Blood Count 4.87 10^6/uL (3.85-5.65); Red Cell Distribution Width 13.4 % (12.1-15.1); White Blood Count 11.48 10^3/uL (3.29-11.43)
[2023-03-03 04:17] LABS: Alanine Aminotransferase 16 U/L (0-41); Albumin Level 3.4 g/dL (3.5-5.2); Alkaline Phosphatase 71 U/L (40-130); Anion Gap 17.9 (5-19); Aspartate Amino Transferase 22 U/L (0-40); Blood Urea Nitrogen 35 mg/dL (6-20); Calcium 8.6 mg/dL (8.5-10.5); Carbon Dioxide 26 mmol/L (22-29); Chloride 100 mmol/L (98-107); Globulin 3.7 g/dL (1.3-4.6); Glomerular Filtration Rate 26.8 mL/min (90-130); Glucose 122 mg/dL (65-115); Osmolality Calculated 299 mOsm/kg (285-295); Potassium 3.9 mmol/L (3.5-5.1); Sodium 140 mmol/L (136-145); Total Bilirubin 0.6 mg/dL (0.15-1.2); Total Protein 7.1 g/dL (6.6-8.7)
[2023-03-03] MEDS: piperacillin-tazobactam 3.375 GM in sodium chloride 0.9% (plus) 50 ML IV ×3 (06:06→21:40)
[2023-03-03] MEDS: ipratropium-albuterol 3 mL Neb INHALATION ×4 (07:47→21:22)
[2023-03-03] MEDS: aspirin 81 mg EC Tablet PO (08:36)
[2023-03-03] MEDS: clopidogrel 75 mg Tablet PO (08:36)
--- NOTE | 2023-03-03 13:26 | PC.RESP ---
therapist charted in wrong chart
--- NOTE | 2023-03-03 15:36 | P.PN_ITS ---
Subjective 2 Subjective: Patient seen and examined. Pain controlled, he is only pulling at 1000 cc on incentive spirometer Vitals/I&O/Wt Last Vital Signs Temp 97.8 F 03/03/23 12:32 Pulse 95 03/03/23 13:21 Resp 20 H 03/03/23 13:15 BP 140/86 03/03/23 12:32 Pulse Ox 94 03/03/23 13:15 O2 Del Method Nasal Cannula 03/03/23 13:15 O2 Flow Rate 3 03/03/23 13:15 03/03/23 03/03/23 03/03/23 06:59 14:59 22:59 Intake Total 50 / 1650 650 / 650 Output Total 800 / 1760 320 / 320 Balance -750 / -110 330 / 330 Weight last 48 hrs Weight 269 lb 12.8 oz Weight 269 lb 1 oz Weight 268 lb 2 oz Physical Exam 2 Narrative: General: No acute distress, awake alert and oriented x 3 Abdomen: Soft, mildly distended, appropriately tender to palpation, no guarding or rebound Drain: Sanguinous 80 cc in last 24 hours Data 03/03/23 03:33 03/03/23 03:33 A&P Assessment and plan (1) Acute calculous cholecystitis: Plan Postoperative day #1 status post laparoscopic cholecystectomy Will keep 1 more day to monitor drain output and give antibiotics Pain control Regular diet Attestations 2 Medical Necessity Statement*: Patient requires at least 1 more night in the hospital for recovery after laparoscopic cholecystectomy for acute calculus cholecystitis. He had high drain output Coding Level of Care Code Acute Code for [facility] Diagnoses Acute calculous cholecystitis K80.00
[2023-03-03 16:01] LABS: Adenovirus Not Detected (NOT DETECT); Chlamydia Pneumoniae Not Detected (NOT DETECT); Coronavirus 229E,HKU1,NL63,OC4 Not Detected (NOT DETECT); Human Metapneumovirus Not Detected (NOT DETECT); Human Rhinovirus/Enterovirus Not Detected (NOT DETECT); Influenza A Not Detected (NOT DETECT); Influenza A H1 Not Detected (NOT DETECT); Influenza A H1-2009 Not Detected (NOT DETECT); Influenza A H3 Not Detected (NOT DETECT); Influenza B Not Detected (NOT DETECT); Mycoplasma Pneumoniae Not Detected (NOT DETECT); Parainfluenza Virus Type 1 Not Detected (NOT DETECT); Parainfluenza Virus Type 2 Not Detected (NOT DETECT); Parainfluenza Virus Type 3 Not Detected (NOT DETECT); Parainfluenza Virus Type 4 Not Detected (NOT DETECT); Respiratory Syncytial Virus A Not Detected (NOT DETECT); Respiratory Syncytial Virus B Not Detected (NOT DETECT); SARS-COV-2 Not Detected (NOT DETECT)
[2023-03-03] MEDS: pantoprazole 40 mg SDV IVP (18:28)
[2023-03-03] MEDS: enoxaparin 40 mg/0.4 mL Syringe SUBCUT (19:10)
--- NOTE | 2023-03-03 19:15 | P.PN_ITS ---
Subjective 2 Subjective: Gets dyspneic. Vitals/I&O/Wt Last Vital Signs Temp 97.8 F 03/03/23 16:48 Pulse 76 03/03/23 16:48 Resp 19 H 03/03/23 16:48 BP 134/79 03/03/23 16:48 Pulse Ox 90 03/03/23 16:48 O2 Del Method Nasal Cannula 03/03/23 16:48 O2 Flow Rate 3 03/03/23 15:55 03/03/23 03/03/23 03/03/23 06:59 14:59 22:59 Intake Total 50 / 1650 650 / 650 290 / 940 Output Total 800 / 1760 320 / 320 20 / 340 Balance -750 / -110 330 / 330 270 / 600 Weight last 48 hrs Weight 122.379 kg Weight 122.045 kg Physical Exam 2 Const: COMMON NORMALS: patient oriented x3 and alert GENERAL APPEARANCE: c ooperative ORIENTATION/CONSCIOUSNESS: Yes awake HENMT: COMMON NORMALS: oropharynx normal Neck/C-Spine: COMMON NORMALS: no JVD Resp: COMMON NORMALS: normal respiratory effort AUSCULTATION: wheezes Cardio: COMMON NORMALS: no JVD, regular rhythm, S1 normal heart sound present, S2 normal heart sound present and No murmurs present (Cardio) RHYTHM: regular rhythm HEART SOUNDS: S1 normal heart sound present and S2 normal heart sound present GI: COMMON NORMALS: Normal to inspection, nondistended, normoactive bowel sounds present, Soft to palpation and non-tender PALPATION: Yes Soft to palpation OTHER: Post-op dressing. Extremity: COMMON NORMALS: no joint enlargement and no pedal edema Neuro: COMMON NORMALS: patient oriented x3 and moves all extremities S ENSORIUM/ORIENTATION: Yes alert Skin: COMMON NORMALS: no rashes or lesions noted GENERAL SKIN EXAM: no rashes or lesions noted Data 03/03/23 03:33 03/03/23 03:33 A&P Assessment and plan (1) Acute cholecystitis: (2) Chronic kidney disease, stage 3: Qualifiers: Chronic kidney disease stage 3 subtype: unspecified whether 3a or 3b Qualified Code(s): N18.30 - Chronic kidney disease, stage 3 unspecified (3) PCK (polycystic kidney disease): (4) COPD (chronic obstructive pulmonary disease): Qualifiers: COPD type: unspecified COPD Qualified Code(s): J44.9 - Chronic obstructive pulmonary disease, unspecified (5) DOMINIQUE (obstructive sleep apnea): (6) S/P mitral valve repair: (7) Moderate mitral regurgitation: (8) Hypertension: Qualifiers: Hypertension type: essential hypertension Qualified Code(s): I10 - Essential (primary) hypertension (9) Abdominal aortic aneurysm (AAA): Plan Hypoxia: Acute hypoxic respiratory failure, tachypnea up into 20s. No requirement for 3 L of nasal cannula oxygen. Suspicion for pneumonia RLL. Possible hospital-acquired. Reviewed CXR. Discussed w him. ALready on Zosyn, continue. Add Linezolid. Watch for risk of agranulocytosis. Requested COVID PCR panel, reviewed, noted negative. Obtain urine Legionella antigens, urine bacterial antigens. Discussed with caseworker intake. Acute cholecystitis. Reviewed surgery note. To be reassessed and monitoring drain output. ? CT abdomen pelvis CT/CT kidney stone [id number] IMPRESSION: 1. Acute cholecystitis. The findings present here are definitive. There is marked gallbladder wall thickening, luminal distention, pericholecystic edema, and a calcified stone in the cystic duct origin. - gallbladder ultrasound US/US gall bladder [id number] IMPRESSION: Acute cholecystitis. -Status post cholecystectomy CAD, status post stenting, no complaints of chest pain Mitral valve, ring surgery History of seropositive rheumatoid arthritis, Hypertension Systolic CHF, not in exacerbation, monitor Abdominal aortic aneurysm, 3.6 cm, needs to be followed up with vascular surgery as outpatient CKD, history of polycystic kidney disease Obstructive sleep apnea, continue CPAP Attestations 2 Medical Necessity Statement*: Continue admission for assessment of management of acute hypoxic respiratory failure, pneumonia. Possible hospital-acquired. and High MDM includes number and complexity of problems actively addressed during encounter, amount and/or complexity of data reviewed/ordered [ resulted lab(s)/test(s), ordered lab(s)/test(s) and other healthcare professional discussion] and described risk of complication, morbidity or mortality of management as documented Diagnoses Acute cholecystitis K81.0 Stage 3 chronic kidney disease, unspecified whether stage 3a or 3b CKD N18.30 Chronic kidney disease stage 3 subtype: unspecified whether 3a or 3b PCK (polycystic kidney disease) Q61.3 Chronic obstructive pulmonary disease, unspecified COPD type J44.9 COPD type: unspecified COPD DOMINIQUE (obstructive sleep apnea) G47.33 S/P mitral valve repair Z98.890 Moderate mitral regurgitation I34.0 Essential hypertension I10 Hypertension type: essential hypertension Abdominal aortic aneurysm (AAA) I71.40
[2023-03-03] MEDS: atorvastatin 40 mg Tablet PO (20:09)
[2023-03-03] MEDS: linezolid premix 600 MG/300 ML PREMIX 300 MG IV (20:09)
[2023-03-03] MEDS: budesonide 0.5 mg/2 mL Neb INHALATION (21:22)
[2023-03-04] VITALS (9 sets, daily range): BP systolic 130–143; BP diastolic 77–88; PULSE 70–88; RESP 16–20; TEMP 36.4–37; O2SAT 90–96
[2023-03-04] MEDS: ipratropium-albuterol 3 mL Neb INHALATION ×3 (00:58→07:19)
[2023-03-04] MEDS: piperacillin-tazobactam 3.375 GM in sodium chloride 0.9% (plus) 50 ML IV (05:13)
[2023-03-04 05:57] LABS: Basophils % 0.2 %; Eosinophils # 0.1 10^3/uL (0.0-0.8); Eosinophils % 0.7 %; Hematocrit 40.2 % (37-53); Lymphocytes # 1.4 10^3/uL (0.8-4.8); Lymphocytes % 16.5 %; Mean Corpuscular HGB Conc 32.6 g/dL (30-55); Mean Corpuscular Hemoglobin 27.1 pg (27-33); Mean Corpuscular Volume 83.1 fl (82-101); Mean Platelet Volume 9.6 fL (7.4-10.4); Monocytes # 0.6 10^3/uL (0.2-0.9); Monocytes % 6.8 %; Neutrophils # 6.19 10^3/uL (1.8-7.7); Neutrophils % 75.4 %; Nucleated Red Blood Cells % 0 %; Platelet Count 202 10^3/cmm (157-399); Red Blood Count 4.84 10^6/uL (3.85-5.65); Red Cell Distribution Width 13.6 % (12.1-15.1); White Blood Count 8.22 10^3/uL (3.29-11.43)
[2023-03-04 06:18] LABS: Alanine Aminotransferase 18 U/L (0-41); Albumin Level 3.3 g/dL (3.5-5.2); Alkaline Phosphatase 63 U/L (40-130); Anion Gap 14.4 (5-19); Aspartate Amino Transferase 22 U/L (0-40); Blood Urea Nitrogen 33 mg/dL (6-20); Calcium 8.4 mg/dL (8.5-10.5); Carbon Dioxide 28 mmol/L (22-29); Chloride 102 mmol/L (98-107); Globulin 3.7 g/dL (1.3-4.6); Glomerular Filtration Rate 32.8 mL/min (90-130); Glucose 119 mg/dL (65-115); Magnesium 2.3 mg/dL (1.7-2.3); Osmolality Calculated 300 mOsm/kg (285-295); Phosphorus 2.7 mg/dL (2.5-4.5); Potassium 3.4 mmol/L (3.5-5.1); Sodium 141 mmol/L (136-145); Total Bilirubin 0.6 mg/dL (0.15-1.2)
[2023-03-04] MEDS: budesonide 0.5 mg/2 mL Neb INHALATION (07:19)
[2023-03-04] MEDS: clopidogrel 75 mg Tablet PO (08:27)
[2023-03-04] MEDS: potassium chloride ER 20 mEq Tablet 40 MEQ PO (08:27)
[2023-03-04] MEDS: aspirin 81 mg EC Tablet PO (08:27)
[2023-03-04] MEDS: linezolid premix 600 MG/300 ML PREMIX 300 MG IV (08:28)
--- NOTE | 2023-03-04 09:26 | PC.CHAP ---
Pastoral Care Encounter/Spiritual Assessment Type of Contact [] Declined violin tutor visit [] Patient/Family/Request visit [] Outpatient visit [] Follow-up visit [] Physician referral [] Code/Alert [x] Routine visit [] Staff referral [] Actively dying [] Patient sleeping [] Family support [] [] Out of room [] Palliative care [] [] Receiving care in room [] Pre-surgical visit [] Trauma [] Long length of stay [] ICU visit [] Other: Relational/Emotional Strength [x] Patient feels connected with others/family/visitors/staff [] Distress [] Loneliness/isolation [] Abandonment Spirituality of Patient [x] Person of [place] [] Attends Pentecostalism of their [place] [x] Believes in Prayer [] Reads Bible or Adventist materials [] There are Spiritual issues to be addressed Business Planning Director Interventions [x] Prayer [x] Active listening [] Non-anxious presence [x] Spiritual/emotional support [] Crisis/trauma care [] Spiritual counseling [] Bereavement support [] Provided bereavement packet [] Provided Bible/devotional materials [] Provided toy/stuffed animal, coloring book to patient or family member [] Provided Communion [] Anointing/[place] [] Salvation [x] Completed spiritual assessment [] Other: Impact on Illness or Injury [] Angry [] Fearful [] Anxious [] Often cries [] Exhaustion [] Unable to work [] Unable to attend judaism [] Unable to walk/stand [] Unable to read [] Unable to drive [] Unable to eat/drink [] Unable to sleep [] Unable to be with family [] Patient intubated [] Other: Summary Time spent with patient 5 min
--- NOTE | 2023-03-04 09:50 | P.DS_ITS ---
Discharge Providers Date of Admission: 03/01/23 13:02 Date of Discharge: March 04, 2023 Attending Provider at Admission: Jose Daniel Garcia DO Attending Provider at Discharge: Jose Daniel Garcia DO Primary Care Provider: TONA Reveles Diagnoses at Discharge Discharge Diagnosis (1) Acute cholecystitis: Status: Acute (2) Chronic kidney disease, stage 3: Status: Acute Qualifiers: Chronic kidney disease stage 3 subtype: unspecified whether 3a or 3b Qualified Code(s): N18.30 - Chronic kidney disease, stage 3 unspecified (3) PCK (polycystic kidney disease): Status: Acute (4) COPD (chronic obstructive pulmonary disease): Status: Chronic Qualifiers: COPD type: unspecified COPD Qualified Code(s): J44.9 - Chronic obstructive pulmonary disease, unspecified (5) DOMINIQUE (obstructive sleep apnea): Status: Acute (6) S/P mitral valve repair: Status: Acute Permanent problem details: Via right thoracotomy approach done at [facility] (7) Moderate mitral regurgitation: Status: Acute (8) Hypertension: Status: Chronic Qualifiers: Hypertension type: essential hypertension Qualified Code(s): I10 - Essential (primary) hypertension (9) Abdominal aortic aneurysm (AAA): Status: Acute Reason for Visit Reason for Visit: ABD PAIN Hospital Course Hospital Course This very pleasant 57-year-old gentleman who came in the hospital and was diagnosed with acute calculus cholecystitis. He underwent laparoscopic cholecystectomy. A drain was placed. On postoperative day #1 the drain had relatively high output. He stayed 1 more day for IV antibiotics and the drain was removed prior to discharge in good condition Physical Exam Narrative: General : Patient is well developed , no acute distress, oriented x3 Head : Normal cephalic, a-traumatic. Ears : Pinnae and external canal are normal. Hearing is normal. Eyes : PERRLA, Sclera and injection are normal. No conjunctival discharge. Nose : Mucous membranes are without erythema. Throat : buccal mucosa is normal, gums are without significant recession or hypertrophy. Lungs : Equal chest rise bilaterally, no use of accessory muscles, trachea is midline. Cor : Rate and rhythm are normal. Abdomen : Soft, ND, appropriately tender, no g/r/m Drain: Serosanguineous Extremities : No edema, no cyanosis or clubbing, dorsalis pedis pulses are present bilaterally, non-tender to palpation of calves. Upper extremities are normal bilaterally. Back : non-tender to palpation, no CVA tenderness. Neuro : CN II - XII intact, Upper and lower extremities have equal and full strength Discharge Data Studies Completed and Pending Completed Studies During Hospitalization Category Date Time Status CT kidney stone [id number] Stat Cat Scan 03/01/23 10:57 Completed XR chest 1V portable [id number] Routine Exams 03/02/23 19:23 Completed XR chest 1V portable [id number] Stat Exams 03/01/23 09:22 Completed US gall bladder [id number] Stat Ultrasound 03/01/23 12:16 Completed Pending at discharge Category Date Time Status Blood Culture Stat Lab 03/04/23 08:19 Ordered Blood Cultures ([facility]) Routine Lab 03/04/23 09:05 Received Blood Cultures ([facility]) Routine Lab 03/04/23 09:11 Received CBC Auto Diff [Complete Blood Count w/Auto] AM LABS Lab 03/05/23 04:00 Ordered CMP [Comprehensive Metabolic Panel] AM LABS Lab 03/05/23 04:00 Ordered Magnesium AM LABS Lab 03/05/23 04:00 Ordered Sputum Culture and Gram Stain Routine Lab 03/03/23 19:22 Uncollected Pathology: Surgical [PTH] Routine Pth 03/02/23 10:29 Received Radiology Impressions Abdomen/Pelvis CT 03/01/23 10:57 IMPRESSION: 1. Acute cholecystitis. The findings present here are definitive. There is marked gallbladder wall thickening, luminal distention, pericholecystic edema, and a calcified stone in the cystic duct origin. 2. Bilateral polycystic kidneys and bilateral nonobstructive nephrolithiasis. No sign of ureteral obstruction. 3. Mild splenic enlargement. 4. 3.6 cm infrarenal abdominal aortic aneurysm, increased from 3.3 cm on 07/23/2021. Follow-up imaging in 2 years is recommended. 5. Stable bilateral pulmonary nodules. No further follow-up is recommended. (Reference: Jayleen) 6. Incidental findings above. REFERENCES: Jayleen H, et al. Guidelines for Management of Incidental Pulmonary Nodules Detected on CT Images: From the Fleischner Society 2017. Radiology. 2017;284(1):228-243. Gallbladder Ultrasound 03/01/23 12:16 IMPRESSION: Acute cholecystitis. Chest X-Ray 03/02/23 19:23 IMPRESSION: Developing patchy infiltrate or pneumonia with atelectasis in the lower right lung when correlated with yesterday's exam, for follow-up with treatment. No consolidation or effusion. Laboratory Results WBC 8.22 10^3/uL (3.29-11.43) 03/04/23 05:35 RBC 4.84 10^6/uL (3.85-5.65) 03/04/23 05:35 Hgb 13.10 g/dL (11.27-16.99) 03/04/23 05:35 Hct 40.2 % (37-53) 03/04/23 05:35 MCV 83.1 fl (82-101) 03/04/23 05:35 MCH 27.1 pg (27-33) 03/04/23 05:35 MCHC 32.6 g/dL (30-55) 03/04/23 05:35 RDW 13.6 % (12.1-15.1) 03/04/23 05:35 Plt Count 202 10^3/cmm (157-399) 03/04/23 05:35 MPV 9.6 fL (7.4-10.4) 03/04/23 05:35 Neut % (Auto) 75.4 % 03/04/23 05:35 Lymph % (Auto) 16.5 % 03/04/23 05:35 [place] % (Auto) 6.8 % 03/04/23 05:35 Eos % (Auto) 0.7 % 03/04/23 05:35 Baso % (Auto) 0.2 % 03/04/23 05:35 Neut # (Auto) 6.19 10^3/uL (1.8-7.7) 03/04/23 05:35 Lymph # (Auto) 1.4 10^3/uL (0.8-4.8) 03/04/23 05:35 [place] # (Auto) 0.6 10^3/uL (0.2-0.9) 03/04/23 05:35 Eos # (Auto) 0.1 10^3/uL (0.0-0.8) 03/04/23 05:35 Baso # (Auto) 0.0 10^3/uL (0.0-0.1) 03/04/23 05:35 Nucleated RBC % (auto) 0 % 03/04/23 05:35 Nucleated RBCs # 0.0 /100WBC 03/04/23 05:35 PT 14.30 SECONDS (12.1-14.9) 03/01/23 09:48 INR 1.08 (0.8-1.2) 03/01/23 09:48 Sodium 141 mmol/L (136-145) 03/04/23 05:35 Potassium 3.4 mmol/L (3.5-5.1) L 03/04/23 05:35 Chloride 102 mmol/L (98-107) 03/04/23 05:35 Carbon Dioxide 28 mmol/L (22-29) 03/04/23 05:35 Anion Gap 14.4 (5-19) 03/04/23 05:35 BUN 33 mg/dL (6-20) H 03/04/23 05:35 Creatinine 2.1 mg/dL (0.7-1.2) H 03/04/23 05:35 GFR Calculation 32.8 mL/min (90-130) L 03/04/23 05:35 Glucose 119 mg/dL (65-115) H 03/04/23 05:35 Estimat Average Glucose 114 03/01/23 09:48 Hemoglobin A1c 5.6 % (4.0-6.0) 03/01/23 09:48 Calculated Osmolality 300 mOsm/kg (285-295) H 03/04/23 05:35 Lactic Acid 1.2 mmol/L (0.5-2.2) 03/01/23 15:44 Calcium 8.4 mg/dL (8.5-10.5) L 03/04/23 05:35 Phosphorus 2.7 mg/dL (2.5-4.5) 03/04/23 05:35 Magnesium 2.3 mg/dL (1.7-2.3) 03/04/23 05:35 Total Bilirubin 0.6 mg/dL (0.15-1.2) 03/04/23 05:35 AST 22 U/L (0-40) 03/04/23 05:35 ALT 18 U/L (0-41) 03/04/23 05:35 Alkaline Phosphatase 63 U/L (40-130) 03/04/23 05:35 C-Reactive Protein 218.1 mg/L (0.0-4.9) H 03/01/23 09:48 NT-Pro-B Natriuret Pep 1184 pg/mL (0-125) H 03/01/23 09:48 Total Protein 7.0 g/dL (6.6-8.7) 03/04/23 05:35 Albumin 3.3 g/dL (3.5-5.2) L 03/04/23 05:35 Globulin 3.7 g/dL (1.3-4.6) 03/04/23 05:35 Lipase 26 U/L (13-60) 03/01/23 09:48 Procalcitonin 0.64 ng/mL (0-0.5) H 03/01/23 09:48 TSH 2.85 uIU/mL (0.27-4.20) 03/01/23 09:48 Urine Color Yellow (Yellow) 03/01/23 10:12 Urine Appearance Clear (CLEAR) 03/01/23 10:12 Urine pH 5 (5-7) 03/01/23 10:12 Ur Specific Atkins 1.010 (1.005-1.030) 03/01/23 10:12 Urine Protein 2+ (Negative) H 03/01/23 10:12 Urine Glucose (UA) Norm (Normal) 03/01/23 10:12 Urine Ketones 1+ (Negative) H 03/01/23 10:12 Urine Blood 3+ (Negative) H 03/01/23 10:12 Urine Nitrate Negative (Negative) 03/01/23 10:12 Urine Bilirubin Neg (Negative) 03/01/23 10:12 Urine Urobilinogen Norm mg/dL (Negative) 03/01/23 10:12 Ur Leukocyte Esterase Negative (Negative) 03/01/23 10:12 Urine RBC None /hpf (0-2) 03/01/23 10:12 Urine WBC Rare /hpf (0-5) 03/01/23 10:12 Ur Squamous Epith Cells Rare /hpf (0-5) 03/01/23 10:12 Amorphous Sediment 2+ /hpf 03/01/23 10:12 Urine Bacteria Trace /hpf (NONE) 03/01/23 10:12 Coronavirus 229E (PCR) Not detected (NOT DETECT) 03/03/23 13:54 SARS-CoV-2 (PCR) Not detected (NOT DETECT) 03/03/23 13:54 Blood Type A Positive 03/02/23 08:56 Rho(D) Type Rh positive 03/02/23 08:56 Antibody Screen Negative 03/02/23 08:56 Procedures Performed Laparoscopic cholecystectomy Vitals Last Vital Signs Temp 97.6 F 03/04/23 08:11 Pulse 82 03/04/23 08:11 Resp 20 H 03/04/23 08:11 BP 130/77 03/04/23 08:11 Pulse Ox 96 03/04/23 08:11 O2 Del Method Nasal Cannula 03/04/23 08:11 O2 Flow Rate 3 03/04/23 08:00 Discharge Plan Discharge Patient Disposition: Home Condition: Stable Prescriptions: New hydrocodone-acetaminophen 10-325 mg tablet 1 tab PO Q6H PRN (Reason: pain) Qty: 20 0RF DOK 100 mg capsule 100 mg PO BID Qty: 14 0RF amoxicillin-pot clavulanate 875-125 mg tablet 1 tab PO BID Qty: 20 0RF Continued albuterol sulfate 2.5 mg /3 mL (0.083 %) solution for nebulization 2.5 mg INHALATION Q4H PRN (Reason: shortness of breath or wheezing) 30 Days Qty: 180 5RF montelukast [Singulair] 10 mg tablet 10 mg PO DAILY Qty: 60 4RF clotrimazole-betamethasone 1-0.05 % cream 1 applic topical BID 14 Days Qty: 45 0RF Rx Instructions: large area back of neck aspirin 81 mg tablet,delayed release (DR/EC) 81 mg PO DAILY 30 Days Qty: 30 5RF Hold Instructions: Resume on 05/13/20. Enbrel Mini 50 mg/mL (1 mL) cartridge 50 mg SUBCUT Q7D Qty: 4 3RF pantoprazole 40 mg tablet,delayed release (DR/EC) 40 mg PO DAILY 30 Days Qty: 30 5RF atorvastatin 40 mg tablet 40 mg PO BEDTIME Qty: 30 5RF amlodipine 10 mg tablet 10 mg PO DAILY Qty: 30 5RF albuterol sulfate [ProAir HFA] 90 mcg/actuation HFA aerosol inhaler 2 puff INHALATION QID PRN (Reason: shortness of breath or wheezing) 30 Days Qty: 6.7 5RF Breztri Aerosphere 160-9-4.8 mcg/actuation HFA aerosol inhaler 2 inh inhalation BID Qty: 10.7 3RF furosemide [Lasix] 40 mg tablet 40 mg PO BID Qty: 60 5RF potassium chloride [Klor-Con M10] 10 mEq tablet,ER particles/crystals 10 meq PO BID Qty: 60 5RF Held clopidogrel 75 mg tablet 75 mg PO DAILY 30 Days Qty: 30 5RF Hold Instructions: Resume on 03/05/23. Discharge Orders: Discharge Order (Routine); Ordered 03/04/23 Ordered By: Jose Daniel Garcia Referrals: Therese Padilla FNP-C [Primary Care Provider] - 4-7 days Jose Daniel Garcia DO [Physician] - 2 weeks Discharge Diet: Advance as tolerated Discharge Activity: Resume usual activity Patient Instructions: Opioid Safety, Post Anesthesia Care Activity Restrictions/Additional Instructions: Do not soak incisions underwater for 2 weeks. Shower daily. Leave bandage on over drain removal site for 2 days and then remove. Discharge Attestations 2 Time Spent in Discharge Care*: less than 30 min Quality Metrics Clinical Quality Measures [ No reported AMI, CVA or VTE this stay] Coding Level of Care Code Acute Code for [facility] Diagnoses Acute cholecystitis K81.0 Stage 3 chronic kidney disease, unspecified whether stage 3a or 3b CKD N18.30 Chronic kidney disease stage 3 subtype: unspecified whether 3a or 3b PCK (polycystic kidney disease) Q61.3 Chronic obstructive pulmonary disease, unspecified COPD type J44.9 COPD type: unspecified COPD DOMINIQUE (obstructive sleep apnea) G47.33 S/P mitral valve repair Z98.890 Moderate mitral regurgitation I34.0 Essential hypertension I10 Hypertension type: essential hypertension Abdominal aortic aneurysm (AAA) I71.40
--- NOTE | 2023-03-04 10:06 | PC.NURSE ---
Order put in to remove drain. Drain removed at 1000. Patient tolerated well.
--- NOTE | 2023-03-04 10:17 | P.PN_ITS ---
Subjective 2 Subjective: He reported doing well today. He has been tolerating oral intake. Breathing is improved, she was able to wean down to 1 L of oxygen. Reported he has oxygen supplies at home. He is insistent that she is returning home this morning. Vitals/I&O/Wt Last Vital Signs Temp 97.6 F 03/04/23 08:11 Pulse 82 03/04/23 08:11 Resp 20 H 03/04/23 08:11 BP 130/77 03/04/23 08:11 Pulse Ox 92 03/04/23 10:07 O2 Del Method Nasal Cannula 03/04/23 08:11 O2 Flow Rate 3 03/04/23 08:00 03/03/23 03/04/23 03/04/23 22:59 06:59 14:59 Intake Total 830 / 1480 50 / 1530 710 / 710 Output Total 20 / 340 0 / 340 Balance 810 / 1140 50 / 1190 710 / 710 Weight last 48 hrs Weight 122.379 kg Weight 122.379 kg Physical Exam 2 Narrative: Sitting up at edge of bed. States that he is leaving the hospital. Const: COMMON NORMALS: patient oriented x3 and alert GENERAL APPEARANCE: c ooperative ORIENTATION/CONSCIOUSNESS: Yes awake HENMT: COMMON NORMALS: oropharynx normal Neck/C-Spine: COMMON NORMALS: no JVD Resp: COMMON NORMALS: normal respiratory effort and clear to auscultation bilaterally AUSCULTATION: clear to auscultation bilaterally Cardio: COMMON NORMALS: no JVD, regular rhythm, S1 normal heart sound present, S2 normal heart sound present and No murmurs present (Cardio) RHYTHM: regular rhythm HEART SOUNDS: S1 normal heart sound present and S2 normal heart sound present GI: COMMON NORMALS: Normal to inspection, nondistended, normoactive bowel sounds present, Soft to palpation and non-tender PALPATION: Yes Soft to palpation OTHER: MONROE drain has been removed. Extremity: COMMON NORMALS: no joint enlargement and no pedal edema Neuro: COMMON NORMALS: patient oriented x3 and moves all extremities S ENSORIUM/ORIENTATION: Yes alert Skin: COMMON NORMALS: no rashes or lesions noted GENERAL SKIN EXAM: no rashes or lesions noted Data 03/04/23 05:35 03/04/23 05:35 Micro: Microbiology 03/04/23 05:15 Legionella Urinary Antigen - Final Urine,Voided Bacterial Antigens - Final A&P Assessment and plan (1) Acute cholecystitis: (2) Chronic kidney disease, stage 3: Qualifiers: Chronic kidney disease stage 3 subtype: unspecified whether 3a or 3b Qualified Code(s): N18.30 - Chronic kidney disease, stage 3 unspecified (3) PCK (polycystic kidney disease): (4) COPD (chronic obstructive pulmonary disease): Qualifiers: COPD type: unspecified COPD Qualified Code(s): J44.9 - Chronic obstructive pulmonary disease, unspecified (5) DOMINIQUE (obstructive sleep apnea): (6) S/P mitral valve repair: (7) Moderate mitral regurgitation: (8) Hypertension: Qualifiers: Hypertension type: essential hypertension Qualified Code(s): I10 - Essential (primary) hypertension (9) Abdominal aortic aneurysm (AAA): Plan Hypoxia: With improvement. He has been able to wean down to 1 L nasal cannula. He reports breathing is much better. He states that he has oxygen supplies at home. Agree with Augmentin course to completion for consideration of possible pneumonia, possible aspiration pneumonia.He knows to follow-up for reassessment of continued improvement or return to the hospital in case of any worsening or new concerning symptoms. Reviewed vitals, CBC, CMP. Reviewed urine Legionella antigens, reviewed urine bacterial antigens. Unremarkable. Blood culture has been requested. Pending. Reviewed surgery note. 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 Acute cholecystitis. Reviewed surgery note. To be reassessed and monitoring drain output. ? CT abdomen pelvis CT/CT kidney stone 14178 IMPRESSION: 1. Acute cholecystitis. The findings present here are definitive. There is marked gallbladder wall thickening, luminal distention, pericholecystic edema, and a calcified stone in the cystic duct origin. - gallbladder ultrasound US/US gall bladder 43641 IMPRESSION: Acute cholecystitis. -Status post cholecystectomy CAD, status post stenting, no complaints of chest pain Mitral valve, ring surgery History of seropositive rheumatoid arthritis, Hypertension Systolic CHF, not in exacerbation, monitor Abdominal aortic aneurysm, 3.6 cm, needs to be followed up with vascular surgery as outpatient CKD, history of polycystic kidney disease Obstructive sleep apnea, continue CPAP Attestations 2 Medical Necessity Statement*: Returning home. and High MDM includes amount and/or complexity of data reviewed/ordered [ previous or external records, resulted lab(s)/test(s), ordered lab(s)/test(s) and other healthcare professional discussion] as documented Diagnoses Acute cholecystitis K81.0 Stage 3 chronic kidney disease, unspecified whether stage 3a or 3b CKD N18.30 Chronic kidney disease stage 3 subtype: unspecified whether 3a or 3b PCK (polycystic kidney disease) Q61.3 Chronic obstructive pulmonary disease, unspecified COPD type J44.9 COPD type: unspecified COPD DOMINIQUE (obstructive sleep apnea) G47.33 S/P mitral valve repair Z98.890 Moderate mitral regurgitation I34.0 Essential hypertension I10 Hypertension type: essential hypertension Abdominal aortic aneurysm (AAA) I71.40
== END 2023-03-04 10:37 | disposition home or self-care (01) ==
LOC: ER 09:38 → MEDSURG 13:48
PROVIDERS: Family Medicine; Internal Medicine; Admitting Provider Surgery; Emergency Provider Family Medicine; PCP Nurse Practitioner Family; Visit Provider Surgery
PROC: 0FT44ZZ Resection of Gallbladder, Percutaneous Endoscopic Approach (ICD-10-PCS; CPT 47562; principal; 2023-03-02 08:00)
DX: K80.18 Calculus of gallbladder with other cholecystitis without obstruction (principal); R09.02 Hypoxemia; I25.10 Atherosclerotic heart disease of native coronary artery without angina pectoris; Z95.5 Presence of coronary angioplasty implant and graft; M05.9 Rheumatoid arthritis with rheumatoid factor, unspecified; N18.30 Chronic kidney disease, stage 3 unspecified; I13.0 Hypertensive heart and chronic kidney disease with heart failure and stage 1 through stage 4 chronic kidney disease, or unspecified chronic kidney disease; I50.22 Chronic systolic (congestive) heart failure; I71.40 Abdominal aortic aneurysm, without rupture, unspecified; G47.33 Obstructive sleep apnea (adult) (pediatric); Q61.3 Polycystic kidney, unspecified; J44.9 Chronic obstructive pulmonary disease, unspecified; Z98.890 Other specified postprocedural states; I34.0 Nonrheumatic mitral (valve) insufficiency; Z87.891 Personal history of nicotine dependence; Z79.82 Long term (current) use of aspirin
CPT/HCPCS: 47562; 36415; 71045; 74176; 76705; 80053; 81001; 83036; 83605; 83690; 83735; 83880; 84100; 84145; 84443; 85025; 85610; 86140; 86403; 86850; 86900; 87040; 87449; 87635; 88304; 93005; 94640; 94660; 94664; 94760; 96365; 96366; 96372; 96375; 96376; 99285; C9113; G0378; J1100; J1170; J1650; J1940; J2020; J2250; J2270; J2405; J2543; J2704; J2710; J3010; J3490; J7030; J7626

== ENCOUNTER → 2023-03-07 10:13 | Outpatient (BNVA) | payer MEDICARE, MEDICAID, SELFPAY | PROVIDERS: PCP Nurse Practitioner Family; Visit Provider Nurse Practitioner Family | DX: K92.1 Melena (principal); I50.31 Acute diastolic (congestive) heart failure; I34.0 Nonrheumatic mitral (valve) insufficiency; I25.10 Atherosclerotic heart disease of native coronary artery without angina pectoris; I71.40 Abdominal aortic aneurysm, without rupture, unspecified; Z90.49 Acquired absence of other specified parts of digestive tract | CPT/HCPCS: 85025 ==

== ENCOUNTER 2023-07-09 15:08 | Outpatient (CLI) | payer MEDICARE, MEDICAID, SELFPAY ==
[2023-07-09 15:46] LABS: Basophils # 0.1 10^3/uL (0.0-0.1); Basophils % 0.5 %; Eosinophils # 0.3 10^3/uL (0.0-0.8); Eosinophils % 3.6 %; Hematocrit 45.9 % (37-53); Lymphocytes # 2.2 10^3/uL (0.8-4.8); Lymphocytes % 23.2 %; Mean Corpuscular HGB Conc 33.6 g/dL (30-55); Mean Corpuscular Hemoglobin 26.6 pg (27-33); Mean Corpuscular Volume 79.4 fl (82-101); Mean Platelet Volume 8.9 fL (7.4-10.4); Monocytes # 0.6 10^3/uL (0.2-0.9); Monocytes % 5.9 %; Neutrophils # 6.23 10^3/uL (1.8-7.7); Neutrophils % 66.6 %; Nucleated Red Blood Cells % 0 %; Platelet Count 283 10^3/cmm (157-399); Red Blood Count 5.78 10^6/uL (3.85-5.65); Red Cell Distribution Width 12.9 % (12.1-15.1); White Blood Count 9.36 10^3/uL (3.29-11.43)
[2023-07-09 15:53] LABS: Erythrocyte Sedimentation Rate 40 mm/hr (0-10)
[2023-07-09 16:10] LABS: Alanine Aminotransferase 19 U/L (0-41); Albumin Level 4.2 g/dL (3.5-5.2); Alkaline Phosphatase 116 U/L (40-130); Aspartate Amino Transferase 27 U/L (0-40); C Reactive Protein 9.4 mg/L (0.0-4.9); Globulin 4.1 g/dL (1.3-4.6); Glomerular Filtration Rate 36.9 mL/min (90-130); Total Bilirubin 0.3 mg/dL (0.15-1.2); Total Protein 8.3 g/dL (6.6-8.7)
[2023-07-09 16:24] LABS: Hepatitis B Core AB, Total Non-Reactive (Nonreactive); Hepatitis B Surface Antigen Non-Reactive (Nonreactive); Hepatitis C Virus Antibody Non-Reactive (Nonreactive)
[2023-07-11 11:36] LABS: Quantiferon Mitogen 6.84 IU/mL; Quantiferon Nil 0.06 IU/mL; Quantiferon Plus TB1 0.02 IU/mL; Quantiferon Plus TB2 0.01 IU/mL; Quantiferon TB Gold NEGATIVE (NEGATIVE)
== END 2023-07-09 15:09 | disposition home or self-care (01) ==
PROVIDERS: PCP Nurse Practitioner Family; Visit Provider Internal Medicine Rheumatology
DX: Z79.899 Other long term (current) drug therapy (principal); M05.9 Rheumatoid arthritis with rheumatoid factor, unspecified
CPT/HCPCS: 36415; 80076; 82565; 85025; 85651; 86140; 86480; 86704; 86803; 87340

== ENCOUNTER 2023-07-15 12:50 | Outpatient (CLI) | payer MEDICARE, MEDICAID, SELFPAY ==
[2023-07-15 15:15] LABS: Chol HDL Ratio 3.52 mg/dL (1.0-5.00); Cholesterol 88 mg/dL (0-200); HDL Cholesterol 25 mg/dL (60-100); LDL Cholesterol Calculated 32 mg/dL (50-129); LDL HDL Ratio 1.28 RATIO (0.00-3.22); Triglycerides 157 mg/dL (0-150)
== END 2023-07-15 12:51 | disposition home or self-care (01) ==
LOC: LAB 12:55
PROVIDERS: PCP Nurse Practitioner Family; Visit Provider Nurse Practitioner Family
DX: I25.10 Atherosclerotic heart disease of native coronary artery without angina pectoris (principal)
CPT/HCPCS: 36415; 80061

== ENCOUNTER → 2023-09-24 09:09 | Outpatient (BNVA) | payer MEDICARE, MEDICAID, SELFPAY | PROVIDERS: PCP Nurse Practitioner Family; Visit Provider Internal Medicine Critical Care Medicine | DX: L28.2 Other prurigo (principal); J44.9 Chronic obstructive pulmonary disease, unspecified; J44.89 Other specified chronic obstructive pulmonary disease; G47.33 Obstructive sleep apnea (adult) (pediatric); K21.9 Gastro-esophageal reflux disease without esophagitis; E66.9 Obesity, unspecified; Z68.38 Body mass index [BMI] 38.0-38.9, adult; Z71.3 Dietary counseling and surveillance | CPT/HCPCS: 99214 ==

== ENCOUNTER 2023-09-30 08:36 | Outpatient (CLI) | payer MEDICARE, MEDICAID, SELFPAY ==
[2023-09-30 08:54] LABS: Basophils % 0.4 %; Eosinophils # 0.2 10^3/uL (0.0-0.8); Hematocrit 46.3 % (37-53); Lymphocytes # 2.8 10^3/uL (0.8-4.8); Lymphocytes % 34.5 %; Mean Corpuscular Volume 81.8 fl (82-101); Mean Platelet Volume 9.3 fL (7.4-10.4); Monocytes # 0.5 10^3/uL (0.2-0.9); Monocytes % 5.7 %; Neutrophils % 56.2 %; Nucleated Red Blood Cells % 0 %; Platelet Count 206 10^3/cmm (157-399); Red Blood Count 5.66 10^6/uL (3.85-5.65); Red Cell Distribution Width 14.4 % (12.1-15.1); White Blood Count 8.02 10^3/uL (3.29-11.43)
[2023-09-30 09:15] LABS: Albumin Level 4.2 g/dL (3.5-5.2); Anion Gap 14.4 (5-19); Blood Urea Nitrogen 24 mg/dL (6-20); Calcium 8.9 mg/dL (8.5-10.5); Calcium 9.1 mg/dL (8.5-10.5); Carbon Dioxide 28 mmol/L (22-29); Chloride 100 mmol/L (98-107); Glomerular Filtration Rate 34.7 mL/min (90-130); Glucose 156 mg/dL (65-115); Phosphorus 2.8 mg/dL (2.5-4.5); Potassium 3.4 mmol/L (3.5-5.1); Sodium 139 mmol/L (136-145)
[2023-09-30 09:18] LABS: Urine Creatinine 80 mg/dL (39-259); Urine Protein Random 18 mg/dL
[2023-09-30 09:20] LABS: UPRO/UCREAT Ratio 0.23 mg/mg CR
[2023-09-30 09:21] LABS: Parathyroid Hormone 45.4 pg/mL (15-65)
[2023-09-30 09:31] LABS: 25 Hydroxy Vitamin D 33 ng/mL (30-100)
== END 2023-09-30 08:37 | disposition home or self-care (01) ==
LOC: LAB 08:39
PROVIDERS: PCP Nurse Practitioner Family; Visit Provider Registered Nurse
DX: N18.32 Chronic kidney disease, stage 3b (principal); E55.9 Vitamin D deficiency, unspecified
CPT/HCPCS: 36415; 80069; 82306; 82310; 82570; 83970; 84156; 85025

== ENCOUNTER → 2023-10-23 07:45 | Outpatient (BNVA) | payer MEDICARE, MEDICAID, SELFPAY | PROVIDERS: PCP Nurse Practitioner Family; Visit Provider Internal Medicine Rheumatology | DX: M06.9 Rheumatoid arthritis, unspecified (principal); Z79.899 Other long term (current) drug therapy; N18.9 Chronic kidney disease, unspecified | CPT/HCPCS: 99214 ==

== ENCOUNTER 2023-11-06 06:00 | Outpatient (CLI) | payer MEDICARE, MEDICAID, SELFPAY | END 2023-11-06 06:01 | disposition home or self-care (01) | PROVIDERS: PCP Nurse Practitioner Family; Visit Provider Internal Medicine Cardiovascular Disease | DX: I25.10 Atherosclerotic heart disease of native coronary artery without angina pectoris (principal); I71.40 Abdominal aortic aneurysm, without rupture, unspecified; I13.0 Hypertensive heart and chronic kidney disease with heart failure and stage 1 through stage 4 chronic kidney disease, or unspecified chronic kidney disease; N18.30 Chronic kidney disease, stage 3 unspecified; I50.9 Heart failure, unspecified; Z98.890 Other specified postprocedural states; E78.5 Hyperlipidemia, unspecified | CPT/HCPCS: 99214 ==

== ENCOUNTER → 2023-11-06 10:52 | Outpatient (BNVA) | payer MEDICARE, MEDICAID, SELFPAY | PROVIDERS: PCP Nurse Practitioner Family; Visit Provider Internal Medicine Cardiovascular Disease | DX: I25.118 Atherosclerotic heart disease of native coronary artery with other forms of angina pectoris (principal); I51.7 Cardiomegaly; I21.9 Acute myocardial infarction, unspecified; I49.8 Other specified cardiac arrhythmias; R07.9 Chest pain, unspecified | CPT/HCPCS: 93005 ==

== ENCOUNTER 2023-12-01 07:41 | Outpatient (CLI) | payer MEDICARE, MEDICAID, SELFPAY ==
[2023-12-01 07:58] VITALS: BMI 35.2
--- NOTE | 2023-12-01 09:00 | NMCV_ITS ---
NM melissa perf SPECT r/s* [id number] Tyson Nixon Age: 58 Gender: M : 1965 Exam Date: 12/01/2023 08:46 Ordering Phys: Josafat Duke MD ([email or web address]) Technologist: DIPAK Cox Exam Location: [facility] Indications: cp STRESS TEST [facility] IMAGE PROTOCOL Rest/Stress 1 Lexiscan Day Radiopharmaceutical Dose (mCi) Administration Site Administered by Rest: Tc-99m 10.9 IV Lacey Clarke [employer]UST[employer]FER [employer] Sestamibi Stress:Tc-99m 32.1 IV DIPAK Cox Sestamibi Rest: 01-Dec-2023 60 Discovery 630 Stress: 01-Dec-2023 30 Discovery 630 0.4mg Lexiscan. Images obtained in supine and prone position. SPECT RESULTS Technical Quality: Good Raw Data Analysis: Normal Image Corrections: No attenuation or motion correction applied Summed Stress Score: 16 Summed Rest Score: 21 Summed Difference Score: 0 PERFUSION FINDINGS Moderate area of moderate to severely decreased tracer uptake involving the inferior, inferolateral, apical lateral and LV apex. No significant reversibility was noted in this region. FUNCTIONAL RESULTS (calculated via Gated SPECT) Stress Image LV EF (%): 44 Stress EDV (mL):170 TID: 0.98 Stress ESV (mL):96 FUNCTIONAL FINDINGS: Segmental wall motion analysis revealed a diffuse hypokinesis of the left ventricle IMPRESSIONS 1. Myocardial perfusion imaging revealing moderate area of moderate to severely decreased persistent tracer uptake involving the inferior, inferolateral and apical regions suggesting myocardial scarring in the distribution of the right coronary artery/circumflex artery. 2. LV ejection fraction estimated to be 44% 3. LV wall motion analysis revealed diffuse hypokinesia of the left ventricle 4. Mildly dilated LV cavity with an end-systolic volume of 96 mL No significant ischemia, based on the above findings No similar previous studies are available for comparison Dr Josafat Duke MD FAC (Electronically Signed) Final Date: 02 December 2023 13:29 S
--- NOTE | 2023-12-01 09:00 | ECG_ITS ---
[employer] Test Date: 2023-12-01 Pat Name: Tyson Nixon Department: Room: Gender: Male Education Coordinator: : 1965 Requested By: Josafat Duke Order Number: [id number] Dillon MD: Josafat Duke M.D. Interpretive Statements PROCEDURE: At the baseline, the EKG revealed sinus rhythm with poor R wave progression. Incomplete right bundle branch block pattern. Some nonspecific T wave changes. Possible old inferior wall FL.. The baseline heart was 60 bpm with a blood pressue of 134/87 mm of Hg Lexiscan was infused over a period of 20 seconds. A total of 0.4 milligrams of Lexiscan was infused. The stress phase was continued for a total of 5 minutes. Heart rate at the end of the stress phase was 87 bpm with a blood pressure 165/92 mm of Hg. The EKG at the peak infusion revealed no significant changes. Sestamibi was injected 20 seconds after the Lexiscan infusion. Heart rate at the end of the recovery phase was 74 bpm with a blood pressure of 135/82 mm of Hg. CONCLUSION: 1. No significant EKG changes with the LexiScan infusion 2. No LexiScan induced chest pain or cardiac arrhythmia 3. Normal blood pressure and heart rate response 4. Sestamibi/sestamibi perfusion scan pending; see separate report.. Lung unchanged pre/post procedure; Intraprocedure shortess of breath and N/V; Symptoms resoled by discharge Electronically Signed On 12-07-2023 19:06:48 CDT by Josafat Duke M.D. [email or web address]
[2023-12-01] MEDS: regadenoson 0.4 Mg/5 ml Syringe IVP (09:45)
[2023-12-01] MEDS: aminophylline 25 mg/mL SDV 10 mL IVP (09:54)
[2023-12-01 10:03] VITALS: BP 138/85; PULSE 82
== END 2023-12-01 07:42 | disposition home or self-care (01) ==
PROVIDERS: PCP Nurse Practitioner Family; Visit Provider Internal Medicine Cardiovascular Disease
DX: I25.118 Atherosclerotic heart disease of native coronary artery with other forms of angina pectoris (principal); Z98.61 Coronary angioplasty status; R94.39 Abnormal result of other cardiovascular function study; R06.02 Shortness of breath
CPT/HCPCS: 36415; 78452; 93017; 96374; 96375; A9500; J0280; J2785

== ENCOUNTER → 2024-04-22 09:22 | Outpatient (BNVA) | payer MEDICARE, MEDICAID, SELFPAY | PROVIDERS: PCP Nurse Practitioner Family; Visit Provider Internal Medicine Rheumatology | DX: M06.9 Rheumatoid arthritis, unspecified (principal); Z79.899 Other long term (current) drug therapy; N18.9 Chronic kidney disease, unspecified | CPT/HCPCS: 36415; 80076; 82565; 85025; 85651; 86140; 99214 ==

== ENCOUNTER → 2024-05-05 10:48 | Outpatient (BNVA) | payer MEDICARE, MEDICAID, SELFPAY | PROVIDERS: PCP Nurse Practitioner Family; Visit Provider Nurse Practitioner Family | DX: I71.43 Infrarenal abdominal aortic aneurysm, without rupture (principal); I25.118 Atherosclerotic heart disease of native coronary artery with other forms of angina pectoris; I50.31 Acute diastolic (congestive) heart failure; E78.5 Hyperlipidemia, unspecified; I10 Essential (primary) hypertension; Z98.890 Other specified postprocedural states; Z78.9 Other specified health status; I71.40 Abdominal aortic aneurysm, without rupture, unspecified | CPT/HCPCS: 99214 ==

== ENCOUNTER → 2024-05-25 11:23 | Outpatient (BNVA) | payer MEDICARE, MEDICAID, SELFPAY | PROVIDERS: PCP Nurse Practitioner Family; Visit Provider Clinical Nurse Specialist Adult Health | DX: I25.118 Atherosclerotic heart disease of native coronary artery with other forms of angina pectoris (principal); E78.5 Hyperlipidemia, unspecified; N18.30 Chronic kidney disease, stage 3 unspecified | CPT/HCPCS: 80048; 80061; 82306; 83036; 84443 ==

== ENCOUNTER 2024-06-25 10:49 | Outpatient (CLI) | payer OTHER, MEDICAID, SELFPAY ==
--- NOTE | 2024-06-25 11:15 | USCV_ITS ---
Tyson Nixon Age: 58 Gender: M : 1965 Exam Date: 06/25/2024 11:20 Ordering Phys: Hanna Mcqueen NP Technologist: JOVITA [place] [facility] [place]: CHF BP: / HR: Rhythm: Sinus Technical Quality: Adequate MEASUREMENTS (Male / Female) Normal Values FINDINGS Left Ventricle Diffuse hypokinesis of the left ventricular ejection fraction of 45-50%mild left ventricular hypertrophy. Grade I/IV diastolic dysfunction (abnormal relaxation filling pattern), normal to mildly elevated filling pressures. Right Ventricle The right ventricle is normal in size and function. Right Atrium The right atrium is normal in size. Left Atrium Mildly increased left atrial size. Mitral Valve Moderate mitral annular calcification. Mild-moderate mitral valve regurgitation. Aortic Valve No gross abnormalities noted Tricuspid Valve No gross abnormalities noted Pulmonic Valve Mild pulmonary valve regurgitation. Pericardium Normal pericardium without effusion. Aorta Normal ascending aorta dimension. IVC Dilated IVC with decreased respiratory variation. CONCLUSIONS Diffuse hypokinesis of the left ventricular ejection fraction of 45-50%mild left ventricular hypertrophy. Grade I/IV diastolic dysfunction (abnormal relaxation filling pattern), normal to mildly elevated filling pressures. Mildly increased left atrial size. Moderate mitral annular calcification. Mild-moderate mitral valve regurgitation. Mild pulmonary valve regurgitation. There is no pericardial effusion. There are no intracardiac masses. Dr Josafat Duke MD [facility] (Electronically Signed) Final Date: 26 Jun 2024 21:24 S
== END 2024-06-25 10:50 | disposition home or self-care (01) ==
PROVIDERS: PCP Clinical Nurse Specialist Adult Health; Visit Provider Nurse Practitioner Family
DX: I50.31 Acute diastolic (congestive) heart failure (principal); Z79.899 Other long term (current) drug therapy; R93.1 Abnormal findings on diagnostic imaging of heart and coronary circulation; I51.7 Cardiomegaly; I34.81 Nonrheumatic mitral (valve) annulus calcification; I34.0 Nonrheumatic mitral (valve) insufficiency; I37.1 Nonrheumatic pulmonary valve insufficiency; I86.8 Varicose veins of other specified sites
CPT/HCPCS: 93306

== ENCOUNTER → 2024-08-12 10:19 | Outpatient (BNVA) | payer MEDICARE, MEDICAID, SELFPAY | PROVIDERS: PCP Nurse Practitioner Family; Visit Provider Internal Medicine Rheumatology | DX: Z79.899 Other long term (current) drug therapy (principal); M06.9 Rheumatoid arthritis, unspecified; N18.32 Chronic kidney disease, stage 3b | CPT/HCPCS: 36415; 85025; 85651; 99214 ==

== ENCOUNTER 2024-10-21 11:55 | Outpatient (CLI) | payer MEDICARE, MEDICAID, SELFPAY ==
[2024-10-21 12:42] LABS: Hematocrit 41.0 % (37-53); Hemoglobin 14.00 g/dL (11.27-16.99); Mean Corpuscular HGB Conc 34.1 g/dL (30-55); Mean Corpuscular Hemoglobin 28.3 pg (27-33); Mean Corpuscular Volume 82.8 fl (82-101); Nucleated Red Blood Cells % 0 %; Platelet Count 193 10^3/cmm (157-399); Red Blood Count 4.95 10^6/uL (3.85-5.65); White Blood Count 8.59 10^3/uL (3.29-11.43)
[2024-10-21 13:02] LABS: Creatinine Urine, Random 13 mg/dL (39-259)
[2024-10-21 13:03] LABS: Microalbum Creatinine Ratio Ur 77 mg/dL (0-20)
[2024-10-21 13:04] LABS: Alanine Aminotransferase 19 U/L (0-41); Albumin Level 4.0 g/dL (3.5-5.2); Alkaline Phosphatase 74 U/L (40-130); Aspartate Amino Transferase 32 U/L (0-40); Globulin 3.2 g/dL (1.3-4.6); Total Protein 7.2 g/dL (6.6-8.7)
[2024-10-21 13:09] LABS: Calcium 8.6 mg/dL (8.5-10.5)
[2024-10-21 15:15] LABS: Albumin Level 4.2 g/dL (3.5-5.2); Anion Gap 16.1 (5-19); Blood Urea Nitrogen 33 mg/dL (6-20); Calcium 8.7 mg/dL (8.5-10.5); Carbon Dioxide 27 mmol/L (22-29); Chloride 102 mmol/L (98-107); Glucose 99 mg/dL (65-115); Potassium 4.1 mmol/L (3.5-5.1); Sodium 141 mmol/L (136-145)
== END 2024-10-21 11:56 | disposition home or self-care (01) ==
PROVIDERS: Internal Medicine Rheumatology; PCP Clinical Nurse Specialist Adult Health; Visit Provider Registered Nurse
DX: Z79.899 Other long term (current) drug therapy (principal); M06.9 Rheumatoid arthritis, unspecified; E55.9 Vitamin D deficiency, unspecified
CPT/HCPCS: 36415; 80069; 80076; 82044; 82306; 82310; 82565; 83970; 85025; 86140; 86480

== ENCOUNTER → 2024-12-21 15:25 | Outpatient (BNVA) | payer MEDICARE, MEDICAID, SELFPAY | PROVIDERS: PCP Clinical Nurse Specialist Adult Health; Visit Provider Internal Medicine Cardiovascular Disease | DX: R06.02 Shortness of breath (principal); I25.118 Atherosclerotic heart disease of native coronary artery with other forms of angina pectoris; R23.3 Spontaneous ecchymoses; I13.0 Hypertensive heart and chronic kidney disease with heart failure and stage 1 through stage 4 chronic kidney disease, or unspecified chronic kidney disease; I50.31 Acute diastolic (congestive) heart failure; N18.30 Chronic kidney disease, stage 3 unspecified; E78.5 Hyperlipidemia, unspecified; Z98.890 Other specified postprocedural states; I71.40 Abdominal aortic aneurysm, without rupture, unspecified; Z87.891 Personal history of nicotine dependence | CPT/HCPCS: 80048; 83880; 99214 ==

== ENCOUNTER → 2025-02-01 11:00 | Outpatient (BNVA) | payer MEDICARE, MEDICAID, SELFPAY | PROVIDERS: PCP Clinical Nurse Specialist Adult Health; Visit Provider Internal Medicine Rheumatology | DX: M05.9 Rheumatoid arthritis with rheumatoid factor, unspecified (principal); Z79.899 Other long term (current) drug therapy; N18.9 Chronic kidney disease, unspecified; J44.9 Chronic obstructive pulmonary disease, unspecified; F17.210 Nicotine dependence, cigarettes, uncomplicated; M54.16 Radiculopathy, lumbar region | CPT/HCPCS: 36415; 80076; 82565; 85025; 85651; 86140; 99214 ==